=== PATIENT | female | born 1945 | race Caucasian/White ===

== ENCOUNTER 2018-04-16 15:48 | Emergency (ER) | payer OTHER ==
--- OUTSIDE RECORDS SUMMARY | 2018-04-16 15:50 | XMS REPORT | Clinical Summary ---
:1945 Author Organization [facility] Address [address] [place] [address] Care Team Providers Name Role Phone Milad Avila MD Primary Care Provider Allergies Not on File Current Medications No known medications Active Problems No known active problems Encounters Date Type Specialty Care Team Description 11/09/2017 Office Visit Orthopedic Surgery Tony Dexter Closed displaced supracondylar fracture of distal end of left femur without intracondylar extension, initial encounter (Primary Dx); MD Esdras Pain of left hip joint; Acute pain of left knee; Primary osteoarthritis of left knee; History of total left hip replacement 11/09/2017 Ancillary Orders Orthopedic Surgery Tony Dexter Acute pain of left MD Esdras knee 11/08/2017 Orders Only Orthopedic Surgery Maribel Rael Closed fracture of left femur, unspecified fracture morphology, unspecified portion of femur, initial encounter (Primary Dx) 11/04/2017 Orders Only Orthopedic Surgery Rory Pedroza PA-C after 04/15/2017 Social History Tobacco Use Types Packs/Day Years Used Date Never Assessed Sex Assigned at Date Recorded Not on file Last Filed Vital Signs Not on file Plan of Treatment Health Maintenance Due Date Last Done Comments BREAST CANCER SCREENING 1997 COLON CANCER SCREENING 1997 SHINGRIX VACCINE (#1) 1997 ZOSTER VACCINE 2007 PNEUMOCOCCAL POLYSACCHARIDE VACCINE AGE 65 AND OVER 2012 PNEUMOCOCCAL-13 2012 INFLUENZA VACCINE 03/01/2018 Procedures Procedure Name Priority Date/Time Associated Diagnosis Comments XR FEMUR 2 VW LEFT Routine 11/09/2017 2:31 PM Closed fracture of Results for this CDT left femur, procedure are in unspecified fracture the results morphology, section. unspecified portion of femur, initial encounter XR KNEE 3 VW LEFT Routine 11/09/2017 2:30 PM Acute pain of left Results for this CDT knee procedure are in the results section. after 04/15/2017 Results XR Femur 2 Vw Left (11/09/2017 2:31 PM) Narrative Performed At [facility] comminuted post ORIF fracture left femur.Hip prosthesis in place [facility] Performing Organization Address [facility] Phone Number [facility] [address] [place] [address] XR Knee 3 Vw Left (11/09/2017 2:30 PM) Narrative Performed At [facility] post ORIF supracondylar fracture left femur, osteopenia, Loss of [facility] joint space left knee Performing Organization Address [facility] Phone Number [facility] [address] [place] [address] after 04/15/2017 Insurance Payer Benefit Plan / Group Subscriber ID Type Phone Address MEDICARE MEDICARE PART A AND B xxxxxxxxxx Medicare [place], [place] [employer] xxxxxxxx Commercial Home: [id number] [phone] [place], [place] [id number]
[2018-04-16] MEDS ORDERED: HYDROCODONE/APAP 10/325 TAB ONE (16:57)
[2018-04-16] MEDS ORDERED: FENTANYL CITR 100 MCG/2 ML ONE (16:57)
[2018-04-16 18:20] LABS: Absolute Lymphocytes (CBC) 2.1 K/uL (0.7-4.9); Absolute Monocytes 0.6 K/uL (0.1-1.3); Absolute Neutrophil 5.2 K/uL (1.8-8.0); Basophils % 0.5 % (0-1.3); Eosinophils % 0.8 % (0-4.4); Hematocrit 35.8 % (36.0-45.0); Lymphocytes % 26.2 % (15.3-44.8); MCH 34.4 pg (27.0-35.0); MCV 100.7 fL (80-100); MPV 8.1 fL (7.6-11.3); Monocytes % 7.4 % (3.3-12.3); RBC Red Blood Cell Count 3.56 M/uL (3.86-4.86)
[2018-04-16 18:34] LABS: Potassium 4.6 mmol/L (3.5-5.1)
--- NOTE | 2018-04-16 19:00 | RAD REPORT ---
EXAM DESCRIPTION: RAD - Shoulder Left 2 View - 04/16/2018 6:02 pm CLINICAL HISTORY: Fall, shoulder pain COMPARISON: None. TECHNIQUE: Internal and external rotation views of the left shoulder were obtained. FINDINGS: Clavicle is fractured at the AC joint. There is no distraction or angulation deformity. No fracture or dislocation of the proximal humerus. Degenerative changes are present in the superolater al humeral head. No abnormal soft tissue calcifications. Acromial humeral joint space is normal. IMPRESSION: Clavicle is fractured near the AC joint. No distraction or angulation deformity.
--- NOTE | 2018-04-16 19:02 | RAD REPORT ---
EXAM DESCRIPTION: RAD - Knee Left 3 View - 04/16/2018 6:02 pm CLINICAL HISTORY: Fall, knee pain COMPARISON: January 2015 left knee, CT left femur May 2017 FINDINGS: No acute fracture of the proximal tibia or fibula. Bones are osteopenic. There is degenera tive change within the joint with medial compartment narrowing. Surgical hardware is in place from pr ior distal femur fracture repair.No hardware fracture. Fracture site shows a mostly complete bony uni on pattern. Posterior margin of the cortex shows a mixed bone and fibrous bridging pattern. An acute distal femur process is not suspected. No air or foreign body in the soft tissues. IMPRESSION: Osteopenic, degenerative and postsurgical changes to the distal left femur and knee. An acute bone, joint or or hardware process not seen.
--- NOTE | 2018-04-16 19:03 | RAD REPORT ---
EXAM DESCRIPTION: RAD - Elbow Left 2 View - 04/16/2018 6:02 pm CLINICAL HISTORY: Fall, elbow pain COMPARISON: None. FINDINGS: No fracture is identified and no elevated posterior fat pad. There is no dislocation or pe riosteal reaction noted. No foreign body or other soft tissue abnormality. Bones are osteopenic. IMPRESSION: Negative left elbow examination for acute finding.
--- NOTE | 2018-04-16 19:46 | RAD REPORT ---
EXAM DESCRIPTION: CT - Chest Abdomen Pelvis W Cont - 04/16/2018 7:04 pm CLINICAL HISTORY: Fall, chest and abdomen pain COMPARISON: None. TECHNIQUE: Following dynamic enhancement using 100 milliliters nonionic IV contrast, axial imaging o f the chest, abdomen and pelvis was performed. Biphasic technique was utilized through the abdomen. Oral contrast was administered. All CT scans are performed using dose optimization technique as appropriate and may include automated exposure control or mA/KV adjustment according to patient size. FINDINGS: No pulmonary contusion or acute lung parenchymal process. There are several calcified gran ulomas seen. There are also several noncalcified nodules under 5 mm in size. These are probably granu shaggy as well. There is no specific follow-up recommendation for a nodule of this size. No pleural ef fusion, pleural thickening or pneumothorax. No significant aortic or pulmonary arterial tree finding. Mediastinal and hilar regions show no mass or abnormal lymphadenopathy. No chest wall mass or axilla ry lymphadenopathy. No pericardial effusion. No rib fractures are identified. No fracture or dislocation of the left humerus. Clavicle is fracture d at the AC joint. There is a comminuted fracture involving the superior aspect of the glenoid. The f racture pattern includes fracture at the base of the coracoid process which is now a free fragment. N o significant displacement. The articular surface of the glenoid is not appear to be involved. Acromi on is incompletely imaged. No displacement deformity. Contusion and edema changes are seen in the dave rounding soft tissues. Right shoulder is only partially imaged. The liver, spleen and pancreas show no suspicious findings. Gallbladder is absent. No biliary tree di latation. Liver is borderline fatty infiltrated. Symmetric renal function is seen with no mass or hyd ronephrosis. No adrenal abnormalities. No dilated bowel loops or focal bowel wall thickening. No acute GI findings seen. Left hip prosthesis in place. Bony degenerative changes are present. No additional acute fracture shelbi nges identifiable. Posterior right twelfth rib fracture appears to be remote. No significant vascular findings. IMPRESSION: Comminuted fracture of the scapula at the glenoid. The articular surface is not involved . Coracoid process is a free fracture fragment. Left acromion is not fully imaged. Displaced or angulated fracture is not suspected. The lateral clav icle is fractured at the AC joint. No pulmonary contusion, pneumothorax or acute lung parenchymal process. There are calcified and nonca lcified granulomas present. No acute rib fracture. Old posterior right twelfth rib fracture is present. No acute finding in the abdomen or pelvis.
--- NOTE | 2018-04-16 20:45 | ER ---
Nurse's Notes [facility] Name: Yi Marroquin Age: 72 yrs Sex: Female : 1945 Arrival Date: 04/16/2018 Time: 16:02 Bed 30 Private MD: Diagnosis: Fracture of clavicle Presentation: 04/16 16:02 Presenting complaint: EMS states: she was using her walker last night and it mg2 accidentally turn and she fell on her left side, she sustained trauma on her left shoulder and arm. she received 100 mcg of fentanyl and 4 mg of zofran. Transition of care: patient was not received from another setting of care. Onset of symptoms was April 15, 2018. Risk Assessment: Do you want to hurt yourself or someone else? Patient reports no desire to harm self or others. Initial Sepsis Screen: Does the patient meet any 2 criteria? No. Patient's initial sepsis screen is negative. Does the patient have a suspected source of infection? No. Patient's initial sepsis screen is negative. Care prior to arrival: Medication(s) given: zofran 4 mg, fentanyl 100 mcg. 16:02 Method Of Arrival: EMS mg2 16:02 Acuity: DIANE 3 mg2 Historical: - Allergies: 16:08 Sulfa (Sulfonamide Antibiotics); mg2 16:08 Ciprofloxacin; mg2 16:08 Morphine; mg2 16:08 Nitrofurantoin; mg2 16:08 Phenergan; mg2 - Home Meds: 16:08 escitalopram oxalate Oral [Active]; Furosemide Oral [Active]; hydrocodone-acetaminophen mg2 10-500 mg Oral tab [Active]; Lorazepam Oral [Active]; Metoprolol Tartrate Oral [Active]; Zolpidem Tartrate Oral [Active]; insulin lispro subcutaneous [Active]; Methocarbamol Oral [Active]; Ramipril Oral [Active]; Simvastatin Oral [Active]; 19:10 gabapentin 300 mg oral cap 1 cap 3 times per day [Active]; omeprazole 20 mg Oral cpDR 1 mg2 cap once daily [Active]; potassium chloride 10 mEq Oral cpER 1 cap once daily [Active]; senna 8.6 mg oral cap 2 caps once daily for Constipation [Active]; tramadol 50 mg Oral tab 1 tab every 6 hours for Pain, prn [Active]; Vitamin D Oral 50,000 unit every week x 8 weeks [Active]; Ambien 5 mg Oral tab 1 tab once daily for Sleep-Onset Insomnia [Active]; atorvastatin 10 mg oral tab 1 tab once daily [Active]; cranberry oral oral [Active]; diphenhydramine HCl 25 mg Oral cap 1 cap prn for Allergic Reactions [Active]; - PMHx: 16:08 Depression; Diabetes - NIDDM; Hyperlipidemia; Hypertension; mg2 - PSHx: 16:08 hip surgery; knee plate; mg2 - Immunization history:: Flu vaccine status is unknown. - Social history:: Smoking status: Patient/guardian denies using tobacco, but has a distant history of tobacco abuse, Patient/guardian denies using alcohol, street drugs, IV drugs. - Ebola Screening: : No symptoms or risks identified at this time. Screenin:23 Abuse screen: Denies threats or abuse. Denies injuries from another. Nutritional mg2 screening: No deficits noted. Tuberculosis screening: No symptoms or risk factors identified. Fall Risk Fall in past 12 months (25 points). IV access (20 points). Gait- Weak (10 pts.). Assessment: 17:15 General: Appears in no apparent distress. uncomfortable, Behavior is calm, cooperative. mg2 Pain: Complains of pain in left shoulder and forearm Pain does not radiate. Pain currently is 6 out of 10 on a pain scale. Quality of pain is described as aching, Pain began suddenly, 1 day ago. Neuro: Level of Consciousness is awake, alert, obeys commands, Oriented to person, place, time, situation. Cardiovascular: Capillary refill < 3 seconds Patient's skin is warm and dry. Respiratory: Airway is patent Respiratory effort is even, unlabored, Respiratory pattern is regular, symmetrical. GI: No signs and/or symptoms were reported involving the gastrointestinal system. : No signs and/or symptoms were reported regarding the genitourinary system. 18:13 Reassessment: Patient appears in no apparent distress at this time. Patient and/or mg2 family updated on plan of care and expected duration. Pain level reassessed. Patient is alert, oriented x 3, equal unlabored respirations, skin warm/dry/pink. 19:02 Reassessment: Patient appears in no apparent distress at this time. Patient and/or mg2 family updated on plan of care and expected duration. Pain level reassessed. Patient is alert, oriented x 3, equal unlabored respirations, skin warm/dry/pink. 19:12 Reassessment: patient in ct scan now. mg2 Vital Signs: 16:09 BP 121 / 53; Pulse 65; Resp 18; Temp 98.9; Pulse Ox 98% on R/A; Weight 95.71 kg; Height mg2 5 ft. 2 in. (157.48 cm); Pain 8/10; 17:00 BP 135 / 56; Pulse 60; Resp 18; Pulse Ox 100% on R/A; mg2 18:13 BP 144 / 68; Pulse 65; Resp 18; Pulse Ox 98% ; Pain 5/10; mg2 16:09 Body Mass Index 38.59 (95.71 kg, 157.48 cm) mg2 ED Course: 16:02 Patient arrived in ED. mg2 16:05 Triage completed. mg2 16:09 Sky Dao PA is PHCP. jm 16:09 Beata Albert MD is Attending Physician. jmm 16:09 Arm band placed on. mg2 16:09 Maintain EMS IV. Dressing intact. Good blood return noted. Site clean \T\ dry. Gauge \T\ mg 2 site: 20 in RFA. 16:49 Moises Calderon, RN is Primary Nurse. mg2 18:02 Shoulder Left (2 View) XRAY In Process Unspecified. EDMS 18:02 Knee Left 3 View XRAY In Process Unspecified. EDMS 18:02 Elbow Left 2 View In Process Unspecified. EDMS 18:13 Patient has correct armband on for positive identification. Pulse ox on. NIBP on. mg2 19:04 CT Chest, Abdomen, Pelvis - W/Contrast In Process Unspecified. EDMS 19:15 CT completed. Patient tolerated procedure well. Patient moved back from CT. sj 20:44 Carlos Lopez MD is Referral Physician. jmm 21:19 No provider procedures requiring assistance completed. IV discontinued, intact, mg2 bleeding controlled, No redness/swelling at site. Pressure dressing applied. 21:20 Shoulder immobilizer applied on left shoulder. mg2 Administered Medications: 17:03 Drug: [place] 10 mg-325 mg 1 tabs Route: PO; mg2 19:02 Follow up: Response: No adverse reaction; Marked relief of symptoms mg2 17:04 Drug: fentaNYL (PF) 25 mcg Route: IVP; Site: right forearm; mg2 19:02 Follow up: Response: No adverse reaction; Marked relief of symptoms mg2 19:40 Drug: fentaNYL (PF) 25 mcg Route: IVP; Site: right forearm; mg2 21:19 Follow up: Response: No adverse reaction; Marked relief of symptoms mg2 Outcome: 20:45 Discharge ordered by . clifton 21:20 Discharged to home via wheelchair, with family. mg2 21:20 Condition: stable 21:20 Discharge instructions given to patient, family, Instructed on discharge instructions, follow up and referral plans. Demonstrated understanding of instructions, follow-up care. 21:20 Patient left the ED. mg2 Signatures: Dispatcher [employer] EDMS Sky Dao PA PA jmm Jones, Susan sj Gardose, Michele, RN RN mg2 Corrections: (The following items were deleted from the chart) 17:24 17:23 Fall Risk None identified. mg2 mg2 18:42 18:13 Pulse 65bpm; Resp 18bpm; Pulse Ox 98%; Pain 5/10; mg2 mg2
--- NOTE | 2018-04-16 20:45 | EDPHYS ---
Physician Documentation [facility] Name: Yi Marroquin Age: 72 yrs Sex: Female : 1945 Arrival Date: 04/16/2018 Time: 16:02 Bed 30 Private MD: ED Physician Beata Albert HPI: 04/16 16:42 This 72 yrs old Female presents to ER via EMS with complaints of Left side jmm pain. 16:42 Details of fall: The patient fell from an upright position, while standing. Onset: The jmm symptoms/episode began/occurred acutely, just prior to arrival. Associated injuries: The patient sustained. This is a 72 year old female with a history of DM, HLP, HTN that presents to the ED with left arm pain, left hip pain, left knee pain following a fall which occurred when she was attempting to stand up from a rocker. Patient states the rocker swung into her on the way on standing. . Historical: - Allergies: 16:08 Sulfa (Sulfonamide Antibiotics); mg2 16:08 Ciprofloxacin; mg2 16:08 Morphine; mg2 16:08 Nitrofurantoin; mg2 16:08 Phenergan; mg2 - Home Meds: 16:08 escitalopram oxalate Oral [Active]; Furosemide Oral [Active]; hydrocodone-acetaminophen mg2 10-500 mg Oral tab [Active]; Lorazepam Oral [Active]; Metoprolol Tartrate Oral [Active]; Zolpidem Tartrate Oral [Active]; insulin lispro subcutaneous [Active]; Methocarbamol Oral [Active]; Ramipril Oral [Active]; Simvastatin Oral [Active]; 19:10 gabapentin 300 mg oral cap 1 cap 3 times per day [Active]; omeprazole 20 mg Oral cpDR 1 mg2 cap once daily [Active]; potassium chloride 10 mEq Oral cpER 1 cap once daily [Active]; senna 8.6 mg oral cap 2 caps once daily for Constipation [Active]; tramadol 50 mg Oral tab 1 tab every 6 hours for Pain, prn [Active]; Vitamin D Oral 50,000 unit every week x 8 weeks [Active]; Ambien 5 mg Oral tab 1 tab once daily for Sleep-Onset Insomnia [Active]; atorvastatin 10 mg oral tab 1 tab once daily [Active]; cranberry oral oral [Active]; diphenhydramine HCl 25 mg Oral cap 1 cap prn for Allergic Reactions [Active]; - PMHx: 16:08 Depression; Diabetes - NIDDM; Hyperlipidemia; Hypertension; mg2 - PSHx: 16:08 hip surgery; knee plate; mg2 - Immunization history:: Flu vaccine status is unknown. - Social history:: Smoking status: Patient/guardian denies using tobacco, but has a distant history of tobacco abuse, Patient/guardian denies using alcohol, street drugs, IV drugs. - Ebola Screening: : No symptoms or risks identified at this time. ROS: 16:42 Constitutional: Negative for fever, chills, and weight loss, Cardiovascular: Negative jmm for chest pain, palpitations, and edema, Respiratory: Negative for shortness of breath, cough, wheezing, and pleuritic chest pain, Abdomen/GI: Negative for abdominal pain, nausea, vomiting, diarrhea, and constipation. 16:42 MS/extremity: Positive for injury or acute deformity, pain. 16:42 All other systems are negative. Exam: 16:42 Head/Face: atraumatic. Chest/axilla: Normal chest wall appearance and motion. jmm Cardiovascular: Regular rate and rhythm. No edema appreciated Respiratory: Normal respirations, no respiratory distress appreciated 16:42 Constitutional: The patient appears in no acute distress, alert, awake. 16:42 Abdomen/GI: Inspection: abdomen appears normal, Bowel sounds: normal, Palpation: abdomen is soft and non-tender, in all quadrants, soft. 16:42 Musculoskeletal/extremity: left shoulder, left humerus tender to palpation, left knee is tender to palpation, painful rom appreciated, compartments are soft, NVI. 16:42 Skin: Appearance: Color: normal in color. 16:42 Neuro: Orientation: is normal, Mentation: is normal, Memory: is normal. 16:42 Psych: Behavior/mood is pleasant, cooperative. Vital Signs: 16:09 BP 121 / 53; Pulse 65; Resp 18; Temp 98.9; Pulse Ox 98% on R/A; Weight 95.71 kg; Height mg2 5 ft. 2 in. (157.48 cm); Pain 8/10; 17:00 BP 135 / 56; Pulse 60; Resp 18; Pulse Ox 100% on R/A; mg2 18:13 BP 144 / 68; Pulse 65; Resp 18; Pulse Ox 98% ; Pain 5/10; mg2 16:09 Body Mass Index 38.59 (95.71 kg, 157.48 cm) mg2 Procedures: 21:13 Splinting: Splint applied to left arm using shoulder immobilizer. applied by nurse. clifton Examined by me, post splint application: neurovascular intact, 2+ distal pulses palpable, brisk capillary refill noted, Patient tolerated well. MDM: 16:34 Patient medically screened. [facility] 20:44 Data reviewed: vital signs, nurses notes. Counseling: I had a detailed discussion with clifton the patient and/or guardian regarding: the historical points, exam findings, and any diagnostic results supporting the discharge/admit diagnosis, radiology results, the need for outpatient follow up, to return to the emergency department if symptoms worsen or persist or if there are any questions or concerns that arise at home. Response to treatment: the patient's symptoms have markedly improved after treatment. 21:14 Data interpreted: Pulse oximetry: on room air is 98 %. Interpretation: normal. [facility] 04/16 16:36 Order name: CBC with Diff [facility] 04/16 16:36 Order name: BMP [facility] 04/16 16:36 Order name: CT Chest, Abdomen, Pelvis - W/Contrast; Complete Time: 19:53 [facility] 04/16 16:36 Order name: Shoulder Left (2 View) XRAY; Complete Time: 19:09 [facility] 04/16 16:37 Order name: CBC with Automated Diff; Complete Time: 18:29 [facility] 04/16 16:37 Order name: Basic Metabolic Panel; Complete Time: 18:34 [facility] 04/16 16:36 Order name: Saline Lock; Complete Time: 17:15 [facility] 04/16 16:36 Order name: Knee Left 3 View XRAY; Complete Time: 19:09 [facility] 04/16 18:02 Order name: Elbow Left 2 View; Complete Time: 19:09 [facility] 04/16 20:23 Order name: Shoulder Immobilizer; Complete Time: 21:19 [facility] Administered Medications: 17:03 Drug: [place] 10 mg-325 mg 1 tabs Route: PO; mg2 19:02 Follow up: Response: No adverse reaction; Marked relief of symptoms mg2 17:04 Drug: fentaNYL (PF) 25 mcg Route: IVP; Site: right forearm; mg2 19:02 Follow up: Response: No adverse reaction; Marked relief of symptoms mg2 19:40 Drug: fentaNYL (PF) 25 mcg Route: IVP; Site: right forearm; mg2 21:19 Follow up: Response: No adverse reaction; Marked relief of symptoms mg2 Disposition: 04/16/18 20:45 Discharged to Home. Impression: Fracture of clavicle. - Condition is Stable. - Discharge Instructions: Clavicle Fracture. - Medication Reconciliation Form, Thank You Letter, Antibiotic Education, Prescription Opioid Use form. - Follow up: Carlos Lopez MD; When: 2 - 3 days; Reason: Recheck today's complaints, Continuance of care, Re-evaluation by your physician. Signatures: Dispatcher [employer] EDPR Sky Dao PA PA m Moises Calderon, RN RN mg2 Corrections: (The following items were deleted from the chart) 18:02 16:37 Elbow Left 3 View+RAD.RAD.[email or web address] ordered. [facility] 21:20 20:45 04/16/2018 20:45 Discharged to Home. Impression: Fracture of clavicle. Condition mg2 is Stable. Forms are Medication Reconciliation Form, Thank You Letter, Antibiotic Education, Prescription Opioid Use. Follow up: Carlos Lopez; When: 2 - 3 days; Reason: Recheck today's complaints, Continuance of care, Re-evaluation by your physician. clifton
[2018-04-16 21:49] VITALS: TEMP 98.9
[2018-04-16 21:51] VITALS: BP 144/68; O2SAT 98
== END 2018-04-16 21:20 | disposition home or self-care (01) ==
LOC: ER 15:48
PROC: 2W39X1Z Immobilization of Left Upper Extremity using Splint (ICD-10-PCS; principal; 2018-04-16)
DX: S42.002A Fracture of unspecified part of left clavicle, initial encounter for closed fracture (principal); W19.XXXA Unspecified fall, initial encounter; Y93.89 Activity, other specified; Y92.9 Unspecified place or not applicable; Z88.2 Allergy status to sulfonamides; Z88.3 Allergy status to other anti-infective agents; Z88.5 Allergy status to narcotic agent; Z88.8 Allergy status to other drugs, medicaments and biological substances; Z79.4 Long term (current) use of insulin; I10 Essential (primary) hypertension; E78.5 Hyperlipidemia, unspecified; E11.9 Type 2 diabetes mellitus without complications; F32.9 Major depressive disorder, single episode, unspecified
CPT/HCPCS: 29105; 36415; 71260; 73030; 73070; 73562; 74177; 80048; 85025; 96374; 99284; J3010; Q9967

== ENCOUNTER 2019-01-15 12:45 | Emergency (ER) | payer OTHER ==
--- OUTSIDE RECORDS SUMMARY | 2019-01-15 12:52 | XMS REPORT ---
:1945 [facility] [address] [place] [address] Care Team Providers Name Role Phone Unavailable Unavailable Unavailable Payers Payer Name Policy Type Policy Number Effective Date Expiration Date Problems This patient has no known problems. Allergies, Adverse Reactions, Alerts This patient has no known allergies or adverse reactions. Medications This patient has no known medications. Results Test Description Test Time Test Comments Text Results Atomic Results Result Comments PROTHROMBIN TIME 2018-12-20 16:04:00 Test Item Value Reference Range Comments PT PATIENT (test code=PTP) 10.3 SECONDS 9.3-12.9 INTERNATIONAL NORMAL RATIO (test code=INR) 0.90 INR Unit 0.8-1.2 THROMBOPLASTIN TIME [id number] 16:04:00 Test Item Value Reference Range Comments THROMBOPLASTIN TIME PARTIAL (test code=PTT) 25.8 SECONDS 26-35 COMPREHENSIVE METABOLIC [id number] 16:03:00 Test Item Value Reference Range Comments SODIUM (test code=NA) 140 mmol/L 134-147 POTASSIUM (test code=K) 5.0 mmol/L 3.4-5.0 CHLORIDE (test code=CL) 106 mmol/L 100-108 CARBON DIOXIDE (test code=CO2) 32 mmol/L 21-32 ANION GAP (test code=GAP) 2.0 GAP calc 4.0-15.0 GLUCOSE (test code=GLU) 92 MG/DL 70-110 BLOOD UREA NITROGEN (test code=BUN) 20 MG/DL 7-18 GLOMERULAR FILTRATION RATE (test >=60 max estimate estGFR >60 code=GFR) CREATININE (test code=CREAT) 0.6 MG/DL 0.6-1.0 TOTAL PROTEIN (test code=PROT) 6.9 G/DL 6.4-8.2 ALBUMIN (test code=ALB) 3.2 G/DL 3.4-5.0 GLOBULIN (test code=GLOB) 3.7 GM/dL ALBUMIN/GLOBULIN RATIO (test 0.9 RATIO 1.2-2.2 code=A/G) CALCIUM (test code=CA) 9.0 MG/DL 8.5-10.1 BILIRUBIN TOTAL (test code=BILT) 0.40 MG/DL 0.2-1.2 SGOT/AST (test code=AST) 52 Unit/L 15-37 SGPT/ALT (test code=ALT) 43 Unit/L 12-78 ALKALINE PHOSPHATASE TOTAL (test 155 Unit/L 45-117 code=ALKP) CBC W/AUTO [id number] 15:47:00 Test Item Value Reference Range Comments WHITE BLOOD CELL (test code=WBC) 6.2 K/mm3 3.5-11.0 RED BLOOD CELL (test code=RBC) 3.41 M/mm3 4.70-6.10 HEMOGLOBIN (test code=HGB) 12.4 G/DL 10.4-14.9 HEMATOCRIT (test code=HCT) 37.6 % 31.5-44.1 MEAN CELL VOLUME (test code=MCV) 110.3 Fl 84.5-98.6 MEAN CELL HGB (test code=MCH) 36.4 pg 27.0-34.2 MEAN CELL HGB CONCETRATION (test code=MCHC) 33.0 G/DL 31.5-34.0 RED CELL DISTRIBUTION WIDTH (test code=RDW) 14.4 SD 11.5-14.5 PLATELET COUNT (test code=PLT) 155.0 K/mm3 150-450 MEAN PLATELET VOLUME (test code=MPV) 9.10 fL 7.0-10.5 NEUTROPHIL % (test code=NT%) 45.7 % 40-76 LYMPHOCYTE % (test code=LY%) 43.9 % 20.5-51.1 MONOCYTE % (test code=MO%) 6.3 % 1.7-9.3 EOSINOPHIL % (test code=EO%) 3.9 % 0.0-6.0 BASOPHIL % (test code=BA%) 0.2 % 0.0-2.0 NEUTROPHIL # (test code=NT#) 2.81 K/mm3 1.8-7.6 LYMPHOCYTE # (test code=LY#) 2.7 K/mm3 0.6-3.2 MONOCYTE # (test code=MO#) 0.4 K/mm3 0.3-1.1 EOSINOPHIL # (test code=EO#) 0.2 K/mm3 0.0-0.4 BASOPHIL # (test code=BA#) 0.0 K/mm3 0.0-0.1 MANUAL DIFF REQUIRED (test code=MDIFF) NO DIFF/SCN CRITERIA - DUP VEIN UNI [id number] 15:17:00 Name: ALFONSO CASTORENA [place] : 1945 Age/S: 73 / F [address] #: [id number] Loc: [place] [address] Phys: Arsenio Beckman III, MD Acct: [id number] Dis Date: Status: REG CLI PHONE #: [phone] Exam Date: 12/20/2018 6815 FAX #: Reason: JUGULARVEIN OCCLUSION EXAMS: CPT: [id number] [address] EXAMINATION: - DUP VEIN UNI LT. LOCATION: S 17. HISTORY: JUGULAR VEIN OCCLUSION. COMPARISON: None. TECHNIQUE: Ultrasound imaging of the left upper extremity veins was performed, including color and spectral Doppler examination. FINDINGS: There is patent flow and normal compressibility of the left internal jugular, external jugular, subclavian , axillary, brachial, basilic, median cubital, and radial veins. The left cephalic and ulnar veins are not well visualized. IMPRESSION: No sonographic evidence of left upper extremity extremity DVT. The left internal jugular and external jugular veins are patent. at 1517 Reported and signed by: Vianey Valdez M.D. CC: Arsenio Piña III, MD Technologist: Jesi Monsalve, RT(R),RD(AB) TrnscbDate/Time: 12/20/2018 ( 2495) [email or web address] PAGE 1 Signed Report Name: ALFONSO CASTORENA : 1945 Age/S: 73 / F [address] [address] #: [id number] Loc: [place] [address] Phys: Arsenio Beckman III, MD Acct: [id number] Dis Date: Status: REG CLI PHONE #: [phone] Exam Date: 12/20/2018 1445 FAX #: Reason: JUGULAR VEIN OCCLUSION EXAMS: CPT: [id number] DUP VEIN UNI [id number] <Continued> Orig Print D/T: S: 12/20/2018 (1520) Probe: PAGE 2 Signed Report- CT MAXIFAC [id number] 14:33:00 Name: ALOFNSO CASTORENA : 1945 Age /S: 73 / F [address] [address] #: [id number] Loc: [place] [address] Phys: Arsenio Beckman III, MD Acct: [id number] Dis Date: Status: REG CLI PHONE #: [phone] Exam Date: 11/23/2018 1229 FAX #: Reason: LT TEMPORAL MASS EXAMS: CPT: [id number] CT MAXIFAC W/ CONTRAST 03608 Location: T18 CT head, 11/23/18 TECHNIQUE: CT examination of the brain was performed without contrast on a helical scanner. Scanning conducted from skull base to vertex inthe axial plane acquiring contiguous 5mm slice thickness. The examination was performed on a updated helical CT scanner utilizing low-dose radiation technique. Automatic exposure control utilized to minimize radiation dose. CLINICAL HISTORY: Facial mass. ICD code R 22.0, posterior occipital mass, left temporal mass. COMPARISON EXAMS: CT examination of the maxillofacial structures and soft tissues of the neck conducted at the same time. FINDINGS: There is presence of a soft tissue mass seen along the left parietal region along the high convexity. It is hyperdense on noncontrast imaging without definite involvement of the calvarium. It is seen on images 21 through 27th of. It is also seenon sagittal imaging on images #37 and 38 measuring approximately 4 cm in cc dimension byapproximately 3.5 cm to 4 cm in AP dimension by approximately 7 to 8 mm in transverse size. It may be represented a hematoma given hyperdense components. It has relatively benign appearing imaging characteristics and is located fairly superficially. It has a somewhat curvilinear morphology without masslike features. No ball like morphology. There is no associated aggressive bony destruction. Additionally seen is a hyperdense lesion on noncontrasted imaging in the occiput region midline in location possibly indicative of a complex sebaceous cyst. It is seen on images #8 and 9 of series 2 measuring approximately 11 mm transverse size by 8.2 mm in AP dimension by approximately 1 cm in cc dimension embedded within the posterior scalp muscles without bony involvement. It is adjacent to an area of external occipital protuberance. No bony erosion is seen. It has benign appearing imaging characteristics butobviously if clinically of concern, correlation with biopsy may be helpful. It does notclearly exhibit enhancement on postcontrast imaging although this is difficult to assess giventhat is hyperdense on noncontrast imaging. No definite lesion is seen in the temporal region. Normal aeration of PAGE 1 Signed Report (CONTINUED) Name: ALFONSO CASTORENA [facility] : 1945 Age /S: 73 / F [address] #: [id number] Loc: [place] [address] Phys: Arsenio Beckman III, MD Acct: [id number] Dis Date: Status: REG CLI PHONE #: [phone] Exam Date: 11/23/2018 1225 FAX #: Reason: LT TEMPORAL MASS EXAMS: CPT: [id number] CT MAXIFAC W/ CONTRAST 46192 <Continued> mastoid air cells. No positive mass-effect, midlineshift, extra-axial fluid collections or intracranial hemorrhages seen. In particular, no subarachnoid hemorrhage is identified. No intra or extra-axial masses. Bone windows unremarkable. No significant sinus disease is noted. No acute territorial infarction is seen. There is age appropriate atrophy with moderate degree of microvascular changes. IMPRESSION: Midline hyperdense midline lesion on noncontrast imaging having benign appearing imaging characteristics in the occipital region embedded within the scalp muscles possibly indicative a complex sebaceous cyst without bony involvement. It is adjacent to an area of external occipital protuberance involving the occipital bone Curvilinear hyperdensity having imaging characteristics of a probable hematoma without bony involvement seen along the left parietal region fairly superficially located measuring approximately 4 x 3.5 by a centimeter in dimension. Atrophy and chronic microvascular changes elsewhere Location: T 18 CT neck and of the maxillofacial structures conducted on 11/23/18 TECHNIQUE: CT examination of the neck and maxillofacial structures was performed intravenous contrast. Patient given 100 mL of isovue 300 for contrast. 2D Reformatted images acquired sagittally and coronally on the PAC system using MPR software by interpreting radiologist. Scanning conducted in the axial plane contiguously from frontal region through thoracic inlet. The examination was performed on a updated helical CT scanner utilizing low-dose radiation technique. Automatic exposure control was utilized to reduce radiation dose CLINICAL HISTORY: Lump in left temporal region x3 days and mass on top PAGE 2 Signed Report (CONTINUED) Name: ALFONSO CASTORENA : 1945 Age/S: 73 / F [address] #: [id number] Loc: [place] [address] Phys: Arsenio Beckman III, MD Acct: [id number] Dis Date: Status: REG CLI PHONE #: [phone] Exam Date: 2018 1225 FAX #: Reason: LT TEMPORAL MASS EXAMS: CPT: [id number] CT MAXIFAC W/CONTRAST 27618 <Continued> of head. 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 Do not see a definite parotid lesion or definite focal abnormality in the left temporal region. No bony erosion of the temporal bone or of the mastoid air cells. Normal aeration of mastoid air cellsand of the middle ear cavity. No definite abnormality seen along the left external auditory canal. 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 Small degree of benign-appearing ethmoid air cell opacification is noted. There is a midline lesion without definite enhancement again seen in the occipital region embedded within the scalp muscles as discussed on the head CT exam possibly indicative a complex sebaceous cyst. It isadjacent to an area of external occipital protuberance, a bony variant. It has benign imaging characteristics measuring approximately a centimeter in size without bony involvement or erosion. Do not appreciate any compromise of the airway. No masses within the aerodigestive tract or pathological nodes. No mucosal abnormality of concern identified in the nasopharynx, oropharynx, hypopharynx or larynx. No salivary gland mass is seen. Assessment of the skull base unremarkable. Thyroid gland is unremarkable. Upper lung zones seen are unremarkable. No abnormal enhancing lesions is seen intracranially.Single benign- appearing dystrophic density associated with left external auditory canal on image #67 of series 2. IMPRESSION: No definite lesion seenin the left parotid gland or within the left temporal region No pathological-appearing nodes Probable benign density appearing hyperdense on noncontrast imaging embedded within the scalp muscles in the occipital region midline in PAGE 3 Signed Report (CONTINUED) Name: ALFONSO CASTORENA [place] : 1945 Age /S: 73 / F [address] [address] #: [id number] Loc: [place] [address] Phys: Arsenio Beckman III, MD Acct: [id number] Dis Date: Status: REG CLI PHONE #: [phone] Exam Date: 11/23/2018 1225 FAX #: Reason: LT TEMPORAL MASS EXAMS: CPT: [id number] CT MAXIFAC W/CONTRAST 80250 < Continued> location adjacent to an area of external occipital protuberance Some of the images are somewhat degraded due to motion but the exam is largely diagnostic. Electronically Signed by Andria Cruz on 2018 at 1433 Reported and signed by: Aury Cruz M.D. CC: Arsenio Beckman III, MD Technologist:Angela Mishra, RT(R)(MR) CTDI: DLP: Trnscb Date/Time: 11/23/2018 (1433) [email or web address] Orig Print D/T: S: 2018 (1436) CTDI: DLP: PAGE 4 Signed Report- CT HEAD/BRAIN W/O [id number] 14:33:00 Name: ALFONSO CASTORENA [place] : 1945 Age/S: 73 / F [address] [address] #: [id number] Loc: [place] [address] Phys: Arsenio Beckman III, MD Acct: [id number] Dis Date: Status : REG CLI PHONE #: [phone] Exam Date: 11/23/2018 1243 FAX #: Reason: POSTERIOR MASS EXAMS: CPT: [id number] CT HEAD/BRAIN W/O CONT 94881 Location: T18 CT head, 11/23/18 TECHNIQUE: CT examination of the brain was performed without contrast on a helical scanner. Scanning conducted from skull base to vertex inthe axial plane acquiring contiguous 5mm slice thickness. The examination was performed on a updated helical CT scanner utilizing low- dose radiation technique. Automatic exposure control utilized to minimize radiation dose. CLINICAL HISTORY: Facial mass. ICD code R 22.0, posterior occipital mass, left temporal mass. COMPARISON EXAMS: CT examination of the maxillofacial structures and soft tissues of the neck conducted at the same time. FINDINGS: There is presence of a soft tissue mass seen along the left parietal region along the high convexity. It is hyperdense on noncontrast imaging without definite involvement of the calvarium. It is seen on images 21 through 27th of. It is also seenon sagittal imaging on images #37 and 38 measuring approximately 4 cm in cc dimension byapproximately 3.5 cm to 4 cm in AP dimension by approximately 7 to 8 mm in transverse size. It may be represented a hematoma given hyperdense components. It has relatively benign appearing imaging characteristics and is located fairly superficially. It has a somewhat curvilinear morphology without masslike features. No ball like morphology. There is no associated aggressive bony destruction. Additionally seen is a hyperdense lesion on noncontrasted imaging in the occiput region midline in location possibly indicative of a complex sebaceous cyst. It is seen on images #8 and 9 of series 2 measuring approximately 11 mm transverse size by 8.2 mm in AP dimension by approximately 1 cm in cc dimension embedded within the posterior scalp muscles without bony involvement. It is adjacent to an area of external occipital protuberance. No bony erosion is seen. It has benign appearing imaging characteristics butobviously if clinically of concern, correlation with biopsy may be helpful. It does notclearly exhibit enhancement on postcontrast imaging although this is difficult to assess giventhat is hyperdense on noncontrast imaging. No definite lesion is seen in the temporal region. Normal aeration of PAGE 1 Signed Report (CONTINUED) Name: ALFONSO CASTORENA [place] : 1944 Age/S: 73 / F [address] [address] #: [id number] Loc: [place] [address] Phys: Arsenio Beckman III, MD Acct: [id number] Dis Date: Status: REG CLI PHONE #: [phone] Exam Date: 11/23/2018 1246 FAX #: Reason: POSTERIOR MASS EXAMS: CPT: [id number] CT HEAD/ BRAIN W/O CONT 31629 <Continued> mastoid air cells. No positive mass-effect, midlineshift, extra-axial fluid collections or intracranial hemorrhages seen. In particular, no subarachnoid hemorrhage is identified. No intra or extra-axial masses. Bone windows unremarkable. No significant sinus disease is noted. No acute territorial infarction is seen. There is age appropriate atrophy with moderate degree of microvascular changes. IMPRESSION: Midline hyperdense midline lesion on noncontrast imaging having benign appearing imaging characteristics in the occipital region embedded within the scalp muscles possibly indicative a complex sebaceous cyst without bony involvement. It is adjacent to an area of external occipital protuberance involving the occipital bone Curvilinear hyperdensity having imaging characteristics of a probable hematoma without bony involvement seen along the left parietal region fairly superficially located measuring approximately 4 x 3.5 by a centimeter in dimension. Atrophy and chronic microvascular changes elsewhere Location: T 18 CT neck and of the maxillofacial structures conducted on 11/23/18 TECHNIQUE: CT examination of the neck and maxillofacial structures was performed intravenous contrast. Patient given 100 mL of isovue 300 for contrast. 2D Reformatted images acquired sagittally and coronally on the PAC system using MPR software by interpreting radiologist. Scanning conducted in the axial plane contiguously from frontal region through thoracic inlet. The examination was performed on a updated helical CT scanner utilizing low-dose radiation technique. Automatic exposure control was utilized to reduce radiation dose CLINICAL HISTORY: Lump in left temporal region x3 days and mass on top PAGE 2 Signed Report (CONTINUED) Name: ALFONSO CASTORENA [place] : 1945 Age/S: 73 / F [address] [address] #: [id number] Loc: [place] [address] Phys: Arsenio Beckman III, MD Acct: [id number] Dis Date: Status: REG CLI PHONE #: [phone] Exam Date: 2018 1243 FAX #: Reason: POSTERIOR MASS EXAMS: CPT: [id number] CT HEAD/BRAIN W/O CONT 48342 <Continued> of head. 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 Do not see a definite parotid lesion or definite focal abnormality in the left temporal region. No bony erosion of the temporal bone or of the mastoid air cells. Normal aeration of mastoid air cellsand of the middle ear cavity. No definite abnormality seen along the left external auditory canal. 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 Small degree of benign-appearing ethmoid air cell opacification is noted. There is a midline lesion without definite enhancement again seen in the occipital region embedded within the scalp muscles as discussed on the head CT exam possibly indicative a complex sebaceous cyst. It isadjacent to an area of external occipital protuberance, a bony variant. It has benign imaging characteristics measuring approximately a centimeter in size without bony involvement or erosion. Do not appreciate any compromise of the airway. No masses within the aerodigestive tract or pathological nodes. No mucosal abnormality of concern identified in the nasopharynx, oropharynx, hypopharynx or larynx. No salivary gland mass is seen. Assessment of the skull base unremarkable. Thyroid gland is unremarkable. Upper lung zones seen are unremarkable. No abnormal enhancing lesions is seen intracranially.Single benign- appearing dystrophic density associated with left external auditory canal on image #67 of series 2. IMPRESSION: No definite lesion seenin the left parotid gland or within the left temporal region No pathological-appearing nodes Probable benign density appearing hyperdense on noncontrast imaging embedded within the scalp muscles in the occipital region midline in PAGE 3 Signed Report (CONTINUED) Name: ALFONSO CASTORENA : 1945 Age /S: 73 / F [address] [address] #: [id number] Loc: [place] [address] Phys: Arsenio Beckman III, MD Acct: [id number] Dis Date: Status: REG CLI PHONE #: [phone] Exam Date: 11/23/2018 1243 FAX #: Reason: POSTERIOR MASS EXAMS: CPT: [id number] CT HEAD/BRAIN W/O CONT 32248 &lt ;Continued> location adjacent to an area of external occipital protuberance Some of the images are somewhat degraded due to motion but the exam is largely diagnostic. Electronically Signed by Andria Cruz on 2018 at 1433 Reported and signed by: Aury Cruz M.D. CC: Arsenio Beckman III, MD Technologist:Angela Mishra, RT(R)(MR) CTDI: DLP: Trnscb Date/Time: 11/23/2018 (1432) [email or web address] Orig Print D/T: S: 2018 (490) CTDI: DLP: PAGE 4 Signed Report- CT NECK W/[id number] 14:33:00 [facility] 1945 Age/S: 73 / F [address] [address] #: [id number] Loc: [place] [address] Phys: Arsenio Beckman III, MD Acct: [id number] Dis Date: Status: REG CLI PHONE #: [phone] Exam Date: 11/23/2018 1235 FAX #: Reason: FACIAL MAS EXAMS: CPT: [id number] CT NECK W/CONTRAST 94225 Location: T18 CT head, 11/23/18 TECHNIQUE: CT examination of the brain was performed without contrast on a helical scanner. Scanning conducted from skull base to vertex inthe axial plane acquiring contiguous 5mm slice thickness. The examination was performed on a updated helical CT scanner utilizing low-dose radiation technique. Automatic exposure control utilized to minimize radiation dose. CLINICAL HISTORY: Facial mass. ICD code R 22.0, posterior occipital mass, left temporal mass. COMPARISON EXAMS: CT examination of the maxillofacial structures and soft tissues of the neck conducted at the same time. FINDINGS: There is presence of a soft tissue mass seen along the left parietal region along the high convexity. It is hyperdense on noncontrast imaging without definite involvement of the calvarium. It is seen on images 21 through 27th of. It is also seenon sagittal imaging on images #37 and 38 measuring approximately 4 cm in cc dimension byapproximately 3.5 cm to 4 cm in AP dimension by approximately 7 to 8 mm in transverse size. It may be represented a hematoma given hyperdense components. It has relatively benign appearing imaging characteristics and is located fairly superficially. It has a somewhat curvilinear morphology without masslike features. No ball like morphology. There is no associated aggressive bony destruction. Additionally seen is a hyperdense lesion on noncontrasted imaging in the occiput region midline in location possibly indicative of a complex sebaceous cyst. It is seen on images #8 and 9 of series 2 measuring approximately 11 mm transverse size by 8.2 mm in AP dimension by approximately 1 cm in cc dimension embedded within the posterior scalp muscles without bony involvement. It is adjacent to an area of external occipital protuberance. No bony erosion is seen. It has benign appearing imaging characteristics butobviously if clinically of concern, correlation with biopsy may be helpful. It does notclearly exhibit enhancement on postcontrast imaging although this is difficult to assess giventhat is hyperdense on noncontrast imaging. No definite lesion is seen in the temporal region. Normal aeration of PAGE 1 Signed Report (CONTINUED) [facility] 1944 Age/S: 73 / F [address] [address] #: [id number] Loc: [place] [address] Phys: Arsenio Beckman III, MD Acct: [id number] Dis Date: Status: REG CLI PHONE #: [phone] Exam Date: 11/23/2018 123 FAX #: Reason: FACIAL MAS EXAMS: CPT: [id number] CT NECK W /CONTRAST 45283 <Continued> mastoid air cells. No positive mass-effect, midlineshift, extra-axial fluid collections or intracranial hemorrhages seen. In particular, no subarachnoid hemorrhage is identified. No intra or extra-axial masses. Bone windows unremarkable. No significant sinus disease is noted. No acute territorial infarction is seen. There is age appropriate atrophy with moderate degree of microvascular changes. IMPRESSION: Midline hyperdense midline lesion on noncontrast imaging having benign appearing imaging characteristics in the occipital region embedded within the scalp muscles possibly indicative a complex sebaceous cyst without bony involvement. It is adjacent to an area of external occipital protuberance involving the occipital bone Curvilinear hyperdensity having imaging characteristics of a probable hematoma without bony involvement seen along the left parietal region fairly superficially located measuring approximately 4 x 3.5 by a centimeter in dimension. Atrophy and chronic microvascular changes elsewhere Location: T 18 CT neck and of the maxillofacial structures conducted on 11/23/18 TECHNIQUE: CT examination of the neck and maxillofacial structures was performed intravenous contrast. Patient given 100 mL of isovue 300 for contrast. 2D Reformatted images acquired sagittally and coronally on the PAC system using MPR software by interpreting radiologist. Scanning conducted in the axial plane contiguously from frontal region through thoracic inlet. The examination was performed on a updated helical CT scanner utilizing low-dose radiation technique. Automatic exposure control was utilized to reduce radiation dose CLINICAL HISTORY: Lump in left temporal region x3 days and mass on top PAGE 2 Signed Report (CONTINUED) Name: ALFONSO CASTORENA Flippin : 1945 Age/S: 73 / F [address] [address] Unit #: [id number] Loc: [place] [address] Phys: Arsenio Beckman III, MD Acct: [id number] Dis Date: Status: REG CLI PHONE #: [phone] Exam Date: 2018 1235 FAX #: Reason: FACIAL MAS EXAMS: CPT: [id number] CT NECK W/CONTRAST 99851 <Continued> of head. 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 Do not see a definite parotid lesion or definite focal abnormality in the left temporal region. No bony erosion of the temporal bone or of the mastoid air cells. Normal aeration of mastoid air cellsand of the middle ear cavity. No definite abnormality seen along the left external auditory canal. 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 Small degree of benign-appearing ethmoid air cell opacification is noted. There is a midline lesion without definite enhancement again seen in the occipital region embedded within the scalp muscles as discussed on the head CT exam possibly indicative a complex sebaceous cyst. It isadjacent to an area of external occipital protuberance, a bony variant. It has benign imaging characteristics measuring approximately a centimeter in size without bony involvement or erosion. Do not appreciate any compromise of the airway. No masses within the aerodigestive tract or pathological nodes. No mucosal abnormality of concern identified in the nasopharynx, oropharynx, hypopharynx or larynx. No salivary gland mass is seen. Assessment of the skull base unremarkable. Thyroid gland is unremarkable. Upper lung zones seen are unremarkable. No abnormal enhancing lesions is seen intracranially.Single benign- appearing dystrophic density associated with left external auditory canal on image #67 of series 2. IMPRESSION: No definite lesion seenin the left parotid gland or within the left temporal region No pathological-appearing nodes Probable benign density appearing hyperdense on noncontrast imaging embedded within the scalp muscles in the occipital region midline in PAGE 3 Signed Report (CONTINUED) Name: ALFONSO CASTORENA : 1945 Age /S: 73 / F [address] [address] Unit #: [id number] Loc: [place] [address] Phys: Arsenio Beckman III, MD Acct: [id number] Dis Date: Status: REG CLI PHONE #: [phone] Exam Date: 11/23/2018 1235 FAX #: Reason: FACIAL MAS EXAMS: CPT: [id number] CT NECK W/CONTRAST 68858 < Continued> location adjacent to an area of external occipital protuberance Some of the images are somewhat degraded due to motion but the exam is largely diagnostic. Electronically Signed by Andria Cruz on 2018 at 1433 Reported and signed by: Aury Cruz M.D. CC: Arsenio Beckman III, MD Technologist:Angela Mishra, RT(R)(MR) CTDI: DLP: Trnscb Date/Time: 11/23/2018 (143) [email or web address] Orig Print D/T: S: 2018 (1436) CTDI: DLP: PAGE 4 Signed [id number] 12:02:00 Test Item Value Reference Range Comments ISTAT-GLUCOSE (test code=GLUP) 88 mg/dL 70-105 [id number] 12:02:00 Test Item Value Reference Range Comments ISTAT-BUN (test code=BUNP) mg/dL 8-26 BEDSIDE [id number] 12:02:00 Test Item Value Reference Range Comments BEDSIDE CREATININE (test code=CREATBED) mg/dL 0.6-1.3 [id number] 12:02:00 Test Item Value Reference Range Comments ISTAT-GLUCOSE (test code=GLUP) 88 mg/dL 70-105 [id number] 12:02:00 Test Item Value Reference Range Comments ISTAT-BUN (test code=BUNP) 15 mg/dL 8- BEDSIDE [id number] 12:02:00 Test Item Value Reference Range Comments BEDSIDE CREATININE (test code=CREATBED) mg/dL 0.6-1.3 [id number] 12:02:00 Test Item Value Reference Range Comments ISTAT-GLUCOSE (test code=GLUP) 88 mg/dL 70-105 [id number] 12:02:00 Test Item Value Reference Range Comments ISTAT-BUN (test code=BUNP) 15 mg/dL - BEDSIDE [id number] 12:02:00 Test Item Value Reference Range Comments BEDSIDE CREATININE (test code=CREATBED) 0.7 mg/dL 0.6-1.3
--- OUTSIDE RECORDS SUMMARY | 2019-01-15 12:52 | XMS REPORT ---
:1945 Author Organization [employer] Care Team Providers Name Role Phone Pushpa Keane Provider Role Unavailable Allergies, Adverse Reactions, Alerts Substance Reaction Event Type MORPHINE Info Not Available Drug Allergy Phenergan Info Not Available Drug Allergy Nitrofurantoin Info Not Available Drug Allergy Ciprofloxacin Info Not Available Drug Allergy Problems Problem Type Condition Code Onset Dates Condition Status Problem Closed traumatic minimally S42.032D Active displaced fracture of acromial end of left clavicle with routine healing Problem Closed traumatic minimally S42.032A Active displaced fracture of acromial end of left clavicle, initial encounter Problem Pain of left clavicle M89.8X1 Active Assessment Open wounds of multiple sites of S61.401A Active hand, right, initial encounter Problem Fall from chair, initial encounter W07.XXXA Active Problem Pain, joint, shoulder, right M25.511 Active Medications Medication Code Code Instructions Start End Status Dosage System Date Date Lorazepam ND 87006217223 1 MG Orally Sept Active 1 tablet at Once a day 19, bedtime as 2018 needed Lexapro ND 76295146822 20 MG Orally Sept Active 0.5 tablet Once a day 2017 Hydrocodone-Aceta ND 33277295094 10-325 MG Sept Active 1 tablet as minophen Orally every 6 19, needed hrs 2018 Lovenox ND 67803069830 30 MG/0.3ML Sept Active 0.3 ml Subcutaneous 19, every 12 hrs 2017 Omeprazole ND 34156038276 20 MG Orally Active 1 capsule Once a day Methocarbamol ND 61157828174 750 MG Orally Sept Active 1 tablet every 4 hrs 2017 Mupirocin ND 67862223031 2 % Externally Jul 23Aug Active 1 application BID 2018 06, to affected 2019 area Naproxen ND 92998110370 500 MG Orally Active 1 tablet with every 12 hrs food or milk as needed lipitor ND 49695971236 Oral Sept Active 1 tab 2017 Tramadol HCl ND 18404279129 50 MG Orally Active 1 tablet as every 6 hrs needed Senna [facility] 71752293737 8.6 MG Orally Active 2 tablets at Once a day bedtime as needed Gabapentin [facility] 86736272936 300 MG Orally Sept Active 1 capsule Once a day 2017 Metoprolol [facility] 88542944906 50 MG Orally Sept Active 1 tablet with Tartrate Twice a day , 2017 Methocarbamol [facility] 51488235265 750 MG Oral Active TK 1 T PO TID Hemocyte Plus [facility] 70455916323 106-1 MG Sept Active 1 capsule Orally Once a , 2017 Docusate Sodium [facility] 56289477572 100 MG Orally Sept Active 1 capsule as Once a day , needed 2017 Zolpidem Tartrate [facility] 77509682261 10 MG Orally Active 1 tablet at Once a day bedtime as needed Calcium + D [facility] 19789495360 500-1000-40 Sept Active as directed MG-UNT-MCG 2017 Lipitor [facility] 91970411785 10 MG Orally Sept Active 1 tablet Once a day 2017 Ergocalciferol [facility] 88668431563 [address] UNIT Sept Active 1 capsule Orally 2017 Results No Known Results Summary Purpose [employer]ClinicalWorks Submission
--- OUTSIDE RECORDS SUMMARY | 2019-01-15 12:52 | XMS REPORT | Clinical Summary ---
:1945 Author Organization [facility] Address [address] [place] [address] Care Team Providers Name Role Phone Milad Avila MD Primary Care Provider Allergies Not on File Medications No known medications Active Problems No known active problems Social History Tobacco Use Types Packs/Day Years Used Date Never Assessed Sex Assigned at Date Recorded Not on file Job Start Date Occupation Industry Not on file Not on file Not on file Travel History Travel Start Travel End No recent travel history available. Last Filed Vital Signs Not on file Plan of Treatment Health Maintenance Due Date Last Done Comments BREAST CANCER SCREENING 1997 COLONOSCOPY SCREENING 1997 SHINGLES VACCINES (#1) 1997 65+ PNEUMOCOCCAL VACCINE (1 of 2 - PCV13) 2012 INFLUENZA VACCINE 03/01/2019 Results Not on fileafter 01/14/2018 Insurance Payer Benefit Plan / Subscriber ID Effective Phone Address Type Group Dates MEDICARE MEDICARE PART xxxxxxxxxx 2012-[place], [place] Medicare A AND B ent MUTUAL OF M[employer]UAL OF xxxxxxxx 2017-[facility] [employer] [place] Advance Directives Patient has advance care planning documents on file. For more information, please contact:[facility] [place] [address]
--- OUTSIDE RECORDS SUMMARY | 2019-01-15 12:53 | XMS REPORT ---
:1945 Author Organization [employer] Care Team Providers Name Role Phone Dallas Smiley Provider Role Unavailable Allergies, Adverse Reactions, Alerts Substance Reaction Event Type MORPHINE Info Not Available Drug Allergy Phenergan Info Not Available Drug Allergy Nitrofurantoin Info Not Available Drug Allergy Ciprofloxacin Info Not Available Drug Allergy Problems Problem Type Condition Code Onset Dates Condition Status Assessment Closed traumatic minimally S42.032D Active displaced fracture of acromial end of left clavicle with routine healing Problem Closed traumatic minimally S42.032D Active displaced fracture of acromial end of left clavicle with routine healing Problem Closed traumatic minimally S42.032A Active displaced fracture of acromial end of left clavicle, initial encounter Problem Pain of left clavicle M89.8X1 Active Assessment Pain of left clavicle M89.8X1 Active Problem Fall from chair, initial encounter W07.XXXA Active Problem Pain, joint, shoulder, right M25.511 Active Medications Medication Code Code Instructions Start End Status Dosage System Date Date Calcium + D [facility] 10733869891 500-1000-40 Apr 19, Active as MG-UNT-MCG 2017 directed Orally Naproxen [facility] 74464938840 500 MG Orally Active 1 tablet every 12 hrs with food or milk as needed Methocarbamol ND 06751515134 750 MG Orally Apr 19, Active 1 tablet every 4 hrs 2017 Lipitor [facility] 81966719528 10 MG Orally Apr 19, Active 1 tablet Once a day 2018 Senna [facility] 60401634249 8.6 MG Orally Active 2 tablets Once a day at bedtime as needed Hydrocodone-Aceta [facility] 98561920107 10-325 MG Apr 19, Active 1 tablet minophen Orally every 6 2017 as needed hrs lipitor ND 11262088068 Oral Apr 19, Active 1 tab 2018 Metoprolol [facility] 46843795694 50 MG Orally Apr 19, Active 1 tablet Tartrate Twice a day 2018 with food Lorazepam ND 27375009024 1 MG Orally Apr 19, Active 1 tablet Once a day 2018 at bedtime as needed Hemocyte Plus [facility]DC 76839727296 106-1 MG Orally Apr 19, Active 1 capsule Once a day 2017 Tramadol HCl [facility] 68540189257 50 MG Orally Active 1 tablet every 6 hrs as needed Omeprazole [facility] 70786665532 20 MG Orally Active 1 capsule Once a day Lovenox [facility] 07528564482 30 MG/0.3ML Apr 19, Active 0.3 ml Subcutaneous 2017 every 12 hrs Docusate Sodium [facility] 29057042577 100 MG Orally Apr 19, Active 1 capsule Once a day 2018 as needed Zolpidem Tartrate [facility] 43770779419 10 MG Orally Active 1 tablet Once a day at bedtime as needed Lexapro [facility] 96790246001 20 MG Orally Apr 19, Active 0.5 tablet Once a day 2017 Ergocalciferol [facility] 25366536315 [address] UN[address] Apr 19, Active 1 capsule Orally 2017 Gabapentin [facility] 02403818718 300 MG Orally Apr 19, Active 1 capsule Once a day 2017 Methocarbamol [facility] 59630617493 750 MG Oral Active TK 1 T PO TID Results No Known Results Summary Purpose eClinicalWorks Submission
--- OUTSIDE RECORDS SUMMARY | 2019-01-15 12:53 | XMS REPORT | Summary of Care ---
:1945 Author Name Reshma Bonilla Address [facility] Unavailable , Care Team Providers Name Role Phone NATALIE Ayers, CRISTÓBAL Unavailable Unavailable [place], LISA Villavicencio Unavailable Unavailable Joe Irwin MD Unavailable Unavailable Cristóbal Estrada MD Unavailable Unavailable Unavailable Unavailable Unavailable Functional Status Name Dates Details Functional status health issues are not documented Status: Name Dates Details Cognitive status health issues are not documented Status: Problems Name Dates Details Age related osteoporosis (733.01, M81.0) Status: Active Left knee injury (959.7, S89.92XA) Status: Active Closed disp supracondyl fx with intracondyl exten of left distal femur (821.23 , S72.462A) Status: Active Lumbar spine pain (724.2, M54.5) Status: Active Screening for endocrine, nutritional, metabolic and immunity disorder (V77.99, Z13.29) Status: Active Medications Name Dates Details Medications not documented Allergies and Adverse Reactions Name Dates Details Allergy history not documented Status: Procedures Procedure Dates Details [U] XRAY FEMUR 2 VWS LEFT 52741 Date: 02-Nov-2018 Immunization Name Dates Details Immunizations not documented Social History Name Dates Details Unknown if ever smoked Vital Signs Date Test Result Details No Known Vitals to report Results Date Description Value Details Results not documented Plan of Care Name Dates Details Planned Observations Planned Goals not documented Planned Encounters Appointment; CRISTÓBAL ESTRADA M.D. On: 07-Nov-2018 13:00 Interventions Provided Labs/Procedures/Imaging[U] XRAY FEMUR 2 VWS LEFT 05722; To Be Done: 07 Nov 2018 Instructions Name Dates Details Instructions not documented Encounters Appointment; ANGELA LYNN P.A. On: 31-May-2017 12:30 Encounter Diagnosis: Problem not documented Appointment; ANGELA LYNN P.A. On: 28-Jun-2017 12:30 Encounter Diagnosis: Problem not documented Appointment; REBA DENT P.A. On: 01-Jul-2017 12:30 Encounter Diagnosis: Problem not documented Appointment; CRISTÓBAL ESTRADA M.D. On: 02-Aug-2017 12:30 Encounter Diagnosis: Problem not documented Appointment; DEXA, SCAN On: 02-Aug-2017 15:00 Encounter Diagnosis: Problem not documented Appointment; CRISTÓBAL ESTRADA M.D. On: 23-Aug-2017 10:15 Encounter Diagnosis: Problem not documented Appointment; REBA DENT P.AShi On: 26-Aug-2017 12:30 Encounter Diagnosis: Problem not documented Appointment; CRISTÓBAL ESTRADA M.D. On: 20-Sep-2017 10:30 Encounter Diagnosis: Problem not documented Appointment; CRISTÓBAL ESTRADA M.D. On: 04-Oct-2017 12:30 Encounter Diagnosis: Problem not documented Appointment; CRISTÓBAL ESTRADA M.D. On: 06-Dec-2017 12:30 Encounter Diagnosis: Problem not documented Appointment; REBA DENT P.AShi On: 16-Dec-2017 12:30 Encounter Diagnosis: Problem not documented Appointment; CRISTÓBAL ESTRADA M.D. On: 24-Jan-2018 12:30 Encounter Diagnosis: Problem not documented Appointment; REBA DENT P.AShi On: 10-Mar-2018 14:00 Encounter Diagnosis: Problem not documented Appointment; ANGELICA FERREIRA M.D. On: 06-Apr-2018 12:30 Encounter Diagnosis: Problem not documented Appointment; CRISTÓBAL ESTRADA M.D. On: 25-Apr-2018 12:30 Encounter Diagnosis: Problem not documented Appointment; REBA DENT P.AShi On: 04-Aug-2018 12:30 Encounter Diagnosis: Problem not documented Appointment; CRISTÓBAL ESTRADA M.D. On: 24-Oct-2018 12:30 Encounter Diagnosis: Problem not documented Appointment; CRISTÓBAL ESTRADA M.D. On: 07-Nov-2018 13:00 Encounter Diagnosis: Problem not documented
--- NOTE | 2019-01-15 13:34 | RAD REPORT ---
EXAM DESCRIPTION: RAD - Pelvis - 01/15/2019 1:26 pm CLINICAL HISTORY: Pelvic pain status post injury FINDINGS: No acute fracture or dislocation is seen. Osteoporosis Left hip prosthesis in place. Sideplate and screws affix a distal left femoral fracture
--- NOTE | 2019-01-15 13:35 | RAD REPORT ---
EXAM DESCRIPTION: RAD - Femur Left - 01/15/2019 1:26 pm CLINICAL HISTORY: Left leg pain FINDINGS: No acute fracture or dislocation is seen. Osteoporosis Left hip prosthesis in place. Sideplate and screws affix a distal left femoral fracture .
[2019-01-15] MEDS ORDERED: FENTANYL CITR 100 MCG/2 ML ONE (13:59)
--- NOTE | 2019-01-15 14:19 | RAD REPORT ---
EXAM DESCRIPTION: CT - Pelvis Wo Cont - 01/15/2019 2:05 pm CLINICAL HISTORY: Left hip pain status post fall TECHNIQUE: Computed axial tomography of the pelvis was obtained with coronal and sagittal reconstruc tion All CT scans are performed using dose optimization technique as appropriate and may include automated exposure control or mA/KV adjustment according to patient size. FINDINGS: Mild insufficiency fracture involves the left sacral ala Cortical irregularity involves the left inferior pubic ramus consistent with a nondisplaced fracture A left hip arthroplasty. No evidence of loosening of the prosthesis. No dislocation IMPRESSION: Mild insufficiency fracture left sacral ala Nondisplaced fracture left inferior pubic ramus appears acute
--- NOTE | 2019-01-15 15:15 | EDPHYS ---
Physician Documentation [facility] Name: Yi Marroquin Age: 73 yrs Sex: Female : 1945 Arrival Date: 01/15/2019 Time: 12:46 Bed 7 Private MD: ED Physician Janes Dahl HPI: 01/15 13:43 This 73 yrs old Female presents to ER via EMS with complaints of Hip Pain. rn 13:43 The patient or guardian reports pain. rn 13:45 that occurred at home, sustained from a fall, There is no obvious deformity, The rn patient is able to ambulate with assistance. The patient is able to bear partial body weight. The complaints affect the left hip. Onset: The symptoms/episode began/occurred 5 day(s) ago. Associated signs and symptoms: Pertinent negatives: abdominal pain, chest pain, diarrhea, dizziness, dysuria, fever, headache, incontinence, nausea, vomiting, weakness. Severity of symptoms: At their worst the symptoms were mild, in the emergency department the symptoms are unchanged. The patient has not experienced similar symptoms in the past. Reports 5 days ago fell due to being too dark in bathroom, fell onto left side and buttocks, able to walk with assistance to bathroom but reports left hip pain. No headache/LOC/rib pain/abd pain.. Historical: - Allergies: 12:48 Ciprofloxacin; ch 12:48 Morphine; ch 12:48 Nitrofurantoin; ch 12:48 Phenergan; ch 12:48 Sulfa (Sulfonamide Antibiotics); ch 12:51 Ciprofloxacin; tw2 12:51 Morphine; tw2 12:51 Nitrofurantoin; tw2 12:51 Phenergan; tw2 12:51 Sulfa (Sulfonamide Antibiotics); tw2 12:51 Demerol; tw2 12:53 Myrbetriq; - Home Meds: 12:51 escitalopram oxalate Oral [Active]; Furosemide Oral [Active]; hydrocodone-acetaminophen tw2 10-500 mg Oral tab [Active]; Methocarbamol Oral [Active]; insulin lispro subcutaneous [Active]; diphenhydramine HCl 25 mg Oral cap 1 cap PRN for Allergic Reactions [Active]; gabapentin 300 mg Oral cap 1 cap 3 times per day [Active]; Ambien 5 mg Oral tab 1 tab once daily for Sleep-Onset Insomnia [Active]; atorvastatin 10 mg Oral tab 1 tab once daily [Active]; cranberry Oral [Active]; Metoprolol Tartrate Oral [Active]; potassium chloride 10 mEq Oral cpER 1 cap once daily [Active]; omeprazole 20 mg Oral cpDR 1 cap once daily [Active]; Lorazepam Oral [Active]; Ramipril Oral [Active]; senna 8.6 mg Oral cap 2 caps once daily for constipation [Active]; tramadol 50 mg Oral tab 1 tab every 6 hours for Pain, prn [Active]; Simvastatin Oral [Active]; Zolpidem Tartrate Oral [Active]; Vitamin D Oral 73919 unit every week x 8 weeks [Active]; - PMHx: 12:48 Depression; Diabetes - NIDDM; Hyperlipidemia; Hypertension; ch 12:51 Diabetes - NIDDM; Hypertension; Hyperlipidemia; Depression; tw2 - PSHx: 12:48 hip surgery; knee plate; ch 12:51 hip surgery; knee plate; tw2 - Immunization history:: Adult Immunizations up to date, Adult Immunizations. - Social history:: Smoking status: Patient/guardian denies using tobacco, Smoking status: . - Ebola Screening: : Patient negative for fever greater than or equal to 101.5 degrees Fahrenheit, and additional compatible Ebola Virus Disease symptoms Patient denies exposure to infectious person Patient denies travel to an Ebola-affected area in the 21 days before illness onset No symptoms or risks identified at this time Patient denies travel to an Ebola-affected area in the 21 days before illness onset. - Family history:: not pertinent. - Hospitalizations: : No recent hospitalization is reported. ROS: 13:45 Constitutional: Negative for fever, chills, and weight loss, Eyes: Negative for injury, rn pain, redness, and discharge, Neck: Negative for injury, pain, and swelling, Cardiovascular: Negative for chest pain, palpitations, and edema, Respiratory: Negative for shortness of breath, cough, wheezing, and pleuritic chest pain, Abdomen/GI: Negative for abdominal pain, nausea, vomiting, diarrhea, and constipation, Back: Negative for injury and pain, MS/Extremity: + left hip pain and injury Skin: Negative for injury, rash, and discoloration, Neuro: Negative for headache, weakness, numbness, tingling, and seizure. Exam: 13:45 Constitutional: This is a well developed, well nourished patient who is awake, alert, rn laying in bed Head/Face: Normocephalic, atraumatic. ENT: no oral trauma Neck: Trachea midline, no thyromegaly or masses palpated, and no cervical lymphadenopathy. Supple, full range of motion without nuchal rigidity, or vertebral point tenderness. No Meningismus. Chest/axilla: Normal chest wall appearance and motion. Nontender with no deformity. No lesions are appreciated. Abdomen/GI: soft, non-tender Back: No spinal tenderness. No costovertebral tenderness. Full range of motion. MS/ Extremity: Pulses equal, no cyanosis. Neurovascular intact. + left hip and lateral buttocks tenderness, no ecchymosis, no gross deformity Neuro: Awake and alert, GCS 15, oriented to person, place, time, and situation. Cranial nerves II-XII grossly intact. Motor strength 5/5 in all extremities. Sensory grossly intact. Vital Signs: 12:48 BP 147 / 85; Pulse 59; Resp 18; Pulse Ox 95% on R/A; Weight 97.07 kg; Height 5 ft. 2 ch in. (157.48 cm); Pain 8/10; 12:54 Temp 98.9; ch 14:43 BP 133 / 86; Pulse 83; Resp 18; Pulse Ox 95% on R/A; tw2 15:29 BP 124 / 74; Pulse 62; Resp 14; Temp 98.2; Pulse Ox 97% on R/A; Pain 8/10; ch 16:30 BP 138 / 90; Pulse 59; Resp 17; Pulse Ox 98% on R/A; tw2 17:43 BP 149 / 87; Pulse 76; Resp 17; Pulse Ox 95% on R/A; tw2 12:48 Body Mass Index 39.14 (97.07 kg, 157.48 cm) MDM: 12:50 Patient medically screened. rn 15:12 Differential diagnosis: hip fracture, intertrochanteric fracture, strain, pubic rami rn fracture. Data reviewed: vital signs, nurses notes, radiologic studies, CT scan, plain films, and as a result, I will discharge patient. Counseling: I had a detailed discussion with the patient and/or guardian regarding: the historical points, exam findings, and any diagnostic results supporting the discharge/admit diagnosis, lab results, radiology results, the need for outpatient follow up, to return to the emergency department if symptoms worsen or persist or if there are any questions or concerns that arise at home. Response to treatment: the patient's symptoms have mildly improved after treatment, and as a result, I will discharge patient. Special discussion: I discussed with the patient/guardian in detail that at this point there is no indication for admission to the hospital. It is understood, however, that if the symptoms persist or worsen the patient needs to return immediately for re-evaluation. ED course: Pt improved after pain meds, xrays neg, ct shows stress fracture of unknown duration and acute inferior pubic ramus fracture on left side, non-displaced. Spoke with case management Abena Tineo, does not meet inpatient admission criteria given non-operative, will dc home with pain control and return precautions. . 15:16 ED course: Pt states has a few hydrocodone at home, told her stronger than what I could rn write for, recommend she take her hydrocodone and only when finishes it can take tylenol #3 given both have tylenol in it. . 15:54 ED course: Pt now states that in so much pain she cannot leave like this and rn states the same. Does not meet inpatient criteria, called [facility] for help, waiting avionics systems technician back. . 17:30 ED course: Marie from [facility] here to evaluate patient. . rn 17:43 ED course: Pt accepted for transfer to [facility] but now patient and rn want to go home and discuss with son, they also have option of admission to [facility] from home if she changes her mind. Will dc home and they now have a plan B from home if worsens or cannot take care of herself/pain. . 01/15 12:51 Order name: XRAY Pelvis; Complete Time: 13:37 rn 01/15 12:51 Order name: XRAY Hip LEFT 2 view rn 01/15 12:51 Order name: XRAY Femur LEFT; Complete Time: 13:37 rn 01/15 13:42 Order name: CT Pelvis wo Cont; Complete Time: 14:30 rn Administered Medications: 13:48 Drug: fentaNYL (PF) 25 mcg Route: IVP; Site: right antecubital; tw2 14:10 Follow up: Response: No adverse reaction; Pain is decreased ch 15:10 Drug: fentaNYL (PF) 25 mcg Route: IVP; Site: right antecubital; 17:40 Follow up: Response: No adverse reaction; Pain is decreased tw2 17:52 Drug: HYDROcodone-acetaminophen 10 mg-325 mg 1 tabs Route: PO; tw2 17:58 Follow up: Response: No adverse reaction; Pain is decreased tw2 Disposition: 01/15/19 15:14 Discharged to Home. Impression: Acute, non-displaced left pubic ramus fracture, Stress fracture, sacral ala. - Condition is Stable. - Discharge Instructions: Simple Pelvic Fracture, Adult, Stress Fracture. - Prescriptions for Tylenol- Codeine #3 300-30 mg Oral Tablet - take 1 tablet by ORAL route every 6 hours As needed; 20 tablet. - Medication Reconciliation Form, Thank You Letter, Antibiotic Education, Prescription Opioid Use form. - Follow up: Dallas Smiley MD; When: As needed; Reason: Recheck today's complaints, Re-evaluation by your physician. - Problem is new. - Symptoms have improved. Signatures: Dispatcher [employer] EDErica Myers RN RN Janse Dahl MD MD rn Wise, Tara, RN RN tw2 Corrections: (The following items were deleted from the chart) 17:59 15:14 01/15/2019 15:14 Discharged to Home. Impression: Acute, non-displaced left pubic tw2 ramus fracture; Stress fracture, sacral ala. Condition is Stable. Forms are Medication Reconciliation Form, Thank You Letter, Antibiotic Education, Prescription Opioid Use. Follow up: Dallas Smiley; When: As needed; Reason: Recheck today's complaints, Re-evaluation by your physician. Problem is new. Symptoms have improved. rn
--- NOTE | 2019-01-15 15:15 | ER ---
Nurse's Notes [facility] Name: Yi Marroquin Age: 73 yrs Sex: Female : 1945 Arrival Date: 01/15/2019 Time: 12:46 Bed 7 Private MD: Diagnosis: Acute, non-displaced left pubic ramus fracture;Stress fracture, sacral ala Presentation: 01/15 12:46 Presenting complaint: Patient states: fell 5 days ago, got off balance. has walked ch sense using her walker, c/o increase pain today. pt states she fell. after walking out fo the bathroom and it was dark and she tripped. 12:51 Transition of care: patient was not received from another setting of care. Onset of ch symptoms was January 10, 2019. Risk Assessment: Do you want to hurt yourself or someone else? Patient reports no desire to harm self or others. Initial Sepsis Screen: Does the patient meet any 2 criteria? No. Patient's initial sepsis screen is negative. Does the patient have a suspected source of infection? No. Patient's initial sepsis screen is negative. Care prior to arrival: Medication(s) given: Tylenol, 1000 mg, fentynal. 12:51 Method Of Arrival: EMS: [facility] 12:51 Acuity: DIANE 3 ch 12:51 Acuity: DIANE 4 ch Triage Assessment: 12:48 General: Appears in no apparent distress. comfortable, Behavior is calm, cooperative, ch appropriate for age. Pain: Complains of pain in left hip Pain radiates to left gluteus elizabeth Quality of pain is described as sharp. Respiratory: Airway is patent Respiratory effort is even, unlabored. Derm: Skin is pink, warm \T\ dry. Bruising that is none noted. . Historical: - Allergies: 12:48 Ciprofloxacin; ch 12:48 Morphine; 12:48 Nitrofurantoin; 12:48 Phenergan; ch 12:48 Sulfa (Sulfonamide Antibiotics); ch 12:51 Ciprofloxacin; tw2 12:51 Morphine; tw2 12:51 Nitrofurantoin; tw2 12:51 Phenergan; tw2 12:51 Sulfa (Sulfonamide Antibiotics); tw2 12:51 Demerol; tw2 12:53 Myrbetriq; ch - Home Meds: 12:51 escitalopram oxalate Oral [Active]; Furosemide Oral [Active]; hydrocodone-acetaminophen tw2 10-500 mg Oral tab [Active]; Methocarbamol Oral [Active]; insulin lispro subcutaneous [Active]; diphenhydramine HCl 25 mg Oral cap 1 cap PRN for Allergic Reactions [Active]; gabapentin 300 mg Oral cap 1 cap 3 times per day [Active]; Ambien 5 mg Oral tab 1 tab once daily for Sleep-Onset Insomnia [Active]; atorvastatin 10 mg Oral tab 1 tab once daily [Active]; cranberry Oral [Active]; Metoprolol Tartrate Oral [Active]; potassium chloride 10 mEq Oral cpER 1 cap once daily [Active]; omeprazole 20 mg Oral cpDR 1 cap once daily [Active]; Lorazepam Oral [Active]; Ramipril Oral [Active]; senna 8.6 mg Oral cap 2 caps once daily for constipation [Active]; tramadol 50 mg Oral tab 1 tab every 6 hours for Pain, prn [Active]; Simvastatin Oral [Active]; Zolpidem Tartrate Oral [Active]; Vitamin D Oral 77483 unit every week x 8 weeks [Active]; - PMHx: 12:48 Depression; Diabetes - NIDDM; Hyperlipidemia; Hypertension; ch 12:51 Diabetes - NIDDM; Hypertension; Hyperlipidemia; Depression; tw2 - PSHx: 12:48 hip surgery; knee plate; ch 12:51 hip surgery; knee plate; tw2 - Immunization history:: Adult Immunizations up to date, Adult Immunizations. - Social history:: Smoking status: Patient/guardian denies using tobacco, Smoking status: . - Ebola Screening: : Patient negative for fever greater than or equal to 101.5 degrees Fahrenheit, and additional compatible Ebola Virus Disease symptoms Patient denies exposure to infectious person Patient denies travel to an Ebola-affected area in the 21 days before illness onset No symptoms or risks identified at this time Patient denies travel to an Ebola-affected area in the 21 days before illness onset. - Family history:: not pertinent. - Hospitalizations: : No recent hospitalization is reported. Screenin:47 Abuse screen: Denies threats or abuse. Nutritional screening: No deficits noted. tw2 Tuberculosis screening: No symptoms or risk factors identified. Fall Risk Secondary diagnosis (15 points) impaired mobility. Assessment: 13:20 Reassessment: Patient appears in no apparent distress at this time. Patient and/or ch family updated on plan of care and expected duration. Pain level reassessed. Respiratory: No deficits noted. Musculoskeletal: Capillary refill < 3 seconds, in bilateral fingers. toes. Range of motion: intact in all extremities, Swelling present in left [place], anterior aspect of left ankle and dorsum of left foot pt states her foot is always swollen, no changes to it. 14:43 Reassessment: Patient appears in no apparent distress at this time. Patient and/or tw2 family updated on plan of care and expected duration. Pain level reassessed. Dr. Dahl at bedside at this time with imaging results. 15:29 Reassessment: Patient appears in no apparent distress at this time. pt oob to bs, pt ch is moaning and yelling , pt states she is in too much pain to go home. states he cannot take care of her. risks of admission including pneumonia, hospital acquired infection, blood clots, lack of rest due to nurses checking in on her. pt. 16:30 Reassessment: Patient appears in no apparent distress at this time. Patient and/or tw2 family updated on plan of care and expected duration. Pain level reassessed. 17:43 Reassessment: Patient appears in no apparent distress at this time. Patient and/or tw2 family updated on plan of care and expected duration. Pain level reassessed. pt agreeable to discharge home at this time after consult with physical thereap. 17:58 Reassessment: Patient appears in no apparent distress at this time. Patient and/or tw2 family updated on plan of care and expected duration. Pain level reassessed. Vital Signs: 12:48 BP 147 / 85; Pulse 59; Resp 18; Pulse Ox 95% on R/A; Weight 97.07 kg; Height 5 ft. 2 ch in. (157.48 cm); Pain 8/10; 12:54 Temp 98.9; ch 14:43 BP 133 / 86; Pulse 83; Resp 18; Pulse Ox 95% on R/A; tw2 15:29 BP 124 / 74; Pulse 62; Resp 14; Temp 98.2; Pulse Ox 97% on R/A; Pain 8/10; ch 16:30 BP 138 / 90; Pulse 59; Resp 17; Pulse Ox 98% on R/A; tw2 17:43 BP 149 / 87; Pulse 76; Resp 17; Pulse Ox 95% on R/A; tw2 12:48 Body Mass Index 39.14 (97.07 kg, 157.48 cm) ED Course: 12:46 Patient arrived in ED. ch 12:47 Bed in low position. Call light in reach. Side rails up X2. Pulse ox on. NIBP on. tw2 12:48 Abhishek Nicole PA is PHCP. cp 12:48 Arm band placed on left wrist. Patient placed in an exam room, on a stretcher. ch 12:49 Janes Dahl MD is Attending Physician. cp 12:52 Triage completed. ch 12:52 Maintain EMS IV. Dressing intact. Good blood return noted. Site clean \T\ dry. Gauge \T\ tw 2 site: 20 g RIGHT ac. 13:20 Erica Lebron, SUSANNAH is Primary Nurse. ch 13:24 XRAY Pelvis In Process Unspecified. EDMS 13:25 XRAY Hip LEFT 2 view In Process Unspecified. EDMS 13:25 XRAY Femur LEFT In Process Unspecified. EDMS 14:06 CT Pelvis wo Cont In Process Unspecified. EDMS 15:14 Dallas Smiley MD is Referral Physician. rn 17:44 No provider procedures requiring assistance completed. IV discontinued, intact, tw2 bleeding controlled, No redness/swelling at site. Pressure dressing applied. Administered Medications: 13:48 Drug: fentaNYL (PF) 25 mcg Route: IVP; Site: right antecubital; tw2 14:10 Follow up: Response: No adverse reaction; Pain is decreased 15:10 Drug: fentaNYL (PF) 25 mcg Route: IVP; Site: right antecubital; 17:40 Follow up: Response: No adverse reaction; Pain is decreased tw2 17:52 Drug: HYDROcodone-acetaminophen 10 mg-325 mg 1 tabs Route: PO; tw2 17:58 Follow up: Response: No adverse reaction; Pain is decreased tw2 Outcome: 15:14 Discharge ordered by MD. rn 17:45 Discharged to home via wheelchair, with significant other. tw2 17:45 Condition: stable 17:45 Discharge instructions given to patient, significant other, Instructed on discharge instructions, follow up and referral plans. no drinking with medication, no driving heavy equipment, medication usage, Demonstrated understanding of instructions, follow-up care, medications, Prescriptions given X 1. 17:59 Patient left the ED. tw2 Signatures: Dispatcher [employer] EDMS Erica Lebron, RN Janes Thomas ch, MD MD rn Page, Corey, PA PA cp Wise, Tara, RN RN tw2
--- NOTE | 2019-01-15 15:26 | RAD REPORT ---
EXAM DESCRIPTION: RAD - Hip Left 2 View - 01/15/2019 1:48 pm CLINICAL HISTORY: Pelvic pain status post injury FINDINGS: No acute fracture or dislocation is seen. Osteoporosis Left hip prosthesis in place. Sideplate and screws affix a distal left femoral fracture
[2019-01-15] MEDS ORDERED: HYDROCODONE/APAP 10/325 TAB ONE (18:07)
[2019-01-15 18:18] VITALS: TEMP 98.2
[2019-01-15 18:21] VITALS: BP 149/87; O2SAT 95
== END 2019-01-15 17:59 | disposition home or self-care (01) ==
LOC: ER 12:45
DX: S32.592A Other specified fracture of left pubis, initial encounter for closed fracture (principal); S32.19XA Other fracture of sacrum, initial encounter for closed fracture; W18.30XA Fall on same level, unspecified, initial encounter; Y92.002 Bathroom of unspecified non-institutional (private) residence as the place of occurrence of the external cause; F32.9 Major depressive disorder, single episode, unspecified; E11.9 Type 2 diabetes mellitus without complications; E78.5 Hyperlipidemia, unspecified; I10 Essential (primary) hypertension; Z88.1 Allergy status to other antibiotic agents; Z88.5 Allergy status to narcotic agent; Z88.2 Allergy status to sulfonamides
CPT/HCPCS: 72192; 72170; 73502; 73552; 96374; 99284; J3010

== ENCOUNTER 2019-08-21 14:03 | Emergency (ER) | payer OTHER ==
--- OUTSIDE RECORDS SUMMARY | 2019-08-21 14:06 | XMS REPORT ---
:1945 [facility] [address] [place] [address] Care Team Providers Name Role Phone Unavailable [...] code=INR) 0.90 INR Unit 0.8-1.2 THROMBOPLASTIN TIME [id number] 16:04:00 Test Item Value Reference Range Comments THROMBOPLASTIN TIME PARTIAL (test code=PTT) 25.8 SECONDS 26-35 COMPREHENSIVE METABOLIC [id number] 16:03:00 Test Item Value Reference Range Comments [...] (test 155 Unit/L 45-117 code=ALKP) CBC W/AUTO [id number] 15:47:00 Test Item Value Reference Range Comments [...] NO DIFF/SCN CRITERIA - DUP VEIN UNI [id number] 15:17:00 Name: ALOFNSO CASTORENA [place] : 1945 Age/S: 73 / F [address] [address] Unit #: [id number] Loc: [place] [address] Phys: Arsenio Beckman III, MD Acct: [id number] Dis Date: Status: REG CLI PHONE #: [phone] Exam Date: 12/20/2018 8637 FAX #: Reason: JUGULARVEIN OCCLUSION EXAMS: CPT: [id number] [place] [address] EXAMINATION: - DUP VEIN UNI LT. LOCATION: [...] Technologist: Jesi Monsalve, RT(R),RD(AB) TrnscbDate/Time: 12/20/2018 ( 6497) Rohit.[email or web address] PAGE 1 Signed Report Name: ALFONSO CASTORENA : 1945 Age/S: 73 / F [address] [address] Unit #: [id number] Loc: [place] [address] Phys: Arsenio Beckman III, MD Acct: [id number] Dis Date: Status: REG CLI PHONE #: [phone] Exam Date: 12/20/2018 1445 FAX #: Reason: JUGULAR VEIN OCCLUSION EXAMS: CPT: [id number] DUP VEIN UNI [id number] <Continued> Orig Print D/T: S: 12/20/2018 (1520) Probe: PAGE 2 Signed Report- CT MAXIFAC [id number] 14:33:00 Name: ALFONSO CASTORENA : 1945 Age /S: 73 / F [address] [address] [place] Unit #: [id number] Loc: [place] [address] Phys: Arsenio Beckman III, MD Acct: [id number] Dis Date: Status: REG CLI PHONE #: [phone] Exam Date: 11/23/2018 1221 FAX #: Reason: LT TEMPORAL MASS EXAMS: CPT: [id number] CT MAXIFAC W/ CONTRAST 50607 Location: T18 CT head, 11/23/18 TECHNIQUE: CT [...] 1 Signed Report (CONTINUED) Name: ALFONSO CASTORENA [facility] : 1945 Age /S: 73 / F [address] [address] [place] Unit #: [id number] Loc: [place] [address] Phys: Arsenio Beckman III, MD Acct: [id number] Dis Date: Status: REG CLI PHONE #: [phone] Exam Date: 11/23/2018 1225 FAX #: Reason: LT TEMPORAL MASS EXAMS: CPT: [id number] CT MAXIFAC W/ CONTRAST 79951 <Continued> mastoid air cells. No positive mass-effect, [...] CASTORENA : 1945 Age/S: 73 / F [address] [address] [place] Unit #: [id number] Loc: [place] [address] Phys: Arsenio Beckman III, MD Acct: [id number] Dis Date: Status: REG CLI PHONE #: [phone] Exam Date: 2018 1225 FAX #: Reason: LT TEMPORAL MASS EXAMS: CPT: [id number] CT MAXIFAC W/CONTRAST 39086 <Continued> of head. History of left parotid [...] auditory canal. 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 Small degree of benign-appearing ethmoid air [...] 3 Signed Report (CONTINUED) Name: ALFONSO CASTORENA [place] : 1945 Age /S: 73 / F [address] [address] [place] Unit #: [id number] Loc: [place] [address] Phys: Arsenio Beckman III, MD Acct: [id number] Dis Date: Status: REG CLI PHONE #: [phone] Exam Date: 11/23/2018 1225 FAX #: Reason: LT TEMPORAL MASS EXAMS: CPT: [id number] CT MAXIFAC W/CONTRAST 15702 < Continued> location adjacent to an area [...] PAGE 4 Signed Report- CT HEAD/BRAIN W/O [id number] 14:33:00 Name: ALFONSO CASTORENA [place] : 1945 Age/S: 73 / F [id number] [address] Unit #: [id number] Loc: [place] [address] Phys: Arsenio Beckman III, MD Acct: [id number] Dis Date: Status : REG CLI PHONE #: [phone] Exam Date: 11/23/2018 1243 FAX #: Reason: POSTERIOR MASS EXAMS: CPT: [id number] CT HEAD/BRAIN W/O CONT 10021 Location: T18 CT head, 11/23/18 TECHNIQUE: CT [...] 1 Signed Report (CONTINUED) Name: ALFONSO CASTORENA [place] : 1944 Age/S: 73 / F [address] [address] Unit #: [id number] Loc: [place] [address] Phys: Arsenio Beckman III, MD Acct: [id number] Dis Date: Status: REG CLI PHONE #: [phone] Exam Date: 11/23/2018 1247 FAX #: Reason: POSTERIOR MASS EXAMS: CPT: [id number] CT HEAD/ BRAIN W/O CONT 91129 <Continued> mastoid air cells. No positive mass-effect, [...] 2 Signed Report (CONTINUED) Name: ALFONSO CASTORENA [place] : 1945 Age/S: 73 / F [address] [address] Unit #: [id number] Loc: [place] [address] Phys: Arsenio Beckman III, MD Acct: [id number] Dis Date: Status: REG CLI PHONE #: [phone] Exam Date: 2018 1243 FAX #: Reason: POSTERIOR MASS EXAMS: CPT: [id number] CT HEAD/BRAIN W/O CONT 11904 <Continued> of head. History of left parotid [...] auditory canal. 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 Small degree of benign-appearing ethmoid air [...] : 1945 Age /S: 73 / F [address] [address] Unit #: [id number] Loc: [place] [address] Phys: Arsenio Beckman III, MD Acct: [id number] Dis Date: Status: REG CLI PHONE #: [phone] Exam Date: 11/23/2018 1243 FAX #: Reason: POSTERIOR MASS EXAMS: CPT: [id number] CT HEAD/BRAIN W/O CONT 33567 &lt ;Continued> location adjacent to an area of external occipital protuberance Some of the images are somewhat degraded due to motion but the exam is largely diagnostic. Electronically Signed by Andria Cruz on 2018 at 1433 Reported and signed by: Aury Cruz M.D. CC: Arsenio Beckman III, MD Technologist:Angela Mishra, RT(R)(MR) CTDI: DLP: Trnscb Date/Time: 11/23/2018 (1432) [email or web address] Orig Print D/T: S: 2018 (276) CTDI: DLP: PAGE 4 Signed Report- CT NECK W/[id number] 14:33:00 [facility] 1945 Age/S: 73 / F [address] [address] Unit #: [id number] Loc: [place] [address] Phys: Arsenio Beckman III, MD Acct: [id number] Dis Date: Status: REG CLI PHONE #: [phone] Exam Date: 11/23/2018 1235 FAX #: Reason: FACIAL MAS EXAMS: CPT: [id number] CT NECK W/CONTRAST 70451 Location: T18 CT head, 11/23/18 TECHNIQUE: CT [...] PAGE 1 Signed Report (CONTINUED) [facility]: [facility] 1944 Age/S: 73 / F [address] [address] Unit #: [id number] Loc: [place] [address] Phys: Arsenio Beckman III, MD Acct: [id number] Dis Date: Status: REG CLI PHONE #: [phone] Exam Date: 11/23/2018 1232 FAX #: Reason: FACIAL MAS EXAMS: CPT: [id number] CT NECK W /CONTRAST 67790 <Continued> mastoid air cells. No positive mass-effect, [...] 2 Signed Report (CONTINUED) Name: ALFONSO CASTORENA [place] : 1945 Age/S: 73 / F [address] [address] Unit #: [id number] Loc: [place] [address] Phys: Arsenio Beckman III, MD Acct: [id number] Dis Date: Status: REG CLI PHONE #: [phone] Exam Date: 2018 1235 FAX #: Reason: FACIAL MAS EXAMS: CPT: [id number] CT NECK W/CONTRAST 22172 <Continued> of head. History of left parotid [...] auditory canal. 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 Small degree of benign-appearing ethmoid air [...] : 1945 Age /S: 73 / F [address] [address] Unit #: [id number] Loc: [place] [address] Phys: Arsenio Beckman III, MD Acct: [id number] Dis Date: Status: REG CLI PHONE #: [phone] Exam Date: 11/23/2018 1235 FAX #: Reason: FACIAL MAS EXAMS: CPT: [id number] CT NECK W/CONTRAST [address]54[address] < Continued> location adjacent to an area of external occipital protuberance Some of the images are somewhat degraded due to motion but the exam is largely diagnostic. Electronically Signed by Andria Cruz on 2018 at 1433 Reported and signed by: Aury Cruz M.D. CC: Arsenio Beckman III, MD Technologist:Anglea Mishra, RT(R)(MR) CTDI: DLP: Trnscb Date/Time: 11/23/2018 (143) [email or web address] Orig Print D/T: S: 2018 (1436) CTDI: DLP: PAGE 4 Signed [id number] 12:02:00 Test Item Value Reference Range Comments ISTAT-GLUCOSE (test code=GLUP) 88 mg/dL 70-105 [id number] 12:02:00 Test Item Value Reference Range Comments ISTAT-BUN (test code=BUNP) mg/dL 8-26 BEDSIDE [id number] 12:02:00 Test Item Value Reference Range Comments BEDSIDE CREATININE (test code=CREATBED) mg/dL 0.6-1.3 [id number] 12:02:00 Test Item Value Reference Range Comments ISTAT-GLUCOSE (test code=GLUP) 88 mg/dL 70-105 [id number] 12:02:00 Test Item Value Reference Range Comments ISTAT-BUN (test code=BUNP) 15 mg/dL 8- BEDSIDE [id number] 12:02:00 Test Item Value Reference Range Comments BEDSIDE CREATININE (test code=CREATBED) mg/dL 0.6-1.3 [id number] 12:02:00 Test Item Value Reference Range Comments ISTAT-GLUCOSE (test code=GLUP) 88 mg/dL 70-105 [id number] 12:02:00 Test Item Value Reference Range Comments ISTAT-BUN (test code=BUNP) 15 mg/dL - BEDSIDE [id number] 12:02:00 Test Item Value Reference Range Comments BEDSIDE CREATININE (test code=CREATBED) 0.7 mg/dL 0.6-1.3
--- OUTSIDE RECORDS SUMMARY | 2019-08-21 14:07 | XMS REPORT ---
[...] Status Dosage System Date Date Lorazepam ND 41138117053 1 MG Orally Sept Active 1 tablet at Once a day 19, bedtime as 2018 needed Lexapro ND 13881397624 20 MG Orally Sept Active 0.5 tablet Once a day 2017 Hydrocodone-Aceta ND 20817495519 10-325 MG Sept Active 1 tablet as minophen Orally every 6 19, needed hrs 2018 Lovenox ND 21692520235 30 MG/0.3ML Sept Active 0.3 ml Subcutaneous 19, every 12 hrs 2017 Omeprazole ND 09324489254 20 MG Orally Active 1 capsule Once a day Methocarbamol ND 51117596909 750 MG Orally Sept Active 1 tablet every 4 hrs 2017 Mupirocin ND 39822298205 2 % Externally Jul 23Aug Active 1 application BID 2018 06, to affected 2019 area Naproxen ND 64697841764 500 MG Orally Active 1 tablet with every 12 hrs food or milk as needed lipitor ND 80909383364 Oral Sept Active 1 tab 2017 Tramadol HCl ND 70068750579 50 MG Orally Active 1 tablet as every 6 hrs needed Senna [facility] 95306279905 8.6 MG Orally Active 2 tablets at Once a day bedtime as needed Gabapentin [facility] 29882756175 300 MG Orally Sept Active 1 capsule Once a day 2017 Metoprolol [facility] 31439449073 50 MG Orally Sept Active 1 tablet with Tartrate Twice a day , 2017 Methocarbamol [facility] 64461858812 750 MG Oral Active TK 1 T PO TID Hemocyte Plus [facility] 99053381003 106-1 MG Sept Active 1 capsule Orally Once a , 2017 Docusate Sodium [facility] 91510574299 100 MG Orally Sept Active 1 capsule as Once a day , needed 2017 Zolpidem Tartrate [facility] 13406572510 10 MG Orally Active 1 tablet at Once a day bedtime as needed Calcium + D [facility] 33483623917 500-1000-40 Sept Active as directed MG-UNT-MCG 2017 Lipitor [facility] 66641636585 10 MG Orally Sept Active 1 tablet Once a day 2017 Ergocalciferol [facility] 19872318922 [address] UNIT Sept Active 1 capsule Orally 2017 Results No Known Results Summary Purpose eClinicalWorks Submission
--- OUTSIDE RECORDS SUMMARY | 2019-08-21 14:07 | XMS REPORT ---
[...] Dosage System Date Date Calcium + D [facility][NOTE 3] 40953789620 500-1000-40 Apr 19, Active as MG-UNT-MCG 2017 directed Orally Naproxen [facility][NOTE 3] 80604328826 500 MG Orally Active 1 tablet every 12 hrs with food or milk as needed Methocarbamol ND 01918650218 750 MG Orally Apr 19, Active 1 tablet every 4 hrs 2017 Lipitor [facility][NOTE 3] 60871791999 10 MG Orally Apr 19, Active 1 tablet Once a day 2018 Senna [facility][NOTE 3] 30541647931 8.6 MG Orally Active 2 tablets Once a day at bedtime as needed Hydrocodone-Aceta [facility][NOTE 3] 22874422388 10-325 MG Apr 19, Active 1 tablet minophen Orally every 6 2017 as needed hrs lipitor ND 37555338308 Oral Apr 19, Active 1 tab 2018 Metoprolol [facility][NOTE 3] 95771706114 50 MG Orally Apr 19, Active 1 tablet Tartrate Twice a day 2018 with food Lorazepam ND 20048815932 1 MG Orally Apr 19, Active 1 tablet Once a day 2018 at bedtime as needed Hemocyte Plus NDC 15514384485 106-1 MG Orally Apr 19, Active 1 capsule Once a day 2017 Tramadol HCl [facility][NOTE 3] 41980959966 50 MG Orally Active 1 tablet every 6 hrs as needed Omeprazole [facility][NOTE 3] 38535054943 20 MG Orally Active 1 capsule Once a day Lovenox [facility][NOTE 3] 14918498510 30 MG/0.3ML Apr 19, Active 0.3 ml Subcutaneous 2017 every 12 hrs Docusate Sodium [facility][NOTE 3] 05940227022 100 MG Orally Apr 19, Active 1 capsule Once a day 2018 as needed Zolpidem Tartrate [facility][NOTE 3] 40583052006 10 MG Orally Active 1 tablet Once a day at bedtime as needed Lexapro [facility][NOTE 3] 06080463759 20 MG Orally Apr 19, Active 0.5 tablet Once a day 2017 Ergocalciferol [facility][NOTE 3] 22543959464 [address] UNIT Apr 19, Active 1 capsule Orally 2017 Gabapentin [facility][NOTE 3] 65052585458 300 MG Orally Apr 19, Active 1 capsule Once a day 2017 Methocarbamol [facility][NOTE 3] 84015723802 750 MG Oral Active TK 1 T PO TID Results No Known Results Summary Purpose eClinicalWorks Submission
[2019-08-21] MEDS ORDERED: LIDOCAINE 1% MPF 5 ML VIAL ONE ×2 (14:19→15:01)
--- NOTE | 2019-08-21 15:18 | RAD REPORT ---
EXAM DESCRIPTION: CT - CTHCSPWOC - 08/21/2019 3:06 pm CLINICAL HISTORY: Trauma, head and neck injury. fall COMPARISON: No comparisons TECHNIQUE: Axial 5 mm thick images of the head were obtained. Axial 2 mm thick images of the cervical spine were obtained with sagittal and coronal reconstruction images generated and reviewed. All CT scans are performed using dose optimization technique as appropriate and may include automated exposure control or mA/KV adjustment according to patient size. FINDINGS: CT HEAD WITHOUT CONTRAST: No acute hemorrhage, hydrocephalus or extra-axial collection is identified.Mild generalized brain atr ophy.No areas of brain edema or midline shift. The paranasal sinuses and mastoids are clear.The calvarium is intact. CT CERVICAL SPINE WITHOUT CONTRAST: No fracture or subluxation.Mild lower cervical degenerative changes present with disc thinning and sm all posterior osteophyte.No prevertebral soft tissues swelling is identified. IMPRESSION: No acute intracranial or cervical spine findings. Mild lower cervical spondylosis.
--- NOTE | 2019-08-21 16:01 | ER ---
Nurse's Notes [facility] Name: Yi Marroquin Age: 74 yrs Sex: Female : 1945 Arrival Date: 08/21/2019 Time: 14:06 Bed 28 Private MD: Milad Avila V Diagnosis: Laceration without foreign body of scalp Presentation: 08/21 14:13 Presenting complaint: Patient states: head laceration after falling, unsure of why she sv fell. Denies LOC. Stated that she went to the dentist today for implants. Pt is on ASA. Care prior to arrival: None. Mechanism of Injury: Fall from standing position. 14:13 Acuity: DIANE 3 sv 14:13 Method Of Arrival: Wheelchair sv 14:50 Transition of care: patient was not received from another setting of care. Onset of mg2 symptoms was August 21, 2019. Risk Assessment: Do you want to hurt yourself or someone else? Patient reports no desire to harm self or others. Initial Sepsis Screen: Does the patient meet any 2 criteria? No. Patient's initial sepsis screen is negative. Does the patient have a suspected source of infection? No. Patient's initial sepsis screen is negative. 15:13 Trauma event details: Injury occurred in the [facility], Injury occurred: demarios mg2 office/dentist Injury occurred: August 21, 2019. Trauma Activation: Not Applicable Physician: ED Physician; Name: ; Notified At: ; Arrived At: Physician: General Surgeon; Name: ; Notified At: ; Arrived At: Physician: Radiology; Name: ; Notified At: ; Arrived At: Physician: Respiratory; Name: ; Notified At: ; Arrived At: Physician: Lab; Name: ; Notified At: ; Arrived At: Historical: - Allergies: 14:16 Ciprofloxacin; sv 14:16 Demerol; sv 14:16 Morphine; sv 14:16 Myrbetriq; sv 14:16 Nitrofurantoin; sv 14:16 Phenergan; sv 14:16 Sulfa (Sulfonamide Antibiotics); sv - PMHx: 14:16 Depression; Hypertension; Diabetes - NIDDM; Hyperlipidemia; sv - PSHx: 14:16 hip surgery; knee plate; sv - Immunization history:: Flu vaccine status is unknown. - Social history:: Smoking status: unknown Patient uses Patient/guardian denies using alcohol, street drugs, The patient lives with family. - Immunization history: Last tetanus immunization: - up to date. - Ebola Screening: : No symptoms or risks identified at this time. - Family history:: not pertinent. Screenin:49 Abuse screen: Denies threats or abuse. Denies injuries from another. Nutritional mg2 screening: No deficits noted. Tuberculosis screening: No symptoms or risk factors identified. Fall risk At risk due to age, prior history of falls. 15:48 Fall Risk Fall in past 12 months (25 points). Ambulatory Aid- None/Bed Rest/Nurse mg2 Assist (0 pts). Primary Survey: 14:45 NO uncontrolled hemorrhage observed. A: The patient is alert. Airway: patent. mg2 Breathing/Chest: Respiratory pattern: regular, Respiratory effort: spontaneous, unlabored, Breath sounds: clear, bilaterally. in mediastinum, right upper lobe, left upper lobe, right middle lobe, left lower lobe and right lower lobe. Circulation: Skin color: pink. Disability Alert. Exposure/Environment: All clothing and personal items were removed. Forensic evidence collection is not deemed to be indicated at this time. Items placed in patient belonging bag. There is no evidence of uncontrolled external bleeding. Obvious injury(ies) are noted at this time: laceration in the parietal area A warming method has been applied: A warm blanket has been provided to the patient. 15:49 Reassessment Airway Airway Patent Breathing/Chest Respiratory pattern Regular mg2 Respiratory effort Spontaneous Unlabored Breath sounds Clear Chest inspection Symmetrical Circulation Color [place] Disability Alert. Secondary Survey: 14:46 HEENT: Head Other laceration in the parietal area approx. 2 inches long and 0.5 cm mg2 deep. Gastrointestinal: No deficits noted. : No deficits noted. Musculoskeletal: Circulation, motion, and sensation intact. Capillary refill < 3 seconds. Assessment: 14:51 General: Appears in no apparent distress. comfortable, Behavior is calm, cooperative. mg2 Pain: Complains of pain in head. Neuro: Level of Consciousness is awake, alert, obeys commands, Oriented to person, place, time, situation. Cardiovascular: Capillary refill < 3 seconds Patient's skin is warm and dry. Respiratory: Airway is patent Respiratory effort is even, unlabored, Respiratory pattern is regular, symmetrical. GI: No signs and/or symptoms were reported involving the gastrointestinal system. : No signs and/or symptoms were reported regarding the genitourinary system. EENT: No signs and/or symptoms were reported regarding the EENT system. Derm: Skin laceration in the scalp Skin is pink, warm \T\ dry. normal. Musculoskeletal: Circulation, motion, and sensation intact. Capillary refill < 3 seconds. Injury Description: Laceration sustained to scalp. 15:30 Reassessment: Patient appears in no apparent distress at this time. Patient is alert, mg2 oriented x 3, equal unlabored respirations, skin warm/dry/pink. 16:12 Reassessment: Patient appears in no apparent distress at this time. mg2 Vital Signs: 14:16 BP 152 / 86; Pulse 73; Resp 18; Temp 98; Pulse Ox 100% ; Weight 96.62 kg; Height 5 ft. sv 2 in. (157.48 cm); 16:13 BP 145 / 78; Pulse 80; Resp 18; Temp 98; Pulse Ox 100% on R/A; mg2 14:16 Body Mass Index 38.96 (96.62 kg, 157.48 cm) sv Juliann Coma Score: 14:50 Eye Response: spontaneous(4). Verbal Response: oriented(5). Motor Response: obeys mg2 commands(6). Total: 15. Trauma Score (Adult): 14:50 Eye Response: spontaneous(1); Verbal Response: oriented(1); Motor Response: obeys mg2 commands(2); Systolic BP: > 89 mm Hg(4); Respiratory Rate: 10 to 29 per min(4); [place] Score: 15; Trauma Score: 12 ED Course: 14:06 Patient arrived in ED. mr 14:06 Milad Avila MD is Private Physician. mr 14:08 Beata Albert MD is Attending Physician. ma2 14:15 Triage completed. sv 14:15 Moises Calderon, SUSANNAH is Primary Nurse. mg2 14:16 Arm band placed on. sv 14:50 Patient has correct armband on for positive identification. mg2 14:50 Patient maintains SpO2 saturation greater than 95% on room air. mg2 14:51 Patient did not have IV access during this emergency room visit. mg2 15:06 CT Head C Spine In Process Unspecified. EDMS 15:48 Assist provider with laceration repair on back of head that was between 2.6 to 7.5 cm mg2 using rena. Set up tray. Performed by Beata Albert MD Dressed with Neosporin, Patient tolerated well. 15:49 Thermoregulation: warm blanket given to patient. mg2 Administered Medications: No medications were administered Intake: 14:50 PO: 0ml; Total: 0ml. mg2 Outcome: 15:59 Discharge ordered by . ma2 16:13 Discharged to home via wheelchair, with family. mg2 16:13 Condition: stable 16:13 Discharge instructions given to patient, family, Instructed on discharge instructions, follow up and referral plans. wound care, Demonstrated understanding of instructions, follow-up care, wound care. 16:14 Patient's length of stay was not longer than 2 hours. mg2 16:14 Patient left the ED. mg2 Signatures: Dispatcher [employer] Carleen Munoz, RN Renee Meza, MD EDILMA Cota ma2 Moises Calderon RN RN mg2
--- NOTE | 2019-08-21 16:01 | EDPHYS ---
Physician Documentation [facility] Name: Yi Marroquin Age: 74 yrs Sex: Female : 1945 Arrival Date: 08/21/2019 Time: 14:06 Bed 28 Private MD: Milad Avila V ED Physician Beata Albert HPI: 08/21 15:55 This 74 yrs old Female presents to ER via Wheelchair with complaints of Fall ma2 Injury, Laceration To Head. 15:55 Details of fall: The patient fell from a height. Onset: The symptoms/episode ma2 began/occurred suddenly, 1 hour(s) ago. Severity of symptoms: At their worst the symptoms were very mild, in the emergency department the symptoms are unchanged. tripped. Historical: - Allergies: 14:16 Ciprofloxacin; sv 14:16 Demerol; sv 14:16 Morphine; sv 14:16 Myrbetriq; sv 14:16 Nitrofurantoin; sv 14:16 Phenergan; sv 14:16 Sulfa (Sulfonamide Antibiotics); sv - PMHx: 14:16 Depression; Hypertension; Diabetes - NIDDM; Hyperlipidemia; sv - PSHx: 14:16 hip surgery; knee plate; sv - Immunization history:: Flu vaccine status is unknown. - Social history:: Smoking status: unknown Patient uses Patient/guardian denies using alcohol, street drugs, The patient lives with family. - Immunization history: Last tetanus immunization: - up to date. - Ebola Screening: : No symptoms or risks identified at this time. - Family history:: not pertinent. ROS: 15:55 Constitutional: Negative for fever, chills, and weight loss. ma2 15:55 All other systems are negative. Exam: 15:55 Constitutional: This is a well developed, well nourished patient who is awake, alert, ma2 and in no acute distress. Eyes: Pupils equal round and reactive to light, extra-ocular motions intact. Lids and lashes normal. Conjunctiva and sclera are non-icteric and not injected. Cornea within normal limits. Periorbital areas with no swelling, redness, or edema. ENT: Nares patent. No nasal discharge, no septal abnormalities noted. Tympanic membranes are normal and external auditory canals are clear. Oropharynx with no redness, swelling, or masses, exudates, or evidence of obstruction, uvula midline. Mucous membranes moist. Neck: Trachea midline, no thyromegaly or masses palpated, and no cervical lymphadenopathy. Supple, full range of motion without nuchal rigidity, or vertebral point tenderness. No Meningismus. Chest/axilla: Normal chest wall appearance and motion. Nontender with no deformity. No lesions are appreciated. Cardiovascular: Regular rate and rhythm with a normal S1 and S2. No gallops, murmurs, or rubs. Normal PMI, no JVD. No pulse deficits. Respiratory: Lungs have equal breath sounds bilaterally, clear to auscultation and percussion. No rales, rhonchi or wheezes noted. No increased work of breathing, no retractions or nasal flaring. 15:58 Head/Face: linear laceration 8 cm scalp MS/ Extremity: Pulses equal, no cyanosis. ma2 Neurovascular intact. Full, normal range of motion. Neuro: Awake and alert, GCS 15, oriented to person, place, time, and situation. Cranial nerves II-XII grossly intact. Motor strength 5/5 in all extremities. Sensory grossly intact. Cerebellar exam normal. Normal gait. Vital Signs: 14:16 BP 152 / 86; Pulse 73; Resp 18; Temp 98; Pulse Ox 100% ; Weight 96.62 kg; Height 5 ft. sv 2 in. (157.48 cm); 16:13 BP 145 / 78; Pulse 80; Resp 18; Temp 98; Pulse Ox 100% on R/A; mg2 14:16 Body Mass Index 38.96 (96.62 kg, 157.48 cm) sv Juliann Coma Score: 14:50 Eye Response: spontaneous(4). Verbal Response: oriented(5). Motor Response: obeys mg2 commands(6). Total: 15. Trauma Score (Adult): 14:50 Eye Response: spontaneous(1); Verbal Response: oriented(1); Motor Response: obeys mg2 commands(2); Systolic BP: > 89 mm Hg(4); Respiratory Rate: 10 to 29 per min(4); Juliann Score: 15; Trauma Score: 12 Laceration: 15:58 Wound Repair of 8cm ( 3.1in ) subcutaneous laceration to scalp. Distal ma2 neuro/vascular/tendon intact. Anesthesia: Local anesthetic administered with 12 mls of 1% lidocaine w/ Epi. Wound prep: Extensive cleansing. Skin closed with 10 1-0 [place] using simple sutures and sterile technique. Patient tolerated well. MDM: 14:08 Patient medically screened. ma2 15:58 Differential diagnosis: abrasion, closed head injury, contusion, fracture, laceration. ma2 Data reviewed: vital signs, nurses notes. Counseling: I had a detailed discussion with the patient and/or guardian regarding: the historical points, exam findings, and any diagnostic results supporting the discharge/admit diagnosis, the presence of at least one elevated blood pressure reading (>120/80) during this emergency department visit, the need for outpatient follow up. Response to treatment: the patient's symptoms have markedly improved after treatment. 08/21 14:54 Order name: CT Head C Spine; Complete Time: 15:30 mg2 Administered Medications: No medications were administered Disposition: 08/21/19 15:59 Discharged to Home. Impression: Laceration without foreign body of scalp. - Condition is Stable. - Discharge Instructions: Laceration Care, Adult. - Medication Reconciliation Form, Thank You Letter, Antibiotic Education, Prescription Opioid Use form. - Follow up: Private Physician; When: Tomorrow; Reason: Continuance of care. - Notes: remove rena in 5 days Signatures: Dispatcher [employer] Carleen Munoz, RN RN Beata Albert MD MD ma2 Moises Calderon RN RN mg2 Corrections: (The following items were deleted from the chart) 15:00 14:54 Head Brain Wo Cont+CT.RAD.BRZ ordered. [facility] 16:14 15:59 08/21/2019 15:59 Discharged to Home. Impression: Laceration without foreign body mg2 of scalp. Condition is Stable. Forms are Medication Reconciliation Form, Thank You Letter, Antibiotic Education, Prescription Opioid Use. Follow up: Private Physician; When: Tomorrow; Reason: Continuance of care. ma2
[2019-08-21 22:52] VITALS: TEMP 98; O2SAT 100
[2019-08-21 22:53] VITALS: BP 145/78
== END 2019-08-21 16:14 | disposition home or self-care (01) ==
LOC: ER 14:03
PROC: 0JQ00ZZ Repair Scalp Subcutaneous Tissue and Fascia, Open Approach (ICD-10-PCS; principal; 2019-08-21)
DX: S01.01XA Laceration without foreign body of scalp, initial encounter (principal); W18.30XA Fall on same level, unspecified, initial encounter; Y93.9 Activity, unspecified; Y92.9 Unspecified place or not applicable; Z88.6 Allergy status to analgesic agent; Z88.1 Allergy status to other antibiotic agents; Z88.2 Allergy status to sulfonamides
CPT/HCPCS: 70450; 72125; 99284

== ENCOUNTER 2019-09-01 00:02 | Emergency (ER) | payer OTHER ==
--- OUTSIDE RECORDS SUMMARY | 2019-09-01 00:05 | XMS REPORT ---
:1945 [facility] [address] [place] [address] Care Team Providers Name Role Phone Unavailable [...] code=INR) 0.90 INR Unit 0.8-1.2 THROMBOPLASTIN TIME [id number] 16:04:00 Test Item Value Reference Range Comments THROMBOPLASTIN TIME PARTIAL (test code=PTT) 25.8 SECONDS 26-35 COMPREHENSIVE METABOLIC [id number] 16:03:00 Test Item Value Reference Range Comments [...] (test 155 Unit/L 45-117 code=ALKP) CBC W/AUTO [id number] 15:47:00 Test Item Value Reference Range Comments [...] NO DIFF/SCN CRITERIA - DUP VEIN UNI [id number] 15:17:00 Name: ALFONSO CASTORENA [place] : 1945 Age/S: 73 / F [id number] [address] Unit #: [id number] Loc: [place] [address] Phys: Arsenio Beckman III, MD Acct: [id number] Dis Date: Status: REG CLI PHONE #: [phone] Exam Date: 12/20/2018 9502 FAX #: Reason: JUGULARVEIN OCCLUSION EXAMS: CPT: [id number] [place] [address] EXAMINATION: - DUP VEIN UNI LT. LOCATION: [...] Technologist: Jesi Monsalve, RT(R),RD(AB) TrnscbDate/Time: 12/20/2018 ( 8594) Rohit.[email or web address] PAGE 1 Signed Report Name: ALFONSO CASTORENA : 1945 Age/S: 73 / F [address] [address] Unit #: [id number] Loc: [place] [address] Phys: Arsenio Beckman III, MD Acct: [id number] Dis Date: Status: REG CLI PHONE #: [phone] Exam Date: 12/20/2018 1445 FAX #: Reason: JUGULAR VEIN OCCLUSION EXAMS: CPT: [id number] DUP VEIN UNI [id number] <Continued> Orig Print D/T: S: 12/20/2018 (1520) Probe: PAGE 2 Signed Report- CT MAXIFAC [id number] 14:33:00 Name: ALFONSO CASTORENA : 1945 Age /S: 73 / F [address] [address] Unit #: [id number] Loc: [place] [address] Phys: Arsenio Beckman III, MD Acct: [id number] Dis Date: Status: REG CLI PHONE #: [phone] Exam Date: 11/23/2018 1222 FAX #: Reason: LT TEMPORAL MASS EXAMS: CPT: [id number] CT MAXIFAC W/ CONTRAST 64771 Location: T18 CT head, 11/23/18 TECHNIQUE: CT [...] 1 Signed Report (CONTINUED) Name: ALFONSO CASTORENA [facility] : 1945 Age /S: 73 / F [address] [address] Unit #: [id number] Loc: [place] [address] Phys: Arsenio Beckman III, MD Acct: [id number] Dis Date: Status: REG CLI PHONE #: [phone] Exam Date: 11/23/2018 1225 FAX #: Reason: LT TEMPORAL MASS EXAMS: CPT: [id number] CT MAXIFAC W/ CONTRAST 04442 <Continued> mastoid air cells. No positive mass-effect, [...] CASTORENA : 1945 Age/S: 73 / F [address] [address] Unit #: [id number] Loc: [place] [address] Phys: Arsenio Beckman III, MD Acct: [id number] Dis Date: Status: REG CLI PHONE #: [phone] Exam Date: 2018 1225 FAX #: Reason: LT TEMPORAL MASS EXAMS: CPT: [id number] CT MAXIFAC W/CONTRAST 66973 <Continued> of head. History of left parotid [...] auditory canal. No definite finding in the identity management consultant space. Small degree of benign-appearing ethmoid air [...] 3 Signed Report (CONTINUED) Name: ALFONSO CASTORENA [place] : 1945 Age /S: 73 / F [address] [address] Unit #: [id number] Loc: [place] [address] Phys: Arsenio Beckman III, MD Acct: [id number] Dis Date: Status: REG CLI PHONE #: [phone] Exam Date: 11/23/2018 1225 FAX #: Reason: LT TEMPORAL MASS EXAMS: CPT: [id number] CT MAXIFAC W/CONTRAST 17215 < Continued> location adjacent to an area [...] PAGE 4 Signed Report- CT HEAD/BRAIN W/O [id number] 14:33:00 Name: ALFONSO CASTORENA [place] : 1945 Age/S: 73 / F [address] [address] Unit #: [id number] Loc: [place] [address] Phys: Arsenio Beckman III, MD Acct: [id number] Dis Date: Status : REG CLI PHONE #: [phone] Exam Date: 11/23/2018 1243 FAX #: Reason: POSTERIOR MASS EXAMS: CPT: [id number] CT HEAD/BRAIN W/O CONT 90820 Location: T18 CT head, 11/23/18 TECHNIQUE: CT [...] 1 Signed Report (CONTINUED) Name: ALFONSO CASTORENA [place] : 1944 Age/S: 73 / F [address] [address] Unit #: [id number] Loc: [place] [address] Phys: Arsenio Beckman III, MD Acct: [id number] Dis Date: Status: REG CLI PHONE #: [phone] Exam Date: 11/23/2018 1244 FAX #: Reason: POSTERIOR MASS EXAMS: CPT: [id number] CT HEAD/ BRAIN W/O CONT 39312 <Continued> mastoid air cells. No positive mass-effect, [...] 2 Signed Report (CONTINUED) Name: ALFONSO CASTORENA [place] : 1945 Age/S: 73 / F [address] [address] Unit #: [id number] Loc: [place] [address] Phys: Arsenio Beckman III, MD Acct: [id number] Dis Date: Status: REG CLI PHONE #: [phone] Exam Date: 2018 1243 FAX #: Reason: POSTERIOR MASS EXAMS: CPT: [id number] CT HEAD/BRAIN W/O CONT 27455 <Continued> of head. History of left parotid [...] auditory canal. No definite finding in the identity management consultant space. Small degree of benign-appearing ethmoid air [...] : 1945 Age /S: 73 / F [address] [address] Unit #: [id number] Loc: [place] [address] Phys: Arsenio Beckman III, MD Acct: [id number] Dis Date: Status: REG CLI PHONE #: [phone] Exam Date: 11/23/2018 1243 FAX #: Reason: POSTERIOR MASS EXAMS: CPT: [id number] CT HEAD/BRAIN W/O CONT 19188 &lt ;Continued> location adjacent to an area of external occipital protuberance Some of the images are somewhat degraded due to motion but the exam is largely diagnostic. Electronically Signed by Andria Cruz on 2018 at 1433 Reported and signed by: Aury Cruz M.D. CC: Arsenio Beckman III, MD Technologist:Angela Mishra, RT(R)(MR) CTDI: DLP: Trnscb Date/Time: 11/23/2018 (1432) [email or web address] Orig Print D/T: S: 2018 (070) CTDI: DLP: PAGE 4 Signed Report- CT NECK W/[id number] 14:33:00 [facility] 1945 Age/S: 73 / F [address] [address] Unit #: [id number] Loc: [place] [address] Phys: Arsenio Beckman III, MD Acct: [id number] Dis Date: Status: REG CLI PHONE #: [phone] Exam Date: 11/23/2018 1235 FAX #: Reason: FACIAL MAS EXAMS: CPT: [id number] CT NECK W/CONTRAST 55469 Location: T18 CT head, 11/23/18 TECHNIQUE: CT [...] PAGE 1 Signed Report (CONTINUED) [facility]: [facility] 1944 Age/S: 73 / F [address] [address] Unit #: [id number] Loc: [place] [address] Phys: Arsenio Beckman III, MD Acct: [id number] Dis Date: Status: REG CLI PHONE #: [phone] Exam Date: 11/23/2018 1238 FAX #: Reason: FACIAL MAS EXAMS: CPT: [id number] CT NECK W /CONTRAST [address]32 <Continued> mastoid air cells. No positive mass-effect, [...] 2 Signed Report (CONTINUED) Name: ALFONSO CASTORENA [place] : 1945 Age/S: 73 / F [address] [address] Unit #: [id number] Loc: [place] [address] Phys: Arsenio Beckman III, MD Acct: [id number] Dis Date: Status: REG CLI PHONE #: [phone] Exam Date: 2018 1235 FAX #: Reason: FACIAL MAS EXAMS: CPT: [id number] CT NECK W/CONTRAST 38940 <Continued> of head. History of left parotid [...] auditory canal. No definite finding in the identity management consultant space. Small degree of benign-appearing ethmoid air [...] : 1945 Age /S: 73 / F [address] [address] Unit #: [id number] Loc: [place] [address] Phys: Arsenio Beckman III, MD Acct: [id number] Dis Date: Status: REG CLI PHONE #: [phone] Exam Date: 11/23/2018 1235 FAX #: Reason: FACIAL MAS EXAMS: CPT: [id number] CT NECK W/CONTRAST 04007 < Continued> location adjacent to an area [...] 2018 (1436) CTDI: DLP: PAGE 4 Signed [id number] 12:02:00 Test Item Value Reference Range Comments ISTAT-GLUCOSE (test code=GLUP) 88 mg/dL 70-105 [id number] 12:02:00 Test Item Value Reference Range Comments ISTAT-BUN (test code=BUNP) mg/dL 8-26 BEDSIDE [id number] 12:02:00 Test Item Value Reference Range Comments BEDSIDE CREATININE (test code=CREATBED) mg/dL 0.6-1.3 [id number] 12:02:00 Test Item Value Reference Range Comments ISTAT-GLUCOSE (test code=GLUP) 88 mg/dL 70-105 [id number] 12:02:00 Test Item Value Reference Range Comments ISTAT-BUN (test code=BUNP) 15 mg/dL 8- BEDSIDE [id number] 12:02:00 Test Item Value Reference Range Comments BEDSIDE CREATININE (test code=CREATBED) mg/dL 0.6-1.3 [id number] 12:02:00 Test Item Value Reference Range Comments ISTAT-GLUCOSE (test code=GLUP) 88 mg/dL 70-105 [id number] 12:02:00 Test Item Value Reference Range Comments ISTAT-BUN (test code=BUNP) 15 mg/dL - BEDSIDE [id number] 12:02:00 Test Item Value Reference Range Comments BEDSIDE CREATININE (test code=CREATBED) 0.7 mg/dL 0.6-1.3
--- OUTSIDE RECORDS SUMMARY | 2019-09-01 00:06 | XMS REPORT ---
[...] Status Dosage System Date Date Lorazepam ND 32019798099 1 MG Orally Sept Active 1 tablet at Once a day 19, bedtime as 2018 needed Lexapro ND 14599038024 20 MG Orally Sept Active 0.5 tablet Once a day 2017 Hydrocodone-Aceta ND 17871115609 10-325 MG Sept Active 1 tablet as minophen Orally every 6 19, needed hrs 2018 Lovenox ND 79528192825 30 MG/0.3ML Sept Active 0.3 ml Subcutaneous 19, every 12 hrs 2017 Omeprazole ND 42477248498 20 MG Orally Active 1 capsule Once a day Methocarbamol ND 61865944647 750 MG Orally Sept Active 1 tablet every 4 hrs 2017 Mupirocin ND 98742883744 2 % Externally Jul 23Aug Active 1 application BID 2018 06, to affected 2019 area Naproxen ND 16981583596 500 MG Orally Active 1 tablet with every 12 hrs food or milk as needed lipitor ND 12360870531 Oral Sept Active 1 tab 2017 Tramadol HCl ND 20963566274 50 MG Orally Active 1 tablet as every 6 hrs needed Senna [facility] 34525187964 8.6 MG Orally Active 2 tablets at Once a day bedtime as needed Gabapentin [facility] 30803221376 300 MG Orally Sept Active 1 capsule Once a day [address] [facility] 98541042937 50 MG Orally Sept Active 1 tablet with Tartrate Twice a day , [address] [facility] 71825080127 750 MG Oral Active TK 1 T PO TID Hemocyte Plus [facility] 83779331619 106-1 MG Sept Active 1 capsule Orally Once a , 2017 Docusate Sodium [facility] 50224550517 100 MG Orally Sept Active 1 capsule as Once a day , needed 2017 Zolpidem Tartrate [facility] 53651842041 10 MG Orally Active 1 tablet at Once a day bedtime as needed Calcium + D [facility] 51293980074 500-1000-40 Sept Active as directed MG-UNT-MCG [address] [facility] 03477898855 10 MG Orally Sept Active 1 tablet Once a day [address] [facility] 27387316191 [address] UNIT Sept Active 1 capsule Orally 2017 Results No Known Results Summary Purpose eClinicalWorks Submission
--- OUTSIDE RECORDS SUMMARY | 2019-09-01 00:07 | XMS REPORT ---
[...] Dosage System Date Date Calcium + D [facility] 60139868394 500-1000-40 Apr 19, Active as MG-UNT-MCG 2017 directed Orally Naproxen [facility] 27281888988 500 MG Orally Active 1 tablet every 12 hrs with food or milk as needed Methocarbamol ND 27889715156 750 MG Orally Apr 19, Active 1 tablet every 4 hrs 2017 Lipitor [facility] 41257360706 10 MG Orally Apr 19, Active 1 tablet Once a day 2018 Senna [facility] 10871829325 8.6 MG Orally Active 2 tablets Once a day at bedtime as needed Hydrocodone-Aceta [facility] 34225565534 10-325 MG Apr 19, Active 1 tablet minophen Orally every 6 2017 as needed hrs lipitor ND 90341960182 Oral Apr 19, Active 1 tab 2018 Metoprolol [facility] 92143202502 50 MG Orally Apr 19, Active 1 tablet Tartrate Twice a day 2018 with food Lorazepam ND 67218695884 1 MG Orally Apr 19, Active 1 tablet Once a day 2018 at bedtime as needed Hemocyte Plus NDC 83109123458 106-1 MG Orally Apr 19, Active 1 capsule Once a day 2017 Tramadol HCl [facility] 03341885057 50 MG Orally Active 1 tablet every 6 hrs as needed Omeprazole [facility] 24665628392 20 MG Orally Active 1 capsule Once a day Lovenox [facility] 64539471926 30 MG/0.3ML Apr 19, Active 0.3 ml Subcutaneous 2017 every 12 hrs Docusate Sodium [facility] 95010723242 100 MG Orally Apr 19, Active 1 capsule Once a day 2018 as needed Zolpidem Tartrate [facility] 77934309188 10 MG Orally Active 1 tablet Once a day at bedtime as needed Lexapro [facility] 21098022325 20 MG Orally Apr 19, Active 0.5 tablet Once a day 2017 Ergocalciferol [facility] 80234327183 [address] UNIT Apr 19, Active 1 capsule Orally 2017 Gabapentin [facility] 51471096436 300 MG Orally Apr 19, Active 1 capsule Once a day 2017 Methocarbamol [facility] 35630083127 750 MG Oral Active TK 1 T PO TID Results No Known Results Summary Purpose eClinicalWorks Submission
[2019-09-01] MEDS ORDERED: LIDOCAINE 1% MPF 5 ML VIAL ONE (03:45)
--- NOTE | 2019-09-01 04:09 | ER ---
Nurse's Notes [facility] Name: Yi Marroquin Age: 74 yrs Sex: Female : 1945 Arrival Date: 09/01/2019 Time: 00:03 Bed 14 Private MD: Diagnosis: Unspecified injury of head;Laceration without foreign body of scalp Presentation: 09/01 00:18 Presenting complaint: Patient states: Reports she was getting a snack out of the fridge ea and lost her footing and fell back. Pt reports she had a fall a few weeks ago and had a laceration on the back of the head, reports the laceration opened up after this fall. Pt denies LOC. Care prior to arrival: None. Mechanism of Injury: Fall from standing position. Trauma event details: Injury occurred in the [facility], Injury occurred: at home. Injury occurred: September 01, 2019. 00:18 Acuity: DIANE 3 ea 00:18 Method Of Arrival: Ambulatory ea 00:23 Transition of care: patient was not received from another setting of care. Onset of ea symptoms was September 01, 2019. Risk Assessment: Do you want to hurt yourself or someone else? Patient reports no desire to harm self or others. Initial Sepsis Screen: Does the patient meet any 2 criteria? No. Patient's initial sepsis screen is negative. Does the patient have a suspected source of infection? No. Patient's initial sepsis screen is negative. Historical: - Allergies: 00:24 Ciprofloxacin; ea 00:24 Demerol; ea 00:24 Myrbetriq; ea 00:24 Morphine; ea 00:24 Nitrofurantoin; ea 00:24 Phenergan; ea 00:24 Sulfa (Sulfonamide Antibiotics); ea - Home Meds: 00:30 Zolpidem Tartrate Oral [Active]; insulin lispro subcutaneous [Active]; Ambien 5 mg Oral ea tab 1 tab once daily for Sleep-Onset Insomnia [Active]; atorvastatin 10 mg Oral tab 1 tab once daily [Active]; cranberry Oral [Active]; diphenhydramine HCl 25 mg Oral cap 1 cap PRN for Allergic Reactions [Active]; escitalopram oxalate Oral [Active]; Furosemide Oral [Active]; gabapentin 300 mg Oral cap 1 cap 3 times per day [Active]; hydrocodone-acetaminophen 10-500 mg Oral tab [Active]; Simvastatin Oral [Active]; Vitamin D Oral 18348 unit every week x 8 weeks [Active]; tramadol 50 mg Oral tab 1 tab every 6 hours for Pain, prn [Active]; senna 8.6 mg Oral cap 2 caps once daily for constipation [Active]; Ramipril Oral [Active]; potassium chloride 10 mEq Oral cpER 1 cap once daily [Active]; Metoprolol Tartrate Oral [Active]; Lorazepam Oral [Active]; Methocarbamol Oral [Active]; omeprazole 20 mg Oral cpDR 1 cap once daily [Active]; - PMHx: 00:30 Hypertension; Hyperlipidemia; Diabetes - NIDDM; Depression; ea - PSHx: 00:30 knee plate; hip surgery; ea - Immunization history:: Adult Immunizations up to date. - Coronavirus screen:: The patient has NOT traveled to [place], [place], or [place] in the past 14 days. - Immunization history: Last tetanus immunization: unknown. - Social history:: Smoking status: Patient denies any tobacco usage or history of. - Ebola Screening: : No symptoms or risks identified at this time. Screenin:20 Abuse screen: Denies threats or abuse. Nutritional screening: No deficits noted. ea Tuberculosis screening: No symptoms or risk factors identified. Fall Risk Fall in past 12 months (25 points). Primary Survey: 00:21 NO uncontrolled hemorrhage observed. A: The patient is alert. Airway: patent. ea Breathing/Chest: Respiratory pattern: regular, Respiratory effort: spontaneous, unlabored, Chest inspection: symmetrical rise and fall of the chest. Circulation: Skin color: pink, Skin temperature: warm. Disability Alert. Exposure/Environment: Obvious injury(ies) are noted at this time: laceration to back of head. 02:02 Reassessment Airway Airway Patent Breathing/Chest Respiratory pattern Regular ea Respiratory effort Spontaneous Unlabored. Secondary Survey: 00:33 Musculoskeletal: Circulation, motion, and sensation intact. Injury Description: ea Laceration sustained to right parietal area is 2.6 to 7.5 cm long, was sustained 30-60 minutes ago. Assessment: 00:33 General: Appears in no apparent distress. Behavior is appropriate for age. Pain: ea Complains of pain in right parietal area. Neuro: Level of Consciousness is awake, alert, obeys commands, Oriented to person, place, time, situation. Cardiovascular: Patient's skin is warm and dry. Respiratory: Airway is patent Respiratory effort is even, unlabored, Respiratory pattern is regular, symmetrical. Derm: Skin is pink, warm \T\ dry. Injury Description: Laceration sustained to right parietal area is 2.6 to 7.5 cm long, was sustained 30-60 minutes ago. 01:21 Reassessment: Patient and/or family updated on plan of care and expected duration. Pain ea level reassessed. Patient is alert, oriented x 3, equal unlabored respirations, skin warm/dry/pink. 02:04 Reassessment: Patient and/or family updated on plan of care and expected duration. Pain ea level reassessed. Patient is alert, oriented x 3, equal unlabored respirations, skin warm/dry/pink. Returned from CT. Vital Signs: 00:21 BP 151 / 86; Pulse 52; Resp 18; Temp 97.7; Pulse Ox 100% ; Weight 96.16 kg; Height 5 ea ft. 2 in. (157.48 cm); Pain 6/10; 01:45 BP 142 / 87; Pulse 52; Resp 18; Pulse Ox 100% ; ea 02:55 BP 136 / 95; Pulse 53; Resp 18; Pulse Ox 98% on R/A; ea 04:00 BP 141 / 76; Pulse 55; Resp 17; Pulse Ox 99% on R/A; rr5 00:21 Body Mass Index 38.77 (96.16 kg, 157.48 cm) ea Juliann Coma Score: 00:21 Eye Response: spontaneous(4). Verbal Response: oriented(5). Motor Response: obeys ea commands(6). Total: 15. 01:45 Eye Response: spontaneous(4). Verbal Response: oriented(5). Motor Response: obeys ea commands(6). Total: 15. 04:00 Eye Response: spontaneous(4). Verbal Response: oriented(5). Motor Response: obeys rr5 commands(6). Total: 15. Trauma Score (Adult): 00:21 Eye Response: spontaneous(1); Verbal Response: oriented(1); Motor Response: obeys ea commands(2); Systolic BP: > 89 mm Hg(4); Respiratory Rate: 10 to 29 per min(4); Juliann Score: 15; Trauma Score: 12 ED Course: 00:03 Patient arrived in ED. cl3 00:10 Marybeth Singh RN is Primary Nurse. ea 00:10 Ac Chamberlain NP is PHCP. pm1 00:10 Feliz Rockwell MD is Attending Physician. pm1 00:20 Triage completed. ea 00:31 Patient maintains SpO2 saturation greater than 95% on room air. Thermoregulation: warm ea blanket given to patient. 00:31 Arm band placed on right wrist. Patient placed in an exam room, on a stretcher, on ea pulse oximetry. 00:32 Patient has correct armband on for positive identification. Placed in gown. Bed in low ea position. Call light in reach. Side rails up X2. 01:13 X-ray completed. Portable x-ray completed in exam room. Patient tolerated procedure mh1 well. 01:50 Shoulder Right (2 View) XRAY In Process Unspecified. EDMS 03:35 Assist provider with laceration repair on back of head that was 2.5 cm. or less using rr5 rena. Set up tray. Performed by Ac Chamberlain EXERCISE SCIENTIST Dressed with Neosporin, Patient tolerated well. 04:00 Patient did not have IV access during this emergency room visit. rr5 06:29 CT Head C Spine In Process Unspecified. EDMS Administered Medications: No medications were administered Intake: 03:50 PO: 0ml; Total: 0ml. rr5 03:50 voided freely rr5 Output: 03:50 Other: 1; Total: 0ml. rr5 03:50 voided freely rr5 Outcome: 02:54 Patient's length of stay in the Emergency Department was greater than [address] ea [address] resultsPatient's length of stay extended due to 04:09 Discharge ordered by . pm1 04:20 Discharged to home via wheelchair, with family. rr5 04:20 Condition: stable 04:20 Discharge instructions given to patient, Instructed on discharge instructions, follow up and referral plans. Demonstrated understanding of 04:24 Patient left the ED. rr5 Signatures: Dispatcher [employer] EDMS Evonne George [facility] Ac Chamberlain NP EXERCISE SCIENTIST pm1 Marybeth Singh, Arash Jimenez RN, ea, RN RN rr5 Renetta Hernández cl3 Corrections: (The following items were deleted from the chart) 04:58 04:00 No provider procedures requiring assistance completed. rr5 rr5
--- NOTE | 2019-09-01 04:10 | EDPHYS ---
Physician Documentation [facility] Name: Yi Marroquin Age: 74 yrs Sex: Female : 1945 Arrival Date: 09/01/2019 Time: 00:03 Bed 14 Private MD: ED Physician Feliz Rockwell HPI: 09/01 00:33 This 74 yrs old Female presents to ER via Ambulatory with complaints of Fall pm1 Injury. 00:33 Details of fall: The patient fell from an upright position, while standing. Onset: The pm1 symptoms/episode began/occurred just prior to arrival. Associated injuries: The patient sustained injury to the head, laceration, of the right side of the back of head, swelling, anterior aspect of right shoulder. The patient has experienced a previous episode, approximately 2 weeks ago, and the symptoms today are exactly the same, Patient fell and hit the back of her head. Patient just had the walker removed on Tuesday. Patient was getting a midnight snack and she lost her footing and fell backwards. Patient was not holding onto her walker when she fell. No LOC, nausea or vomiting. No neck pain. Patient reports some right anterior shoulder pain that improves with massage. No decreased ROM. Historical: - Allergies: 00:24 Ciprofloxacin; ea 00:24 Demerol; ea 00:24 Myrbetriq; ea 00:24 Morphine; ea 00:24 Nitrofurantoin; ea 00:24 Phenergan; ea 00:24 Sulfa (Sulfonamide Antibiotics); ea - Home Meds: 00:30 Zolpidem Tartrate Oral [Active]; insulin lispro subcutaneous [Active]; Ambien 5 mg Oral ea tab 1 tab once daily for Sleep-Onset Insomnia [Active]; atorvastatin 10 mg Oral tab 1 tab once daily [Active]; cranberry Oral [Active]; diphenhydramine HCl 25 mg Oral cap 1 cap PRN for Allergic Reactions [Active]; escitalopram oxalate Oral [Active]; Furosemide Oral [Active]; gabapentin 300 mg Oral cap 1 cap 3 times per day [Active]; hydrocodone-acetaminophen 10-500 mg Oral tab [Active]; Simvastatin Oral [Active]; Vitamin D Oral 52649 unit every week x 8 weeks [Active]; tramadol 50 mg Oral tab 1 tab every 6 hours for Pain, prn [Active]; senna 8.6 mg Oral cap 2 caps once daily for constipation [Active]; Ramipril Oral [Active]; potassium chloride 10 mEq Oral cpER 1 cap once daily [Active]; Metoprolol Tartrate Oral [Active]; Lorazepam Oral [Active]; Methocarbamol Oral [Active]; omeprazole 20 mg Oral cpDR 1 cap once daily [Active]; - PMHx: 00:30 Hypertension; Hyperlipidemia; Diabetes - NIDDM; Depression; ea - PSHx: 00:30 knee plate; hip surgery; ea - Immunization history:: Adult Immunizations up to date. - Coronavirus screen:: The patient has NOT traveled to [place], [place], or [place] in the past 14 days. - Immunization history: Last tetanus immunization: unknown. - Social history:: Smoking status: Patient denies any tobacco usage or history of. - Ebola Screening: : No symptoms or risks identified at this time. ROS: 00:33 Constitutional: Negative for fever, chills, and weight loss, Neck: Negative for injury, pm1 pain, and swelling, Cardiovascular: Negative for chest pain, palpitations, and edema, Respiratory: Negative for shortness of breath, cough, wheezing, and pleuritic chest pain, Abdomen/GI: Negative for abdominal pain, nausea, vomiting, diarrhea, and constipation, Back: Negative for injury and pain. 00:33 MS/extremity: Positive for pain, of the anterior aspect of right shoulder, Negative for decreased range of motion, deformity. 00:33 Skin: Positive for laceration(s), of the right parietal area. 00:33 Neuro: Positive for headache, Negative for dizziness, loss of consciousness, numbness, syncope, near syncope, tingling, weakness. Exam: 00:33 Constitutional: This is a well developed, well nourished patient who is awake, alert, pm1 and in no acute distress. 00:33 Eyes: Pupils equal round and reactive to light, extra-ocular motions intact. Lids and lashes normal. Conjunctiva and sclera are non-icteric and not injected. Cornea within normal limits. Periorbital areas with no swelling, redness, or edema. ENT: Nares patent. No nasal discharge, no septal abnormalities noted. Tympanic membranes are normal and external auditory canals are clear. Oropharynx with no redness, swelling, or masses, exudates, or evidence of obstruction, uvula midline. Mucous membranes moist. Neck: Trachea midline, no thyromegaly or masses palpated, and no cervical lymphadenopathy. Supple, full range of motion without nuchal rigidity, or vertebral point tenderness. No Meningismus. Chest/axilla: Normal chest wall appearance and motion. Nontender with no deformity. No lesions are appreciated. Cardiovascular: Regular rate and rhythm with a normal S1 and S2. No gallops, murmurs, or rubs. Normal PMI, no JVD. No pulse deficits. Respiratory: Lungs have equal breath sounds bilaterally, clear to auscultation and percussion. No rales, rhonchi or wheezes noted. No increased work of breathing, no retractions or nasal flaring. Back: No spinal tenderness. No costovertebral tenderness. Full range of motion. 00:33 Head/face: Noted is no obvious of injury or deformity except a laceration(s), that is jagged, 4 cm(s). 00:33 Skin: Appearance: normal except for affected area, injury, laceration(s), the wound is approximately 4 cm(s), of the right side of the back of head. 00:33 Neuro: Orientation: is normal, Motor: is normal, moves all fours, Sensation: is normal, no obvious gross deficits. Vital Signs: 00:21 BP 151 / 86; Pulse 52; Resp 18; Temp 97.7; Pulse Ox 100% ; Weight 96.16 kg; Height 5 ea ft. 2 in. (157.48 cm); Pain 6/10; 01:45 BP 142 / 87; Pulse 52; Resp 18; Pulse Ox 100% ; ea 02:55 BP 136 / 95; Pulse 53; Resp 18; Pulse Ox 98% on R/A; ea 04:00 BP 141 / 76; Pulse 55; Resp 17; Pulse Ox 99% on R/A; rr5 00:21 Body Mass Index 38.77 (96.16 kg, 157.48 cm) ea Juliann Coma Score: 00:21 Eye Response: spontaneous(4). Verbal Response: oriented(5). Motor Response: obeys ea commands(6). Total: 15. 01:45 Eye Response: spontaneous(4). Verbal Response: oriented(5). Motor Response: obeys ea commands(6). Total: 15. 04:00 Eye Response: spontaneous(4). Verbal Response: oriented(5). Motor Response: obeys rr5 commands(6). Total: 15. Trauma Score (Adult): 00:21 Eye Response: spontaneous(1); Verbal Response: oriented(1); Motor Response: obeys ea commands(2); Systolic BP: > 89 mm Hg(4); Respiratory Rate: 10 to 29 per min(4); Juliann Score: 15; Trauma Score: 12 Laceration: 03:49 Wound Repair of 4cm ( 1.6in ) subcutaneous laceration to right parietal area. Linear pm1 shaped.. Distal neuro/vascular/tendon intact. Anesthesia: Local anesthetic administered with 4 mls of 1% lidocaine. Wound prep: Extensive cleansing with hibiclenz by me, Wound irrigation with saline, Wound explored extensively, Copious irrigation. Skin closed with 5 1-0 Walker using staple gun. Patient tolerated well. MDM: 00:11 Patient medically screened. pm1 03:37 Data reviewed: vital signs. Data interpreted: Pulse oximetry: on room air is 98 %. pm1 Interpretation: normal. 04:04 Counseling: I had a detailed discussion with the patient and/or guardian regarding: the pm1 historical points, exam findings, and any diagnostic results supporting the discharge/admit diagnosis, the need for outpatient follow up, to return to the emergency department if symptoms worsen or persist or if there are any questions or concerns that arise at home, Discussed with patient the long wait time for CT result. Patient has been waiting for over 3 hours at this point. Patient without any LOC, nausea, vomiting. Patient is not taking any blood thinners. Patient does not want to wait for results and would like to be called with results. Expressed to the patient my reservations about her going home without results but she does not want to wait an additional hour for the radiologist to arrive at the hospital. Patient is here with her and they were both educated on return precautions . 15:39 ED course: Discussed CT results and shoulder x-ray results with Mrs. Marroquin as pm1 promised. Patient reports that she is doing fine with just a minor headache. Discussed return precautions again with the patient. 09/01 00:17 Order name: CT Head C Spine; Complete Time: 15:13 pm1 09/01 00:31 Order name: Shoulder Right (2 View) XRAY; Complete Time: 15:13 pm1 Administered Medications: No medications were administered Disposition: 06:04 Co-signature as Attending Physician, Feliz Rockwell MD I agree with the assessment and kdr plan of care. Disposition: 09/01/19 04:09 Discharged to Home. Impression: Unspecified injury of head, Laceration without foreign body of scalp. - Condition is Stable. - Medication Reconciliation Form, Thank You Letter, Antibiotic Education, Prescription Opioid Use form. - Follow up: Emergency Department; When: As needed; Reason: Worsening of condition. Follow up: Private Physician; When: 10 - 14 days; Reason: Recheck today's complaints, Continuance of care, Staple/Suture removal, Re-evaluation by your physician. - Problem is new. - Symptoms have improved. Signatures: Dispatcher [employer] EDMS Feliz Rockwell MD MD kdr Marinas, Patrick, GENERAL PRACTICE GENERAL PRACTICE pm1 Marybeth Singh, RN Arash Jimenez ea RN RN rr5 Corrections: (The following items were deleted from the chart) 04:09 04:09 09/01/2019 04:09 Discharged to Home. Impression: Unspecified injury of head. pm1 Condition is Stable. Forms are Medication Reconciliation Form, Thank You Letter, Antibiotic Education, Prescription Opioid Use. Follow up: Emergency Department; When: As needed; Reason: Worsening of condition. Follow up: Private Physician; When: 10 - 14 days; Reason: Recheck today's complaints, Continuance of care, Staple/Suture removal, Re-evaluation by your physician. Problem is new. Symptoms have improved. pm1 04:24 04:09 09/01/2019 04:09 Discharged to Home. Impression: Unspecified injury of head; rr5 Laceration without foreign body of scalp. Condition is Stable. Forms are Medication Reconciliation Form, Thank You Letter, Antibiotic Education, Prescription Opioid Use. Follow up: Emergency Department; When: As needed; Reason: Worsening of condition. Follow up: Private Physician; When: 10 - 14 days; Reason: Recheck today's complaints, Continuance of care, Staple/Suture removal, Re-evaluation by your physician. Problem is new. Symptoms have improved. pm1
[2019-09-01 04:31] VITALS: TEMP 97.7
[2019-09-01 04:34] VITALS: BP 136/95; O2SAT 98
[2019-09-01] MEDS ORDERED: CODEINE 30MG/APAP 300MG TAB ONE (04:58)
[2019-09-01] MEDS ORDERED: methocarbamoL 500 MG TAB ONE (04:59)
--- NOTE | 2019-09-01 08:54 | RAD REPORT ---
EXAM DESCRIPTION: CT - [id number] - 09/01/2019 6:28 am CLINICAL HISTORY: Fall, head and neck injury, posterior scalp injury, headache, neck pain COMPARISON: CT head and cervical August 21 TECHNIQUE: Axial 5 mm thick images of the head were obtained. Axial 2 mm thick images of the cervic al spine were obtained with sagittal and coronal reconstruction images generated and reviewed. All CT scans are performed using dose optimization technique as appropriate and may include automated exposure control or mA/KV adjustment according to patient size. FINDINGS: No intracranial hemorrhage, mass, edema or acute intracranial finding. No suspicion for ac tony infarction. Moderate severity atrophy and chronic ischemic changes are present similar to compari son. Ventricles are in proportion. Arterial calcifications are present. Mastoid air cells and paranas al sinuses are clear. No globe or orbit abnormality seen. Moderate-sized posterior scalp hematoma is present. No foreign body. Underlying skull is intact. Cervical body height and alignment are normal. C5-6 and C6-7 degenerative disc disease noted with end plate spurring minimal foraminal no bony encroachment No fracture or acute bony abnormality. Central canal detail is inherently limited. No paraspinal mass or hematoma. Note: Technical malfunction precluded immediate interpretation of the examination. Images were review ed 0415 hours. A verbal report was telephoned at that time. Comparison images were not available. Campos lindsay written report was further delayed. IMPRESSION: Atrophy and chronic ischemic changes are present similar to comparison. No acute intracr anial finding. Cervical spine degenerative change with no acute finding. Cervical spine is similar the recent gurinder rison.
--- NOTE | 2019-09-01 11:37 | RAD REPORT ---
EXAM DESCRIPTION: RAD - Shoulder Right 2 View - 09/01/2019 4:48 am CLINICAL HISTORY: PAIN COMPARISON: No comparisons FINDINGS: AC joint and glenohumeral joint arthritic changes are present. An acute fracture is not se en.
== END 2019-09-01 04:24 | disposition home or self-care (01) ==
LOC: ER 00:02
PROC: 0JQ00ZZ Repair Scalp Subcutaneous Tissue and Fascia, Open Approach (ICD-10-PCS; principal; 2019-09-01)
DX: S01.01XA Laceration without foreign body of scalp, initial encounter (principal); W19.XXXA Unspecified fall, initial encounter; Y93.89 Activity, other specified; Y92.9 Unspecified place or not applicable; I10 Essential (primary) hypertension; E78.5 Hyperlipidemia, unspecified; E11.9 Type 2 diabetes mellitus without complications; F32.9 Major depressive disorder, single episode, unspecified; Z88.1 Allergy status to other antibiotic agents; Z88.2 Allergy status to sulfonamides; Z88.5 Allergy status to narcotic agent; Z88.8 Allergy status to other drugs, medicaments and biological substances
CPT/HCPCS: 70450; 72125; 99284

== ENCOUNTER 2020-02-11 16:58 | Observation (INO) | payer OTHER ==
--- OUTSIDE RECORDS SUMMARY | 2020-02-11 17:30 | XMS REPORT | Clinical Summary ---
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
--- OUTSIDE RECORDS SUMMARY | 2020-02-11 17:32 | XMS REPORT | Continuity of Care Document ---
:1945 Author Organization [facility] t Address [address] [place] [address] Care Team Providers Name Role Phone Austin FRANCE Primary Care Physician NATALIE Attending Clinician Unavailable FILIPE Attending Clinician Unavailable JHON Attending Clinician Unavailable TIM Attending Clinician Unavailable SHANE Attending Clinician Unavailable Payers Payer Name Policy Type Policy Number Effective Date Expiration Date S ource Problems Condition Condition Condition Status Onset Resolution Last Treating Co mments Source Name Details Category Date Date Treatment Clinician Date Closed Closed Problem Active [facility] traumatic traumatic [facility] - minimally minimally Reji linda displaced displaced l fracture fracture [facility]pat [facility] end of end of left left clavicle clavicle with with routine routine healing healing Closed Closed Problem Active [facility] traumatic traumatic Luke s - minimally minimally Reji linda displaced displaced l fracture fracture Outpat [facility] s end of end of left left clavicle, clavicle, initial initial encounter encounter Pain of Pain of Diagnosis [facility] clavicle clavicle [facility] Fall from Fall from Problem Active [facility] chair, chair, [facility] - initial initial Memoria encounter encounter l Outpati ent Clinics Pain, Pain, Problem Active [facility] joint, joint, [facility] - shoulder, shoulder, Reji linda right right l Outpati ent Clinics Left knee Left knee Problem Active [facility] injury injury [facility] [place] [facility] Age Age Problem Active Univers related related [place] [facility] Closed Closed Problem Active Univers disp disp ity [place] supr[place] fx with l fx with Phys ici intracondy intracondy an s l exten of l exten of left left distal distal femur femur Lumbar Lumbar Problem Active Univers spine pain spine pain [facility] [place] [facility] Screening Screening Problem Active Uni vers for for ity of endocrine[place] endocrine, [place] nutritiona nutritiona Ph ysici l, l, ans metabolic metabolic and and immunity immunity disorder disorder Allergies, Adverse Reactions, Alerts Allergy Allergy Status Severity Reaction(s) Onset Inactive Treating Comm ents Source Name Type Date Date Clinician MORPHINE Adverse Active Info Not [facility] Reaction Available [facility] Phenerga Adverse Active Info Not [facility] n Reaction Available [facility] Nitrofur Adverse Active Info Not [facility] antoin Reaction Available [facility] Ciproflo Adverse Active Info Not [facility] xacin Reaction Available [facility] Social History Social Habit Start Date Stop Date Quantity Comments Source Sex Assigned At Dana Arechiga Medications Ordered Filled Start Stop Current Ordering Indication Dosage Frequency Signature Comments Components Source Medication Medication Date Date Medication? Clinician (SIG) Name Name Lorazepam Lorazepam Yes [place] [address] [facility] -[facility] [place] at bedtime [facility] - 00:[facility]: as needed [facility] Lexapro Lexapro Yes [place] 0.[address] [facility] [address] [facility] [place] [facility] - [facility]: [facility] Hydrocodone Hydrocodone Yes [place] [address] [facility] [address] -Acetaminop -Acetaminop 04-19 [place] as needed [facility] - hen hen 00:00: [facility] 00 [facility] Lovenox Lovenox Yes [place] 0.[address] [address] -19 [place] [facility] - 00:[facility]: [facility] Methocarbam Methocarbam Yes [place] [address] [facility] ol ol [facility] [place] [facility] - 00:[facility]: [facility] 00 [facility] lipitor lipitor Yes [place] [address] [facility] -[facility] [place] [facility] - [facility] Gabapentin Gabapentin Yes [place] [address] [facility] [address] -[facility] [place] [facility] - 00:[facility]: [facility] Metoprolol Metoprolol Yes [place] [address] [facility] [address] Tartrate Tartrate 04-19 [place] with food [facility] - 00:[facility]: [facility] Hemocyte Hemocyte Yes [place] [address] [facility] Plus Plus 04-19 [place] [facility] - 00:[facility]: [facility] Docusate Docusate Yes [place] [address] [facility] [address] Sodium Sodium 04-19 [place] as needed Luke s - 00:00: [facility] Calcium + D Calcium + D Yes [place] as [facility] -[facility] [place] directed [facility] - 00:[facility]: [facility] Lipitor Lipitor Yes [place] [address] [facility] [place] [facility] - 00:[facility]: [facility] Ergocalcife Ergocalcife Yes [place] [address] [address] rol rol 04-19 [place] [facility] - 00:[facility]: [facility] Omeprazole Omeprazole Yes [place] [address] [facility] [facility] Naproxen Naproxen Yes [place] [address] [place] with food [facility] - or milk as Memoria needed l Outpati ent Clinics Tramadol Tramadol Yes [place] [address] HCl HCl [place] as needed [facility] Senna Senna Yes [place] [address] [facility] [place] at bedtime [facility] - as needed [facility]ics Methocarbam Methocarbam Yes [place] TK [address] [facility] [address] ol ol Smiley TID [facility] - [facility] Zolpidem Zolpidem Yes [place] [address] Tartrate Tartrate [place] at bedtime [facility] - as needed [facility] ent Clinics Procedures Procedure Date / Time Performing Clinician Source Performed [U] XRAY FEMUR 2 VWS LEFT 2018-11-02 00:00:00 [facility] [place] [address] Physicians [U] XRAY FEMUR 2 VWS LEFT 2018-10-25 [facility] [address] [facility] X[facility] FEMUR 2 VWS LEFT 2018-10-17 00:00:00 [facility] [place] [address] Physicians [Q] VITAMIN D, 25-HYDROXY, 2018-08-04 00:00:00 U [facility] LC/MS/MS Physicians [QH] CALCIUM 2018-08-04 00:00:00 [facility] Physicians [QLH] PTH, INTACT (WITHOUT 2018-08-04 00:00:00 U [facility] CALCIUM) Physicians [U] XRAY FEMUR 2 VWS LEFT 2018-04-19 [facility]:00[facility] [address] [facility] MRI Spine lumbar w/wo 2018-02-10 00:00:00 [facility] contrast 48233 Physicians [U] XRAY FEMUR 2 VWS LEFT 2018-01-19 00:00:00 Un [facility] [address] Physicians [QLH] CMP W/EGFR 2017-12-23 00:00:00 [facility] Physicians [QLH] VITAMIN D, 2017-12-23 00:00:00 [facility] 25-HYDROXY, LC/MS/MS Physicians [QL] CALCIUM, 24 HOUR 2017-12-23 00:00:00 [facility] URINE (W/ CREATININE) Physicians [H] Protein 2017-12-23 00:00:00 [facility] Electrophoresis Physicians [QLH] PTH, INTACT (WITHOUT 2017-12-16 00:00:00 U [facility] CALCIUM) Physicians [QLH] PHOSPHATE ( 2017-12-16 00:00:00 [facility] PHOSPHORUS) Physicians [U] XRAY FEMUR 2 VWS LEFT 2017-12-01 00:00[facility] [address] Femur without contrast 2017-09-20 00:00[facility]00 [facility] [address] [facility] [U] XRAY FEMUR 2 VWS LEFT 2017-09-19 00:00:00 [facility] [place] [address] Physicians [U] XRAY FEMUR 2 VWS LEFT 2017-08-23 00:00:00 [facility] [address] Phys[facility] [U] XRAY KNEE 1 OR 2 VWS 2017-08-19 00:00:00 [facility] [place] LEFT [address] Physicians [U] XRAY KNEE 1 OR 2 VWS 2017 00:00:00 Uni [facility] LEFT [address] Physicians [QLH] ALKALINE 2017-07-01 00:00:00 [place] [facility] PHOSPHATASE, BONE SPECIFIC Physi cians [Q] COLLAGEN CROSS-LINKED 2017-07-01 00:00[facility]00 [facility] N-TELOPEPTIDE (NTx), U Physician s [H] Procollagen Type I 2017-07-01 00:00:00 [facility] Phys[facility] Propeptide [QLH] MAGNESIUM 2017-07-01 00:00:00 [place] [facility] Physicians [QLH] PHOSPHATE ( 2017-07-01 00:00:00 [facility] PHOSPHORUS) Physicians CPL - Vitamin D, 25 2017-07-01 00:00:00 [facility] Hydroxy Physicians [QLH] PTH, INTACT (WITHOUT 2017-07-01 00:00:00 U [facility] CALCIUM) Physicians [O] Dexa Scan ([employer] 2017-07-01 00:00:00 U [facility] X-Ray) [id number] Physicians [U] XRAY FEMUR 2 VWS LEFT 2017-06-20 00:00:00 Un [facility] [address] Physicians Plan of Care Planned Activity Planned Date Details Comments Source Future Scheduled 2020-03-01 INFLUENZA VACCINE [code [facility] 00:00:00 = INFLUENZA VACCINE] Diagnostic Test 2017-12-23 [QLH] CMP W/EGFR [code [facility] Pending 00:00:00 = [QLH] CMP W/EGFR] [place] [facility] Diagnostic Test 2017-12-23 [QLH] VITAMIN D, Universi ty of Pending 00:00:00 25-HYDROXY, LC/MS/MS [place] [facility]ys[facility] [code = [QLH] VITAMIN D, 25-HYDROXY, LC/MS/MS] Diagnostic Test 2017-12-23 [QL] CALCIUM, 24 HOUR Uni versity of Pending 00:00:00 URINE (W/ CREATININE) [place] [facility] [code = [QL] CALCIUM, 24 HOUR URINE (W/ CREATININE)] Diagnostic Test 2017-12-23 [H] Protein University o Pending 00:00:00 Electrophoresis [code = [place] [H] Protein Electrophoresis] Diagnostic Test 2017-12-23 [QLH] CMP W/EGFR [code Un iversity of Pending 00:00:00 = [QLH] CMP W/EGFR] [place] [facility] Diagnostic Test 2017-12-23 [QLH] VITAMIN D, Universi ty of Pending 00:00:00 25-HYDROXY, LC/MS/MS [place] P [facility]ys[facility] [code = [QLH] VITAMIN D, 25-HYDROXY, LC/MS/MS] Diagnostic Test 2017-12-23 [QL] CALCIUM, 24 HOUR Uni versity of Pending 00:00:00 URINE (W/ CREATININE) [place] [facility] [code = [QL] CALCIUM, 24 HOUR URINE (W/ CREATININE)] Diagnostic Test 2017-12-23 [H] Protein University o f Pending 00:00:00 Electrophoresis [place]code = [place] [H] Protein Electrophoresis] Diagnostic Test 2017-08-02 [O] Dexa Scan (Dual Unive rsity of Pending 00:00:00 Energy X-Ray) [id number] [place] [facility] [code = 763679] Diagnostic Test 2017-08-02 [O] Dexa Scan (Dual Unive rsity of Pending 00:00:00 Energy X-Ray) [id number] [place] [facility] [code = 939840] Future Scheduled 2012 65+ PNEUMOCOCCAL [facility] 00:00:00 VACCINE (1 of 2 - PCV13) [code = 65+ PNEUMOCOCCAL VACCINE (1 of 2 - PCV13)] Future Scheduled 1997 BREAST CANCER SCREENING [facility] 00:00:00 [code = BREAST CANCER SCREENING] Future Scheduled 1997 COLONOSCOPY SCREENING [facility] 00:00:00 [code = COLONOSCOPY SCREENING] Future Scheduled 1997 SHINGLES VACCINES (#1) [facility] [facility] 00:00:00 [code = SHINGLES VACCINES (#1)] Encounters Start End Encounter Admission Attending Care Care Encounter Source Date/Time Date/Time Type Type Clinicians Facility Department ID 2018-11-07 2018-11-07 Appointmen CRISTÓBAL ESTRADA [facility] [id number] [facility] 13:00:00 13:00:00 tim ESTRADA M.D. ity o bonita AMBROCIO M.D. [place] [facility] 2018-10-31 2018-10-31 CRISTÓBAL Akers [facility] [id number] Univers 13:45:00 13:45:00 t; Andria ESTRADA M.D. [place] [facility] 2018-10-24 2018-10-24 CRISTÓBAL Akers [facility] [id number] Univers 12:30:00 12:30:00 t; Andria ESTRADA M.D. [place] [facility] 2018-08-24 2018-08-24 [facility] [id number] 13:30:00 13:30:00 t [facility] - and [facility] 2018-08-04 2018-08-04 RADHA Patel [facility] [id number] Univers 12:30:00 12:30:00 t; alexis BRITTON FILIPE, P.A. [place] REBA Physi ci P.A. ans 2018-07-23 2018-07-23 [facility] [id number] 12:45:00 12:45:00 t Urgent Urgent Care L [facility] 2018-04-25 2018-04-25 CRISTÓBAL Akers [facility] Orthopedics [id number] Univers 12:30:00 12:30:00 t; Andria ESTRADA M.D. [place] [facility] 2018-04-06 2018-04-06 RADHA Curran [facility] [id number] Univers 12:30:00 12:30:00 t; ANGELICA FERREIRA ity of [place] M.D. [place], M.D. Physici ans 2018-03-10 2018-03-10 RADHA Patel [facility] [id number] Univers 14:00:00 14:00:00 t; Tomer BRITTONDANI, P.A. [place] [facility] Physi ci P.A. ans 2018-01-24 2018-01-24 CRISTÓBAL Akers [facility] [id number] Univers 12:30:00 12:30:00 t; Andria ESTRADA M.D. [place] [facility] 2017-12-16 2017-12-16 Appointsebastián DENT [facility] [id number] Univers 12:30:00 12:30:00 t; Kassie BRITTONs eveline of FIL[place], P.A. [place] REBA, Physi ci P.A. ans 2017-12-06 2017-12-06 Appointmen CRISTÓBAL ESTRADA [facility] Orthopedics [id number] Univers 12:30:00 12:30:00 t; Andria ESTRADA M.D. [place] [facility] 2017-10-04 2017-10-04 CRISTÓBAL Akers [facility] [id number] Univers 12:30:00 12:30:00 t; Andria ESTRADA M.D. [place] [facility] 2017-09-20 2017-09-20 AppointCRISTÓBAL Velasco [facility] Orthopedics [id number] Univers 10:30:00 10:30:00 t; Andria ESTRADA M.D. [place] [facility] 2017-08-26 2017-08-[facility] [id number] Univers 12:30:00 12:30:00 t; alexis BRITTON FILIPE, P.A. [place] REBA, Physi ci P.A. ans 2017-08-23 2017-08-23 AppointCRISTÓBAL Velasco [facility] Orthopedics [id number] Univers 10:15:00 10:15:00 t; Andria ESTRADA M.D. [place] [facility] 2017-08-02 2017-08-02 Appointsebastián DEXA, SCAN [facility] [id number] Univers 15:00:00 15:00:00 t; eveline DUMONT SCAN [place] [facility] 2017-08-02 2017-08-02 AppointCRISTÓBAL Velasco [facility] [id number] Univers 12:30:00 12:30:00 t; Andria ESTRADA M.D. [place] [facility] 2017-07-01 2017-07-01 [facility] [id number] Univers 12:30:00 12:30:00 t; Jaxon BRITTON P.APrisca [place] P.AShi ans 2017-06-28 2017-06-28 Appointmen SHANE [facility] Orthopedics [id number] Univers 12:30:00 12:30:00 t; ANGELA LYNN P.A. ity [place], [place] P.A. Physici ans 2017-05-31 2017-05-31 [facility] [id number] Univers 12:30:00 12:30:00 t; ANGELA LYNN P.A. ity [place] P.A. Physici ans Results Test Description Test Time Test Comments Results Result Comments Source PROTHROMBIN TIME 2018-12-20 16:04:00 Test Item Value Reference Range Interpretation Comme nts PT PATIENT (test code = PTP) 10.3 SECONDS 9.3-12.9 N INTERNATIONAL NORMAL RATIO (test code = INR) 0.90 INR Unit 0.8-1.2 N THROMBOPLASTIN TIME [id number] 16:04:00 Test Item Value Reference Range Interpretation Comments THROMBOPLASTIN TIME PARTIAL 25.8 SECONDS 26-35 L (test code = PTT) COMPREHENSIVE METABOLIC [id number] 16:03:00 Test Item Value Reference Range Interpretation Comments SODIUM (test code = NA) 140 mmol/L 134-147 N POTASSIUM (test code = 5.0 mmol/L 3.4-5.0 N K) CHLORIDE (test code = 106 mmol/L 100-108 N CL) CARBON DIOXIDE (test 32 mmol/L 21-32 N code = CO2) ANION GAP (test code = 2.0 GAP calc 4.0-15.0 L GAP) GLUCOSE (test code = 92 MG/DL 70-110 N GLU) BLOOD UREA NITROGEN 20 MG/DL 7-18 H (test code = BUN) GLOMERULAR FILTRATION >=60 max estimate >60 RATE (test code = GFR) estGFR CREATININE (test code = 0.6 MG/DL 0.6-1.0 N CREAT) TOTAL PROTEIN (test code 6.9 G/DL 6.4-8.2 N = PROT) ALBUMIN (test code = 3.2 G/DL 3.4-5.0 L ALB) GLOBULIN (test code = 3.7 GM/dL GLOB) ALBUMIN/GLOBULIN RATIO 0.9 RATIO 1.2-2.2 L (test code = A/G) CALCIUM (test code = CA) 9.0 MG/DL 8.5-10.1 N BILIRUBIN TOTAL (test 0.40 MG/DL 0.2-1.2 N code = BILT) SGOT/AST (test code = 52 Unit/L 15-37 H AST) SGPT/ALT (test code = 43 Unit/L 12-78 N ALT) ALKALINE PHOSPHATASE 155 Unit/L 45-117 H TOTAL (test code = ALKP) CBC W/AUTO [id number] 15:47:00 Test Item Value Reference Range Interpretation Comments WHITE BLOOD CELL (test code = 6.2 K/mm3 3.5-11.0 N WBC) RED BLOOD CELL (test code = RBC) 3.41 M/mm3 4.70-6.10 L HEMOGLOBIN (test code = HGB) 12.4 G/DL 10.4-14.9 N HEMATOCRIT (test code = HCT) 37.6 % 31.5-44.1 N MEAN CELL VOLUME (test code = 110.3 Fl 84.5-98.6 H MCV) MEAN CELL HGB (test code = MCH) 36.4 pg 27.0-34.2 H MEAN CELL HGB CONCETRATION (test 33.0 G/DL 31.5-34.0 N code = MCHC) RED CELL DISTRIBUTION WIDTH (test 14.4 SD 11.5-14.5 N code = RDW) PLATELET COUNT (test code = PLT) 155.0 K/mm3 150-450 N MEAN PLATELET VOLUME (test code = 9.10 fL 7.0-10.5 N MPV) NEUTROPHIL % (test code = NT%) 45.7 % 40-76 N LYMPHOCYTE % (test code = LY%) 43.9 % 20.5-51.1 N MONOCYTE % (test code = MO%) 6.3 % 1.7-9.3 N EOSINOPHIL % (test code = EO%) 3.9 % 0.0-6.0 N BASOPHIL % (test code = BA%) 0.2 % 0.0-2.0 N NEUTROPHIL # (test code = NT#) 2.81 K/mm3 1.8-7.6 N LYMPHOCYTE # (test code = LY#) 2.7 K/mm3 0.6-3.2 N MONOCYTE # (test code = MO#) 0.4 K/mm3 0.3-1.1 N EOSINOPHIL # (test code = EO#) 0.2 K/mm3 0.0-0.4 N BASOPHIL # (test code = BA#) 0.0 K/mm3 0.0-0.1 N MANUAL DIFF REQUIRED (test code = NO DIFF/SCN CRITERIA MDIFF) - DUP VEIN UNI [id number] 15:17:00 Name: [facility]ORENA [facility] [place] [facility] 1945 Age/S: 73 / F [id number] Unit #: [id number] Loc: [place] [address] Phys: Arsenio Beckman III, MD Acct: [id number] Dis Date: Status: REG CLI PHONE #: [phone] Exam Date: 12/20/2018 1445 FAX #: Reason: JUGULARVEIN OCCLUSION EXAMS: CPT: [id number] [place] [address] EXAMINATION: - DUP VEIN UNI LT. LOCATION: S 17. HISTORY: JUGULAR VEIN OCCLUSION. COMPARISON: None. TECHNIQUE: Ultrasound imaging of the left upper extremity veins was performed, including color and spectral Doppler examination. FINDINGS: There is patent flow and normal compressibility of the left internal jugular, external jugular, subclavian, axillary, brachial, basilic, median cubital, and radial veins. The left cephalic and ulnar veins are not well visualized. IMPRESSION: No sonographic evidence of left upper extremity extremity DVT. The left internal jugular and external jugular veins are patent. at 1517 Reported and signed by: Vianey Valdez M.D. CC: Arsenio Piña III, MD Technologist: Jesi Monsalve, RT(R),JASON(AB) TrnscbDate/Time: 12/20/2018 (1517) [email or web address] PAGE 1 Signed Report Name: [facility]FNOSO [facility]STORENA [facility] [place] : 1945 Age/S: 73 / F [id number] Unit #: [id number] Loc: [place] [address] Phys: Arsenio Beckman III, MD Acct: [id number] Dis Date: Status: REG CLI PHONE #: [phone] Exam Date: 12/20/2018 1445 FAX#: Reason: JUGULAR VEIN OCCLUSION EXAMS: CPT: [id number] [place] [address] <Continued> Orig Print D/T: S: 12/20/2018 (1520) Probe: PAGE 2 Signed Report- CT MAXIFAC [id number] 14:33:00 Name: ALFONSO CASTORENA [place] : 1945 Age/S: 73 / F [id number] [address] Unit #: [id number] Loc: [place] [address] Phys: Arsenio Beckman III, MD Acct: [id number] Dis Date: Status: REG CLI PHONE #: [phone] Exam Date: 11/23/2018 1225 FAX #: Reason: LT TEMPORAL MASS EXAMS: CPT: [id number] CT MAXIFAC W/CONTRAST 45379 Location: T18 CT head, 11/23/18 TECHNIQUE: CT [...] It is hyperdense on noncontrast imaging without def inite involvement of the calvarium. It is seen [...] cm in cc dimension embedded within the po sterior scalp muscles without bony involvement. It is [...] of PAGE 1 Signed Report (CONTINUED) Name: LAFONSO CASTORENA : 1945 Age/S: 73 / F [id number] [address] Unit #: [id number] Loc: [place] [address] Phys: Arsenio Beckman III, MD Acct: [id number] Dis Date: Status: REG CLI PHONE #: [phone] Exam Date: 11/23/2018 1225 FAX #: Reason: LT TEMPORAL MASS EXAMS: CPT: [id number] CT MAXIFAC W/CONTRAST 82198 <Co ntinued> mastoid air cells. No positive mass-effect, midlineshift, [...] CASTORENA : 1945 Age/S: 73 / F [id number] [address] Unit #: [id number] Loc: [place] [address] Phys: Arsenio Beckman III, MD Acct: [id number] Dis Date: Status: REG CLI PHONE #: [phone] Exam Date: 11/23/2018 1225 FAX #: Reason: LT TEMPORAL MASS EXAMS: CPT: [id number] CT MAXIFAC W/CONTRAST 57071 <Continued> of head. History of left parotid [...] auditory canal. 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 Small degree of benign-appearing ethmoid air [...] dystrophic density associated with left external auditory can al on image #67 of series 2. IMPRESSION: No definite lesion seenin the left parotid gland or within the left temporal region No pathological-appearing nodes Probable benign density appearing hyperdense on noncontrast imaging embedded within the scalp muscles in the occipital region midline in PAGE 3 Signed Report (CONTINUED) Name: ALFONSO CASTORENA : 1945 Age/S: 73 / F [id number] [address] Unit #: [id number] Loc: [place] [address] Phys: Arsenio Beckman III, MD Acct: [id number] Dis Date: Status: REG CLI PHONE #: [phone] Exam Date: 11/23/2018 1225 FAX #: Reason: LT TEMPORAL MASS EXAMS: CPT: [id number] CT MAXIFAC W/CONTRAST 80213 <Continued> location adjacent to an area of external occipital protuberance Some of the images are somewhat degraded due to motion but the exam is largely diagnostic. at 1433 Reported and signed by: Aury Cruz M.D. CC: Arsenio Beckman III, MD Technologist:Angela Mishra, RT(R)(MR) CTDI: DLP: Trnscb Date/Time: 11/23/2018 (1433) [email or web address] Orig Print D/T: S: 11/23/2018 (1436) CTDI: DLP: PAGE 4 Signed Report- CT HEAD/BRAIN W/O [id number] 14:33:00 Name: ALFONSO CASTORENA [place] : 1945 Age/S: 73 / F [address] Unit #: [id number] Loc: [place] [address] Phys: Arsenio Beckman III, MD Acct: [id number] Dis Date: Status: REG CLI PHONE #: [phone] Exam Date: 11/23/2018 124 FAX #: Reason: POSTERIOR MASS EXAMS: CPT: [id number] CT HEAD/BRAIN W/O CONT 12192 Location: T18 CT head, 11/23/18 TECHNIQUE: CT [...] 1 Signed Report (CONTINUED) Name: ALFONSO CASTORENA [facility] : 1945 Age/S: 73 / F [id number] [address] Unit #: [id number] Loc: [place] [address] Phys: Arsenio Beckman III, MD Acct: [id number] Dis Date: Status: REG CLI PHONE #: [phone] Exam Date: 11/23/2018 1243 FAX #: Reason: POSTERIOR MASS EXAMS: CPT: [id number] CT HEAD/BRAIN W/O CONT 96382 <Continued> mastoid air cells. No positive mass-effect, midlineshift, extra-axial fluid collections or intracranial hemorrhages seen. In particular, no subara chnoid hemorrhage is identified. No intra or extra-axial [...] external occipital protuberance involving the occipital bone Curvilinea r hyperdensity having imaging characteristics of a probable [...] using MPR software by interpreting radiologist. Scanning c onducted in the axial plane contiguously from frontal region through thoracic inlet. The examination was performed on a updated helical CT scanner utilizing low-dose radiation technique. Automatic exposure control was utilized to reduce radiation dose CLINICAL HISTORY: Lump in left temporal region x3 days and mass on top PAGE 2 Signed Report (CONTINUED) Name: ALFONSO CASTORENA : 1945 Age/S: 73 / F [address] Unit #: [id number] Loc: [place] [address] Phys: Arsenio Beckman III, MD Acct: [id number] Dis Date: Status: REG CLI PHONE #: [phone] Exam Date: 11/23/2018 1243 FAX #: Reason: POSTERIOR MASS EXAMS: CPT: [id number] CT HEAD/BRAIN W/O CONT 45584 <Continued> of head. 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 Do not see a de finite parotid lesion or definite focal abnormality in the left temporal region. No bony erosion of the temporal bone or of the mastoid air cells. Normal aeration of mastoid air cellsand of the middle ear cavity. No definite abnormality seen along the left external auditory canal. 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 Small degree of benign-appearing ethmoid air [...] No abnormal enhancing lesions is seen intracranially.Single benign-appearing dystrophic density associated with left external auditory [...] CASTORENA : 1945 Age/S: 73 / F [id number] [address] Unit #: [id number] Loc: [place] [address] Phys: Arsenio Beckman III, MD Acct: [id number] Dis Date: Status: REG CLI PHONE #: [phone] Exam Date: 11/23/2018 1243 FAX #: Reason: POSTERIOR MASS EXAMS: CPT: [id number] CT HEAD/BRAIN W/O CONT 13126 <Continued> location adjacent to an area of external occipital protuberance Some of the images are somewhat degraded due to motion but the exam is largely diagnostic. at 1433 Reported and signed by: Aury Cruz M.D. CC: Arsenio Beckman III, MD Technologist:Angela Mishra, RT(R)(MR) CTDI: DLP: Trnscb Date/Time: 11/23/2018 (1433) t.[email or web address] Orig Print D/T: S: 11/23/2018 (2326) CTDI: DLP: PAGE 4 Signed Report- CT NECK W/[id number] 14:33:00 Name: ALFONSO CASTORENA Celina : 1945 Age/S: 73 / F [id number] Unit #: [id number] Loc: [place] [address] Phys: Arsenio Beckman III, MD Acct: [id number] Dis Date: Status: REG CLI PHONE #: [phone] Exam Date: 11/23/2018 1235 FAX #: Reason: FACIAL MAS EXAMS: CPT: [id number] CT NECK W/CONTRAST 22376 Location: T18 CT head, 11/23/18 TECHNIQUE: CT [...] cm in cc dimension embedded within the po sterior scalp muscles without bony involvement. It is [...] 1 Signed Report (CONTINUED) Name: ALFONSO CASTORENA Celina : 1945 Age/S: 73 / F [address] Unit #: [id number] Loc: [place] [address] Phys: Arsenio Beckman III, MD Acct: [id number] Dis Date: Status: REG CLI PHONE #: [phone] Exam Date: 11/23/2018 1235 FAX #: Reason: FACIAL MAS EXAMS: CPT: [id number] CT NECK W/CONTRAST 95739 <Co ntinued> mastoid air cells. No positive mass-effect, midlineshift, [...] CASTORENA : 1945 Age/S: 73 / F [id number] Unit #: [id number] Loc: [place] [address] Phys: Arsenio Beckman III, MD Acct: [id number] Dis Date: Status: REG CLI PHONE #: [phone] Exam Date: 11/23/2018 1235 FAX #: Reason: FACIAL MAS EXAMS: CPT: [id number] CT NECK W/CONTRAST 21757 <Continued> of head. History of left parotid [...] auditory canal. 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 Small degree of benign-appearing ethmoid air cell opacification is noted. There is a midline lesion without definite enhancement again seen in the occipital region embedded within the scalp muscles as discussed on the head CT exam possibly indicative a complex sebaceous cyst. It is adjacent to an area of external occipital protuberance, [...] No abnormal enhancing lesions is seen intracranially.Single benign-appearing dystrophic density associated with left external auditory [...] CASTORENA : 1945 Age/S: 73 / F [address] Unit #: [id number] Loc: [place] [address] Phys: Arsenio Beckman III, MD Acct: [id number] Dis Date: Status: REG CLI PHONE #: [phone] Exam Date: 11/23/2018 1235 FAX #: Reason: FACIAL MAS EXAMS: CPT: [id number] CT NECK W/CONTRAST 55718 <Continued> location adjacent to an area of e xternal occipital protuberance Some of the images are somewhat degraded due to motion but the exam is largely diagnostic. at 1433 Reported and signed by: Aury Cruz M.D. CC: Arsenio Beckman III, MD Technologist:Angela Mishra, RT(R)(MR) CTDI: DLP: Trnscb Date/Time: 11/23/2018 (143) [email or web address] Orig Print D/T: S: 11/23/2018 (1436) CTDI: DLP: PAGE 4 Signed [id number] 12:02:00 Test Item Value Reference Range Interpretation Comments ISTAT-GLUCOSE (test code = GLUP) 88 mg/dL 70-105 N [id number] 12:02:00 Test Item Value Reference Range Interpretation Comments ISTAT-BUN (test code = BUNP) mg/dL 8-26 BEDSIDE [id number] 12:02:00 Test Item Value Reference Range Interpretation Comments BEDSIDE CREATININE (test code = mg/dL 0.6-1.3 CREATBED) [id number] 12:02:00 Test Item Value Reference Range Interpretation Comments ISTAT-GLUCOSE (test code = GLUP) 88 mg/dL 70-105 N [id number] 12:02:00 Test Item Value Reference Range Interpretation Comments ISTAT-BUN (test code = BUNP) 15 mg/dL 8-26 N BEDSIDE [id number] 12:02:00 Test Item Value Reference Range Interpretation Comments BEDSIDE CREATININE (test code = mg/dL 0.6-1.3 CREATBED) [id number] 12:02:00 Test Item Value Reference Range Interpretation Comments ISTAT-GLUCOSE (test code = GLUP) 88 mg/dL 70-105 N [id number] 12:02:00 Test Item Value Reference Range Interpretation Comments ISTAT-BUN (test code = BUNP) 15 mg/dL 8-26 N BEDSIDE [id number] 12:02:00 Test Item Value Reference Range Interpretation Comments BEDSIDE CREATININE (test code = 0.7 mg/dL 0.6-1.3 N CREATBED) [Q] [id number] 13:30:00 Test Item Value Reference Range Interpretation Comments CALCIUM (test code = CALCIUM) 9.1 mg/dl 8.6-10.4 N [facility]] PTH, INTACT (WITHOUT CALCIUM)2018-08-04 13:30:00 Test Item Value Reference Interpretation Comments Range PARATHYROID 103 pg/ml 14-64 Interpretive Gu radha Intact HORMONE, INTACT PTH (test code = Calcium-------- PARATHYROID HORMONE, INTACT) -------Norm al Parathyroid Normal NormalHypoparat hyroidism Low or Low Norm al LowHyperparathy roidism Primary Normal or High High Secondary High Normal or Low Tertiary High HighNon-Parathy roid Hypercalcemia Low or Low Normal High [facility][QL] VITAMIN D, 25-HYDROXY, LC/MS/[id number] 13:30:00 Test Item Value Reference Range Interpretation Comments VITAMIN 32 ng/ml 30-100 N Vitamin D Statu s D,25-OH,TOTAL,IA 25-OH Vitam in D: (test code = VITAMIN Deficie ncy: D,25-OH,TOTAL,IA) <20 ng/mLInsufficie ncy: 20 - 29 ng/mLOptimal: > or = 30 n g/mL For 25-OH Vitamin D testing on patients on D2-supplementat ion and patients for wh om quantitation of D2 and D3 fractions is re quired, the QuestAssure D(TM)25-OH VIT D, (D2,D3), LC/MS/MS is recommended: order code 06755 (pat ients >2yrs). For mor e information on this test, go to:http://educa tion.[email or web address] /faq/FAQ16 3(This link is being provided for informational/e ducational purposes only.) [facility][U] XRAY FEMUR 2 VWS LEFT [id number] 11:56:00 Images acquired, not reported on this accession number.[facility][H] Creatinine for [id number] 17:50:01 Test Item Value Reference Range Interpretation Comments Creatinine Lvl 0.60 mg/dl 0.50-1.40 (test code = 2160-0) eGFR (test code = 93 The eGFR i s calculated 03200-7) {ML/MIN/1.7} using the CKD-E PI formula. In mos t young, healthyindividu als the eGFR will be >9 0 mL/min/1.73m2. The eGFR declines with a ge. AneGFR of 60-89 may be normal in some population s, particularly th e elderly, forwhom the CKD -EPI formula has not been extensively nolan idated. Use of the eGFR isnot recommended in the following populations:Ind ividuals with unstable c reatinine concentrations, including patient s and those with seri ous co-morbid conditions.Flora ents with extremes in mus keisha mass or diet.The atul a above are obtained fr om the National Kidney Disease Education Progr am(NKDEP) which renetta flynn recommends that when the eGFR is used in patientswith ex tremes of body mass index for purposes of joni g dosing, the eGFR should be multiplied by t he estimated BMI. [facility][H] Creatinine Clearance Urine 24 [id number] 12:56:01 Test Item Value Reference Range Interpretation Comments Urine Creatinine 87 ml/min 88-128 Clearance 24 Hour; Below Low Threshold (test code = 2164-2) Ur Creat (test code = 42.40 mg/dl No est ablished Ur Creat) reference range s. BSA Cr Clear (test 1.73 code = 3140-1) WT Crcl (test code = 215 {lb} 03756-4) HT Crcl (test code = 52 {INCHES} 8302-2) Total Volume 1780 ml 600-1600 Creatinine Clearance 24 Hour; Above High Threshold (test code = 43093-6) [facility]] VITAMIN D, 25-HYDROXY, LC/MS/[id number] 12:53:01 Test Item Value Reference Range Interpretation Comments Vitamin D, 25-OH, 19.5 ng/ml 30.0-100.0 Reference range is based Total (test code on recommen dations in the = Vitamin D, EndocrineSociet y Clinical 25-OH, Total) Practice Guide line (J Clin Endocrinol Dlxxb1993;96:19 11-1930) [facility][H] Protein [id number] 12:53:01 Test Item Value Reference Range Interpretation Comments Protein Electrophoresis Cancel Reason: (test code = Protein Duplicate Order Electrophoresis) [facility]] CMP [id number] 14:09:01 Test Item Value Reference Range Interpretation Comments Sodium Level 139 {mEq/l} 135-145 (test code = 2951-2) Potassium Level; 5.6 {mEq/l} 3.5-5.1 Above High Threshold (test code = 2823-3) Chloride Level 104 {mEq/l} 95-109 (test code = 5-0) Carbon Dioxide 31 {mEq/l} 24-32 (test code = 2027-9) AGAP; Below Low 9.6 {mEq/l} 10.0-20.0 Threshold (test code = 95838-8) Glucose Lvl (test 77 mg/dl 70-99 Adult refe rence range code = 2345-7) values reflec t the clinical guidel inesof the [place] [employer] es [employer]. Creatinine Lvl 0.60 mg/dl 0.50-1.40 (test code = 2160-0) Blood Urea 21 mg/dl 7-22 Nitrogen (test code = 3094-0) BUN/Creatinine 35 6-25 Ratio; Above High Threshold (test code = 3097-3) Total Protein 6.9 g/dl 6.4-8.4 (test code = 2885-2) Albumin Lvl (test 3.7 g/dl 3.5-5.0 code = 1751-7) Globulin (test 3.2 g/dl 2.7-4.2 code = 79075-2) A/G Ratio (test 1.2 0.7-1.6 code = 1759-0) Calcium Level 9.5 mg/dl 8.5-10.5 Total (test code = 72258-1) ALT (test code = 34 u/l 0-65 1743-4) AST (test code = 37 u/l 0-37 77734-4) Alk Phos (test 103 u/l 39-136 code = 1783-0) Bili Total (test 0.4 mg/dl 0.2-1.3 code = 1975-2) eGFR (test code = 93 The eGFR i s calculated 24953-3) {ML/MIN/1.7} using the CKD-E PI formula. In mos t young, healthyindividu als the eGFR will be >9 0 mL/min/1.73m2. The eGFR declines with a ge. AneGFR of 60-89 may be normal in some population s, particularly th e elderly, forwhom the CKD -EPI formula has not been extensively nolan idated. Use of the eGFR isnot recommended in the following populations:Ind ividuals with unstable c reatinine concentrations, including patient s and those with seri ous co-morbid conditions.Flora ents with extremes in mus keisha mass or diet.The atul a above are obtained fr om the National Kidney Disease Education Progr am(NKDEP) which renetta flynn recommends that when the eGFR is used in patientswith ex tremes of body mass index for purposes of joni g dosing, the eGFR should be multiplied by t he estimated BMI. [facility]] VITAMIN D, 25-HYDROXY, LC/MS/[id number] 14:09:01 Test Item Value Reference Range Interpretation Comments Vitamin D, 25-OH, 20.6 ng/ml 30.0-100.0 Reference range is based Total (test code on recommen dations in the = Vitamin D, EndocrineSociet y Clinical 25-OH, Total) Practice Guide line (J Clin Endocrinol Nxsww8760;96:19 11-1930) [facility][H] Protein [id number] 14:09:01 Test Item Value Reference Range Interpretation Comments Albumin Percent 54.1 {REL 55.8-66.1 (test code = Albumin %} Percent) Alpha 1 Percent 4.2 {REL %} 2.8-4.9 (test code = Alpha 1 Percent) Alpha 2 Percent 12.9 {REL 7.0-11.9 (test code = Alpha 2 %} Percent) Beta Percent (test 11.4 {REL 7.8-13.7 code = Beta Percent) %} Gamma % (test code = 17.4 {REL 11.1-18.7 Gamma %) %} Albumin (SPE) (test 3.73 g/dl 3.57-5.55 code = Albumin (SPE)) Alpha 1 Globulin 0.29 g/dl 0.18-0.41 (test code = Alpha 1 Globulin) Alpha 2 Globulin 0.89 g/dl 0.45-1.00 (test code = 95806-5) Beta Globulin (test 0.79 g/dl 0.50-1.15 code = Beta Globulin) Gamma Globulin (test 1.20 g/dl 0.71-1.57 code = Gamma Globulin) Total Protein (SPE) 6.9 g/dl 6.4-8.4 (test code = 2885-2) SPE Interpretation SEE NOTES Total pro tein and serum (test code = SPE albumin lev els are Interpretation) within refer ence ranges. Allglobulin fr actions are present in a normal distribution. No monoclonalprote ins are identified. Se rum capillary electrophoresis is withoutsignific ant abnormalities. Interpretation performed at [facility].Electr onic Signature Jodi Mathur MD 01/04/18 3 :44 PM [facility]] PHOSPHATE ( PHOSPHORUS)2017-12-16 13:36:00 Test Item Value Reference Range Interpretation Comments PHOSPHATE ( PHOSPHORUS) (test 4.7 mg/dl 2.1-4.3 code = PHOSPHATE ( PHOSPHORUS)) [facility]] PTH, INTACT (WITHOUT CALCIUM)2017-12-16 13:36:00 Test Item Value Reference Interpretation Comments Range PARATHYROID 175 pg/ml 14-64 Interpretive Gu radha Intact HORMONE, INTACT PTH (test code = Calcium-------- PARATHYROID HORMONE, INTACT) -------Norm al Parathyroid Normal NormalHypoparat hyroidism Low or Low Norm al LowHyperparathy roidism Primary Normal or High High Secondary High Normal or Low Tertiary High HighNon-Parathy roid Hypercalcemia Low or Low Normal High [facility][U] XRAY FEMUR 2 VWS LEFT [id number] 12:43:00 Images acquired, not reported on this accession number.[facility][U] XRAY FEMUR 2 VWS LEFT [id number] 11:12:00Images acquired, not reported on this accession number.[facility][U] XRAY KNEE 1 OR 2 VWS LEFT [id number] 10:56:00Images acquired, not reported on this accession number.[facility]] [id number] 13:52:00 Test Item Value Reference Range Interpretation Comments MAGNESIUM (test code = MAGNESIUM) 1.8 mg/dl 1.5-2.5 N [facility]] PHOSPHATE ( PHOSPHORUS)2017-08-02 13:52:00 Test Item Value Reference Range Interpretation Comments PHOSPHATE ( PHOSPHORUS) (test 5.7 mg/dl 2.1-4.3 code = PHOSPHATE ( PHOSPHORUS)) [facility][Q] PROCOLLAGEN TYPE I INTACT N TERMINAL [id number] 13:52:00 Test Item Value Reference Range Interpretation Comments PROCOLLAGEN TYPE I 117 {mcg/L} Unable to flag INTACT N TERMINAL abnormal r esult(s), PROPEPTIDE (test code please refer to = PROCOLLAGEN TYPE I referen ce range(s) INTACT N TERMINAL below: Ref erence PROPEPTIDE) range(s): Fem lico: <20 years: N ot established 2 0-45 years: 22 - 10 4 mcg/L 46-60 y ears: 20 - 108 mcg/L >60 years: Not established [facility][] COLLAGEN CROSS-LINKED N-TELOPEPTIDE (NTx), U 2017-08-02 13:52:00 Test Item Value Reference Range Interpretation Comments N-TELOPEPTIDE 220 {nmol Adult Female R eference (NTx) (test code BCE/m} Range for C ollagen = N-TELOPEPTIDE Cross- Linke d (NTx)) N-Telopeptide ( NTx), Random Urine Premenopausal: 4-64 nmol BCE/mmol c reat Results are anjum alexis used for monito ring the response gwen suero. A value within th e premenopausal r eference rangedoes not r ule out osteoporosis no r the need for therap y. CREATININE, 102 mg/dl 20-320 RANDOM URINE (test code = CREATININE, RANDOM URINE) [facility]] PTH, INTACT (WITHOUT CALCIUM)2017-08-02 13:52:00 Test Item Value Reference Range Interpretation Comments PARATHYROID 93 pg/ml 14-64 Interpretive Gu radha Intact HORMONE, INTACT PTH (test code = Calcium-------- PARATHYROID HORMONE, INTACT) -------Norm al Parathyroid Normal NormalHypoparat hyroidism Low or Low Norm al LowHyperparathy roidism Primary Normal or High High Secondary High Normal or Low Tertiary High HighNon-Parathy roid Hypercalcemia Low or Low Normal High [facility]] VITAMIN D, 25-HYDROXY, LC/MS/[id number] 13:52:00 Test Item Value Reference Range Interpretation Comments VITAMIN D, 25-OH, 33 ng/ml 30-100 N Vitamin D Status TOTAL (test code = 25-OH Vit cisse D: VITAMIN D, 25-OH, Deficiency : TOTAL) <20 ng/mLInsufficie ncy: 20 - 29 ng/mLOptimal: > or = 30 n g/mL For 25-OH Vitamin D testing on patients on D2-supplementat ion and patients for wh om quantitation of D2 and D3 fractions is re quired, the [employer] D(TM)25-OH VIT D, (D2,D3), LC/MS/MS is recommended: order code 96963 (pat ients >2yrs). For mor e information on this test, go to:http://educa tion.[employer] /faq/FAQ16 3(This link is being provided for informational/e ducational purposes only.) [facility][U] XRAY KNEE 1 OR 2 VWS LEFT [id number] 13:04:00Images acquired, not reported on this accession number.[facility][U] XRAY FEMUR 2 VWS LEFT [id number] 12:12:00Images acquired, not reported on this accession number.[facility] [U] XRAY FEMUR 2 VWS LEFT [id number] 13:21:00Images acquired, not reported on this accession number.[facility][U] XRAY KNEE 1 OR 2 VWS LEFT [id number] 12:55:00Images acquired, not reported on this accession number.[facility]
--- NOTE | 2020-02-11 18:08 | RAD REPORT ---
EXAM DESCRIPTION: CT - Head Brain Wo Cont - 02/11/2020 5:57 pm CLINICAL HISTORY: Dizziness;Headache Headache, drowsiness, lethargy COMPARISON: <Comparisons> TECHNIQUE: All CT scans are performed using dose optimization technique as appropriate and may inclu de automated exposure control or mA/KV adjustment according to patient size. FINDINGS: No intracranial hemorrhage, hydrocephalus or extra-axial fluid collection.Moderate general ized brain atrophy is present with moderate periventricular and deep white matter chronic microvascul ar ischemic changes.No areas of brain edema or evidence of midline shift. The paranasal sinuses and mastoids are clear. The calvarium is intact. IMPRESSION: No acute intracranial abnormality.
--- NOTE | 2020-02-11 18:24 | RAD REPORT ---
EXAM DESCRIPTION: RAD - Chest Single View - 02/11/2020 6:15 pm CLINICAL HISTORY: COUGH Chest pain. COMPARISON: No comparisonsAbdomen 1 View (KUB) dated 06/23/2017; Chest Single View dated 01/21/2016; CHEST SINGLE VIEW dated 12/19/2014Chest Pa And Lat (2 Views) dated 08/07/2019; Chest Pa And Lat (2 Views ) dated 10/26/2018; Chest Single View dated 10/15/2016; CHEST PA AND LAT 2 VIEW dated 04/03/2014 FINDINGS: Portable technique limits examination quality. The lungs are underinflated resulting in vascular crowding. The heart is normal in size. No displaced fractures. IMPRESSION: Underinflated lungs resulting in vascular crowding.
[2020-02-11 18:34] LABS: Basophils % 0.5 % (0-1.3); Hematocrit 35.4 % (36.0-45.0); Lymphocytes % 35.7 % (15.3-44.8); MPV 9.4 fL (7.6-11.3); RBC Red Blood Cell Count 3.38 M/uL (3.86-4.86)
[2020-02-11 18:42] LABS: Protime INR 0.96
[2020-02-11 18:54] LABS: ALT/SGPT 27 U/L (12-78); AST/SGOT 33 U/L (15-37); Albumin 1.7 g/dL (3.4-5.0); Alkaline Phosphatase 129 U/L (45-117); BUN Blood Urea Nitrogen 29 mg/dL (7-18); Bicarbonate 29 mmol/L (21-32); Bilirubin Direct 0.1 mg/dL (0-0.2); Bilirubin Total 0.3 mg/dL (0.2-1.0); Glucose Level 73 mg/dL (74-106); Potassium 4.7 mmol/L (3.5-5.1); Protein, Total 5.5 g/dL (6.4-8.2); Sodium Level 140 mmol/L (136-145)
[2020-02-11 18:55] LABS: NT PRO-BNP 4852 pg/mL (<125); Troponin (Emerg Dept Use Only) < 0.02 ng/mL (0.0-0.045)
--- NOTE | 2020-02-11 19:41 | ER ---
Nurse's Notes [facility] Name: Yi Marroquin Age: 74 yrs Sex: Female : 1945 Arrival Date: 02/11/2020 Time: 17:17 Bed 7 Private MD: Diagnosis: Altered mental status, unspecified;Weakness;Type 2 diabetes mellitus;Obesity, unspecified Presentation: 02/10 17:21 Chief complaint: EMS states: reported confusion and lethargy for last few days. hb SBP 90s, improved to 110s after 250 NS to 20g RAC. Coronavirus screen: Proceed with normal triage. Ebola Screen: No symptoms or risks identified at this time. Initial Sepsis Screen: Does the patient meet any 2 criteria? No. Patient's initial sepsis screen is negative. Does the patient have a suspected source of infection? No. Patient's initial sepsis screen is negative. Risk Assessment: Do you want to hurt yourself or someone else? Patient reports no desire to harm self or others. Onset of symptoms was February 08, 2020. 17:21 Method Of Arrival: EMS: [facility] hb 17:21 Acuity: DIANE 2 hb Historical: - Allergies: 18:33 Ciprofloxacin; hb 18:33 Demerol; hb 18:33 Morphine; hb 18:33 Myrbetriq; hb 18:33 Nitrofurantoin; hb 18:33 Phenergan; hb 18:33 Sulfa (Sulfonamide Antibiotics); hb - Home Meds: 18:33 Ambien 5 mg Oral tab 1 tab once daily for Sleep-Onset Insomnia [Active]; atorvastatin hb 10 mg Oral tab 1 tab once daily [Active]; cranberry Oral [Active]; diphenhydramine HCl 25 mg Oral cap 1 cap PRN for Allergic Reactions [Active]; escitalopram oxalate Oral [Active]; Furosemide Oral [Active]; gabapentin 300 mg Oral cap 1 cap 3 times per day [Active]; hydrocodone-acetaminophen 10-500 mg Oral tab [Active]; insulin lispro subcutaneous [Active]; Lorazepam Oral [Active]; Methocarbamol Oral [Active]; Metoprolol Tartrate Oral [Active]; omeprazole 20 mg Oral cpDR 1 cap once daily [Active]; potassium chloride 10 mEq Oral cpER 1 cap once daily [Active]; Ramipril Oral [Active]; senna 8.6 mg Oral cap 2 caps once daily for constipation [Active]; Simvastatin Oral [Active]; tramadol 50 mg Oral tab 1 tab every 6 hours for Pain, prn [Active]; Vitamin D Oral 43657 unit every week x 8 weeks [Active]; Zolpidem Tartrate Oral [Active]; - PMHx: 18:33 Diabetes - NIDDM; Hyperlipidemia; Depression; Hypertension; hb - PSHx: 18:33 knee plate; hip surgery; hb - Immunization history:: Adult Immunizations up to date. - Social history:: Smoking status: Patient denies any tobacco usage or history of. - Family history:: not pertinent. Screenin:34 Abuse screen: Denies threats or abuse. Denies injuries from another. Nutritional hb screening: No deficits noted. Tuberculosis screening: No symptoms or risk factors identified. Fall Risk Total Bynum Fall Scale indicates Low Risk Score (25-44 pts). Fall prevention measures have been instituted. Side Rails Up X 2 Frequent Obs/Assesments occuring As available Patient and Family Educated on Fall Prevention Program and strategies. Assessment: 17:25 General: Appears in no apparent distress. Behavior is calm, cooperative. Pain: Denies hb pain. Neuro: Level of Consciousness is obeys commands, confused, lethargic, Oriented to person, place. Cardiovascular: Capillary refill < 3 seconds Patient's skin is warm and dry. Respiratory: Airway is patent. 19:15 General: Appears in no apparent distress. comfortable, Behavior is calm, cooperative. jd3 19:15 Pain: Denies pain. Neuro: Level of Consciousness is awake, obeys commands, confused, jd3 lethargic, Oriented to person, time. Cardiovascular: Denies chest pain, Capillary refill < 3 seconds Patient's skin is warm and dry. Respiratory: Airway is patent Respiratory effort is even, unlabored, Respiratory pattern is regular, symmetrical, Denies cough, shortness of breath. GI: No signs and/or symptoms were reported involving the gastrointestinal system. : No signs and/or symptoms were reported regarding the genitourinary system. EENT: No signs and/or symptoms were reported regarding the EENT system. Derm: Skin is intact, Skin is dry, Skin is normal, Skin temperature is warm. Musculoskeletal: Circulation, motion, and sensation intact. Range of motion: intact in all extremities. 21:41 Reassessment: Patient appears in no apparent distress at this time. No changes from jd3 previously documented assessment. Patient and/or family updated on plan of care and expected duration. Pain level reassessed. Vital Signs: 17:21 BP 114 / 58; Pulse 50; Resp 14; Temp 97; Pulse Ox 100% on R/A; Weight 99.79 kg; Height hb 5 ft. 6 in. (167.64 cm); Pain 0/10; 19:45 BP 134 / 79; Pulse 53; Resp 17 S; Pulse Ox 99% on R/A; jd3 21:42 BP 105 / 60; Pulse 56; Resp 18 S; Pulse Ox 97% on R/A; jd3 17:21 Body Mass Index 35.51 (99.79 kg, 167.64 cm) hb ED Course: 17:17 Patient arrived in ED. em1 17:24 Triage completed. hb 17:25 Arm band placed on. hb 17:26 Abhishek Yates MD is Attending Physician. shelbi 17:56 CT Head Brain wo Cont In Process Unspecified. EDMS 18:12 Rachele Rodriguez, RN is Primary Nurse. hb 18:15 XRAY Chest (1 view) In Process Unspecified. EDMS 18:34 Patient has correct armband on for positive identification. Bed in low position. Call hb light in reach. Side rails up X2. 19:40 Milad Avila MD is Hospitalizing Provider. shelbi 21:42 No provider procedures requiring assistance completed. Maintain EMS IV. Dressing jd3 intact. Good blood return noted. Site clean \T\ dry. Gauge \T\ site: 20 G right ac. Patient admitted, IV remains in place. Administered Medications: 19:32 Drug: NS 0.9% 500 ml Route: IV; Rate: bolus; Site: right antecubital; jd3 20:05 Follow up: Response: No adverse reaction; IV Status: Completed infusion; IV Intake: jd3 500ml 20:05 Drug: NS 0.9% 1000 ml Route: IV; Rate: 125 ml/hr; Site: right antecubital; jd3 21:44 Follow up: Response: No adverse reaction; IV Status: Infusion continued upon admission jd3 20:05 Drug: D50W 25 ml Route: IVP; Site: right antecubital; jd3 21:05 Follow up: Response: No adverse reaction jd3 20:05 Drug: Pepcid 20 mg Route: IVP; Site: right antecubital; jd3 21:05 Follow up: Response: No adverse reaction jd3 Intake: 02:00 IV: 1000ml; Total: 1000ml. jd3 05:40 IV: 1000ml; Total: 2000ml. jd3 20:05 IV: 500ml; Total: 2500ml. jd3 Outcome: 19:41 Decision to Hospitalize by Provider. shelbi 21:43 Condition: stable jradha 21:43 Instructed on the need for admit, Demonstrated understanding of instructions. 21:54 Patient left the ED. mw2 21:54 Admitted to Med/surg accompanied by tech, via stretcher, room 229, with chart, Report jd3 called to Yazmin DAVALOS Signatures: Dispatcher [employer] Abhishek Cannon MD MD cha Martinez, Eric em1 Rachele Rodriguez RN RN hb Davies, Jonathon, RN RN jd3 Westbrook, MyKena mw2
--- NOTE | 2020-02-11 19:41 | EDPHYS ---
Physician Documentation [facility] Name: Yi Marroquin Age: 74 yrs Sex: Female : 1945 Arrival Date: 02/11/2020 Time: 17:17 Bed 7 Private MD: ED Physician Abhishek Yates HPI: 02/10 18:09 This 74 yrs old Female presents to ER via EMS with complaints of Altered shelbi Mental Status. 18:09 The patient presents with confusion, trouble concentrating. Onset: The symptoms/episode shelbi began/occurred 3 day(s) ago. Possible causes: CVA or TIA, low blood sugar, sepsis. Associated signs and symptoms: Pertinent positives: dizziness, nausea. Current symptoms: In the emergency department the patient's symptoms are unchanged from the initial presentation. Patient's baseline: Neuro: alert and fully oriented. The patient has experienced similar episodes in the past, several times. Historical: - Allergies: 18:33 Ciprofloxacin; hb 18:33 Demerol; hb 18:33 Morphine; hb 18:33 Myrbetriq; hb 18:33 Nitrofurantoin; hb 18:33 Phenergan; hb 18:33 Sulfa (Sulfonamide Antibiotics); hb - Home Meds: 18:33 Ambien 5 mg Oral tab 1 tab once daily for Sleep-Onset Insomnia [Active]; atorvastatin hb 10 mg Oral tab 1 tab once daily [Active]; cranberry Oral [Active]; diphenhydramine HCl 25 mg Oral cap 1 cap PRN for Allergic Reactions [Active]; escitalopram oxalate Oral [Active]; Furosemide Oral [Active]; gabapentin 300 mg Oral cap 1 cap 3 times per day [Active]; hydrocodone-acetaminophen 10-500 mg Oral tab [Active]; insulin lispro subcutaneous [Active]; Lorazepam Oral [Active]; Methocarbamol Oral [Active]; Metoprolol Tartrate Oral [Active]; omeprazole 20 mg Oral cpDR 1 cap once daily [Active]; potassium chloride 10 mEq Oral cpER 1 cap once daily [Active]; Ramipril Oral [Active]; senna 8.6 mg Oral cap 2 caps once daily for constipation [Active]; Simvastatin Oral [Active]; tramadol 50 mg Oral tab 1 tab every 6 hours for Pain, prn [Active]; Vitamin D Oral 02538 unit every week x 8 weeks [Active]; Zolpidem Tartrate Oral [Active]; - PMHx: 18:33 Diabetes - NIDDM; Hyperlipidemia; Depression; Hypertension; hb - PSHx: 18:33 knee plate; hip surgery; hb - Immunization history:: Adult Immunizations up to date. - Social history:: Smoking status: Patient denies any tobacco usage or history of. - Family history:: not pertinent. ROS: 18:09 Constitutional: Negative for fever, chills, and weight loss, Eyes: Negative for injury, shelbi pain, redness, and discharge, ENT: Negative for injury, pain, and discharge, Neck: Negative for injury, pain, and swelling, Cardiovascular: Negative for chest pain, palpitations, and edema, Respiratory: Negative for shortness of breath, cough, wheezing, and pleuritic chest pain, Abdomen/GI: Negative for abdominal pain, nausea, vomiting, diarrhea, and constipation, Back: Negative for injury and pain, : Negative for injury, bleeding, discharge, and swelling, MS/Extremity: Negative for injury and deformity, Skin: Negative for injury, rash, and discoloration, Psych: Negative for depression, anxiety, suicide ideation, homicidal ideation, and hallucinations, Allergy/Immunology: Negative for hives, rash, and allergies, Endocrine: Negative for neck swelling, polydipsia, polyuria, polyphagia, and marked weight changes, Hematologic/Lymphatic: Negative for swollen nodes, abnormal bleeding, and unusual bruising. 18:09 Neuro: Positive for altered mental status, weakness. Exam: 18:09 Constitutional: This is a well developed, well nourished patient who is awake, alert, shelbi and in no acute distress. Head/Face: Normocephalic, atraumatic. Eyes: Pupils equal round and reactive to light, extra-ocular motions intact. Lids and lashes normal. Conjunctiva and sclera are non-icteric and not injected. Cornea within normal limits. Periorbital areas with no swelling, redness, or edema. ENT: Nares patent. No nasal discharge, no septal abnormalities noted. Tympanic membranes are normal and external auditory canals are clear. Oropharynx with no redness, swelling, or masses, exudates, or evidence of obstruction, uvula midline. Mucous membranes moist. Neck: Trachea midline, no thyromegaly or masses palpated, and no cervical lymphadenopathy. Supple, full range of motion without nuchal rigidity, or vertebral point tenderness. No Meningismus. Chest/axilla: Normal chest wall appearance and motion. Nontender with no deformity. No lesions are appreciated. Cardiovascular: Regular rate and rhythm with a normal S1 and S2. No gallops, murmurs, or rubs. Normal PMI, no JVD. No pulse deficits. Respiratory: Lungs have equal breath sounds bilaterally, clear to auscultation and percussion. No rales, rhonchi or wheezes noted. No increased work of breathing, no retractions or nasal flaring. Abdomen/GI: Soft, non-tender, with normal bowel sounds. No distension or tympany. No guarding or rebound. No evidence of tenderness throughout. Back: No spinal tenderness. No costovertebral tenderness. Full range of motion. MS/ Extremity: Pulses equal, no cyanosis. Neurovascular intact. Full, normal range of motion. Neuro: Awake and alert, GCS 15, oriented to person, place, time, and situation. Cranial nerves II-XII grossly intact. Motor strength 5/5 in all extremities. Sensory grossly intact. Cerebellar exam normal. Normal gait. Psych: Awake, alert, with orientation to person, place and time. Behavior, mood, and affect are within normal limits. 18:09 Skin: Appearance: Color: pale, Temperature: normal temperature, Moisture: normal moisture, petechiae, not noted, ecchymosis, not noted, abscess, not appreciated, cellulitis, is not appreciated, induration, is not appreciated, no rash present. 18:18 Abdomen/GI: Inspection: distension, Bowel sounds: normal, Palpation: nontender, Rectal shelbi exam: Stool: guaiac positive, hemorrhoid(s), are not appreciated, mass, is not appreciated, swelling, is not appreciated, tenderness, is not appreciated, Liver: no appreciated palpable abnormalities, Hernia: not appreciated. 19:38 ECG was reviewed by the Attending Physician. [facility] Vital Signs: 17:21 BP 114 / 58; Pulse 50; Resp 14; Temp 97; Pulse Ox 100% on R/A; Weight 99.79 kg; Height hb 5 ft. 6 in. (167.64 cm); Pain 0/10; 19:45 BP 134 / 79; Pulse 53; Resp 17 S; Pulse Ox 99% on R/A; jd3 21:42 BP 105 / 60; Pulse 56; Resp 18 S; Pulse Ox 97% on R/A; jd3 17:21 Body Mass Index 35.51 (99.79 kg, 167.64 cm) hb MDM: 17:26 Patient medically screened. [facility] 18:13 Data reviewed: vital signs, nurses notes, lab test result(s), EKG, radiologic studies, [facility] CT scan, plain films. 02/10 17:37 Order name: Basic Metabolic Panel; Complete Time: 19:09 [facility] 02/10 17:37 Order name: CBC with Diff; Complete Time: 19:09 [facility] 02/10 17:37 Order name: LFT's; Complete Time: 19: [facility] 02/10 17:37 Order name: Magnesium; Complete Time: 19: [facility] 02/10 17:37 Order name: NT PRO-BNP; Complete Time: 19: [facility] 02/10 17:37 Order name: PT-INR; Complete Time: 19:09 [facility] 02/10 17:37 Order name: Troponin (emerg Dept Use Only); Complete Time: 19:09 [facility] 02/10 17:37 Order name: XRAY Chest (1 view); Complete Time: 19:09 [facility] 02/10 17:40 Order name: Urine Culture [facility] 02/10 18:08 Order name: Type And Screen; Complete Time: 19:26 [facility] 02/10 20:26 Order name: Urine Dipstick--Ancillary (enter results) [facility] 02/10 20:28 Order name: Urine Microscopic Only [facility] 02/10 20:48 Order name: Urine Microscopic Only [facility] 02/10 20:48 Order name: Urine Dipstick-Ancillary [facility] 02/10 17:37 Order name: EKG; Complete Time: 17:38 [facility] 02/10 17:37 Order name: Cardiac monitoring; Complete Time: 18:33 [facility] 02/10 17:37 Order name: EKG - Nurse/Tech; Complete Time: 18:33 [facility] 02/10 17:37 Order name: IV Saline Lock; Complete Time: 18:33 [facility] 02/10 17:37 Order name: Labs collected and sent; Complete Time: 18:33 [facility] 02/10 17:37 Order name: O2 Per Protocol; Complete Time: 18:33 [facility] 02/10 17:37 Order name: O2 Sat Monitoring; Complete Time: 18:33 [facility] 02/10 17:40 Order name: CT Head Brain wo Cont; Complete Time: 19:09 [facility] 02/10 17:40 Order name: Urine Dipstick-Ancillary (obtain specimen); Complete Time: 20:29 [facility] EC:38 Rate is 52 beats/min. Rhythm is regular. QRS [place] is Normal. [place] interval is normal. QRS shelbi interval is normal. QT interval is normal. No Q waves. T waves are Normal. No ST changes noted. Clinical impression: Sinus bradycardia and No evidence of ischemia. Interpreted by me. Reviewed by me. Administered Medications: 19:32 Drug: NS 0.9% 500 ml Route: IV; Rate: bolus; Site: right antecubital; jd3 20:05 Follow up: Response: No adverse reaction; IV Status: Completed infusion; IV Intake: jd3 500ml 20:05 Drug: NS 0.9% 1000 ml Route: IV; Rate: 125 ml/hr; Site: right antecubital; jd3 21:44 Follow up: Response: No adverse reaction; IV Status: Infusion continued upon admission jd3 20:05 Drug: D50W 25 ml Route: IVP; Site: right antecubital; jd3 21:05 Follow up: Response: No adverse reaction jd3 20:05 Drug: Pepcid 20 mg Route: IVP; Site: right antecubital; jd3 21:05 Follow up: Response: No adverse reaction jd3 Disposition: 02/11/20 19:41 Hospitalization ordered by Milad Avila for Observation. Preliminary diagnosis are Altered mental status, unspecified, Weakness, Type 2 diabetes mellitus, Obesity, unspecified. - Bed requested for Telemetry/MedSurg (observation). - Status is Observation. mw2 - Condition is Fair. - Problem is new. - Symptoms have improved. Signatures: Dispatcher [employer] EDAbhishek Olivera MD MD cha Garcia, Cindy, RN RN Rachele Ritchie RN RN hb Davies, Jonathon, RN RN jd3 [place]brook, MyKena mw2 Corrections: (The following items were deleted from the chart) 20:53 19:41 Hospitalization Ordered by Milad Avila MD for Observation. Preliminary diagnosis cg is Altered mental status, unspecified; Weakness; Type 2 diabetes mellitus; Obesity, unspecified. Bed requested for Telemetry/MedSurg (observation). Status is Observation. Condition is Fair. Problem is new. Symptoms have improved. shelbi 21:54 20:53 02/11/2020 19:41 Hospitalization Ordered by Milad Avila MD for Observation. mw2 Preliminary diagnosis is Altered mental status, unspecified; Weakness; Type 2 diabetes mellitus; Obesity, unspecified. Bed requested for Telemetry/MedSurg (observation). Status is Observation. Condition is Fair. Problem is new. Symptoms have improved. cg
[2020-02-11] MEDS ORDERED: FAMOTIDINE 20 MG/2 ML VIAL IV ONE (20:05)
[2020-02-11] MEDS ORDERED: D50W 25 GM/50 ML SYRINGE/VIAL IV ONE (20:05)
[2020-02-11 20:47] LABS: Urine Bacteria >50 /HPF (<20); Urine RBC <5 /HPF (NONE SEEN)
[2020-02-11 20:48] LABS: Urine Culture Reflex Order REFLEXED; Urine Mucus 1+ /HPF (NONE SEEN)
[2020-02-11 20:48] LABS: Urine Blood NEGATIVE (NEG); Urine Glucose NEGATIVE (NEG); Urine Protein NEGATIVE (NEG); Urine pH 5.5 (5.0-7.0)
[2020-02-11] MEDS ORDERED: ONDANSETRON 4 MG/2 ML VIAL IV PRN (22:02)
[2020-02-11] MEDS ORDERED: ACETAMINOPHEN 500 MG TAB PO PRN (22:02)
[2020-02-11] MEDS: INSULIN -REGULAR HUMAN 50 UNIT/0.5 ML ML SQ SCH (22:02)
[2020-02-11] MEDS ORDERED: GLUCAGON 1 MG/VIAL IM PRN (22:02)
[2020-02-11] MEDS ORDERED: NA CHLORIDE 0.9% 1,000 ML IV SCH (22:02)
[2020-02-11 22:40] VITALS: BMI 37.5
[2020-02-11] MEDS: D50W 25 GM/50 ML SYRINGE/VIAL IV PRN (23:13)
[2020-02-12 00:28] VITALS: O2SAT 96
[2020-02-12] MEDS: FAMOTIDINE 20 MG/2 ML VIAL IV SCH ×2 (00:50→10:29)
[2020-02-12] MEDS: D50W 25 GM/50 ML SYRINGE/VIAL IV PRN (04:10)
[2020-02-12 05:58] LABS: Potassium 4.1 mmol/L (3.5-5.1)
[2020-02-12 06:02] LABS: Absolute Lymphocytes (CBC) 2.1 K/uL (0.7-4.9); Basophils % 0.5 % (0-1.3); Hematocrit 33.4 % (36.0-45.0); Lymphocytes % 27.3 % (15.3-44.8); MPV 9.3 fL (7.6-11.3)
[2020-02-12] MEDS ORDERED: HYDROCODONE PO PRN (06:54)
[2020-02-12] MEDS ORDERED: APAP PO PRN (06:54)
[2020-02-12] MEDS: INSULIN -REGULAR HUMAN 50 UNIT/0.5 ML ML SQ SCH ×3 (07:30→16:30)
[2020-02-12] MEDS ORDERED: ESCITALOPRAM 20 MG PO SCH (09:00)
[2020-02-12] MEDS ORDERED: SPIRONOLACTONE 50 MG PO SCH (09:00)
[2020-02-12] MEDS ORDERED: MAGNESIUM OXIDE 400 MG PO SCH (09:00)
[2020-02-12] MEDS: ATORVASTATIN CALCIUM 10 MG PO SCH ×2 (09:00→17:55)
[2020-02-12] MEDS ORDERED: METOPROLOL TARTRATE 50 MG PO SCH (09:00)
[2020-02-12] MEDS ORDERED: FUROSEMIDE 40 MG PO SCH (09:00)
--- NOTE | 2020-02-12 09:29 | P.SSS ---
Patient History Date of Service: 02/12/20 Reason for admission: SHE COULD NOT RECOGNIZE HER . History of Present Illness: DR. CRUZ CALLED HE IS WORRIED ABOUT AMS. SHE HAS NO FOCAL DEFICITS. I WAS NOT TOLD ABOUT HER LOW GLUCOSE ON ADMISSION. SHE IS NARCOTIC DEPENDENT PATIENT OF PAIN DOCTORS, GETS MEDS FOR HIP PAIN ON THE CLOCK. SHE TODAY WHEN I SEE HER IS NO DIFFERENT THAN HER USUAL BASELINE. SHE IS WORRIED ABOUT STROKE. SHE SAYS I THINK I HAD STROKE WHEN I FELL TWO WEEKS AGO. Allergies Sulfa (Sulfonamide Antibiotics) Allergy (Verified 10/21/16 10:38) Shortness of breath Home Medications: Atorvastatin Calcium [Lipitor] 10 mg PO DAILY 02/11/20 Escitalopram [Lexapro*] 1 tab PO DAILY 02/11/20 Furosemide [Lasix] 40 mg PO DAILY 02/11/20 Gabapentin 300 mg PO TID 02/11/20 Hydrocodone 10/APAP 325 [[place] 10/325*] 1 tab PO Q4H PRN 02/11/20 Magnesium Oxide [Mag 0X*] 2 tab PO DAILY 02/11/20 Metoprolol Tartrate [Lopressor] 50 mg PO BID 02/11/20 Promethazine HCl 1 tab PO TID PRN 02/11/20 Spironolactone [Aldactone] 50 mg PO DAILY 02/11/20 Tizanidine HCl [Zanaflex] 2 mg PO TID 02/11/20 Zolpidem Tartrate [Ambien] 10 mg PO BEDTIME 02/11/20 traMADol HCL [Ultram*] 1 tab PO TID PRN 02/11/20 - Past Medical/Surgical History Diabetic: Yes -: anxiety, -: DM -: HTN -: hyperlipidemia -: choley -: gastric bypass 2009 -: appy -: dnc -: left hip - Social History Smoking Status: Never smoker Alcohol use: No CD- Drugs: No Caffeine use: No Place of Residence: Home Review of Systems 10-point ROS is otherwise unremarkable Physical Examination - Vital Signs Temperature: 97.4 F Blood Pressure: 142/62 Pulse: 61 Respirations: 18 Pulse Ox (%): 95 - Physical Exam General: Alert, Mild distress, Obese HEENT: Atraumatic, PERRLA, Mucous membr. moist/pink, EOMI, Sclerae nonicteric Neck: Supple, 2+ carotid pulse no bruit, No LAD, Without JVD or thyroid abnormality Respiratory: Clear to auscultation bilaterally, Normal air movement Cardiovascular: Regular rate/rhythm, Normal S1 S2 Gastrointestinal: Normal bowel sounds, No tenderness Musculoskeletal: No tenderness Integumentary: No rashes Neurological: Normal gait, Normal speech, Normal strength at 5/5 x4 extr, Normal tone, Normal affect Lymphatics: No axilla or inguinal lymphadenopathy - Studies Laboratory Data (last 24 hrs) 02/11/20 18:13: PT 11.3, INR 0.96 02/11/20 18:13: WBC 5.7, Hgb 11.6 L, Hct 35.4 L, Plt Count 176 02/11/20 18:13: Sodium 140, Potassium 4.7, BUN 29 H, Creatinine 1.08, Glucose 73 L, Magnesium 2.0, Total Bilirubin 0.3, AST 33, ALT 27, Alkaline Phosphatase 129 H - Diagnosis (Problem(s)) (1) Altered sensorium due to hypoglycemia Current Visit: Yes Status: Acute Plan: SHE MAY HAVE LOW GLUCOSE INDUCED CONFUSION. I SEE NO SIGNS OF STROKE. SHE INSISTS SHE HAD IT. I WILL DO MRI AND CAROTID DOPPPLER. SHE CAN WALK WITH WALKER BEFORE SHE GOES HOME. SHE HAS NARCOTIC DEPENDENCY FOR YEARS. SHE GOES TO PAIN DOCTOR OR PA. (2) Diabetes Current Visit: No Status: Acute Qualifiers: Diabetes mellitus type: type 2 - Disposition Disposition: ROUTINE DISCHARGE
--- NOTE | 2020-02-12 12:46 | RAD REPORT ---
EXAM DESCRIPTION: MRI - Brain Wo Cont - 02/12/2020 12:26 pm CLINICAL HISTORY: AMS Headache, drowsiness COMPARISON: Head Brain Wo Cont dated 02/11/2020 TECHNIQUE: Multi-sequence, multiplanar MR imaging of the brain was performed without contrast. FINDINGS: No intracranial hemorrhage, hydrocephalus or extra-axial fluid collections. Moderate gener alized brain atrophy. Moderate confluent T2/FLAIR hyperintensity in the periventricular and deep whit e matter is present compatible with chronic microvascular ischemic changes. No edema or shift of midl ine structures. No findings to suspect brain mass. DWI is negative for acute CVA. Midline structures are normally formed. Mastoid air cells and paranasal sinuses are clear. IMPRESSION: No acute or aggressive intracranial abnormalities.
--- NOTE | 2020-02-12 12:52 | RAD REPORT ---
EXAM DESCRIPTION: USCarotid Artery Bilateral02/12/2020 12:40 pm CLINICAL HISTORY: syncope COMPARISON: None FINDINGS: The velocity of the right internal carotid artery equals 71 cm/sec. The right ICA/CCA rati o 1.4 The velocity of the left internal carotid artery equals 58 cm/sec. The left ICA/CCA ratio 1.4 Mild plaque is present within the carotid arteries. The vertebral arteries demonstrate antegrade flow IMPRESSION: Mild plaque within the carotid arteries without evidence of a hemodynamically significan t stenosis NASCET criteria used. Mild 0-49% stenosis Moderate 50-69% stenosis Severe 70-99% stenosis
[2020-02-12] MEDS: Gabapentin 300 MG CAPS PO SCH ×2 (14:00→17:54)
[2020-02-12] MEDS: TIZANIDINE HCL 2 MG PO SCH ×2 (14:00→17:56)
[2020-02-12 17:18] VITALS: BP 132/65; TEMP 99.5
[2020-02-12] MEDS ORDERED: HOME MED 1 EA UNK (Zolpidem Tartrate [Ambien*] 10 MG) PO SCH (21:00)
--- NOTE | 2020-02-13 07:49 | EKG ---
Test Date: 2020-02-11 Test Time: 18:24:59 Plant Assigner: ARTEMIO MEASUREMENT RESULTS: Intervals: Rate: 52 NH: 136 QRSD: 100 QT: 502 QTc: 466 [place]: P: 45 NH: 136 QRS: 14 T: 60 INTERPRETIVE STATEMENTS: Sinus bradycardia Otherwise normal ECG Compared to ECG 05/11/2017 16:46:22 Sinus rhythm no longer present Electronically Signed On 02-13-20 07:45:00 CDT by Saji Lainez
== END 2020-02-12 18:43 | disposition home or self-care (01) ==
LOC: ER 16:58 → ERHOLD 19:50 → 2ND 21:43
PROVIDERS: ADMIT Internal Medicine; ATTEND Internal Medicine
DX: E11.649 Type 2 diabetes mellitus with hypoglycemia without coma (principal); R00.1 Bradycardia, unspecified; Z11.59 Encounter for screening for other viral diseases; I65.23 Occlusion and stenosis of bilateral carotid arteries; Z79.899 Other long term (current) drug therapy; Z79.84 Long term (current) use of oral hypoglycemic drugs
CPT/HCPCS: 96361; 93005; 87088; 85025 ×2; 87086; 80048 ×2; 36415; 86900; 83735; 86850; 85610; 86901; 82947 ×10; 80076; 87077; 87186; 84484; 83880; 70450; 71045; 93880; 70551; 97112; 97116; 97161; 96375; 96374; 99285; U0002; J7030; G0378 ×2; 81003; 81015

== ENCOUNTER 2020-02-19 10:13 | Inpatient (IN) | payer OTHER ==
--- NOTE | 2020-02-19 11:14 | R.PREADM ---
SCREENING DATE AND TIME 02/19/2020 10:15 (CDT) ANTICIPATED REHAB ADMISSION DATE 02/21/2020 REFERRING FACILITY Doctor Office REFERRAL DATE AND TIME 02/18/2020 10:15 (CDT) REFERRAL OFFICE PHONE REFERRAL ROOM# [id number] ACUTE ADMIT DATE 02/11/2020 HOSPITALIZED IN LAST 60 DAYS? Previous Rehabilitation(s): Y. One year ago she went to rehab for a hip fracture and is now experiencing an exacerbation. REFERRING PHYSICIAN Dr Avila REHAB FACILITY [facility] CLINICAL LIAISON Eli Sexton PHYSICIAN REVIEWER Dr. Glen Gleason M.D. MR# [id number] NAME ALFONSO CASTORENA ADDRESS [facility] PHONE [place] [id number] DATE OF 1945 AGE 74 SSN# [id number] GENDER female MARITAL STATUS RACE white PREF. LANGUAGE (IF NON-[place]WAHILI) Slovak ADMIT FROM 01 - Home (private home/apt. board/care, assisted living, prison, transitional living) PRE-HOSPITAL LIVING SETTING 01 - Home (private home/apt. board/care, assisted living, prison, transitional living) HOME TYPE AND DETAILS Type of home: single family house # of steps within the residence: 0 # of steps to enter the residence: 1 # of levels in the residence: 1 Pt. claims to live w/ spouse in a 1 emile home w/ 1 threshold step, pt. claims to be able to get up OOB unassisted, able to ambulate w/ a FWW unassisted, has a akbg-cv-cwcpun w/ bench. PRE-HOSPITAL LIVING WITH Family/Relatives FAMILY SUPPORT Yes PRIMARY FAMILY CONTACT NAME Joseph Castorena PRIMARY FAMILY CONTACT PHONE [phone] PRIMARY FAMILY CONTACT RELATIONSHIP IS PRIMARY FAMILY CONTACT AUTH. REP.? no 1ST EMERGENCY CONTACT Joseph Castorena 1ST CONTACT PHONE [phone] 1ST CONTACT RELATIONSHIP IS 1ST CONTACT AUTH. REP.? no PHONE 2ND CONTACT ON ADM.? no PATIENT EMPLOYMENT STATUS Retired (for age) PATIENT EMPLOYER No Employer PAYOR INFORMATION: 1ST PAYOR NAME Medicare 1ST PAYOR PHONE 1ST PAYOR INJURY/ILLNESS DUE TO ACCIDENT? No ANOTHER CONSTITUTION PARTY RESPONSIBLE? No PRIMARY REHAB/ACUTE DIAGNOSIS: acute exacerbation of unspecified left femur fracture ONSET DATE 02/11/2020 REHAB IMPAIRMENT CATEGORY (TOREY): 07 Fracture of LE (FracLE) MEETS 60% rule AFFECTED EXTREMITIES: LLE PRIMARY DIAGNOSIS-RELATED SURGERIES: No surgeries related to the primary diagnosis were performed recently. SUMMARY OF ACUTE HOSPITALIZATION: Pt. is a 74 yo Right-handed white female. Her impairment category is Orthopaedic Disorders 08 - Unilateral Hip Fracture (03.11). Pre-morbidly, Pt. was independent/mod-I in Transfers Control, Locomotion, Self-Care, Sphincter Contro l, and Communication; and she had good Balance, Safety Awareness, and Social Cognition. Currently, she has deficits of Transfers Control, Balance, Locomotion, Safety Awareness, Self-Care, S ocial Cognition, and Communication. Pt. is now referred to [facility] for acute in-patient rehabilitation in order to maximize patient's functional independence in activities of daily living, strength, ROM, and mobi lity. Patient has realistic goal of being discharged at assistance level 6-Pema to reside at Home with Fam jose maria/Relatives. One year ago the patient suffered a left hip fracture and went to rehab. The said that she d id well but recently she has become severely debilitated. In the past few weeks she has been falling , having trouble word finding and performing ADL's and IADL's. The brought her to the hospit al and they ran tests expecting to find a stroke, but the CT and MRI both came back negative at that time. The patient was discharged home with her and is not doing any better. When the RN jacobo led to give them the negative COVID test result at home the explained how concerned he was ab out his 's state and that home health was not going to be enough to get her back to her prior lev el of living. We reviewed her case and decided to accept Mrs. Castorena as an exacerbation of her prio r left hip fracture in order to help her return to her prior state of being. It is reasonable and ne cessary for the patient to come to inpatient rehab in order to have 24 hour nursing care, a doctor to monitor her 3 times a week and aggressive 3 hours of therapy a day so that she can get better. PAST MEDICAL HISTORY Chronic Back Pain HTN Diabetes HLD ANXIETY PAST SURGICAL HISTORY: Cholecystectomy Gastric Bypass Appendectomy DNC Left Hip SX MEDICATION ALLERGIES: Sulfa ENVIRONMENTAL ALLERGIES: None Known - Substance Allergies None Known - Other Allergies None Known CODE STATUS: Full code WEIGHT/HEIGHT/BMI: WEIGHT 205 lbs HEIGHT 5' 2" BMI 37.5 DIET: - Diet Type Regular - Diet - Solid Texture Regular - Diet - Liquid Texture Regular - Tube Feed N/A REVIEW OF SYSTEMS: - Gen Alert and awake Lying in bed No apparent distress Oriented to: person, time, and place - CVS RRR MEDICATIONS/TREATMENT: - See MAR. CURRENT SPHINCTER CONTROL: Pre-hospital bladder status: continent # of bladder accidents in the last 7 days prior to screenin Pre-hospital bowel status: continent # of bowel accidents in the last 7 days prior to screenin CURRENT LOCOMOTION STATUS: distance walked 6 feet DETAILED CURRENT FUNCTIONAL STATUS: - Walking score based on distance walked: 1(<=50ft) QI SCORES: - Self-Care A. Eating 05-Setup or clean-up assistance B. Oral hygiene 05-Setup or clean-up assistance C. Toileting hygiene 05-Setup or clean-up assistance E. Shower/bathe self 04-Supervision or touching assistance F. Upper body dressing 04-Supervision or touching assistance G. Lower body dressing 03-Partial/moderate assistance H. Putting on/taking off footwear - Mobility A. Roll left and right 05-Setup or clean-up assistance B. Sit to lying 05-Setup or clean-up assistance C. Lying to sitting on side of bed 05-Setup or clean-up assistance D. Sit to stand 05-Setup or clean-up assistance E. Chair/jyj-om-jmlje transfer 05-Setup or clean-up assistance F. Toilet transfer 05-Setup or clean-up assistance G. Car transfer I. Walk 10 feet 04-Supervision or touching assistance J. Walk 50 feet with two turns 88-Not attempted due to medical condition or safety concerns K. Walk 150 feet 88-Not attempted due to medical condition or safety concerns L. Walking 10 feet on uneven surfaces 88-Not attempted due to medical condition or safety concerns M. 1 step (curb) 04-Supervision or touching assistance N. 4 steps 88-Not attempted due to medical condition or safety concerns O. 12 steps 88-Not attempted due to medical condition or safety concerns P. Picking up object 88-Not attempted due to medical condition or safety concerns - Bladder and Bowel Bladder continence 0-Always continent Bowel continence 0-Always continent - Endurance Poor - Balance Poor - Safety Awareness Poor CURRENT FUNC. DEFICITS: Self-Care, Mobility, Endurance, Balance, and Safety Awareness CURRENT / PREVIOUS ASSISTIVE DEVICES: Rolling Walker Shower Chair HISTORY OF FALLS. HAS THE PATIENT HAD TWO OR MORE FALLS IN THE PAST YEAR OR ANY FALL WITH INJURY IN T HE PAST YEAR?: Yes PRIOR SURGERY. DID THE PATIENT HAVE MAJOR SURGERY DURING THE 100 DAYS PRIOR TO ADMISSION?: No THERAPY NOTES FROM ACUTE CARE: Attached. SPECIAL NEEDS: - Safety Concerns Skin breakdown precautions needed due to skin breakdown risk PRECAUTIONS: - Weight Bearing Precaution WBAT left LE PATIENT NEEDS ACTIVE AND ONGOING THERAPEUTIC INTERVENTION OF MULTIPLE THERAPY DISCIPLINES, INCLUDING: - Dietary and Nutrition Adequate Nutrition. Nutritional Education. Nutritional Supplements. PATIENT NEEDS CLOSE MEDICAL SUPERVISION BY A REHABILITATION PHYSICIAN FOR: Coordination of Treatment Team PATIENT REQUIRES 24X7 REHAB NURSING FOR MEDICAL AND FUNCTIONAL MGT. OF THE FOLLOWING DEFICITS: Disease Management Medication Management Patient/Family Education Providing Safe Environment PATIENT REQUIRES INTENSIVE, COORDINATED INTERDISCIPLINARY APPROACH TO REHAB: Arranging Home Equipment/Services Discharge Planning Family Intervention/Training Regulator Inspector/Case Management PATIENT REHAB POTENTIAL: Luisana GONZALES is able and expected to receive 3 hours of individualized therapy daily on at least 5 of every 7 days Luisana GONZALES's prognosis for significant practical improvement within a reasonable period of oksana e appears Good Expected level of measurable improvement will be of a practical value to Luisana GONZALES's function al capacity or adaptations to impairments Has a viable Discharge Plan Medically appropriate; condition is sufficiently stable to participate in intensive rehab program DISCHARGE PLAN: - Estimated Length of Stay (days) 14. - Consensus on plan Discharge plan has been discussed with primary caregiver. Patient/Family is in agreement with the francisco n. Primary caregiver is in agreement with the plan. - Patient/Family Goals Return home with assistance. - Planned Living Setting Upon Discharge Home, to live with Family/Relatives. RECOMMENDED CARE LEVEL: IRF RECOMMENDATION DETAILS: Recommended Admission to Comprehensive Rehabilitation Program to Increase Functional [place] SCREENER'S COMPLETENESS CONFIRMATION: - Screening Confirmation The patient data collection on this preadmission screening form is finished PHYSICIANS REVIEW AND ADMISSION DETERMINATION Admit - Based on my review of the Pre-Admission Screening results, in my medical judgment and experie nce, I concur with the findings and recommend admission to [facility], as this patient requires an IRF level of care. SIGNATURE PANEL: Planning Coordinator - [electronically] signed by Amira Waite Milk Inspector on 02/19/2020 at 10:59 (CD T) Planning Coordinator - [electronically] signed by Eli Mohamud RN on 02/19/2020 at 11:05 (CDT) Physician Reviewer - [electronically] signed by Dr. Glen Gleason M.D. on 02/19/2020 at 11:14 (CDT )
--- OUTSIDE RECORDS SUMMARY | 2020-02-19 15:36 | XMS REPORT | Clinical Summary ---
:1945 Author Organization [facility] Address [address] [place] [address] Care Team Providers Name Role Phone Milad [...] INFLUENZA VACCINE 03/01/2020 Results Not on fileafter 02/18/2019 Insurance Payer Benefit Plan / Subscriber ID Effective Phone Address T ype Group Dates MEDICARE MEDICARE PART xxxxxxxxxx 2012-Pres ANDERSON T X Medicare A AND B ent [employer] OF xxxxxxxx 2017-Bhupinder LACY nt Advance Directives For more information, please contact: [phone] Type Date Recorded Patient District Fire Management Officer Explanati on Advance Directives, Living Will and Medical Power of Formal Wear Rental Clerk
--- OUTSIDE RECORDS SUMMARY | 2020-02-19 15:37 | XMS REPORT | Continuity of Care Document ---
:1945 Author Organization [facility] t Address [address] [place] [address] Care Team Providers Name Role Phone [place] [...] Info Not [facility] t Reaction Available [facility] Phenerga Adverse Active Info Not [facility] t n Reaction Available [facility] Nitrofur Adverse Active Info Not [facility] antoin Reaction Available [facility] Ciproflo Adverse Active Info Not [facility] xacin Reaction Available [facility] Social History Social Habit Start Date Stop Date Quantity Comments Source Sex Assigned At Dana Arechiga Medications Ordered Filled Start Stop Current Ordering Indication Dosage Frequency Signature Comments Components Source Medication Medication Date Date Medication? Clinician (SIG) Name Name Lorazepam Lorazepam Yes [place] [address] [facility]time [facility] needed [facility] 00 l [facility] Clinics Lexapro Lexapro Yes [place] 0.[address] [facility] [facility] Memoria l [facility] ent [facility] Hydrocodone Hydrocodone Yes [place] [address] [facility] -Acetaminop -Acetaminop 04-19 [place] [facility] needed [facility] hen hen 00:00: Memoria 00 l [facility] Clinics Lovenox Lovenox Yes [place] 0.[address] [facility]: Memoria 00 l [facility] Clinics Methocarbam Methocarbam Yes [place] [address] [facility] [facility]: Memoria 00 l [facility] Clinics lipitor lipitor Yes [place] 1 [...] LEFT 2018-11-02 00:00:00 [facility] [place] [address] Physicians [U] XRAY FEMUR 2 VWS LEFT 2018-10-25 [facility] [address] [facility] XRAY FEMUR 2 VWS LEFT 2018-10-17 00:00:00 [facility] [place] [address] Physicians [Q] VITAMIN D, 25-HYDROXY, 2018-08-04 00:00:00 U [facility] LC/MS/MS Physicians [QH] CALCIUM 2018-08-04 00:00:00 [facility] Physicians [QLH] PTH, INTACT (WITHOUT 2018-08-04 00:00:00 U [facility] CALCIUM) Physicians [U] XRAY FEMUR 2 VWS LEFT 2018-04-19 00:00[facility]00 [facility] [address] [facility] MRI Spine lumbar w/wo 2018-02-10 00:00:00 [facility] contrast 13213 Physicians [U] XRAY FEMUR 2 VWS LEFT 2018-01-19 00:00:00 Un [facility] [address] Physicians [QLH] CMP W/EGFR 2017-12-23 00:00:00 [facility] Physicians [QLH] VITAMIN D, 2017-12-23 00:00:00 [facility] 25-HYDROXY, LC/MS/MS Physicians [QL] CALCIUM, 24 HOUR 2017-12-23 00:00:00 [facility] URINE (W/ CREATININE) Physicians [H] Protein 2017-12-23 00:00:00 [facility] Electrophoresis Physicians [QLH] PTH, INTACT (WITHOUT 2017-12-16 00:00:00 U [facility] CALCIUM) Physicians [QLH] PHOSPHATE ( 2017-12-16 00:00:00 [facility] PHOSPHORUS) Physicians [U] XRAY FEMUR 2 VWS LEFT 2017-12-01 00:00[facility] [address] Femur without contrast 2017-09-20 00:00[facility]00 [facility] [address] [facility] [U] XRAY FEMUR 2 VWS LEFT 2017-09-19 00:00:00 [facility] [place] [address] Physicians [U] XRAY FEMUR 2 VWS LEFT 2017-08-23 00:00:00 [facility] [address] [facility] [U] XRAY KNEE 1 OR 2 VWS 2017-08-19 00:00:00 [facility] [place] LEFT [address] Physicians [U] XRAY KNEE 1 OR 2 VWS 2017 00:00:00 Uni [facility] LEFT 28854 Physicians [QLH] ALKALINE 2017-07-01 00:00:00 [place] [facility] PHOSPHATASE, BONE SPECIFIC Physi cians [Q] COLLAGEN CROSS-LINKED 2017-07-01 00:00:00 [facility] N-TELOPE[facility]IDE (NTx), U Physician s [H] Procollagen Type I 2017-07-01 00:00:00 [facility] Physicians Propeptide [QLH] MAGNESIUM 2017-07-01 00:00:00 [place] [facility] Physicians [QLH] PHOSPHATE ( 2017-07-01 00:00:00 [facility] PHOSPHORUS) Physicians CPL - Vitamin D, 25 2017-07-01 00:00:00 [facility] Hydroxy Physicians [QLH] PTH, INTACT (WITHOUT 2017-07-01 00:00:00 U [facility] CALCIUM) Physicians [O] Dexa Scan ([employer] 2017-07-01 00:00:00 U [facility] X-Ray) [id number] Physicians [U] XRAY FEMUR 2 VWS LEFT 2017-06-20 00:00:00 Un [facility] [address] Physicians Plan of Care Planned Activity Planned Date Details Comments Source Future Scheduled 2020-03-01 INFLUENZA VACCINE [code [facility] 00:00:00 = INFLUENZA VACCINE] Diagnostic Test 2017-12-23 [QLH] CMP W/EGFR [code [facility] Pending 00:00:00 = [QLH] CMP W/EGFR] [place] Ph ysicians Diagnostic Test 2017-12-23 [QLH] VITAMIN D, Universi ty of Pending 00:00:00 25-HYDROXY, LC/MS/MS [place] P hysicians [code = [QLH] VITAMIN D, 25-HYDROXY, LC/MS/MS] Diagnostic Test 2017-12-23 [QL] CALCIUM, 24 HOUR Uni versity of Pending 00:00:00 URINE (W/ CREATININE) [place] Physicians [code = [QL] CALCIUM, 24 HOUR URINE (W/ CREATININE)] Diagnostic Test 2017-12-23 [H] Protein University o Pending 00:00:00 Electrophoresis [place]code = [place] [H] Protein Electrophoresis] Diagnostic Test 2017-12-23 [QLH] CMP W/EGFR [code Un iversity of Pending 00:00:00 = [QLH] CMP W/EGFR] [place] Ph ysicians Diagnostic Test 2017-12-23 [QLH] VITAMIN D, Universi ty of Pending 00:00:00 25-HYDROXY, LC/MS/MS [place] P hysicians [code = [QLH] VITAMIN D, 25-HYDROXY, LC/MS/MS] Diagnostic Test 2017-12-23 [QL] CALCIUM, 24 HOUR Uni versity of Pending 00:00:00 URINE (W/ CREATININE) [place] Physicians [code = [QL] CALCIUM, 24 HOUR URINE (W/ CREATININE)] Diagnostic Test 2017-12-23 [H] Protein University o f Pending 00:00:00 Electrophoresis [place]code = [place] [H] Protein Electrophoresis] Diagnostic Test 2017-08-02 [O] Dexa Scan (Dual Unive rsity of Pending 00:00:00 Energy X-Ray) [id number] [place] P hysicians [code = 139115] Diagnostic Test 2017-08-02 [O] Dexa Scan (Dual Unive rsity of Pending 00:00:00 Energy X-Ray) [id number] [place] P hysicians [code = 830513] Future Scheduled 2012 65+ PNEUMOCOCCAL [facility] 00:00:00 VACCINE (1 of 2 - PCV13) [code = 65+ PNEUMOCOCCAL VACCINE (1 of 2 - PCV13)] Future Scheduled 1997 BREAST CANCER SCREENING [facility] 00:00:00 [code = BREAST CANCER SCREENING] Future Scheduled 1997 COLONOSCOPY SCREENING [facility] Test 00:00:00 [code = COLONOSCOPY SCREENING] Future Scheduled 1997 SHINGLES VACCINES (#1) [place] [facility] 00:00:00 [code = SHINGLES VACCINES (#1)] Encounters Start End Encounter Admission Attending Care Care Encounter Source Date/Time Date/Time Type Type Clinicians Facility Department ID 2018-11-07 2018-11-07 Appointmen CRISTÓBAL ESTRADA [facility] [id number] [facility] [place] [facility] 13:00:00 13:00:00 tim ESTRADA M.D. ity o bonita AMBROCIO M.D. [place] Physici ans 2018-10-31 2018-10-31 CRISTÓBAL Akers [facility] [id number] Univers 13:45:00 13:45:00 t; Andria ESTRADA M.D. [place] Physici ans 2018-10-24 2018-10-24 CRISTÓBAL Akers [facility] [id number] Univers 12:30:00 12:30:00 t; Andria ESTRADA M.D. [place] Physici ans 2018-08-24 2018-08-24 [facility] [address] 13:30:00 13:30:00 t [facility] 2018-08-04 2018-08-04 RAD[facility] Patel [facility] [id number] Univers 12:30:00 12:30:00 t; alexis BRITTON FILIPE, P.A. [place] REBA Physi ci P.A. ans 2018-07-23 2018-07-23 [facility] [id number] 12:45:00 12:45:00 t Urgent Urgent Care [facility] 2018-04-25 2018-04-25 CRISTÓBAL Akers [facility] [id number] Univers 12:30:00 12:30:00 t; Andria ESTRADA M.D. [place] Physici ans 2018-04-06 2018-04-06 RADHA Curran [facility] [id number] Univers 12:30:00 12:30:00 t; ANGELICA FERREIRA ity of [place] M.D. [place], M.D. Physici ans 2018-03-10 2018-03-10 RADHA Patel [facility] [id number] Univers 14:00:00 14:00:00 t; Tomer BRITTONDANI, P.A. [place] REBA Physi ci P.A. ans 2018-01-24 2018-01-24 CRISTÓBAL Akers [facility] [id number] Univers 12:30:00 12:30:00 t; Andria ESTRADA M.D. [place] Physici ans 2017-12-16 2017-12-16 [facility] [id number] Univers 12:30:00 12:30:00 t; Kassie BRITTONs eveline of FIL[place], P.A. [place] REBA, Physi ci P.A. ans 2017-12-06 2017-12-06 Appointmen CRISTÓBAL ESTRADA [facility] [id number] Univers 12:30:00 12:30:00 t; Andria ESTRADA M.D. [place] Physici ans 2017-10-04 2017-10-04 CRISTÓBAL Akers [facility] [id number] Univers 12:30:00 12:30:00 t; Andria ESTRADA M.D. [place] Physici ans 2017-09-20 2017-09-20 AppointCRISTÓBAL Velasco [facility] [id number] Univers 10:30:00 10:30:00 t; Andria ESTRADA M.D. [place] Physici ans 2017-08-26 2017-08-26 [facility] [id number] Univers 12:30:00 12:30:00 t; alexis BRITTON FILIPE, P.A. [place] REBA, Physi ci P.A. ans 2017-08-23 2017-08-23 AppointCRISTÓBAL Velasco [facility] [id number] Univers 10:15:00 10:15:00 t; Andria ESTRADA M.D. [place] Physici ans 2017-08-02 2017-08-02 Appointsebastián DEXA, SCAN [facility] [id number] Univers 15:00:00 15:00:00 t; eveline DUMONT SCAN [place] Physici ans 2017-08-02 2017-08-02 AppointCRISTÓBAL Velasco [facility] [id number] Univers 12:30:00 12:30:00 t; Andria ESTRADA M.D. [place] Physici ans 2017-07-01 2017-07-01 Appointmen [facility] [id number] Univers 12:30:00 12:30:00 t; Jaxon BRITTON P.APrisca [place] P.AShi ans 2017-06-28 2017-06-28 Appointmen [facility] [id number] Univers 12:30:00 12:30:00 t; ANGELA LYNN P.A. ity [place] P.A. Physici ans 2017-05-31 2017-05-31 [facility] [id number] Univers 12:30:00 12:30:00 t; ANGELA LYNN P.A. ity [place] P.A. Physici ans Results Test Description Test Time Test Comments Results Result Comments Source PROTHROMBIN TIME 2018-12-20 16:04:00 Test Item Value Reference Range Interpretation Comme nts PT PATIENT (test code = PTP) 10.3 SECONDS 9.3-12.9 N INTERNATIONAL NORMAL RATIO (test code = INR) 0.90 INR Unit 0.8-1.2 N THROMBOPLASTIN TIME [id number] 16:04:00 Test Item Value Reference Range Interpretation Comments THROMBOPLASTIN TIME PARTIAL 25.8 SECONDS 26-35 L (test code = PTT) COMPREHENSIVE METABOLIC [id number] 16:03:00 Test Item Value Reference Range Interpretation [...] TOTAL (test code = ALKP) CBC W/AUTO [id number] 15:47:00 Test Item Value Reference Range Interpretation [...] DIFF/SCN CRITERIA MDIFF) - DUP VEIN UNI [id number] 15:17:00 Name: ALFONSO CASTORENA [facility] DOWNTOWNPanfilo [place] : 1945 Age/S: 73 / F [id number] [address] Unit #: [id number] Loc: [place] [address] Phys: Arsenio Beckman III, MD Acct: [id number] Dis Date: Status: REG CLI PHONE #: [phone] Exam Date: 12/20/2018 1445 FAX #: Reason: JUGULARVEIN OCCLUSION EXAMS: CPT: [id number] [address] EXAMINATION: - DUP VEIN UNI LT. LOCATION: [...] (1517) Rohit.PR7 PAGE 1 Signed Report Name: ALFONSO CASTORENA [facility] DOWNTOWNPanfilo [place] : 1945 Age/S: 73 / F [id number] [address] Unit #: [id number] Loc: [place] [address] Phys: Arsenio Beckman III, MD Acct: [id number] Dis Date: Status: REG CLI PHONE #: [phone] Exam Date: 12/20/2018 1445 FAX#: Reason: JUGULAR VEIN OCCLUSION EXAMS: CPT: [id number] [address] <Continued> Orig Print D/T: S: 12/20/2018 (1520) Probe: PAGE 2 Signed Report- CT MAXIFAC [id number] 14:33:00 Name: ALFONSO CASTORENA [place] : 1945 Age/S: 73 / F [id number] [address] Unit #: [id number] Loc: [place] [address] Phys: Arsenio Beckman III, MD Acct: [id number] Dis Date: Status: REG CLI PHONE #: [phone] Exam Date: 11/23/2018 1225 FAX #: Reason: LT TEMPORAL MASS EXAMS: CPT: [id number] CT MAXIFAC W/CONTRAST 94110 Location: T18 CT head, 11/23/18 TECHNIQUE: CT [...] 1 Signed Report (CONTINUED) Name: ALFONSO CASTORENA : 1945 Age/S: 73 / F [id number] [address] Unit #: [id number] Loc: [place] [address] Phys: Arsenio Beckman III, MD Acct: [id number] Dis Date: Status: REG CLI PHONE #: [phone] Exam Date: 11/23/2018 1225 FAX #: Reason: LT TEMPORAL MASS EXAMS: CPT: [id number] CT MAXIFAC W/CONTRAST 09502 <Co ntinued> mastoid air cells. No positive [...] CASTORENA : 1945 Age/S: 73 / F [id number] [address] Unit #: [id number] Loc: [place] [address] Phys: Arsenio Beckman III, MD Acct: [id number] Dis Date: Status: REG CLI PHONE #: [phone] Exam Date: 11/23/2018 1225 FAX #: Reason: LT TEMPORAL MASS EXAMS: CPT: [id number] CT MAXIFAC W/CONTRAST 77832 <Continued> of head. History of left parotid [...] auditory canal. No definite finding in the family practitioner space. Small degree of benign-appearing ethmoid air [...] CASTORENA : 1945 Age/S: 73 / F [id number] [address] Unit #: [id number] Loc: [place] [address] Phys: Arsenio Beckman III, MD Acct: [id number] Dis Date: Status: REG CLI PHONE #: [phone] Exam Date: 11/23/2018 1225 FAX #: Reason: LT TEMPORAL MASS EXAMS: CPT: [id number] CT MAXIFAC W/CONTRAST 31594 <Continued> location adjacent to an area of [...] PAGE 4 Signed Report- CT HEAD/BRAIN W/O [id number] 14:33:00 Name: ALFONSO CASTORENA [place] : 1945 Age/S: 73 / F [address] Unit #: [id number] Loc: [place] [address] Phys: Arsenio Beckman III, MD Acct: [id number] Dis Date: Status: REG CLI PHONE #: [phone] Exam Date: 11/23/2018 1241 FAX #: Reason: POSTERIOR MASS EXAMS: CPT: [id number] CT HEAD/BRAIN W/O CONT 79791 Location: T18 CT head, 11/23/18 TECHNIQUE: CT [...] 1 Signed Report (CONTINUED) Name: ALFONSO CASTORENA [facility] : 1945 Age/S: 73 / F [id number] [address] Unit #: [id number] Loc: [place] [address] Phys: Arsenio Beckman III, MD Acct: [id number] Dis Date: Status: REG CLI PHONE #: [phone] Exam Date: 11/23/2018 1243 FAX #: Reason: POSTERIOR MASS EXAMS: CPT: [id number] CT HEAD/BRAIN W/O CONT 38689 <Continued> mastoid air cells. No positive mass-effect, [...] : 1945 Age/S: 73 / F [address] Unit #: [id number] Loc: [place] [address] Phys: Arsenio Beckman III, MD Acct: [id number] Dis Date: Status: REG CLI PHONE #: [phone] Exam Date: 11/23/2018 1243 FAX #: Reason: POSTERIOR MASS EXAMS: CPT: [id number] CT HEAD/BRAIN W/O CONT 61601 <Continued> of head. History of left parotid [...] auditory canal. No definite finding in the family practitioner space. Small degree of benign-appearing ethmoid air [...] CASTORENA : 1945 Age/S: 73 / F [id number] [address] Unit #: [id number] Loc: [place] [address] Phys: Arsenio Beckman III, MD Acct: [id number] Dis Date: Status: REG CLI PHONE #: [phone] Exam Date: 11/23/2018 1243 FAX #: Reason: POSTERIOR MASS EXAMS: CPT: [id number] CT HEAD/BRAIN W/O CONT 69218 <Continued> location adjacent to an area of external occipital protuberance Some of the images are somewhat degraded due to motion but the exam is largely diagnostic. at 1433 Reported and signed by: Aury Cruz M.D. CC: Arsenio Beckman III, MD Technologist:Angela Mishra, RT(R)(MR) CTDI: DLP: Trnscb Date/Time: 11/23/2018 (1433) t.[email or web address] Orig Print D/T: S: 11/23/2018 (0536) CTDI: DLP: PAGE 4 Signed Report- CT NECK [id number] 14:33:00 Name: ALFONSO CASTORENA [place] : 1945 Age/S: 73 / F [id number] [address] Unit #: [id number] Loc: [place] [address] Phys: Arsenio Beckman III, MD Acct: [id number] Dis Date: Status: REG CLI PHONE #: [phone] Exam Date: 11/23/2018 1235 FAX #: Reason: FACIAL MAS EXAMS: CPT: [id number] CT NECK W/CONTRAST 56587 Location: T18 CT head, 11/23/18 TECHNIQUE: CT [...] 1 Signed Report (CONTINUED) Name: ALFONSO CASTORENA [place] : 1945 Age/S: 73 / F [id number] [address] Unit #: [id number] Loc: [place] [address] Phys: Arsenio Beckman III, MD Acct: [id number] Dis Date: Status: REG CLI PHONE #: [phone] Exam Date: 11/23/2018 1235 FAX #: Reason: FACIAL MAS EXAMS: CPT: [id number] CT NECK W/CONTRAST 76449 <Co ntinued> mastoid air cells. No positive [...] CASTORENA : 1945 Age/S: 73 / F [id number] [address] Unit #: [id number] Loc: [place] [address] Phys: Arsenio Beckman III, MD Acct: [id number] Dis Date: Status: REG CLI PHONE #: [phone] Exam Date: 11/23/2018 1235 FAX #: Reason: FACIAL MAS EXAMS: CPT: [id number] CT NECK W/CONTRAST 37897 <Continued> of head. History of left parotid [...] auditory canal. No definite finding in the family practitioner space. Small degree of benign-appearing ethmoid air [...] CASTORENA : 1945 Age/S: 73 / F [id number] [address] Unit #: [id number] Loc: [place] [address] Phys: Arsenio Beckman III, MD Acct: [id number] Dis Date: Status: REG CLI PHONE #: [phone] Exam Date: 11/23/2018 1235 FAX #: Reason: FACIAL MAS EXAMS: CPT: [id number] CT NECK W/CONTRAST 90406 <Continued> location adjacent to an area of e xternal occipital protuberance Some of the images are somewhat degraded due to motion but the exam is largely diagnostic. at 1433 Reported and signed by: Aury Cruz M.D. CC: Arsenio Beckman III, MD Technologist:Angela Mishra, RT(R)(MR) CTDI: DLP: Trnscb Date/Time: 11/23/2018 (143) LarryDAS6 Orig Print D/T: S: 11/23/2018 (1436) CTDI: DLP: PAGE 4 Signed [id number] 12:02:00 Test Item Value Reference Range Interpretation Comments ISTAT-GLUCOSE (test code = GLUP) 88 mg/dL 70-105 N [id number] 12:02:00 Test Item Value Reference Range Interpretation Comments ISTAT-BUN (test code = BUNP) mg/dL 8-26 BEDSIDE [id number] 12:02:00 Test Item Value Reference Range Interpretation Comments BEDSIDE CREATININE (test code = mg/dL 0.6-1.3 CREATBED) [id number] 12:02:00 Test Item Value Reference Range Interpretation Comments ISTAT-GLUCOSE (test code = GLUP) 88 mg/dL 70-105 N [id number] 12:02:00 Test Item Value Reference Range Interpretation Comments ISTAT-BUN (test code = BUNP) 15 mg/dL 8-26 N BEDSIDE [id number] 12:02:00 Test Item Value Reference Range Interpretation Comments BEDSIDE CREATININE (test code = mg/dL 0.6-1.3 CREATBED) [id number] 12:02:00 Test Item Value Reference Range Interpretation Comments ISTAT-GLUCOSE (test code = GLUP) 88 mg/dL 70-105 N [id number] 12:02:00 Test Item Value Reference Range Interpretation Comments ISTAT-BUN (test code = BUNP) 15 mg/dL 8-26 N BEDSIDE [id number] 12:02:00 Test Item Value Reference Range Interpretation Comments BEDSIDE CREATININE (test code = 0.7 mg/dL 0.6-1.3 N CREATBED) [Q] [id number] 13:30:00 Test Item Value Reference Range Interpretation Comments CALCIUM (test code = CALCIUM) 9.1 mg/dl 8.6-10.4 N [facility]] PTH, INTACT (WITHOUT CALCIUM)2018-08-04 13:30:00 Test Item Value Reference Interpretation Comments Range PARATHYROID 103 pg/ml 14-64 Interpretive Gu radha Intact HORMONE, INTACT PTH (test code = Calcium-------- PARATHYROID HORMONE, INTACT) -------Norm al Parathyroid Normal NormalHypoparat hyroidism Low or Low Norm al LowHyperparathy roidism Primary Normal or High High Secondary High Normal or Low Tertiary High HighNon-Parathy roid Hypercalcemia Low or Low Normal High [facility] Physicians[QL] VITAMIN D, 25-HYDROXY, LC/MS/[id number] 13:30:00 Test Item Value Reference Range Interpretation [...] D, (D2,D3), LC/MS/MS is recommended: order code 94462 (pat ients >2yrs). For mor e information on this test, go to:http://educa [email or web address] Party [email or web address]/FAQ16 3(This link is being provided for informational/e ducational purposes only.) [facility] Physicians[U] XRAY FEMUR 2 VWS LEFT [id number] 11:56:00 Images acquired, not reported on this accession number.[facility] Phys[facility][H] Creatinine for [id number] 17:50:01 Test Item Value Reference Range Interpretation Comments Creatinine Lvl 0.60 mg/dl 0.50-1.40 (test code = 2160-0) eGFR (test code = 93 The eGFR i s calculated 81362-4) {ML/MIN/1.7} using the CKD-E PI formula. In [...] be multiplied by t he estimated BMI. [facility][H] Creatinine Clearance Urine 24 [id number] 12:56:01 Test Item Value Reference Range Interpretation Comments Urine Creatinine 87 ml/min 88-128 Clearance 24 Hour; Below Low Threshold (test code = 2164-2) Ur Creat (test code = 42.40 mg/dl No est ablished Ur Creat) reference range s. BSA Cr Clear (test 1.73 code = 3140-1) WT Crcl (test code = 215 {lb} 98683-7) HT Crcl (test code = 52 {INCHES} 8302-2) Total Volume 1780 ml 600-1600 Creatinine Clearance 24 Hour; Above High Threshold (test code = 14629-5) [facility]] VITAMIN D, 25-HYDROXY, LC/MS/[id number] 12:53:01 Test Item Value Reference Range Interpretation Comments Vitamin D, 25-OH, 19.5 ng/ml 30.0-100.0 Reference range is based Total (test code on recommen dations in the = Vitamin D, EndocrineSociet y Clinical 25-OH, Total) Practice Guide line (J Clin Endocrinol Srekr4289;96:19 11-1930) [facility][H] Protein [id number] 12:53:01 Test Item Value Reference Range Interpretation Comments Protein Electrophoresis Cancel Reason: (test code = Protein Duplicate Order Electrophoresis) [facility]] CMP [id number] 14:09:01 Test Item Value Reference Range Interpretation Comments Sodium Level 139 {mEq/l} 135-145 (test code = 2951-2) Potassium Level; 5.6 {mEq/l} 3.5-5.1 Above High Threshold (test code = 2823-3) Chloride Level 104 {mEq/l} 95-109 (test code = 5-0) Carbon Dioxide 31 {mEq/l} 24-32 (test code = 2027-9) AGAP; Below Low 9.6 {mEq/l} 10.0-20.0 Threshold (test code = 75783-1) Glucose Lvl (test 77 mg/dl 70-99 Adult refe rence range code = 2345-7) values reflec t the clinical guidel inesof the [place] Diabet es Association. Creatinine Lvl 0.60 mg/dl 0.50-1.40 (test code = 2160-0) Blood Urea 21 mg/dl 7-22 Nitrogen (test code = 3094-0) BUN/Creatinine 35 6-25 Ratio; Above High Threshold (test code = 3097-3) Total Protein 6.9 g/dl 6.4-8.4 (test code = 2885-2) Albumin Lvl (test 3.7 g/dl 3.5-5.0 code = 1751-7) Globulin (test 3.2 g/dl 2.7-4.2 code = 23466-5) A/G Ratio (test 1.2 0.7-1.6 code = 1759-0) Calcium Level 9.5 mg/dl 8.5-10.5 Total (test code = 16560-2) ALT (test code = 34 u/l 0-65 1743-4) AST (test code = 37 u/l 0-37 18636-3) Alk Phos (test 103 u/l 39-136 code = 1783-0) Bili Total (test 0.4 mg/dl 0.2-1.3 code = 1975-2) eGFR (test code = 93 The eGFR i s calculated 30093-7) {ML/MIN/1.7} using the CKD-E PI formula. In [...] be multiplied by t he estimated BMI. [facility]] VITAMIN D, 25-HYDROXY, LC/MS/[id number] 14:09:01 Test Item Value Reference Range Interpretation Comments Vitamin D, 25-OH, 20.6 ng/ml 30.0-100.0 Reference range is based Total (test code on recommen dations in the = Vitamin D, EndocrineSociet y Clinical 25-OH, Total) Practice Guide line (J Clin Endocrinol Kiesd5216;96:19 11-1930) [facility][H] Protein [id number] 14:09:01 Test Item Value Reference Range Interpretation [...] Globulin 0.89 g/dl 0.45-1.00 (test code = 39867-3) Beta Globulin (test 0.79 g/dl 0.50-1.15 code [...] is withoutsignific ant abnormalities. Interpretation performed at [facility].Electr onic Signature Jodi Mathur MD 01/04/18 3 :44 PM [facility]] PHOSPHATE ( PHOSPHORUS)2017-12-16 13:36:00 Test Item Value Reference Range Interpretation Comments PHOSPHATE ( PHOSPHORUS) (test 4.7 mg/dl 2.1-4.3 code = PHOSPHATE ( PHOSPHORUS)) [facility]] PTH, INTACT (WITHOUT CALCIUM)2017-12-16 13:36:00 Test Item Value Reference Interpretation Comments Range PARATHYROID 175 pg/ml 14-64 Interpretive Gu radha Intact HORMONE, INTACT PTH (test code = Calcium-------- PARATHYROID HORMONE, INTACT) -------Norm al Parathyroid Normal NormalHypoparat hyroidism Low or Low Norm al LowHyperparathy roidism Primary Normal or High High Secondary High Normal or Low Tertiary High HighNon-Parathy roid Hypercalcemia Low or Low Normal High [facility][U] XRAY FEMUR 2 VWS LEFT [id number] 12:43:00 Images acquired, not reported on this accession number.[facility]] XRAY FEMUR 2 VWS LEFT [id number] 11:12:00Images acquired, not reported on this accession number.[facility][U] XRAY KNEE 1 OR 2 VWS LEFT [id number] 10:56:00Images acquired, not reported on this accession number.[facility]] [id number] 13:52:00 Test Item Value Reference Range Interpretation Comments MAGNESIUM (test code = MAGNESIUM) 1.8 mg/dl 1.5-2.5 N [facility]] PHOSPHATE ( PHOSPHORUS)2017-08-02 13:52:00 Test Item Value Reference Range Interpretation Comments PHOSPHATE ( PHOSPHORUS) (test 5.7 mg/dl 2.1-4.3 code = PHOSPHATE ( PHOSPHORUS)) [facility][Q] PROCOLLAGEN TYPE I INTACT N TERMINAL [id number] 13:52:00 Test Item Value Reference Range Interpretation [...] - 108 mcg/L >60 years: Not established [facility][] COLLAGEN CROSS-LINKED N-TELOPEPTIDE (NTx), U 2017-08-02 [...] URINE (test code = CREATININE, RANDOM URINE) [facility]] PTH, INTACT (WITHOUT CALCIUM)2017-08-02 13:52:00 Test Item Value Reference Range Interpretation Comments PARATHYROID 93 pg/ml 14-64 Interpretive Gu radha Intact HORMONE, INTACT PTH (test code = Calcium-------- PARATHYROID HORMONE, INTACT) -------Norm al Parathyroid Normal NormalHypoparat hyroidism Low or Low Norm al LowHyperparathy roidism Primary Normal or High High Secondary High Normal or Low Tertiary High HighNon-Parathy roid Hypercalcemia Low or Low Normal High [facility]] VITAMIN D, 25-HYDROXY, LC/MS/[id number] 13:52:00 Test Item Value Reference Range Interpretation [...] and D3 fractions is re quired, the [employer] D(TM)25-OH VIT D, (D2,D3), LC/MS/MS is recommended: order code 63178 (pat ients >2yrs). For mor e information on this test, go to:[email or web address] [email or web address] 3(This link is being provided for informational/e ducational purposes only.) [facility][U] XRAY KNEE 1 OR 2 VWS LEFT [id number] 13:04:00Images acquired, not reported on this accession number.[facility][U] XRAY FEMUR 2 VWS LEFT [id number] 12:12:00Images acquired, not reported on this accession number.[facility] [U] XRAY FEMUR 2 VWS LEFT [id number] 13:21:00Images acquired, not reported on this accession number.[facility][U] XRAY KNEE 1 OR 2 VWS LEFT [id number] 12:55:00Images acquired, not reported on this accession number.[facility]
[2020-02-19] MEDS ORDERED: ZOLPIDEM TARTRATE 10 MG TABLET PO PRN (16:10)
[2020-02-19] MEDS ORDERED: TIZANIDINE 4 MG TABLET PO PRN (16:10)
[2020-02-19] MEDS ORDERED: LORAZEPAM 1 MG TABLET PO PRN (16:14)
[2020-02-19 17:11] LABS: Urine Appearance CLOUDY; Urine Blood NEGATIVE (NEG); Urine Color DK YELLOW; Urine Glucose NEGATIVE (NEG); Urine Protein NEGATIVE (NEG); Urine Specific Gravity >=1.030 (1.005-1.030); Urine Urobilinogen 0.2 mg/dL (0.2-1.0)
[2020-02-19] MEDS ORDERED: D50W 25 GM/50 ML SYRINGE/VIAL IV PRN (17:22)
[2020-02-19] MEDS ORDERED: GLUCAGON 1 MG/VIAL IM PRN (17:22)
[2020-02-19] MEDS: METOPROLOL TAR 50 MG TAB PO SCH (17:40)
[2020-02-19 18:23] LABS: Urine Bilirubin NEGATIVE (NEG)
[2020-02-19] MEDS: HYDROCODONE/APAP 5/325 MG TAB PO PRN ×2 (20:24→23:54)
[2020-02-19] MEDS: ATORVASTATIN 10 MG TAB PO SCH (20:24)
[2020-02-19] MEDS: GABAPENTIN 300 MG CAP PO SCH (20:24)
[2020-02-19] MEDS: INSULIN -REGULAR HUMAN 50 UNIT/0.5 ML ML SQ SCH (20:25)
[2020-02-19 21:12] LABS: Urine Bacteria >50 /HPF (<20); Urine Culture Reflex Order NOT NEEDED; Urine RBC <5 /HPF (NONE SEEN)
[2020-02-20] MEDS: METOPROLOL TAR 50 MG TAB PO SCH ×2 (05:01→17:16)
[2020-02-20 06:06] LABS: Absolute Lymphocytes (CBC) 2.7 K/uL (0.7-4.9); Basophils % 0.7 % (0-1.3); Hematocrit 30.9 % (36.0-45.0); Lymphocytes % 46.3 % (15.3-44.8); MPV 8.8 fL (7.6-11.3)
[2020-02-20 06:25] LABS: Albumin 1.5 g/dL (3.4-5.0); Magnesium 2.5 mg/dL (1.8-2.4); Potassium 4.4 mmol/L (3.5-5.1); Prealbumin 7.5 mg/dL (20-40)
[2020-02-20] MEDS ORDERED: HYDROCODONE/APAP 10/325 TAB PO PRN (06:53)
[2020-02-20] MEDS ORDERED: PROMETHAZINE 25 MG TABLET PO PRN (06:53)
[2020-02-20] MEDS: INSULIN -REGULAR HUMAN 50 UNIT/0.5 ML ML SQ SCH ×4 (07:30→20:25)
[2020-02-20] MEDS: ESCITALOPRAM 20 MG TAB PO SCH (07:50)
[2020-02-20] MEDS: GABAPENTIN 300 MG CAP PO SCH ×3 (07:52→20:24)
[2020-02-20] MEDS: MAGNESIUM OXIDE 400 MG TAB PO SCH (07:52)
[2020-02-20] MEDS ORDERED: FUROSEMIDE 40 MG TABLET PO SCH (08:00)
[2020-02-20] MEDS ORDERED: MAGNESIUM OXIDE 400 MG TAB PO SCH (08:00)
[2020-02-20] MEDS ORDERED: ESCITALOPRAM 20 MG TAB PO SCH ×2 (08:00)
[2020-02-20] MEDS ORDERED: LORAZEPAM 1 MG TABLET PO SCH (08:00)
[2020-02-20] MEDS: MAGNESIUM HYDROXIDE 8% 30 ML PO SCH (08:00)
[2020-02-20] MEDS ORDERED: ASPIRIN 325 MG TAB PO SCH (08:00)
[2020-02-20] MEDS ORDERED: ASPIRIN EC 325 MG TABLET PO SCH (08:00)
[2020-02-20] MEDS ORDERED: SPIRONOLACTONE 25 MG TABLET PO SCH (08:00)
[2020-02-20] MEDS ORDERED: METOPROLOL TAR 50 MG TAB PO SCH (08:00)
[2020-02-20] MEDS: VITAMIN D 5,000 UNIT CAP PO SCH (08:07)
[2020-02-20] MEDS: LORAZEPAM 0.5 MG TABLET PO SCH ×2 (08:32→20:23)
[2020-02-20] MEDS ORDERED: GABAPENTIN 300 MG CAP PO SCH (09:00)
[2020-02-20 09:13] LABS: Blood Morphology Comment NOTED (NOT SEEN); Macrocytosis 1+; Platelet Estimate ADEQ; Urine White Blood Cell Casts OK
[2020-02-20] MEDS: PROMETHAZINE 25 MG TABLET PO PRN ×2 (13:37→22:46)
[2020-02-20] MEDS ORDERED: PROMETHAZINE 25 MG TABLET PO ONE (16:00)
--- NOTE | 2020-02-20 16:47 | FAST ---
SHIFT START DATE/TIME: 02/20/2020 07:00 (CDT) SHIFT END DATE/TIME: 02/20/2020 19:00 (CDT) NAME ALFONSO CASTORENA DATE OF : 1945 DATE OF ADMISSION: 02/19/2020 13:03 (CDT) PHONE: AGE: 74 N# [id number] GENDER: Female ENCOUNTER PHYSICIAN: Dr. Glen Gleason M.D. ADMISSION DIAGNOSIS: - Orthopaedic Disorders 08 - Unilateral Hip Fracture (08.11) acute exacerbation of unspecified left femur fracture. EATING: EATING - STEP 1: Does the patient complete the activity by him/herself with no assistance (physical, verbal/nonverbal cueing, setup/clean-up)? No. EATING - STEP 2: Does the patient need only setup/clean-up assistance from one helper? No. EATING - STEP 3: Does the patient need only verbal/nonverbal cueing or touching/steadying/contact guard assistance fro m one helper? Yes. 1. [id number] ADMISSION PERFORMANCE: Supervision or touching assistance CODE: 04 ORAL HYGIENE: Not assessed/no information CODE: - TOILETING HYGIENE: TOILETING HYGIENE - STEP 1: Does the patient complete the activity by him/herself with no assistance (physical, verbal/nonverbal cueing, setup/clean-up)? No. TOILETING HYGIENE - STEP 2: Does the patient need only setup/clean-up assistance from one helper? No. TOILETING HYGIENE - STEP 3: Does the patient need only verbal/nonverbal cueing or touching/steadying/contact guard assistance fro m one helper? Yes. 1. [id number] ADMISSION PERFORMANCE: Supervision or touching assistance CODE: 04 BATHING: Not assessed/no information CODE: - DRESSING - UPPER BODY: Not assessed/no information CODE: - DRESSING - LOWER BODY: Not assessed/no information CODE: - PUTTING ON/TAKING OFF FOOTWEAR: FOOTWEAR - STEP 1: Does the patient complete the activity by him/herself with no assistance (physical, verbal/nonverbal cueing, setup/clean-up)? No. FOOTWEAR - STEP 2: Does the patient need only setup/clean-up assistance from one helper? No. FOOTWEAR - STEP 3: Does the patient need only verbal/nonverbal cueing or touching/steadying/contact guard assistance fro m one helper? No. FOOTWEAR - STEP 4: Does the patient need physical assistance - for example lifting or trunk support from one helper - wi th the helper providing less than half of the effort? Yes. 1. [id number] ADMISSION PERFORMANCE: Partial/moderate assistance CODE: 03 ROLL LEFT AND RIGHT: ROLL LEFT AND RIGHT - STEP 1: Does the patient complete the activity by him/herself with no assistance (physical, verbal/nonverbal cueing, setup/clean-up)? No. ROLL LEFT AND RIGHT - STEP 2: Does the patient need only setup/clean-up assistance from one helper? No. ROLL LEFT AND RIGHT - STEP 3: Does the patient need only verbal/nonverbal cueing or touching/steadying/contact guard assistance fro m one helper? No. ROLL LEFT AND RIGHT - STEP 4: Does the patient need physical assistance - for example lifting or trunk support from one helper - wi th the helper providing less than half of the effort? Yes. 1. [id number] ADMISSION PERFORMANCE: Partial/moderate assistance CODE: 03 SIT TO LYING: SIT TO LYING - STEP 1: Does the patient complete the activity by him/herself with no assistance (physical, verbal/nonverbal cueing, setup/clean-up)? No. SIT TO LYING - STEP 2: Does the patient need only setup/clean-up assistance from one helper? No. SIT TO LYING - STEP 3: Does the patient need only verbal/nonverbal cueing or touching/steadying/contact guard assistance fro m one helper? Yes. 1. [id number] ADMISSION PERFORMANCE: Supervision or touching assistance CODE: 04 LYING TO SITTING: LYING TO SITTING ON SIDE OF BED - STEP 1: Does the patient complete the activity by him/herself with no assistance (physical, verbal/nonverbal cueing, setup/clean-up)? No. LYING TO SITTING ON SIDE OF BED - STEP 2: Does the patient need only setup/clean-up assistance from one helper? No. LYING TO SITTING ON SIDE OF BED - STEP 3: Does the patient need only verbal/nonverbal cueing or touching/steadying/contact guard assistance fro m one helper? Yes. 1. [id number] ADMISSION PERFORMANCE: Supervision or touching assistance CODE: 04 SIT TO STAND: SIT TO STAND - STEP 1: Does the patient complete the activity by him/herself with no assistance (physical, verbal/nonverbal cueing, setup/clean-up)? No. SIT TO STAND - STEP 2: Does the patient need only setup/clean-up assistance from one helper? No. SIT TO STAND - STEP 3: Does the patient need only verbal/nonverbal cueing or touching/steadying/contact guard assistance fro m one helper? Yes. 1. [id number] ADMISSION PERFORMANCE: Supervision or touching assistance CODE: 04 TRANSFERS: BED, CHAIR: CHAIR/[id number] TRANSFER - STEP 1: Does the patient complete the activity by him/herself with no assistance (physical, verbal/nonverbal cueing, setup/clean-up)? No. CHAIR/[id number] TRANSFER - STEP 2: Does the patient need only setup/clean-up assistance from one helper? No. CHAIR/[id number] TRANSFER - STEP 3: Does the patient need only verbal/nonverbal cueing or touching/steadying/contact guard assistance fro m one helper? Yes. 1. [id number] ADMISSION PERFORMANCE: Supervision or touching assistance CODE: 04 TRANSFER TOILET: TOILET TRANSFER - STEP 1: Does the patient complete the activity by him/herself with no assistance (physical, verbal/nonverbal cueing, setup/clean-up)? No. TOILET TRANSFER - STEP 2: Does the patient need only setup/clean-up assistance from one helper? No. TOILET TRANSFER - STEP 3: Does the patient need only verbal/nonverbal cueing or touching/steadying/contact guard assistance fro m one helper? Yes. 1. [id number] ADMISSION PERFORMANCE: Supervision or touching assistance CODE: 04 TRANSFERS: CAR: Not assessed/no information CODE: - WALK 10 FEET: Not assessed/no information CODE: - 1 STEP (CURB): Not assessed/no information CODE: - PICKING UP OBJECT: Not assessed/no information CODE: - DOES THE PATIENT USE A WHEELCHAIR/SCOOTER? Q1. DOES THE PATIENT USE A WHEELCHAIR/SCOOTER?: Yes CODE: 1 WHEEL 50 FEET WITH TWO TURNS: Not assessed/no information CODE: - INDICATE THE TYPE OF WHEELCHAIR/SCOOTER USED: RR1. INDICATE THE TYPE OF WHEELCHAIR/SCOOTER USED.: Manual CODE: 1 WHEEL 150 FEET: Not assessed/no information CODE: - INDICATE THE TYPE OF WHEELCHAIR/SCOOTER USED: SS1. INDICATE THE TYPE OF WHEELCHAIR/SCOOTER USED.: Manual CODE: 1 BLADDER AND BOWEL: H350. BLADDER CONTINENCE (3-DAY ASSESSMENT PERIOD): Incontinent daily (at least once a day) CODE: 3 H400. BOWEL CONTINENCE (3-DAY ASSESSMENT PERIOD): Always continent CODE: 0 SIGNATURE PANEL: The following modified sections: 1. [id number] Admission Performance, 1. [id number] Admission Performance, 1. [id number] Admission Performance, 1. [id number] Admission Performance, 1. [id number] Admission Performance, 1. [id number] Admission Performance, 1. [id number] Admission Performance, 1. [id number] Admission Performance , 1. [id number] Admission Performance, 1. [id number] Admission Performance, Q1. Does the patient use a whee lchair/scooter?, RR1. Indicate the type of wheelchair/scooter used., Code, SS1. Indicate the type of wheelchair/scooter used., H350. Bladder Continence (3-day assessment period), H400. Bowel Continence (3-day assessment period) were [electronically] signed by Juana De León C.N.A. on TueFeb 20 2020 16: 46:57 T-0500 (Central Daylight Time)
--- NOTE | 2020-02-20 16:56 | P.HP ---
Certification for Inpatient Patient admitted to: Inpatient With expected LOS: >2 Midnights Patient will require the following post-hospital care: Rehabilitation Practitioner: I am a practitioner with admitting privileges, knowledge of patient current condition, hospital course, and medical plan of care. Services: Services provided to patient in accordance with Admission requirements found in Title 42 Section 412.3 of the Code of Federal Regulations Patient History Date of Service: 02/20/20 Reason for admission: DIFFUSE WEAKNESS History of Present Illness: MS. CASTORENA IS A DIABETIC WHO IS ADDICTED TO MANY DRUGS FROM PAIN DOCTOR, INCLUDING [facility], ATIVAN AND [facility]BIEN. SHE THINKS SHE HAS HAD A STROKE AND SO CAME TO ER A FEW DAYS AGO. THERE WAS NO SIGN OF STROKE. SHE WENT HOME BUT FAILED TO GET BACK TO HER BASELINE STATUS. SHE IS DECONDITIONED. SHE IS NOT GETTING ENOUGH NUTRITION EVIDNECED BY LOW ALBUMIN. SHE IS GROGGY TODAY WHEN I SAW HER. SHE TAKES HER MEDS ABOVE ROUTINELY EVEN IF SHE MAY NOT NEED IT. I HAVE TALKED TO A FEW TIMES ABOUT IT BUT BOTH OF THEM GO TO PAIN DOCTOR TO GET CONTROLLED SUBSTANCES. SHE HAS NO PAIN, NO FEVER, NO COUGH. Allergies Sulfa (Sulfonamide Antibiotics) Allergy (Verified 02/19/20 16:26) Shortness of breath Home Medications: Atorvastatin Calcium [Lipitor*] 10 mg PO BEDTIME 02/11/20 Escitalopram [Lexapro*] 1 tab PO DAILY 02/11/20 Furosemide [Lasix] 40 mg PO DAILY 02/11/20 Gabapentin 300 mg PO TID 02/11/20 Hydrocodone 10/APAP 325 [[place] 10/325*] 1 tab PO Q4H PRN 02/11/20 Magnesium Oxide [Mag 0X*] 1 tab PO DAILY 02/11/20 Metoprolol Tartrate [Lopressor*] 50 mg PO BID 02/11/20 Promethazine HCl 1 tab PO Q6HP PRN 02/11/20 Spironolactone [Aldactone] 50 mg PO DAILY 02/11/20 Tizanidine HCl [Zanaflex] 2 mg PO TID 02/11/20 Zolpidem Tartrate [Ambien] 10 mg PO BEDTIME 02/11/20 Aspirin [Aspirin EC 325 MG] 325 mg PO DAILY 02/20/20 Cholecalciferol (Vitamin D3) [Vitamin D 5,000 Iu Cap] 5,000 unit PO DAILY 02/20/20 Escitalopram [Lexapro] 20 mg PO DAILY 02/20/20 LORazepam [Lorazepam] 1 mg PO BID 02/20/20 - Past Medical/Surgical History Has patient received pneumonia vaccine in the past: Yes Diabetic: Yes -: anxiety, -: DM -: HTN -: hyperlipidemia -: choley -: gastric bypass 2009 -: appy -: dnc -: left hip - Social History Smoking Status: Never smoker Alcohol use: No CD- Drugs: No Caffeine use: Yes Place of Residence: Home Review of Systems 10-point ROS is otherwise unremarkable General: Weakness, Malaise Musculoskeletal: As per HPI (NOT WALKING FOR WEEKS.) Physical Examination - Vital Signs Temperature: 98.2 F Blood Pressure: 104/59 Pulse: 61 Respirations: 16 Pulse Ox (%): 98 - Physical Exam General: Alert, Mild distress, Obese HEENT: Atraumatic, PERRLA, Mucous membr. moist/pink, EOMI, Sclerae nonicteric Neck: Supple, 2+ carotid pulse no bruit, No LAD, Without JVD or thyroid abnormality Respiratory: Clear to auscultation bilaterally, Normal air movement Cardiovascular: Regular rate/rhythm, Normal S1 S2 Gastrointestinal: Normal bowel sounds, No tenderness Musculoskeletal: No tenderness Integumentary: No rashes Neurological: Normal speech, Abnormal strength (GEN WEAKNESS.) Lymphatics: No axilla or inguinal lymphadenopathy - Studies Laboratory Data (last 24 hrs) 02/20/20 05:15: Sodium 142, Potassium 4.4, BUN 25 H, Creatinine 1.31 H, Glucose 71 L, Magnesium 2.5 H D 02/20/20 05:15: WBC 5.8 D, Hgb 10.6 L, Hct 30.9 L, Plt Count 206 Microbiology Data (last 24 hrs): 02/19/20 16:25 Nasopharnyx Coronavirus COVID-19 PCR - Final Assessment and Plan - Problems (Diagnosis) (1) Physical deconditioning Current Visit: Yes Status: Chronic Plan: NOT UNUSUAL FOR SOMEONE LIKE HER A DIABETIC, OBESE LADY WITH COMPLECTED HIP SURGERY IN PAST, DEPENDENT ON CONTROLLED SUBSTANCES. (2) Narcotic dependence Current Visit: Yes Status: Chronic Plan: WILL TRY TO REDUCE DRUGS BUT CAN'T BE SURE IF SHE WILL GO BACK TO THE SAME PAIN DOCTOR ROUTINE. (3) Femur fracture, left Current Visit: No Status: Chronic Qualifiers: Encounter type: subsequent encounter (4) Diabetes Current Visit: No Status: Chronic Plan: GLUCOSE IS LOWER NOW SHE HAS LOST SOME WEIGHT. Qualifiers: Diabetes mellitus type: type 2 (5) Hypoalbuminemia Current Visit: Yes Status: Chronic Plan: NO SIGNS OF PROTEINURIA. THIS CAN BE JUST FROM UNHEALTHY FOOD AT HOME IS TRYING TO TAKE CARE OF ALL AND NOT ABLE TO. IDEALLY SHE SHOULD BE IN NH BUT SHE AND HIM REFUSE TO. - Advance Directives Does patient have a Living Will: No Does patient have a Durable POA for Healthcare: No
[2020-02-20] MEDS: ONDANSETRON 4 MG (ODT) TAB PO PRN ×2 (19:08→23:34)
--- NOTE | 2020-02-20 19:54 | R.HP ---
FACILITY: [facility] ENCOUNTER DATE AND TIME: 02/20/2020 19:48 (CDT) MR#: [id number] NAME ALFONSO MARROQUIN ADDRESS: [address] [place] [address] CITY: [place]IP [address] PHONE: DATE OF : 1945 AGE: 74 SSN# [id number] GENDER: Female DEXTERITY Right-handed MARITAL STATUS RACE White PRE-HOSPITAL LIVING SETTING 01 - Home (private home/apt. board/care, assisted living, custodial, transitional living) PRE-HOSPITAL LIVING WITH Family/Relatives ENCOUNTER PHYSICIAN: Dr. Glen Gleason M.D. REFERRING DOCTOR: Dr Avila DATE OF ADMISSION: 02/19/2020 13:03 (CDT) REFERRING FACILITY Doctor Office HOME TYPE AND DETAILS: Type of home: single family house # of steps within the residence: 0 # of steps to enter the residence: 1 # of levels in the residence: 1 Pt. claims to live w/ spouse in a 1 emile home w/ 1 threshold step, pt. claims to be able to get up OOB unassisted, able to ambulate w/ a FWW unassisted, has a [id number] w/ bench. ONSET DATE: 02/11/2020 PRIMARY DIAGNOSIS-RELATED SURGERIES: No surgeries related to the primary diagnosis were performed recently. HISTORY OF PRESENT ILLNESS (HPI): Pt. is a 74 yo Right-handed white female. Her impairment category is Orthopaedic Disorders 08 - Unilateral Hip Fracture (08.11). Pre-morbidly, Pt. was independent/mod-I in Transfers Control, Locomotion, Self-Care, Sphincter Contro l, and Communication; and she had good Balance, Safety Awareness, and Social Cognition. Currently, she has deficits of Transfers Control, Balance, Locomotion, Safety Awareness, Self-Care, S ocial Cognition, and Communication. Pt. is now referred to [facility] for acute in-patient rehabilitation in order to maximize patient's functional independence in activities of daily living, strength, ROM, and mobi lity. Patient has realistic goal of being discharged at assistance level 6-Pema to reside at Home with Fam jose maria/Relatives. One year ago the patient suffered a left hip fracture and went to rehab. The said that she d id well but recently she has become severely debilitated. In the past few weeks she has been falling , having trouble word finding and performing ADL's and IADL's. The brought her to the hospit al and they ran tests expecting to find a stroke, but the CT and MRI both came back negative at that time. The patient was discharged home with her and is not doing any better. When the RN jacobo led to give them the negative COVID test result at home the explained how concerned he was ab out his 's state and that home health was not going to be enough to get her back to her prior lev el of living. We reviewed her case and decided to accept Mrs. Marroquin as an exacerbation of her prio r left hip fracture in order to help her return to her prior state of being. It is reasonable and ne cessary for the patient to come to inpatient rehab in order to have 24 hour nursing care, a doctor to monitor her 3 times a week and aggressive 3 hours of therapy a day so that she can get better. MEDICATION ALLERGIES: Sulfa ENVIRONMENTAL ALLERGIES: None Known - Substance Allergies None Known - Other Allergies None Known PAST MEDICAL HISTORY: Chronic Back Pain HTN Diabetes HLD ANXIETY PAST SURGICAL HISTORY: Cholecystectomy Gastric Bypass Appendectomy DNC Left Hip SX SOCIAL HISTORY: - Home Living Family/Relatives REVIEW OF SYSTEMS: - Gen No Chills Fatigue No Fever - Eyes No Double Vision No itchiness - ENMT No Difficulty Swallowing - CVS No Chest Discomfort No Chest Pain No Fatigue No Weight Gain - Resp No Cough No Shortness of Breath - GI Continent No Abdominal Pain No Constipation No Diarrhea - Continent No Kidney Pain No Painful Urination No Urinary Urgency - MSK No Joint Pain Muscle Cramps Stiffness - Skin No Itching No Rash No Suspicious Lesions - Neuro No Coordination Difficulty Difficulty with Concentration No Memory Loss No Seizures Weakness - Psych No Anxiety No Depression No HIV Exposure No Persistent Infections No Seasonal Allergies - Endo No Cold/Heat Intolerance No Excessive Hunger No Excessive Thirst No Excessive Urination PHYSICAL EXAM - Gen Lying in bed No apparent distress Oriented to: person, time, and place - Skin No skin breakdown. Normacephalic - Eyes No abnormalities - ENMT No abnormalities - Neck No abnormalities - CVS RRR - Chest Clear - Resp No wheezing - Abd Soft - GI + bowel sounds Deferred - No abnormalities - Ext Mild bilateral lower extremity edema. - MSK 4/5 weakness in both lower extremities. - Neuro No focal deficits VITAL SIGNS Temperature: 98.1 F SBP/DBP: 141/77 Pulse: 69 Resp: 16 NURSING: - Shower allowing shower - Skin care per protocol PRECAUTIONS: - Weight Bearing Precaution WBAT left LE ACTIVITIES OOB only with supervision QI SCORES: - Self-Care A. Eating 05-Setup or clean-up assistance B. Oral hygiene 05-Setup or clean-up assistance C. Toileting hygiene 05-Setup or clean-up assistance E. Shower/bathe self 04-Supervision or touching assistance F. Upper body dressing 04-Supervision or touching assistance G. Lower body dressing 03-Partial/moderate assistance H. Putting on/taking off footwear - Mobility A. Roll left and right 05-Setup or clean-up assistance B. Sit to lying 05-Setup or clean-up assistance C. Lying to sitting on side of bed 05-Setup or clean-up assistance D. Sit to stand 05-Setup or clean-up assistance E. Chair/hwn-av-lrlcr transfer 05-Setup or clean-up assistance F. Toilet transfer 05-Setup or clean-up assistance G. Car transfer I. Walk 10 feet 04-Supervision or touching assistance J. Walk 50 feet with two turns 88-Not attempted due to medical condition or safety concerns K. Walk 150 feet 88-Not attempted due to medical condition or safety concerns L. Walking 10 feet on uneven surfaces 88-Not attempted due to medical condition or safety concerns M. 1 step (curb) 04-Supervision or touching assistance N. 4 steps 88-Not attempted due to medical condition or safety concerns O. 12 steps 88-Not attempted due to medical condition or safety concerns P. Picking up object 88-Not attempted due to medical condition or safety concerns - Bladder and Bowel Bladder continence 0-Always continent Bowel continence 0-Always continent - Endurance Poor - Balance Poor - Safety Awareness Poor CURRENT FUNC. DEFICITS: Self-Care, Mobility, Endurance, Balance, and Safety Awareness MEDICATIONS: - N/A See MAR ASSESSMENT: Pt. is a 74 yo Right-handed white female.Her impairment category is Orthopaedic Disorders 08 - Unila teral Hip Fracture (03.11).Pre-morbidly, Pt. was independent/mod-I in Transfers Control, Locomotion, Self-Care, Sphincter Control, and Communication; and she had good Balance, Safety Awareness, and Soci al Cognition.Currently, she has deficits of Transfers Control, Balance, Locomotion, Safety Awareness, Self-Care, Social Cognition, and Communication.Pt. is now referred to [facility] for acute in-patient rehabilitation in order to maximize patient's functional independence in act ivities of daily living, strength, ROM, and mobility.- Rehab Goal Patient has realistic goal of being discharged at assistance level 6-Pema to reside at Home with Fam jose maria/Relatives. One year ago the patient suffered a left hip fracture and went to rehab. The said that she d id well but recently she has become severely debilitated. In the past few weeks she has been falling , having trouble word finding and performing ADL's and IADL's. [facility] and they ran tests expecting to find a stroke, but the CT and MRI both came back negative at that time. The patient was discharged home with her and is not doing any better. When the RN jacobo led to give them the negative COVID test result at home the explained how concerned he was ab out his 's state and that home health was not going to be enough to get her back to her prior lev el of living. We reviewed her case and decided to accept Mrs. Marroquin as an exacerbation of her prio r left hip fracture in order to help her return to her prior state of being. It is reasonable and ne cessary for the patient to come to inpatient rehab in order to have 24 hour nursing care, a doctor to monitor her 3 times a week and aggressive 3 hours of therapy a day so that she can get better.REHAB PLAN: - Physical Therapy Decreased range of motion - to improve, our physical therapists will perform initial evaluation of pt 's status upon admission and devise an individualized program for increasing patient's Range of Motio n. Gait dysfunction - to improve, our physical therapists will perform initial evaluation of pt's status upon admission and devise an individualized program for Gait Training, and Wheel Chair mobility Inability to transfer - to improve, our physical therapists will perform initial evaluation of pt's s tatus upon admission and devise an individualized program for Bed mobility Need for home safety evaluation - to improve, our physical therapists will perform initial evaluation of pt's status upon admission and devise an individualized program for Home Evaluation Need in caregiver upon discharge - to improve, our physical therapists will perform initial evaluatio n of pt's status upon admission and devise an individualized program for Caregiver Training Edema - to improve, our physical therapists will perform initial evaluation of pt's status upon admi ssion and devise an individualized program for Elevation Training, and Lymphedema Therapy New precaution - to improve, our physical therapists will perform initial evaluation of pt's status u florentino admission and devise an individualized program for Patient precaution education Poor balance - to improve, our physical therapists will perform initial evaluation of pt's status upo n admission and devise an individualized program for Balance Training Weakness - to improve, our physical therapists will perform initial evaluation of pt's status upon ad mission and devise an individualized program for Aquatic Therapy, Neuromuscular Reeducation, and Stre ngthening Achieving independence - to improve, our physical therapists will perform initial evaluation of pt's status upon admission and devise an individualized program for Community Reintegration Activities - Occupational Therapy ADL deficits - to improve, our occupation therapists will perform initial evaluation of pt's status u florentino admission and devise an individualized program for Bathing, Bed mobility, Community Reintegration , Cooking, Dressing, Eating, Fine Motor Skills, Grooming, Homemaking, Kitchen Mobility, Laundry, Flora ent Education, Safety Awareness, Splinting - Positioning, Transfers(Toilet, Tub, Shower), and Wheel C hair Management Cognitive deficits - to improve, our occupation therapists will perform initial evaluation of pt's st atus upon admission and devise an individualized program for Cognition - orientation Need for rn progressive care - to improve, our occupation therapists will perform initial evaluation of pt's s tatus upon admission and devise an individualized program for Caregiver Training Weakness - to improve, our occupation therapists will perform initial evaluation of pt's status upon admission and devise an individualized program for Aquatic Therapy, Balance, Endurance, UE ROM, and U E strengthening MEDICAL PLAN: - Anterior Hip Precaution No abduction No active extension No adduction across midline No external rotation No hip flexion >90 degrees No internal rotation - Diet - Liquid Texture Start Regular - Tube Feed Start N/A - Diet Type Start Regular - Posterior Hip Precaution No adduction across midline No external rotation No hip flexion >90 degrees No internal rotation No wheel chair propulsion - Weight Bearing Precaution WBAT left LE - N/A See MAR - Skin care per protocol - Other See attached MAR (Medication Administration Record) - Diet - Solid Texture Regular - Shower shower DISCHARGE PLAN: - Estimated Length of Stay (days) 14. - Consensus on plan Discharge plan has been discussed with primary caregiver. Patient/Family is in agreement with the franc[place] n. Primary caregiver is in agreement with the plan. - Patient/Family Goals Return home with assistance. - Planned Living Setting Upon Discharge Home, to live with Family/Relatives. SIGNATURE PANEL: (CDT)
--- NOTE | 2020-02-20 19:55 | PAPE ---
PATIENT: [facility] MR# [id number] REFERRING DOCTOR Dr Avila EVALUATION DATE AND TIME 02/20/2020 19:53 (CDT) NAME ALFONSO CASTORENA DATE OF 1945 AGE 74 PHONE SSN# [id number] GENDER female EVALUATING PHYSICIAN Dr. Glen Gleason M.D. ADMISSION DIAGNOSIS: acute exacerbation of unspecified left femur fracture ONSET DATE 02/11/2020 POST-ADMISSION FUNCTIONAL/MEDICAL STATUS: - Walking Same score based on distance walked: 1(<=50ft) STATUS CHANGE EVALUATION: No change in Functional or Medical Status is identified compared with Pre-Admission screening. PATIENT NEEDS CLOSE MEDICAL SUPERVISION BY A REHABILITATION PHYSICIAN FOR: Coordination of Treatment Team PATIENT REQUIRES 24X7 REHAB NURSING FOR MEDICAL AND FUNCTIONAL MGT. OF THE FOLLOWING DEFICITS: Disease Management Medication Management Patient/Family Education Providing Safe Environment PATIENT REQUIRES INTENSIVE, COORDINATED INTERDISCIPLINARY APPROACH TO REHAB: Arranging Home Equipment/Services Discharge Planning Family Intervention/Training Shoe Cutter/Case Management LIST OF IDENTIFIED AND POTENTIAL PROBLEMS: Alteration in leisure activities Infection, Actual or Potential Mobility Impaired Pain, Alteration in Comfort Self Care Deficit Skin Integrity, Actual or Potential Urinary Tract Infection (UTI), Actual or Potential PATIENT COULD BE AT RISK FOR COMPLICATIONS FROM ADVERSE MEDICAL CONDITIONS DUE TO HIS/HER COMORBIDITI ES AND THE RIGORS OF THE INTENSIVE REHABILLITATION PROGRAM. METHODS OR INTERVENTIONS TO AVOID COMPLIC ATIONS INCLUDE: - Infection Clinical staff to assess and manage the signs and symptoms of infection including fever, redness, war mth, etc. - Urinary Tract Infection - Falls Patient will be evaluated for Fall Precautions and will be placed on Fall Precautions as indicated pe r protocol. - Skin Breakdown Nursing will assess skin daily using assessment tool and will place on Skin Breakdown Precautions as indicated per protocol. - Pain Clinical staff may employ non-medication methods such as massage, distraction, decrease stimulus, etc . as needed. Clinical staff will assess patient's pain level every shift per protocol to assess and e nsure pain management effectiveness. Medications will be given and the pain level re-assessed. PRELIMINARY PLAN OF CARE: - Physical Therapy Patient needs Physical Therapy for a daily minimum of 1.5 hours at least 5 out of 7 days, to improve: Mobility, Strengthening, Transfers, Stretching, ROM, Endurance, Ability to manage stairs, Gait, and Balance. - Speech Therapy Patient needs Speech Therapy for a daily minimum of 0.5 hours at least 5 out of 7 days, to improve: S wallowing, Cognition, Language Skills, and Compensatory Strategies. - Rehabilitation Nursing Patient requires 24x7 Rehabilitation Nursing for: Pain Issues, Identifying and preventing risk factor s, Monitoring and reporting current medical conditions, Assisting with ambulation and transfer, Sukh ting with all ADL-s, Teaching patients about disease process and medications, Family teaching, Provid ing safe environment, Bowel and Bladder Issues, Skin Integrity, and Medication Management. Patient needs Shoe Cutter and/or Case Management for: Discharge Planning, Arranging Home Equipmen t or Services, and Family Interventions. - Dietary and Nutrition Services Patient needs Dietary and Nutrition Services for: Adequate Nutrition, Nutritional Supplements, and Nu tritional Education. - Occupational Therapy Patient needs Occupational Therapy for a daily minimum of 1.5 hours at least 5 out of 7 days, to impr ove Activities of Daily Living, including: Eating, Grooming, Bathing, Dressing, Toileting, Toilet Tra nsfers, Community Reintegration, Higher functional activities, Adaptive Equipment, Splinting, Househo ld Tasks, and Other activities as determined. QI SCORES: - Self-Care A. Eating 05-Setup or clean-up assistance B. Oral hygiene 05-Setup or clean-up assistance C. Toileting hygiene 05-Setup or clean-up assistance E. Shower/bathe self 04-Supervision or touching assistance F. Upper body dressing 04-Supervision or touching assistance G. Lower body dressing 03-Partial/moderate assistance H. Putting on/taking off footwear - Mobility A. Roll left and right 05-Setup or clean-up assistance B. Sit to lying 05-Setup or clean-up assistance C. Lying to sitting on side of bed 05-Setup or clean-up assistance D. Sit to stand 05-Setup or clean-up assistance E. Chair/rzj-wk-fhkrv transfer 05-Setup or clean-up assistance F. Toilet transfer 05-Setup or clean-up assistance G. Car transfer I. Walk 10 feet 04-Supervision or touching assistance J. Walk 50 feet with two turns 88-Not attempted due to medical condition or safety concerns K. Walk 150 feet 88-Not attempted due to medical condition or safety concerns L. Walking 10 feet on uneven surfaces 88-Not attempted due to medical condition or safety concerns M. 1 step (curb) 04-Supervision or touching assistance N. 4 steps 88-Not attempted due to medical condition or safety concerns O. 12 steps 88-Not attempted due to medical condition or safety concerns P. Picking up object 88-Not attempted due to medical condition or safety concerns - Bladder and Bowel Bladder continence 0-Always continent Bowel continence 0-Always continent - Endurance Poor - Balance Poor - Safety Awareness Poor POTENTIAL FUNCTIONAL GOALS FOR PATIENT TO ACHIEVE BY DISCHARGE: - Safety Precaution Patient will remain free from falls or injury at time of discharge. - Bed Mobility Patient will perform bed mobility at 4-Gita level of assistance. - Transfers Patient will complete transfers from bed to chair at 4-Gita level of assistance. - Mobility Patient will ambulate 150 ft with 4-Gita level of assistance with RW. PATIENT REHAB POTENTIAL Luisana GONZALES is able and expected to receive 3 hours of individualized therapy daily on at least 5 of every 7 days Luisana JANETTesss prognosis for significant practical improvement within a reasonable period of oksana e appears Good Expected level of measurable improvement will be of a practical value to RiverShi GONZALES's function al capacity or adaptations to impairments Has a viable Discharge Plan Medically appropriate; condition is sufficiently stable to participate in intensive rehab program DISCHARGE PLAN: - Estimated Length of Stay (days) 14. - Consensus on plan Discharge plan has been discussed with primary caregiver. Patient/Family is in agreement with the [place] n. Primary caregiver is in agreement with the plan. - Patient/Family Goals Return home with assistance. - Planned Living Setting Upon Discharge Home, to live with Family/Relatives. CONCLUSION ON REHABILITATION NECESSITY: I have evaluated patient's pre-admission functional status and, comparing it to the patient's post-ad mission functional status now, I conclude that the pre-admission assessment was accurate. Patient's c ondition on admission supports the medical necessity of admission to IRF. It is safe to proceed with patient's therapy program. SIGNATURE PANEL: (CDT)
[2020-02-20] MEDS: ZOLPIDEM TARTRATE 10 MG TABLET PO SCH (20:23)
[2020-02-20] MEDS: APIXABAN 2.5 MG TABLET PO SCH (20:23)
[2020-02-20] MEDS: CRANBERRY FRUIT EXTRACT 200 MG CAP PO SCH (20:23)
[2020-02-20] MEDS: ATORVASTATIN 10 MG TAB PO SCH (20:24)
[2020-02-20] MEDS: BACI/NEOMYCIN/POLY OINT 15GM TOP SCH (20:25)
[2020-02-20] MEDS: HYDROCODONE/APAP 5/325 MG TAB PO PRN (20:40)
[2020-02-20] MEDS ORDERED: ATORVASTATIN 10 MG TAB PO SCH (21:00)
[2020-02-21] MEDS: ONDANSETRON 4 MG (ODT) TAB PO PRN ×4 (03:42→17:34)
[2020-02-21] MEDS: METOPROLOL TAR 50 MG TAB PO SCH ×2 (05:49→17:34)
[2020-02-21] MEDS: INSULIN -REGULAR HUMAN 50 UNIT/0.5 ML ML SQ SCH ×3 (07:30→19:11)
[2020-02-21] MEDS: ESCITALOPRAM 20 MG TAB PO SCH (08:00)
[2020-02-21] MEDS: ASPIRIN EC 81 MG TAB PO SCH (08:00)
[2020-02-21] MEDS: CRANBERRY FRUIT EXTRACT 200 MG CAP PO SCH ×2 (08:00→20:20)
[2020-02-21] MEDS: LORAZEPAM 0.5 MG TABLET PO SCH ×2 (08:00→20:21)
[2020-02-21] MEDS: MAGNESIUM HYDROXIDE 8% 30 ML PO SCH (08:00)
[2020-02-21] MEDS: VITAMIN D 5,000 UNIT CAP PO SCH (08:00)
[2020-02-21] MEDS: BACI/NEOMYCIN/POLY OINT 15GM TOP SCH ×2 (08:00→20:20)
[2020-02-21] MEDS: APIXABAN 2.5 MG TABLET PO SCH ×2 (08:00→20:20)
[2020-02-21] MEDS: MAGNESIUM OXIDE 400 MG TAB PO SCH (08:00)
[2020-02-21] MEDS: GABAPENTIN 300 MG CAP PO SCH ×3 (09:00→20:21)
[2020-02-21 09:19] LABS: Absolute Lymphocytes (CBC) 1.6 K/uL (0.7-4.9); Hematocrit 35.7 % (36.0-45.0); Lymphocytes % 28.9 % (15.3-44.8); MPV 8.7 fL (7.6-11.3); RBC Red Blood Cell Count 3.48 M/uL (3.86-4.86)
[2020-02-21 09:39] LABS: Albumin 1.8 g/dL (3.4-5.0); Bilirubin Direct 0.3 mg/dL (0-0.2); Bilirubin Total 0.5 mg/dL (0.2-1.0); Potassium 4.5 mmol/L (3.5-5.1)
[2020-02-21 12:46] LABS: Urine Appearance CLOUDY; Urine Bilirubin NEGATIVE (NEG); Urine Blood NEGATIVE (NEG); Urine Color YELLOW; Urine Glucose NEGATIVE (NEG); Urine Protein NEGATIVE (NEG)
[2020-02-21 13:34] LABS: Urine Microscopic Reflex ORDER UMIC
[2020-02-21 13:51] LABS: Urine Bacteria LOADED /HPF (<20); Urine Culture Reflex Order NOT NEEDED; Urine RBC NONE SEEN /HPF (NONE SEEN)
[2020-02-21] MEDS: PANTOPRAZOLE 40MG TABLET PO SCH (16:28)
[2020-02-21] MEDS: HYDROCODONE/APAP 5/325 MG TAB PO PRN (16:28)
--- NOTE | 2020-02-21 16:51 | RAD REPORT ---
EXAM DESCRIPTION: US - Abdomen Exam Complete - 02/21/2020 4:10 pm CLINICAL HISTORY: Abdominal pain/nausea COMPARISON: none FINDINGS: Limited evaluation of the liver without visualization of a gross abnormality Cholecystectomy. The biliary tree is normal caliber. The pancreas is poorly seen secondary to overlying bowel gas The right kidney measures 9 centimeters with a normal echotexture. The left kidney measures 9 centimeters with a normal echotexture. The spleen measures 9 centimeters. IVC and portions of the abdominal aorta poorly seen secondary to overlying bowel gas. The mid abdomin al aorta appears unremarkable IMPRESSION: No acute abnormality displayed
[2020-02-21] MEDS: D5 0.45 NS 1,000 ML IV SCH (17:34)
[2020-02-21] MEDS: ATORVASTATIN 10 MG TAB PO SCH (20:21)
[2020-02-21] MEDS: ZOLPIDEM TARTRATE 10 MG TABLET PO SCH (22:04)
[2020-02-22] MEDS: METOPROLOL TAR 50 MG TAB PO SCH ×2 (05:27→17:27)
[2020-02-22] MEDS: PANTOPRAZOLE 40MG TABLET PO SCH ×2 (07:04→16:43)
[2020-02-22] MEDS: ASPIRIN EC 81 MG TAB PO SCH (07:04)
[2020-02-22] MEDS: ESCITALOPRAM 20 MG TAB PO SCH (07:04)
[2020-02-22] MEDS: MAGNESIUM OXIDE 400 MG TAB PO SCH (07:05)
[2020-02-22] MEDS: CRANBERRY FRUIT EXTRACT 200 MG CAP PO SCH ×2 (07:05→19:37)
[2020-02-22] MEDS: APIXABAN 2.5 MG TABLET PO SCH ×2 (07:05→19:37)
[2020-02-22] MEDS: GABAPENTIN 300 MG CAP PO SCH ×3 (07:05→19:37)
[2020-02-22] MEDS: LORAZEPAM 0.5 MG TABLET PO SCH ×2 (07:05→19:37)
[2020-02-22] MEDS: VITAMIN D 5,000 UNIT CAP PO SCH (07:05)
[2020-02-22] MEDS: MAGNESIUM HYDROXIDE 8% 30 ML PO SCH (07:06)
[2020-02-22] MEDS: INSULIN -REGULAR HUMAN 50 UNIT/0.5 ML ML SQ SCH ×2 (07:07→19:50)
[2020-02-22] MEDS: JUVEN PACKET PO SCH ×2 (07:08→20:13)
[2020-02-22] MEDS: BACI/NEOMYCIN/POLY OINT 15GM TOP SCH ×2 (07:35→19:40)
[2020-02-22] MEDS: HYDROCODONE/APAP 5/325 MG TAB PO PRN (07:51)
[2020-02-22] MEDS: ONDANSETRON 4 MG (ODT) TAB PO PRN (07:51)
--- NOTE | 2020-02-22 12:38 | P.PN ---
Subjective Date of Service: 02/22/20 Chief Complaint: NAUSEA. Subjective: No new changes SHE CONTINUES TO HAVE NAUSEA. I HAVE GIVEN HER PROTONIX BID. I REDUCED NORCO AND NOW WILL STOP IT. SHE HAS BEEN NARCOTIC DEPENDENT FOR LONG DURATION. SHE GOES TO PAIN PA TO GET NARCOTICS. I ALSO REDUCED HE ATIVAN SHE WAS LETHARGIC. Review of Systems 10-point ROS is otherwise unremarkable General: Weakness, Malaise Physical Examination - Vital Signs Temperature: 96.6 F Blood Pressure: 108/49 Pulse: 59 Respirations: 16 Pulse Ox (%): 95 - Physical Exam General: Mild distress, Obese HEENT: Atraumatic, PERRLA, EOMI Neck: Supple, JVD not distended Respiratory: Clear to auscultation bilaterally, Normal air movement Cardiovascular: Regular rate/rhythm, Normal S1 S2 Gastrointestinal: Normal bowel sounds, No tenderness Musculoskeletal: No tenderness Integumentary: No rashes Neurological: Normal speech, Normal tone, Normal affect Lymphatics: No axilla or inguinal lymphadenopathy - Studies Microbiology Data (last 24 hrs): 02/19/20 15:30 Clean Catch Urine [place] Count - Final >100,000 CFU/ML. 02/19/20 15:30 Clean Catch Urine - Final Escherichia Coli Klebsiella Pneumoniae Meth Resistant Staph Aureus Medications List Reviewed: Yes Assessment And Plan - Current Problems (Diagnosis) (1) Physical deconditioning Current Visit: Yes Status: Chronic Plan: NOT UNUSUAL FOR SOMEONE LIKE HER A DIABETIC, OBESE LADY WITH COMPLECTED HIP SURGERY IN PAST, DEPENDENT ON CONTROLLED SUBSTANCES. (2) Narcotic dependence Current Visit: Yes Status: Chronic Plan: WILL TRY TO REDUCE DRUGS BUT CAN'T BE SURE IF SHE WILL GO BACK TO THE SAME PAIN DOCTOR ROUTINE. DOSES REDUCED. (3) Femur fracture, left Current Visit: No Status: Chronic Qualifiers: Encounter type: subsequent encounter (4) Diabetes Current Visit: No Status: Chronic Plan: GLUCOSE IS LOWER NOW SHE HAS LOST SOME WEIGHT. Qualifiers: Diabetes mellitus type: type 2 (5) Hypoalbuminemia Current Visit: Yes Status: Chronic Plan: NO SIGNS OF PROTEINURIA. THIS CAN BE JUST FROM UNHEALTHY FOOD AT HOME IS TRYING TO TAKE CARE OF ALL AND NOT ABLE TO. IDEALLY SHE SHOULD BE IN NH BUT SHE AND HIM REFUSE TO. (6) Nausea Current Visit: Yes Status: Acute Plan: REDUCE NAUSEA CAUSING DRUGS. AD CARAFATE IT CAN BE FROM BILIARY GASTRITIS. I CHANGED FROM NORCO TO TRAMADOL. SHE CAN SEE GI DOCTOR OP. SONOGRAM NEG. (7) Positive urine culture Current Visit: Yes Status: Acute Plan: THIS IS A CONTAMINATION FROM VULVAR SKIN. I WILL IGNORE IT SECOND ST CATH URINE SHOWS NO ESTEREASE OR NITRATE. SHE DOES NOT HAVE UTI.
--- NOTE | 2020-02-22 13:31 | P.RH.PN ---
Estimated Length of Stay: 13 Expected Discharge Date: 03/02/20 Discharge Disposition Plan: Home Family Support: Yes Senior Care Goal: Mobility, Transfers, Self Care Vital Signs: Last Vital Signs Temp 96.6 F L 02/22/20 12:38 Pulse 59 02/22/20 12:38 Resp 16 02/22/20 12:38 BP 108/49 L 02/22/20 12:38 Pulse Ox 95 02/22/20 12:38 Laboratory: Laboratory Last Values WBC 5.7 K/uL (4.3-10.9) 02/21/20 09:01 RBC 3.48 M/uL (3.86-4.86) L 02/21/20 09:01 Hgb 12.2 g/dL (12.0-15.0) 02/21/20 09:01 Hct 35.7 % (36.0-45.0) L D 02/21/20 09:01 MCV 102.5 fL (80-100) H 02/21/20 09:01 MCH 35.0 pg (27.0-35.0) 02/21/20 09:01 MCHC 34.1 g/dL (32.0-36.0) 02/21/20 09:01 RDW 14.1 % (12.1-15.2) 02/21/20 09:01 Plt Count 210 K/uL (152-406) 02/21/20 09:01 MPV 8.7 fL (7.6-11.3) 02/21/20 09:01 Neutrophils % 66.5 % (41.7-73.7) 02/21/20 09:01 Lymphocytes % 28.9 % (15.3-44.8) 02/21/20 09:01 Monocytes % 3.3 % (3.3-12.3) 02/21/20 09:01 Eosinophils % 0.3 % (0-4.4) 02/21/20 09:01 Basophils % 1.0 % (0-1.3) 02/21/20 09:01 Absolute Neutrophils 3.8 K/uL (1.8-8.0) 02/21/20 09:01 Absolute Lymphocytes 1.6 K/uL (0.7-4.9) 02/21/20 09:01 Absolute Monocytes 0.2 K/uL (0.1-1.3) 02/21/20 09:01 Absolute Eosinophils 0.0 K/uL (0-0.5) 02/21/20 09:01 Absolute Basophils 0.1 K/uL (0-0.5) 02/21/20 09:01 Macrocytosis 1+ 02/20/20 05:15 Morphology Comment Noted (NOT SEEN) 02/20/20 05:15 Sodium 140 mmol/L (136-145) 02/21/20 09:01 Potassium 4.5 mmol/L (3.5-5.1) 02/21/20 09:01 Chloride 105 mmol/L (98-107) 02/21/20 09:01 Carbon Dioxide 28 mmol/L (21-32) 02/21/20 09:01 BUN 24 mg/dL (7-18) H 02/21/20 09:01 Creatinine 1.32 mg/dL (0.55-1.3) H 02/21/20 09:01 Estimated GFR 40 mL/min (=/>90) L 02/21/20 09:01 Glucose 92 mg/dL (74-106) 02/21/20 09:01 POC Glucose 102 mg/dL (65-120) 02/22/20 06:45 Calcium 8.3 mg/dL (8.5-10.1) L 02/21/20 09:01 Magnesium 2.5 mg/dL (1.8-2.4) H D 02/20/20 05:15 Total Bilirubin 0.5 mg/dL (0.2-1.0) 02/21/20 09:01 Direct Bilirubin 0.3 mg/dL (0-0.2) H 02/21/20 09:01 AST 37 U/L (15-37) 02/21/20 09:01 ALT 31 U/L (12-78) 02/21/20 09:01 Alkaline Phosphatase 129 U/L (45-117) H 02/21/20 09:01 Serum Total Protein 6.0 g/dL (6.4-8.2) L 02/21/20 09:01 Albumin 1.8 g/dL (3.4-5.0) L 02/21/20 09:01 Globulin 4.2 g/dL (2.3-3.5) H 02/21/20 09:01 Albumin/Globulin Ratio 0.4 (1.1-1.8) L 02/21/20 09:01 Prealbumin 7.5 mg/dL (20-40) L 02/20/20 05:15 Amylase 12 U/L (25-115) L 02/21/20 09:01 Lipase 69 U/L (73-393) L 02/21/20 09:01 Urine Color Yellow 02/21/20 12:20 Urine Appearance Cloudy 02/21/20 12:20 Urine pH 8.0 (5.0-7.0) H 02/21/20 12:20 Ur Specific [place] 1.010 (1.005-1.030) 02/21/20 12:20 Glucose (UA)(Auto) Negative (NEG) 02/21/20 12:20 Urine Ketones Negative (NEG) 02/21/20 12:20 Urine Blood Negative (NEG) 02/21/20 12:20 Urine Nitrite Negative (NEG) 02/21/20 12:20 Urine Bilirubin Negative (NEG) 02/21/20 12:20 Urine Urobilinogen 1.0 mg/dL (0.2-1.0) 02/21/20 12:20 Ur Leukocyte Esterase Trace (NEG) H 02/21/20 12:20 Urine RBC None seen /HPF (NONE SEEN) 02/21/20 12:20 Urine WBC <5 /HPF (<5) 02/21/20 12:20 Ur Squamous Epith Cells <5 /HPF (NONE SEEN) 02/21/20 12:20 Urine Bacteria Loaded /HPF (<20) H 02/21/20 12:20 Urine Culture Reflexed Not needed 02/21/20 12:20 Urine Total Protein Negative (NEG) 02/21/20 12:20 Weight: 194 lb 4 oz Wound Present: No Closed Surgical Incision Present: No Negative Pressure Wound Therapy Present: No Physician Update: She still has nausea which responds to Zofran scheduled. She is having bowel movements. She is at supervision and needs help with lower body movements. She has moderate to severe cognitive impairment per speech therapy. She walks well with standby assistance. She has a right anterior elbow petechial rash treated with topical antibiotics and Doxycycline. Will get cultures of the areas. Summary: Patient's care plan and intermediate designer goals have been reviewed and revised as necessary. Please see the Rehabilitation Signature page for all necessary signatures.
[2020-02-22] MEDS: SUCRALFATE 1GM/10ML UCUP PO SCH ×3 (14:03→19:36)
[2020-02-22] MEDS: D5 0.45 NS 1,000 ML IV SCH (14:17)
[2020-02-22] MEDS: TRAMADOL HCL 50 MG TAB PO PRN (15:45)
[2020-02-22] MEDS: PROMETHAZINE 25 MG TABLET PO PRN (17:10)
[2020-02-22] MEDS: ATORVASTATIN 10 MG TAB PO SCH (19:37)
[2020-02-22] MEDS: ZOLPIDEM TARTRATE 10 MG TABLET PO SCH (21:00)
[2020-02-23] MEDS: METOPROLOL TAR 50 MG TAB PO SCH ×2 (05:33→17:11)
[2020-02-23] MEDS: PANTOPRAZOLE 40MG TABLET PO SCH ×2 (07:01→16:24)
[2020-02-23] MEDS: LORAZEPAM 0.5 MG TABLET PO SCH ×2 (07:53→20:15)
[2020-02-23] MEDS: MAGNESIUM HYDROXIDE 8% 30 ML PO SCH (07:53)
[2020-02-23] MEDS: JUVEN PACKET PO SCH ×2 (07:53→20:00)
[2020-02-23] MEDS: CRANBERRY FRUIT EXTRACT 200 MG CAP PO SCH ×2 (07:54→20:14)
[2020-02-23] MEDS: SUCRALFATE 1GM/10ML UCUP PO SCH ×4 (07:54→20:15)
[2020-02-23] MEDS: VITAMIN D 5,000 UNIT CAP PO SCH (07:54)
[2020-02-23] MEDS: BACI/NEOMYCIN/POLY OINT 15GM TOP SCH ×2 (07:54→20:16)
[2020-02-23] MEDS: APIXABAN 2.5 MG TABLET PO SCH ×2 (07:55→20:15)
[2020-02-23] MEDS: INSULIN -REGULAR HUMAN 50 UNIT/0.5 ML ML SQ SCH ×2 (07:55→20:00)
[2020-02-23] MEDS: ESCITALOPRAM 20 MG TAB PO SCH (07:55)
[2020-02-23] MEDS: GABAPENTIN 300 MG CAP PO SCH ×4 (07:55→20:15)
[2020-02-23] MEDS: D5 0.45 NS 1,000 ML IV SCH (10:15)
--- NOTE | 2020-02-23 12:47 | P.PN ---
Subjective Date of Service: 02/23/20 Chief Complaint: NAUSEA. Subjective: Improving SHE CONTINUES TO HAVE NAUSEA. I HAVE GIVEN HER PROTONIX BID. I REDUCED NORCO AND NOW WILL STOP IT. SHE HAS BEEN NARCOTIC DEPENDENT FOR LONG DURATION. SHE GOES TO [facility] TO GET NARCOTICS. I ALSO REDUCED HE ATIVAN SHE WAS LETHARGIC. SHE IS SITTING AND EATING HER BF TODAY. LONG I KNOW HER FOR 15 YEARS, SHE ALMOST NEVER FEELS GOOD. SHE IS NAUSEOUS BUT EATING TODAY. Review of Systems 10-point ROS is otherwise unremarkable Physical Examination - Vital Signs Temperature: 98.4 F Blood Pressure: 133/68 Pulse: 69 Respirations: 16 Pulse Ox (%): 100 - Physical Exam General: Alert, In no apparent distress HEENT: Atraumatic, PERRLA, EOMI Neck: Supple, JVD not distended Respiratory: Clear to auscultation bilaterally, Normal air movement Cardiovascular: Regular rate/rhythm, Normal S1 S2 Gastrointestinal: Normal bowel sounds, No tenderness Musculoskeletal: No tenderness Integumentary: No rashes Neurological: Normal speech, Normal tone, Normal affect Lymphatics: No axilla or inguinal lymphadenopathy - Studies Microbiology Data (last 24 hrs): 02/21/20 12:20 Catheterized Urine Anthony Count - Final >100,000 CFU/ML. 02/21/20 12:20 Catheterized Urine - Final Klebsiella Pneumoniae Escherichia Coli 02/19/20 15:30 Clean Catch Urine Anthony Count - Final >100,000 CFU/ML. 02/19/20 15:30 Clean Catch Urine - Final Escherichia Coli Klebsiella Pneumoniae Meth Resistant Staph Aureus Medications List Reviewed: Yes Assessment And Plan - Current Problems (Diagnosis) (1) Physical deconditioning Current Visit: Yes Status: Chronic Plan: NOT UNUSUAL FOR SOMEONE LIKE HER A DIABETIC, OBESE LADY WITH COMPLECTED HIP SURGERY IN PAST, DEPENDENT ON CONTROLLED SUBSTANCES. (2) Narcotic dependence Current Visit: Yes Status: Chronic Plan: WILL TRY TO REDUCE DRUGS BUT CAN'T BE SURE IF SHE WILL GO BACK TO THE SAME PAIN DOCTOR ROUTINE. DOSES REDUCED. (3) Femur fracture, left Current Visit: No Status: Chronic Qualifiers: Encounter type: subsequent encounter (4) Diabetes Current Visit: No Status: Chronic Plan: GLUCOSE IS LOWER NOW SHE HAS LOST SOME WEIGHT. Qualifiers: Diabetes mellitus type: type 2 (5) Hypoalbuminemia Current Visit: Yes Status: Chronic Plan: NO SIGNS OF PROTEINURIA. THIS CAN BE JUST FROM UNHEALTHY FOOD AT HOME IS TRYING TO TAKE CARE OF ALL AND NOT ABLE TO. IDEALLY SHE SHOULD BE IN NH BUT SHE AND HIM REFUSE TO. (6) Nausea Current Visit: Yes Status: Acute Plan: REDUCE NAUSEA CAUSING DRUGS. AD CARAFATE IT CAN BE FROM BILIARY GASTRITIS. I CHANGED FROM NORCO TO TRAMADOL. SHE CAN SEE GI DOCTOR OP. SONOGRAM NEG. (7) Positive urine culture Current Visit: Yes Status: Acute Plan: THIS IS A CONTAMINATION FROM VULVAR SKIN. I WILL IGNORE IT SECOND ST CATH URINE SHOWS NO ESTEREASE OR NITRATE. SHE DOES NOT HAVE UTI. THE ONLY SYMTPOM IS NAUSEA. SHE HAS NO UTI SS. SHE WILL TAKE ABX FOR 5 DAYS.
[2020-02-23] MEDS: CEFUROXIME 250 MG TAB PO SCH ×2 (13:12→20:15)
[2020-02-23] MEDS: ZOLPIDEM TARTRATE 10 MG TABLET PO SCH (20:15)
[2020-02-23] MEDS: ATORVASTATIN 10 MG TAB PO SCH (20:15)
--- NOTE | 2020-02-23 21:15 | R.PN ---
ENCOUNTER DATE AND TIME: 02/23/2020 21:09 (CDT) NAME ALFONSO CASTORENA DATE OF : 1945 DATE OF ADMISSION: 02/19/2020 13:03 (CDT) acute exacerbation of unspecified left femur fractureCHIEF COMPLAINT: Left femur fracture SUBJECTIVE: Pt denied any Shortness of Breath. Pt denied any depression. She report ongoing chronic lower back pain radiating into her left hip and leg. She is seeing pain ma nagement. She ambulated 600' using a rolling walker with standby to minimum assistance. WBC 5.7, Hgb 12.2, glucose 82 to 115. VITAL SIGNS Temperature: 98.1 F SBP/DBP: 141/77 Pulse: 69 Resp: 16 MEDICATION ALLERGIES: Sulfa ENVIRONMENTAL ALLERGIES: None Known - Substance Allergies None Known - Other Allergies None Known NURSING: - Shower allowing shower - Skin care per protocol PRECAUTIONS: - Weight Bearing Precaution WBAT left LE ACTIVITIES OOB only with supervision THERAPIES: - Dietary and Nutrition Adequate Nutrition. Nutritional Education. Nutritional Supplements. PHYSICAL EXAM - Gen Lying in bed No apparent distress Oriented to: person, time, and place - Skin No skin breakdown. Normacephalic - Eyes No abnormalities - ENMT No abnormalities - Neck No abnormalities - CVS RRR - Chest Clear - Resp No wheezing - Abd Soft - GI + bowel sounds Deferred - No abnormalities - Ext Mild bilateral lower extremity edema. - MSK 4/5 weakness in both lower extremities. - Neuro No focal deficits ASSESSMENT: Pt. is a 74 yo Right-handed white female.Her impairment category is Orthopaedic Disorders 08 - Unila teral Hip Fracture (08.11).Pre-morbidly, Pt. was independent/mod-I in Transfers Control, Locomotion, Self-Care, Sphincter Control, and Communication; and she had good Balance, Safety Awareness, and Soci al Cognition.Currently, she has deficits of Transfers Control, Balance, Locomotion, Safety Awareness, Self-Care, Social Cognition, and Communication.Pt. is now referred to [facility] for acute in-patient rehabilitation in order to maximize patient's functional independence in act ivities of daily living, strength, ROM, and mobility.- Rehab Goal Patient has realistic goal of being discharged at assistance level 6-Pema to reside at Home with Fam jose maria/Relatives. MDM/PLAN: - Physical Therapy Decreased range of motion - to improve, our physical therapists will perform initial evaluation of p t's status upon admission and devise an individualized program for increasing patient's Range of Red on. Gait dysfunction - to improve, our physical therapists will perform initial evaluation of pt's statu s upon admission and devise an individualized program for Gait Training, and Wheel Chair mobility Inability to transfer - to improve, our physical therapists will perform initial evaluation of pt's status upon admission and devise an individualized program for Bed mobility Need for home safety evaluation - to improve, our physical therapists will perform initial evaluatio n of pt's status upon admission and devise an individualized program for Home Evaluation Need in caregiver upon discharge - to improve, our physical therapists will perform initial evaluati on of pt's status upon admission and devise an individualized program for Caregiver Training Edema - to improve, our physical therapists will perform initial evaluation of pt's status upon admis allison and devise an individualized program for Elevation Training, and Lymphedema Therapy New precaution - to improve, our physical therapists will perform initial evaluation of pt's status upon admission and devise an individualized program for Patient precaution education Poor balance - to improve, our physical therapists will perform initial evaluation of pt's status up on admission and devise an individualized program for Balance Training Weakness - to improve, our physical therapists will perform initial evaluation of pt's status upon a dmission and devise an individualized program for Aquatic Therapy, Neuromuscular Reeducation, and Str engthening Achieving independence - to improve, our physical therapists will perform initial evaluation of pt's status upon admission and devise an individualized program for Community Reintegration Activities - Occupational Therapy ADL deficits - to improve, our occupation therapists will perform initial evaluation of pt's status upon admission and devise an individualized program for Bathing, Bed mobility, Community Reintegratio n, Cooking, Dressing, Eating, Fine Motor Skills, Grooming, Homemaking, Kitchen Mobility, Laundry, Pat ient Education, Safety Awareness, Splinting - Positioning, Transfers(Toilet, Tub, Shower), and Wheel Chair Management Cognitive deficits - to improve, our occupation therapists will perform initial evaluation of pt's s tatus upon admission and devise an individualized program for Cognition - orientation Need for care nurse rn - to improve, our occupation therapists will perform initial evaluation of pt's status upon admission and devise an individualized program for Caregiver Training Weakness - to improve, our occupation therapists will perform initial evaluation of pt's status upon admission and devise an individualized program for Aquatic Therapy, Balance, Endurance, UE ROM, and UE strengthening - N/A See MAR See MAR - Anterior Hip Precaution No abduction No active extension No adduction across midline No external rotation No hip flexion >90 degrees No internal rotation - Diet - Liquid Texture Continue Regular - Tube Feed Continue N/A - Diet Type Continue Regular - Posterior Hip Precaution No adduction across midline No external rotation No hip flexion >90 degrees No internal rotation No wheel chair propulsion - Weight Bearing Precaution WBAT left LE - Skin care per protocol - Other See attached MAR (Medication Administration Record) - Diet - Solid Texture Continue Regular - Shower allowing shower FUNCTIONAL STATUS: UPDATED AT WEEKLY TEAM CONFERENCE - Walking Same score based on distance walked: 1(<=50ft) FUNCTIONAL STATUS: - Self-Care A. Eating Pema B. Grooming Pema C. Bathing Gita D. Dressing - Upper Gita E. Dressing - Lower modA F. Toileting Gita - Sphincter Control G. Bladder control sup H. Bowel control sup - Transfers Control I. Bed/Chair/Wheelchair sup J. Toilet sup K. Tub/Shower Gita - Locomotion L. Walk/Wheelchair (B) Gita M. Stairs maxA - Communication N. Comprehension (B) Gita O. Expression (B) sup - Social Cognition P. Social Interaction sup Q. Problem Solving Gtia R. Memory Gita - Endurance Fair - Balance Fair - Safety Awareness Poor QI SCORES: - Self-Care A. Eating 05-Setup or clean-up assistance B. Oral hygiene 05-Setup or clean-up assistance C. Toileting hygiene 05-Setup or clean-up assistance E. Shower/bathe self 04-Supervision or touching assistance F. Upper body dressing 04-Supervision or touching assistance G. Lower body dressing 03-Partial/moderate assistance H. Putting on/taking off footwear - Mobility A. Roll left and right 05-Setup or clean-up assistance B. Sit to lying 05-Setup or clean-up assistance C. Lying to sitting on side of bed 05-Setup or clean-up assistance D. Sit to stand 05-Setup or clean-up assistance E. Chair/[id number] transfer 05-Setup or clean-up assistance F. Toilet transfer 05-Setup or clean-up assistance G. Car transfer I. Walk 10 feet 04-Supervision or touching assistance J. Walk 50 feet with two turns 88-Not attempted due to medical condition or safety concerns K. Walk 150 feet 88-Not attempted due to medical condition or safety concerns L. Walking 10 feet on uneven surfaces 88-Not attempted due to medical condition or safety concerns M. 1 step (curb) 04-Supervision or touching assistance N. 4 steps 88-Not attempted due to medical condition or safety concerns O. 12 steps 88-Not attempted due to medical condition or safety concerns P. Picking up object 88-Not attempted due to medical condition or safety concerns - Bladder and Bowel Bladder continence 0-Always continent Bowel continence 0-Always continent - Endurance Poor - Balance Poor - Safety Awareness Poor CURRENT FUNC. DEFICITS: Self-Care, Mobility, Endurance, Balance, and Safety Awareness SIGNATURE PANEL: (CDT)
[2020-02-23] MEDS: TRAMADOL HCL 50 MG TAB PO PRN (22:57)
[2020-02-23] MEDS: MELATONIN 3 MG TABLET PO PRN (22:57)
[2020-02-23] MEDS: PROMETHAZINE 25 MG TABLET PO PRN (22:57)
[2020-02-24] MEDS: METOPROLOL TAR 50 MG TAB PO SCH ×2 (05:20→17:00)
[2020-02-24] MEDS: D5 0.45 NS 1,000 ML IV SCH (05:21)
[2020-02-24] MEDS: INSULIN -REGULAR HUMAN 50 UNIT/0.5 ML ML SQ SCH ×2 (08:00→19:59)
[2020-02-24] MEDS: LORAZEPAM 0.5 MG TABLET PO SCH (08:00)
[2020-02-24] MEDS: MAGNESIUM HYDROXIDE 8% 30 ML PO SCH (08:39)
[2020-02-24] MEDS: CEFUROXIME 250 MG TAB PO SCH ×2 (08:40→18:56)
[2020-02-24] MEDS: BACI/NEOMYCIN/POLY OINT 15GM TOP SCH ×2 (08:40→18:55)
[2020-02-24] MEDS: APIXABAN 2.5 MG TABLET PO SCH ×2 (08:41→18:55)
[2020-02-24] MEDS: CRANBERRY FRUIT EXTRACT 200 MG CAP PO SCH ×2 (08:41→18:56)
[2020-02-24] MEDS: GABAPENTIN 300 MG CAP PO SCH ×3 (08:41→18:55)
[2020-02-24] MEDS: PANTOPRAZOLE 40MG TABLET PO SCH ×2 (08:41→16:02)
[2020-02-24] MEDS: VITAMIN D 5,000 UNIT CAP PO SCH (08:41)
[2020-02-24] MEDS: ESCITALOPRAM 20 MG TAB PO SCH (08:42)
[2020-02-24] MEDS: JUVEN PACKET PO SCH ×2 (08:43→18:56)
[2020-02-24] MEDS: SUCRALFATE 1GM/10ML UCUP PO SCH ×4 (09:29→20:00)
[2020-02-24] MEDS: ONDANSETRON 4 MG (ODT) TAB PO PRN ×3 (10:30→22:55)
[2020-02-24] MEDS: ZOLPIDEM TARTRATE 10 MG TABLET PO SCH (18:55)
[2020-02-24] MEDS: ATORVASTATIN 10 MG TAB PO SCH (18:55)
[2020-02-24] MEDS: TRAMADOL HCL 50 MG TAB PO PRN (19:12)
[2020-02-24] MEDS: MELATONIN 3 MG TABLET PO PRN (22:55)
[2020-02-25] MEDS: METOPROLOL TAR 50 MG TAB PO SCH ×2 (05:00→16:46)
[2020-02-25 06:42] LABS: Absolute Lymphocytes (CBC) 2.8 K/uL (0.7-4.9); Basophils % 0.8 % (0-1.3); Hematocrit 35.5 % (36.0-45.0); Lymphocytes % 44.5 % (15.3-44.8); MPV 8.7 fL (7.6-11.3); RBC Red Blood Cell Count 3.41 M/uL (3.86-4.86)
[2020-02-25] MEDS: INSULIN -REGULAR HUMAN 50 UNIT/0.5 ML ML SQ SCH ×2 (06:57→19:24)
[2020-02-25] MEDS: PANTOPRAZOLE 40MG TABLET PO SCH ×2 (07:13→15:58)
[2020-02-25] MEDS: JUVEN PACKET PO SCH ×2 (07:54→20:24)
[2020-02-25] MEDS: BUPROPION HCL XL 150 MG TAB PO SCH (07:54)
[2020-02-25] MEDS: ESCITALOPRAM 20 MG TAB PO SCH (07:55)
[2020-02-25] MEDS: APIXABAN 2.5 MG TABLET PO SCH ×2 (07:55→20:23)
[2020-02-25] MEDS: VITAMIN D 5,000 UNIT CAP PO SCH (07:55)
[2020-02-25] MEDS: CRANBERRY FRUIT EXTRACT 200 MG CAP PO SCH ×2 (07:55→20:23)
[2020-02-25] MEDS: CEFUROXIME 250 MG TAB PO SCH ×2 (07:55→20:24)
[2020-02-25] MEDS: GABAPENTIN 300 MG CAP PO SCH ×3 (07:55→20:24)
[2020-02-25] MEDS: SUCRALFATE 1GM/10ML UCUP PO SCH ×4 (07:59→20:25)
[2020-02-25 08:14] LABS: Albumin 1.8 g/dL (3.4-5.0); Bilirubin Direct 0.2 mg/dL (0-0.2); Bilirubin Total 0.4 mg/dL (0.2-1.0); Magnesium 2.2 mg/dL (1.8-2.4); Potassium 4.2 mmol/L (3.5-5.1); Protein, Total 5.8 g/dL (6.4-8.2)
[2020-02-25] MEDS: TRAMADOL HCL 50 MG TAB PO PRN ×2 (10:13→16:45)
[2020-02-25] MEDS: ONDANSETRON 4 MG (ODT) TAB PO PRN (10:14)
[2020-02-25] MEDS: BACI/NEOMYCIN/POLY OINT 15GM TOP SCH ×2 (10:31→20:23)
[2020-02-25] MEDS: FORMULATION-R RECTAL 30GM PR PRN (11:19)
--- NOTE | 2020-02-25 13:16 | P.PN ---
Subjective Date of Service: 02/25/20 Chief Complaint: NAUSEA. Subjective: No new changes SHE CONTINUES TO HAVE NAUSEA. I HAVE GIVEN HER PROTONIX BID. I REDUCED NORCO AND NOW WILL STOP IT. SHE HAS BEEN NARCOTIC DEPENDENT FOR LONG DURATION. SHE GOES TO PAIN PA TO GET NARCOTICS. I ALSO REDUCED HE ATIVAN SHE WAS LETHARGIC. SHE IS SITTING AND EATING HER BF TODAY. LONG I KNOW HER FOR 15 YEARS, SHE ALMOST NEVER FEELS GOOD. SHE IS NAUSEOUS BUT EATING TODAY. NAUSEA SHE HAS FOR LONG TIME. SHE HAS FATIGUE. Review of Systems 10-point ROS is otherwise unremarkable Physical Examination - Vital Signs Temperature: 97.7 F Blood Pressure: 139/77 Pulse: 58 Respirations: 16 Pulse Ox (%): 95 - Physical Exam General: Alert, In no apparent distress HEENT: Atraumatic, PERRLA, EOMI Neck: Supple, JVD not distended Respiratory: Clear to auscultation bilaterally, Normal air movement Cardiovascular: Regular rate/rhythm, Normal S1 S2 Gastrointestinal: Normal bowel sounds, No tenderness Musculoskeletal: No tenderness Integumentary: No rashes Neurological: Normal speech, Normal tone, Normal affect Lymphatics: No axilla or inguinal lymphadenopathy - Studies Laboratory Data (last 24 hrs) 02/25/20 07:05: Sodium 142, Potassium 4.2, BUN 20 H, Creatinine 1.00, Glucose 98, Magnesium 2.2, Total Bilirubin 0.4, AST 30, ALT 23, Alkaline Phosphatase 119 H, LDL Cholesterol Direct 44 L 02/25/20 06:18: WBC 6.2, Hgb 11.9 L, Hct 35.5 L, Plt Count 226 Medications List Reviewed: Yes Assessment And Plan - Current Problems (Diagnosis) (1) Physical deconditioning Current Visit: Yes Status: Chronic Plan: NOT UNUSUAL FOR SOMEONE LIKE HER A DIABETIC, OBESE LADY WITH COMPLECTED HIP SURGERY IN PAST, DEPENDENT ON CONTROLLED SUBSTANCES. (2) Narcotic dependence Current Visit: Yes Status: Chronic Plan: WILL TRY TO REDUCE DRUGS BUT CAN'T BE SURE IF SHE WILL GO BACK TO THE SAME PAIN DOCTOR ROUTINE. DOSES REDUCED. (3) Femur fracture, left Current Visit: No Status: Chronic Qualifiers: Encounter type: subsequent encounter (4) Diabetes Current Visit: No Status: Chronic Plan: GLUCOSE IS LOWER NOW SHE HAS LOST SOME WEIGHT. Qualifiers: Diabetes mellitus type: type 2 (5) Hypoalbuminemia Current Visit: Yes Status: Chronic Plan: NO SIGNS OF PROTEINURIA. THIS CAN BE JUST FROM UNHEALTHY FOOD AT HOME IS TRYING TO TAKE CARE OF ALL AND NOT ABLE TO. IDEALLY SHE SHOULD BE IN NH BUT SHE AND HIM REFUSE TO. (6) Nausea Current Visit: Yes Status: Acute Plan: REDUCE NAUSEA CAUSING DRUGS. AD CARAFATE IT CAN BE FROM BILIARY GASTRITIS. I CHANGED FROM NORCO TO TRAMADOL. SHE CAN SEE GI DOCTOR OP. SONOGRAM NEG. (7) Positive urine culture Current Visit: Yes Status: Acute Plan: THIS IS A CONTAMINATION FROM VULVAR SKIN. I WILL IGNORE IT SECOND ST CATH URINE SHOWS NO ESTEREASE OR NITRATE. SHE DOES NOT HAVE UTI. THE ONLY SYMTPOM IS NAUSEA. SHE HAS NO UTI SS. SHE WILL TAKE ABX FOR 5 DAYS. (8) Chronic pancreatitis Current Visit: Yes Status: Chronic Plan: THIS MAY BE REASON WHY SHE HAS LOW ALBUMIN. I SEE NO PROTEINURIA SHE DOES NOT SEEM TO DIGEST PROTEIN AND RAISE ALBUMIN. SHE IS ALSO OBESE BUT I SEE NO OTHER LAB SIGNS OF CIRRHOSIS. Qualifiers: Pancreatitis type: idiopathic Qualified Code(s): K86.1 - Other chronic pancreatitis
[2020-02-25] MEDS: LIDOCAINE 4% PATCH TOP SCH (13:25)
[2020-02-25] MEDS: NYSTATIN PWDR 100000 UNIT/GM TOP SCH ×2 (13:26→20:23)
[2020-02-25] MEDS: MAGNESIUM HYDROXIDE 8% 30 ML PO PRN (14:33)
[2020-02-25] MEDS: AMYLASE/LIPASE/PROTEASE CAP PO SCH ×2 (15:58→21:00)
[2020-02-25] MEDS: ATORVASTATIN 10 MG TAB PO SCH (20:24)
[2020-02-25] MEDS: ZOLPIDEM TARTRATE 10 MG TABLET PO SCH (20:24)
--- NOTE | 2020-02-25 21:11 | R.PN ---
ENCOUNTER DATE AND TIME: 02/25/2020 17:43 (CDT) NAME ALFONSO CASTORENA DATE OF : 1945 DATE OF ADMISSION: 02/19/2020 13:03 (CDT) acute exacerbation of unspecified left femur fractureCHIEF COMPLAINT: Left femur fracture SUBJECTIVE: Pt denied any Shortness of Breath. Pt denied any depression. She report ongoing chronic lower back pain radiating into her left hip and leg. She is seeing pain ma nagement. She ambulated 350' using a rolling walker with standby assistance. WBC 6.2, Hgb 11.9, glucose 77 to 98. VITAL SIGNS Temperature: 97.7 F SBP/DBP: 141/71 Pulse: 67 Resp: 16 MEDICATION ALLERGIES: Sulfa ENVIRONMENTAL ALLERGIES: None Known - Substance Allergies None Known - Other Allergies None Known NURSING: - Shower allowing shower - Skin care per protocol PRECAUTIONS: - Weight Bearing Precaution WBAT left LE ACTIVITIES OOB only with supervision THERAPIES: - Dietary and Nutrition Adequate Nutrition. Nutritional Education. Nutritional Supplements. PHYSICAL EXAM - Gen Lying in bed No apparent distress Oriented to: person, time, and place - Skin No skin breakdown. Normacephalic - Eyes No abnormalities - ENMT No abnormalities - Neck No abnormalities - CVS RRR - Chest Clear - Resp No wheezing - Abd Soft - GI + bowel sounds Deferred - No abnormalities - Ext Mild bilateral lower extremity edema. - MSK 4/5 weakness in both lower extremities. - Neuro No focal deficits ASSESSMENT: Pt. is a 74 yo Right-handed white female.Her impairment category is Orthopaedic Disorders 08 - Unila teral Hip Fracture (08.11).Pre-morbidly, Pt. was independent/mod-I in Transfers Control, Locomotion, Self-Care, Sphincter Control, and Communication; and she had good Balance, Safety Awareness, and Soci al Cognition.Currently, she has deficits of Transfers Control, Balance, Locomotion, Safety Awareness, Self-Care, Social Cognition, and Communication.Pt. is now referred to [facility] for acute in-patient rehabilitation in order to maximize patient's functional independence in act ivities of daily living, strength, ROM, and mobility.- Rehab Goal Patient has realistic goal of being discharged at assistance level 6-Pema to reside at Home with Fam jose maria/Relatives. MDM/PLAN: - Physical Therapy Decreased range of motion - to improve, our physical therapists will perform initial evaluation of p t's status upon admission and devise an individualized program for increasing patient's Range of Red on. Gait dysfunction - to improve, our physical therapists will perform initial evaluation of pt's statu s upon admission and devise an individualized program for Gait Training, and Wheel Chair mobility Inability to transfer - to improve, our physical therapists will perform initial evaluation of pt's status upon admission and devise an individualized program for Bed mobility Need for home safety evaluation - to improve, our physical therapists will perform initial evaluatio n of pt's status upon admission and devise an individualized program for Home Evaluation Need in caregiver upon discharge - to improve, our physical therapists will perform initial evaluati on of pt's status upon admission and devise an individualized program for Caregiver Training Edema - to improve, our physical therapists will perform initial evaluation of pt's status upon admi ssion and devise an individualized program for Elevation Training, and Lymphedema Therapy New precaution - to improve, our physical therapists will perform initial evaluation of pt's status upon admission and devise an individualized program for Patient precaution education Poor balance - to improve, our physical therapists will perform initial evaluation of pt's status up on admission and devise an individualized program for Balance Training Weakness - to improve, our physical therapists will perform initial evaluation of pt's status upon a dmission and devise an individualized program for Aquatic Therapy, Neuromuscular Reeducation, and Str engthening Achieving independence - to improve, our physical therapists will perform initial evaluation of pt's status upon admission and devise an individualized program for Community Reintegration Activities - Occupational Therapy ADL deficits - to improve, our occupation therapists will perform initial evaluation of pt's status upon admission and devise an individualized program for Bathing, Bed mobility, Community Reintegratio n, Cooking, Dressing, Eating, Fine Motor Skills, Grooming, Homemaking, Kitchen Mobility, Laundry, Pat ient Education, Safety Awareness, Splinting - Positioning, Transfers(Toilet, Tub, Shower), and Wheel Chair Management Cognitive deficits - to improve, our occupation therapists will perform initial evaluation of pt's s tatus upon admission and devise an individualized program for Cognition - orientation Need for managed care nurse - to improve, our occupation therapists will perform initial evaluation of pt's status upon admission and devise an individualized program for Caregiver Training Weakness - to improve, our occupation therapists will perform initial evaluation of pt's status upon admission and devise an individualized program for Aquatic Therapy, Balance, Endurance, UE ROM, and UE strengthening - N/A See MAR - Anterior Hip Precaution No abduction No active extension No adduction across midline No external rotation No hip flexion >90 degrees No internal rotation - Diet - Liquid Texture Continue Regular - Tube Feed Continue N/A - Diet Type Continue Regular - Posterior Hip Precaution No adduction across midline No external rotation No hip flexion >90 degrees No internal rotation No wheel chair propulsion - Weight Bearing Precaution WBAT left LE - Skin care per protocol - Other See attached MAR (Medication Administration Record) - Diet - Solid Texture Continue Regular - Shower allowing shower FUNCTIONAL STATUS: UPDATED AT WEEKLY TEAM CONFERENCE - Walking Same score based on distance walked: 1(<=50ft) FUNCTIONAL STATUS: - Self-Care A. Eating Pema B. Grooming Pema C. Bathing Gita D. Dressing - Upper Gita E. Dressing - Lower modA F. Toileting Gita - Sphincter Control G. Bladder control sup H. Bowel control sup - Transfers Control I. Bed/Chair/Wheelchair sup J. Toilet sup K. Tub/Shower Gita - Locomotion L. Walk/Wheelchair (B) Gita M. Stairs maxA - Communication N. Comprehension (B) Gita O. Expression (B) sup - Social Cognition P. Social Interaction sup Q. Problem Solving Gita R. Memory Gita - Endurance Fair - Balance Fair - Safety Awareness Poor QI SCORES: - Self-Care A. Eating 05-Setup or clean-up assistance B. Oral hygiene 05-Setup or clean-up assistance C. Toileting hygiene 05-Setup or clean-up assistance E. Shower/bathe self 04-Supervision or touching assistance F. Upper body dressing 04-Supervision or touching assistance G. Lower body dressing 03-Partial/moderate assistance H. Putting on/taking off footwear - Mobility A. Roll left and right 05-Setup or clean-up assistance B. Sit to lying 05-Setup or clean-up assistance C. Lying to sitting on side of bed 05-Setup or clean-up assistance D. Sit to stand 05-Setup or clean-up assistance E. Chair/mex-ex-tvhkw transfer 05-Setup or clean-up assistance F. Toilet transfer 05-Setup or clean-up assistance G. Car transfer I. Walk 10 feet 04-Supervision or touching assistance J. Walk 50 feet with two turns 88-Not attempted due to medical condition or safety concerns K. Walk 150 feet 88-Not attempted due to medical condition or safety concerns L. Walking 10 feet on uneven surfaces 88-Not attempted due to medical condition or safety concerns M. 1 step (curb) 04-Supervision or touching assistance N. 4 steps 88-Not attempted due to medical condition or safety concerns O. 12 steps 88-Not attempted due to medical condition or safety concerns P. Picking up object 88-Not attempted due to medical condition or safety concerns - Bladder and Bowel Bladder continence 0-Always continent Bowel continence 0-Always continent - Endurance Poor - Balance Poor - Safety Awareness Poor CURRENT FUNC. DEFICITS: Self-Care, Mobility, Endurance, Balance, and Safety Awareness SIGNATURE PANEL: (CDT)
--- NOTE | 2020-02-25 21:11 | PN ---
Date of Progress Note: 02/24/2020 Subjective: I saw patient on Tuesday at around lunchtime. She denies any chest pain. Has continuous nausea for last many years and is on Phenergan for lifetime. She denies any double vision, blurred vision, paralysis, tingling, numbness. Objective: Vital Signs: Blood pressure 130/70. Chest: Clear. Heart: Regular. Abdomen: Moderately obese abdomen. No guarding. No rebound. No rigidity. Assessment And Plan: 1.Diabetes. 2.Complications of chronic pain after a femur fracture. I have reduced her narcotics into carotid narcotics and she is really not complaining of any more suleman n. She is highly addicted to her pain medications and controlled substance from Pain doctor. I also stopped her Ativan from tonight tapered it off. She is now on Lexapro and Wellbutrin and tramadol f or pain and doing well without any need of narcotics. I hope she continues like that. Looks like th ey both and go to pain doctor every month to get some drugs but the pain medicines. RADHA/ANT Voice ID: [id number] Report ID: [id number]
[2020-02-26] MEDS: METOPROLOL TAR 50 MG TAB PO SCH ×2 (05:37→16:56)
[2020-02-26] MEDS: PANTOPRAZOLE 40MG TABLET PO SCH ×2 (07:30→15:56)
[2020-02-26] MEDS: INSULIN -REGULAR HUMAN 50 UNIT/0.5 ML ML SQ SCH ×2 (08:00→19:46)
[2020-02-26] MEDS: AMYLASE/LIPASE/PROTEASE CAP PO SCH ×4 (08:26→19:45)
[2020-02-26] MEDS: SUCRALFATE 1GM/10ML UCUP PO SCH ×4 (08:27→19:44)
[2020-02-26] MEDS: NYSTATIN PWDR 100000 UNIT/GM TOP SCH ×2 (08:28→20:00)
[2020-02-26] MEDS: FORMULATION-R RECTAL 30GM PR PRN (08:28)
[2020-02-26] MEDS: BACI/NEOMYCIN/POLY OINT 15GM TOP SCH ×2 (08:28→20:00)
[2020-02-26] MEDS: GABAPENTIN 300 MG CAP PO SCH ×3 (08:29→19:44)
[2020-02-26] MEDS: BUPROPION HCL XL 150 MG TAB PO SCH (08:29)
[2020-02-26] MEDS: CRANBERRY FRUIT EXTRACT 200 MG CAP PO SCH ×2 (08:29→19:45)
[2020-02-26] MEDS: CEFUROXIME 250 MG TAB PO SCH ×2 (08:29→19:45)
[2020-02-26] MEDS: ESCITALOPRAM 20 MG TAB PO SCH (08:29)
[2020-02-26] MEDS: VITAMIN D 5,000 UNIT CAP PO SCH (08:30)
[2020-02-26] MEDS: APIXABAN 2.5 MG TABLET PO SCH ×2 (08:30→19:44)
[2020-02-26] MEDS: ONDANSETRON 4 MG (ODT) TAB PO PRN ×3 (08:38→17:43)
[2020-02-26] MEDS: LIDOCAINE 4% PATCH TOP SCH (08:38)
[2020-02-26] MEDS: JUVEN PACKET PO SCH ×2 (09:08→19:45)
[2020-02-26] MEDS: TRAMADOL HCL 50 MG TAB PO PRN (12:18)
--- NOTE | 2020-02-26 13:07 | P.PN ---
Subjective Date of Service: 02/26/20 Chief Complaint: NAUSEA. Subjective: No new changes SHE CONTINUES TO HAVE NAUSEA. I HAVE GIVEN HER PROTONIX BID. I REDUCED NORCO AND NOW WILL STOP IT. SHE HAS BEEN NARCOTIC DEPENDENT FOR LONG DURATION. SHE GOES TO PAIN PA TO GET NARCOTICS. I ALSO REDUCED HE ATIVAN SHE WAS LETHARGIC. SHE IS SITTING AND EATING HER BF TODAY. LONG I KNOW HER FOR 15 YEARS, SHE ALMOST NEVER FEELS GOOD. SHE IS NAUSEOUS BUT EATING TODAY. NAUSEA SHE HAS FOR LONG TIME. SHE HAS FATIGUE. HER COMPLAINTS ARE THE SAME NAUSEA AND NOT FEELING GOOD. SHE HAS BEEN TO GI DOCTOR AND WILL NEED FU OP TO GET EGD DONE Review of Systems 10-point ROS is otherwise unremarkable General: Weakness, Malaise Physical Examination - Vital Signs Temperature: 98.4 F Blood Pressure: 121/60 Pulse: 66 Respirations: 18 Pulse Ox (%): 100 - Physical Exam General: Alert, In no apparent distress, Obese HEENT: Atraumatic, PERRLA, EOMI Neck: Supple, JVD not distended Respiratory: Clear to auscultation bilaterally, Normal air movement Cardiovascular: Regular rate/rhythm, Normal S1 S2 Gastrointestinal: Normal bowel sounds, No tenderness Musculoskeletal: No tenderness Integumentary: No rashes Neurological: Normal speech, Normal tone, Normal affect Lymphatics: No axilla or inguinal lymphadenopathy - Studies Microbiology Data (last 24 hrs): 02/26/20 06:50 Nasopharnyx Coronavirus COVID-19 PCR - Final Medications List Reviewed: Yes Assessment And Plan - Current Problems (Diagnosis) (1) Physical deconditioning Current Visit: Yes Status: Chronic Plan: NOT UNUSUAL FOR SOMEONE LIKE HER A DIABETIC, OBESE LADY WITH COMPLECTED HIP SURGERY IN PAST, DEPENDENT ON CONTROLLED SUBSTANCES. (2) Narcotic dependence Current Visit: Yes Status: Chronic Plan: WILL TRY TO REDUCE DRUGS BUT CAN'T BE SURE IF SHE WILL GO BACK TO THE SAME PAIN DOCTOR ROUTINE. DOSES REDUCED. (3) Femur fracture, left Current Visit: No Status: Chronic Qualifiers: Encounter type: subsequent encounter (4) Diabetes Current Visit: No Status: Chronic Plan: GLUCOSE IS LOWER NOW SHE HAS LOST SOME WEIGHT. Qualifiers: Diabetes mellitus type: type 2 (5) Hypoalbuminemia Current Visit: Yes Status: Chronic Plan: NO SIGNS OF PROTEINURIA. THIS CAN BE JUST FROM UNHEALTHY FOOD AT HOME IS TRYING TO TAKE CARE OF ALL AND NOT ABLE TO. IDEALLY SHE SHOULD BE IN NH BUT SHE AND HIM REFUSE TO. (6) Nausea Current Visit: Yes Status: Acute Plan: REDUCE NAUSEA CAUSING DRUGS. AD CARAFATE IT CAN BE FROM BILIARY GASTRITIS. I CHANGED FROM NORCO TO TRAMADOL. SHE CAN SEE GI DOCTOR OP. SONOGRAM NEG. (7) Positive urine culture Current Visit: Yes Status: Acute Plan: THIS IS A CONTAMINATION FROM VULVAR SKIN. I WILL IGNORE IT SECOND ST CATH URINE SHOWS NO ESTEREASE OR NITRATE. SHE DOES NOT HAVE UTI. THE ONLY SYMTPOM IS NAUSEA. SHE HAS NO UTI SS. SHE WILL TAKE ABX FOR 5 DAYS. (8) Chronic pancreatitis Current Visit: Yes Status: Chronic Plan: THIS MAY BE REASON WHY SHE HAS LOW ALBUMIN. I SEE NO PROTEINURIA SHE DOES NOT SEEM TO DIGEST PROTEIN AND RAISE ALBUMIN. SHE IS ALSO OBESE BUT I SEE NO OTHER LAB SIGNS OF CIRRHOSIS. Qualifiers: Pancreatitis type: idiopathic Qualified Code(s): K86.1 - Other chronic pancreatitis (9) High alkaline phosphatase Current Visit: Yes Status: Chronic Plan: I HAVE STARTED THE MALAGON SO FAR I FIND PTH IS HIGH. VIT D IS NORMAL. CALCIUM IS NORMAL. SPEP IS PENDING.
[2020-02-26] MEDS: MAGNESIUM HYDROXIDE 8% 30 ML PO PRN (16:56)
[2020-02-26] MEDS: ZOLPIDEM TARTRATE 10 MG TABLET PO SCH (19:44)
[2020-02-26] MEDS: ATORVASTATIN 10 MG TAB PO SCH (19:45)
[2020-02-27] MEDS: ONDANSETRON 4 MG (ODT) TAB PO PRN (01:18)
[2020-02-27] MEDS: TRAMADOL HCL 50 MG TAB PO PRN ×3 (01:18→14:48)
[2020-02-27] MEDS: METOPROLOL TAR 50 MG TAB PO SCH ×2 (05:40→19:46)
[2020-02-27] MEDS: PANTOPRAZOLE 40MG TABLET PO SCH ×2 (07:30→16:30)
[2020-02-27] MEDS: JUVEN PACKET PO SCH ×2 (08:00→19:46)
[2020-02-27] MEDS: INSULIN -REGULAR HUMAN 50 UNIT/0.5 ML ML SQ SCH ×2 (08:00→19:46)
[2020-02-27] MEDS: APIXABAN 2.5 MG TABLET PO SCH ×2 (08:40→19:45)
[2020-02-27] MEDS: VITAMIN D 5,000 UNIT CAP PO SCH (08:41)
[2020-02-27] MEDS: CRANBERRY FRUIT EXTRACT 200 MG CAP PO SCH ×2 (08:41→19:45)
[2020-02-27] MEDS: ESCITALOPRAM 20 MG TAB PO SCH (08:41)
[2020-02-27] MEDS: BUPROPION HCL XL 150 MG TAB PO SCH (08:42)
[2020-02-27] MEDS: AMYLASE/LIPASE/PROTEASE CAP PO SCH ×4 (08:43→19:44)
[2020-02-27] MEDS: SUCRALFATE 1GM/10ML UCUP PO SCH ×4 (08:43→19:45)
[2020-02-27] MEDS: LIDOCAINE 4% PATCH TOP SCH (08:45)
[2020-02-27] MEDS: NYSTATIN PWDR 100000 UNIT/GM TOP SCH ×2 (08:45→19:44)
[2020-02-27] MEDS: BACI/NEOMYCIN/POLY OINT 15GM TOP SCH ×2 (08:45→19:46)
[2020-02-27] MEDS: GABAPENTIN 300 MG CAP PO SCH ×3 (08:47→19:45)
--- NOTE | 2020-02-27 08:52 | RAD REPORT ---
EXAM DESCRIPTION: RAD - Hip Bilateral With Pelvis - 02/27/2020 8:11 am CLINICAL HISTORY: PAIN COMPARISON: Pelvis dated 01/15/2019 FINDINGS: Left total hip arthroplasty is present with hardware plate along the lateral aspect of the femur. No evidence of hardware loosening or infection. No fracture, dislocation or aggressive marrow lesion.
--- NOTE | 2020-02-27 17:07 | P.PN ---
Subjective Date of Service: 02/27/20 Chief Complaint: NAUSEA. Subjective: Improving SHE CONTINUES TO HAVE NAUSEA. I HAVE GIVEN HER PROTONIX BID. I REDUCED NORCO AND NOW WILL STOP IT. SHE HAS BEEN NARCOTIC DEPENDENT FOR LONG DURATION. SHE GOES TO PAIN PA TO GET NARCOTICS. I ALSO REDUCED HE ATIVAN SHE WAS LETHARGIC. SHE IS SITTING AND EATING HER BF TODAY. LONG I KNOW HER FOR 15 YEARS, SHE ALMOST NEVER FEELS GOOD. SHE IS NAUSEOUS BUT EATING TODAY. NAUSEA SHE HAS FOR LONG TIME. SHE HAS FATIGUE. HER COMPLAINTS ARE THE SAME NAUSEA AND NOT FEELING GOOD. SHE HAS BEEN TO GI DOCTOR AND WILL NEED FU OP TO GET EGD DONE SHE IS STABLE. SHEIS EATING WALKED 200 FEET I SENT HER FOR X RAY HIPS. Review of Systems 10-point ROS is otherwise unremarkable General: Weakness Physical Examination - Vital Signs Temperature: 97.2 F Blood Pressure: 128/69 Pulse: 69 Respirations: 18 Pulse Ox (%): 97 - Physical Exam General: Obese HEENT: Atraumatic, PERRLA, EOMI Neck: Supple, JVD not distended Respiratory: Clear to auscultation bilaterally, Normal air movement Cardiovascular: Regular rate/rhythm, Normal S1 S2 Gastrointestinal: Normal bowel sounds, No tenderness Musculoskeletal: No tenderness Integumentary: No rashes Neurological: Normal speech, Normal tone, Normal affect Lymphatics: No axilla or inguinal lymphadenopathy - Studies Laboratory Data (last 24 hrs) 02/27/20 07:23: Phosphorus 1.7 L Microbiology Data (last 24 hrs): 02/26/20 06:50 Nasopharnyx Coronavirus COVID-19 PCR - Final Medications List Reviewed: Yes Assessment And Plan - Current Problems (Diagnosis) (1) Physical deconditioning Current Visit: Yes Status: Chronic Plan: NOT UNUSUAL FOR SOMEONE LIKE HER A DIABETIC, OBESE LADY WITH COMPLECTED HIP SURGERY IN PAST, DEPENDENT ON CONTROLLED SUBSTANCES. (2) Narcotic dependence Current Visit: Yes Status: Chronic Plan: WILL TRY TO REDUCE DRUGS BUT CAN'T BE SURE IF SHE WILL GO BACK TO THE SAME PAIN DOCTOR ROUTINE. DOSES REDUCED. I AM AABLE TO GET HER OFF NARCOTICS AND ATIVAN I HOPE SHE KEEPS AWAY FROM PAIN DOCTORS NOW. (3) Femur fracture, left Current Visit: No Status: Chronic Qualifiers: Encounter type: subsequent encounter (4) Diabetes Current Visit: No Status: Chronic Plan: GLUCOSE IS LOWER NOW SHE HAS LOST SOME WEIGHT. Qualifiers: Diabetes mellitus type: type 2 (5) Hypoalbuminemia Current Visit: Yes Status: Chronic Plan: NO SIGNS OF PROTEINURIA. THIS CAN BE JUST FROM UNHEALTHY FOOD AT HOME IS TRYING TO TAKE CARE OF ALL AND NOT ABLE TO. IDEALLY SHE SHOULD BE IN NH BUT SHE AND HIM REFUSE TO. (6) Nausea Current Visit: Yes Status: Acute Plan: REDUCE NAUSEA CAUSING DRUGS. AD CARAFATE IT CAN BE FROM BILIARY GASTRITIS. I CHANGED FROM NORCO TO TRAMADOL. SHE CAN SEE GI DOCTOR OP. SONOGRAM NEG. (7) Positive urine culture Current Visit: Yes Status: Acute Plan: THIS IS A CONTAMINATION FROM VULVAR SKIN. I WILL IGNORE IT SECOND ST CATH URINE SHOWS NO ESTEREASE OR NITRATE. SHE DOES NOT HAVE UTI. THE ONLY SYMTPOM IS NAUSEA. SHE HAS NO UTI SS. SHE WILL TAKE ABX FOR 5 DAYS. (8) Chronic pancreatitis Current Visit: Yes Status: Chronic Plan: THIS MAY BE REASON WHY SHE HAS LOW ALBUMIN. I SEE NO PROTEINURIA SHE DOES NOT SEEM TO DIGEST PROTEIN AND RAISE ALBUMIN. SHE IS ALSO OBESE BUT I SEE NO OTHER LAB SIGNS OF CIRRHOSIS. Qualifiers: Pancreatitis type: idiopathic Qualified Code(s): K86.1 - Other chronic pancreatitis (9) High alkaline phosphatase Current Visit: Yes Status: Chronic Plan: I HAVE STARTED THE MALAGON SO FAR I FIND PTH IS HIGH. VIT D IS NORMAL. CALCIUM IS NORMAL. SPEP IS PENDING. (10) Secondary hyperparathyroidism Current Visit: Yes Status: Chronic Plan: VIT D IS NORMAL NO CKD. THIS IS UNUSUAL. I AM WAITING FOR SPEP AND SIEP.
[2020-02-27] MEDS ORDERED: METOPROLOL TAR 50 MG TAB PO SCH (18:00)
--- NOTE | 2020-02-27 18:46 | R.PN ---
ENCOUNTER DATE AND TIME: 02/27/2020 18:42 (CDT) NAME ALFONSO CASTORENA DATE OF : 1945 DATE OF ADMISSION: 02/19/2020 13:03 (CDT) acute exacerbation of unspecified left femur fractureCHIEF COMPLAINT: Left femur fracture SUBJECTIVE: Pt denied any Shortness of Breath. Pt denied any depression. She report ongoing chronic lower back pain radiating into her left hip and leg. She is seeing pain ma nagement. She ambulated 440' using a rolling walker with standby assistance. WBC 6.2, Hgb 11.9, glucose 87 to 116. PTH is elevated to 165.4, phosphorus is low at 1.7. VITAL SIGNS Temperature: 97.2 F SBP/DBP: 128/69 Pulse: 69 Resp: 14 MEDICATION ALLERGIES: Sulfa ENVIRONMENTAL ALLERGIES: None Known - Substance Allergies None Known - Other Allergies None Known NURSING: - Shower allowing shower - Skin care per protocol PRECAUTIONS: - Weight Bearing Precaution WBAT left LE ACTIVITIES OOB only with supervision THERAPIES: - Dietary and Nutrition Adequate Nutrition. Nutritional Education. Nutritional Supplements. PHYSICAL EXAM - Gen Lying in bed No apparent distress Oriented to: person, time, and place - Skin No skin breakdown. Normacephalic - Eyes No abnormalities - ENMT No abnormalities - Neck No abnormalities - CVS RRR - Chest Clear - Resp No wheezing - Abd Soft - GI + bowel sounds Deferred - No abnormalities - Ext Mild bilateral lower extremity edema. - MSK 4/5 weakness in both lower extremities. - Neuro No focal deficits ASSESSMENT: Pt. is a 74 yo Right-handed white female.Her impairment category is Orthopaedic Disorders 08 - Unila teral Hip Fracture (08).Pre-morbidly, Pt. was independent/mod-I in Transfers Control, Locomotion, Self-Care, Sphincter Control, and Communication; and she had good Balance, Safety Awareness, and Soci al Cognition.Currently, she has deficits of Transfers Control, Balance, Locomotion, Safety Awareness, Self-Care, Social Cognition, and Communication.Pt. is now referred to [facility] for acute in-patient rehabilitation in order to maximize patient's functional independence in act ivities of daily living, strength, ROM, and mobility.- Rehab Goal Patient has realistic goal of being discharged at assistance level 6-Pema to reside at Home with Fam jose maria/Relatives. MDM/PLAN: - Physical Therapy Decreased range of motion - to improve, our physical therapists will perform initial evaluation of p t's status upon admission and devise an individualized program for increasing patient's Range of Red on. Gait dysfunction - to improve, our physical therapists will perform initial evaluation of pt's statu s upon admission and devise an individualized program for Gait Training, and Wheel Chair mobility Inability to transfer - to improve, our physical therapists will perform initial evaluation of pt's status upon admission and devise an individualized program for Bed mobility Need for home safety evaluation - to improve, our physical therapists will perform initial evaluatio n of pt's status upon admission and devise an individualized program for Home Evaluation Need in caregiver upon discharge - to improve, our physical therapists will perform initial evaluati on of pt's status upon admission and devise an individualized program for Caregiver Training Edema - to improve, our physical therapists will perform initial evaluation of pt's status upon admi ssion and devise an individualized program for Elevation Training, and Lymphedema Therapy New precaution - to improve, our physical therapists will perform initial evaluation of pt's status upon admission and devise an individualized program for Patient precaution education Poor balance - to improve, our physical therapists will perform initial evaluation of pt's status up on admission and devise an individualized program for Balance Training Weakness - to improve, our physical therapists will perform initial evaluation of pt's status upon a dmission and devise an individualized program for Aquatic Therapy, Neuromuscular Reeducation, and Str engthening Achieving independence - to improve, our physical therapists will perform initial evaluation of pt's status upon admission and devise an individualized program for Community Reintegration Activities - Occupational Therapy ADL deficits - to improve, our occupation therapists will perform initial evaluation of pt's status upon admission and devise an individualized program for Bathing, Bed mobility, Community Reintegratio n, Cooking, Dressing, Eating, Fine Motor Skills, Grooming, Homemaking, Kitchen Mobility, Laundry, Pat ient Education, Safety Awareness, Splinting - Positioning, Transfers(Toilet, Tub, Shower), and Wheel Chair Management Cognitive deficits - to improve, our occupation therapists will perform initial evaluation of pt's s tatus upon admission and devise an individualized program for Cognition - orientation Need for healthcare analyst - to improve, our occupation therapists will perform initial evaluation of pt's status upon admission and devise an individualized program for Caregiver Training Weakness - to improve, our occupation therapists will perform initial evaluation of pt's status upon admission and devise an individualized program for Aquatic Therapy, Balance, Endurance, UE ROM, and UE strengthening - N/A See MAR - Anterior Hip Precaution No abduction No active extension No adduction across midline No external rotation No hip flexion >90 degrees No internal rotation - Diet - Liquid Texture Continue Regular - Tube Feed Continue N/A - Diet Type Continue Regular - Posterior Hip Precaution No adduction across midline No external rotation No hip flexion >90 degrees No internal rotation No wheel chair propulsion - Weight Bearing Precaution WBAT left LE - Skin care per protocol - Other See attached MAR (Medication Administration Record) - Diet - Solid Texture Continue Regular - Shower allowing shower FUNCTIONAL STATUS: UPDATED AT WEEKLY TEAM CONFERENCE - Walking Same score based on distance walked: 1(<=50ft) FUNCTIONAL STATUS: - Self-Care A. Eating Pema B. Grooming Pema C. Bathing Gita D. Dressing - Upper Gita E. Dressing - Lower modA F. Toileting Gita - Sphincter Control G. Bladder control sup H. Bowel control sup - Transfers Control I. Bed/Chair/Wheelchair sup J. Toilet sup K. Tub/Shower Gita - Locomotion L. Walk/Wheelchair (B) Gita M. Stairs maxA - Communication N. Comprehension (B) Gita O. Expression (B) sup - Social Cognition P. Social Interaction sup Q. Problem Solving Gita R. Memory Gita - Endurance Fair - Balance Fair - Safety Awareness Poor QI SCORES: - Self-Care A. Eating 05-Setup or clean-up assistance B. Oral hygiene 05-Setup or clean-up assistance C. Toileting hygiene 05-Setup or clean-up assistance E. Shower/bathe self 04-Supervision or touching assistance F. Upper body dressing 04-Supervision or touching assistance G. Lower body dressing 03-Partial/moderate assistance H. Putting on/taking off footwear - Mobility A. Roll left and right 05-Setup or clean-up assistance B. Sit to lying 05-Setup or clean-up assistance C. Lying to sitting on side of bed 05-Setup or clean-up assistance D. Sit to stand 05-Setup or clean-up assistance E. Chair/[id number] transfer 05-Setup or clean-up assistance F. Toilet transfer 05-Setup or clean-up assistance G. Car transfer I. Walk 10 feet 04-Supervision or touching assistance J. Walk 50 feet with two turns 88-Not attempted due to medical condition or safety concerns K. Walk 150 feet 88-Not attempted due to medical condition or safety concerns L. Walking 10 feet on uneven surfaces 88-Not attempted due to medical condition or safety concerns M. 1 step (curb) 04-Supervision or touching assistance N. 4 steps 88-Not attempted due to medical condition or safety concerns O. 12 steps 88-Not attempted due to medical condition or safety concerns P. Picking up object 88-Not attempted due to medical condition or safety concerns - Bladder and Bowel Bladder continence 0-Always continent Bowel continence 0-Always continent - Endurance Poor - Balance Poor - Safety Awareness Poor CURRENT FUNC. DEFICITS: Self-Care, Mobility, Endurance, Balance, and Safety Awareness SIGNATURE PANEL: (CDT)
[2020-02-27] MEDS: ZOLPIDEM TARTRATE 10 MG TABLET PO SCH (19:45)
[2020-02-27] MEDS: ATORVASTATIN 10 MG TAB PO SCH (19:45)
[2020-02-28 06:15] LABS: Absolute Lymphocytes (CBC) 2.7 K/uL (0.7-4.9); Basophils % 1.2 % (0-1.3); Hematocrit 32.7 % (36.0-45.0); Lymphocytes % 53.5 % (15.3-44.8); MPV 8.7 fL (7.6-11.3); RBC Red Blood Cell Count 3.17 M/uL (3.86-4.86)
[2020-02-28] MEDS: ONDANSETRON 4 MG (ODT) TAB PO PRN ×2 (06:24→19:29)
[2020-02-28] MEDS: LIDOCAINE 4% PATCH TOP SCH (06:25)
[2020-02-28] MEDS: PANTOPRAZOLE 40MG TABLET PO SCH ×2 (06:25→16:05)
[2020-02-28] MEDS: NYSTATIN PWDR 100000 UNIT/GM TOP SCH ×2 (06:32→19:27)
[2020-02-28] MEDS: BACI/NEOMYCIN/POLY OINT 15GM TOP SCH ×2 (06:32→19:27)
[2020-02-28 06:35] LABS: Magnesium 2.1 mg/dL (1.8-2.4); Potassium 4.2 mmol/L (3.5-5.1); Prealbumin 13.5 mg/dL (20-40)
[2020-02-28 07:20] LABS: Platelet Estimate ADEQ
[2020-02-28 07:21] LABS: Blood Morphology Comment NOT SEEN (NOT SEEN)
[2020-02-28] MEDS: AMYLASE/LIPASE/PROTEASE CAP PO SCH ×4 (07:38→19:30)
[2020-02-28] MEDS: INSULIN -REGULAR HUMAN 50 UNIT/0.5 ML ML SQ SCH ×2 (07:42→19:29)
[2020-02-28] MEDS: SUCRALFATE 1GM/10ML UCUP PO SCH ×4 (07:59→19:30)
[2020-02-28] MEDS: APIXABAN 2.5 MG TABLET PO SCH ×2 (08:00→19:29)
[2020-02-28] MEDS: ESCITALOPRAM 20 MG TAB PO SCH (08:00)
[2020-02-28] MEDS: VITAMIN D 5,000 UNIT CAP PO SCH (08:00)
[2020-02-28] MEDS: CRANBERRY FRUIT EXTRACT 200 MG CAP PO SCH ×2 (08:00→19:27)
[2020-02-28] MEDS: BUPROPION HCL XL 150 MG TAB PO SCH (08:00)
[2020-02-28] MEDS: METOPROLOL TAR 50 MG TAB PO SCH ×2 (08:01→19:29)
[2020-02-28] MEDS: GABAPENTIN 300 MG CAP PO SCH ×3 (08:01→19:29)
[2020-02-28] MEDS: JUVEN PACKET PO SCH ×2 (08:01→19:29)
[2020-02-28] MEDS: TRAMADOL HCL 50 MG TAB PO PRN ×3 (08:04→21:57)
--- NOTE | 2020-02-28 12:39 | P.PN ---
Subjective Date of Service: 02/28/20 Chief Complaint: NAUSEA. Subjective: Improving SHE CONTINUES TO HAVE NAUSEA. I HAVE GIVEN HER PROTONIX BID. I REDUCED NORCO AND NOW WILL STOP IT. SHE HAS BEEN NARCOTIC DEPENDENT FOR LONG DURATION. SHE GOES TO PAIN PA TO GET NARCOTICS. I ALSO REDUCED HE ATIVAN SHE WAS LETHARGIC. SHE IS SITTING AND EATING HER BF TODAY. LONG I KNOW HER FOR 15 YEARS, SHE ALMOST NEVER FEELS GOOD. SHE IS NAUSEOUS BUT EATING TODAY. NAUSEA SHE HAS FOR LONG TIME. SHE HAS FATIGUE. HER COMPLAINTS ARE THE SAME NAUSEA AND NOT FEELING GOOD. SHE HAS BEEN TO GI DOCTOR AND WILL NEED FU OP TO GET EGD DONE SHE IS STABLE. SHEIS EATING WALKED 200 FEET I SENT HER FOR X RAY HIPS. SHE IS STARTING TO EAT WELL. SHE HAS CHRONIC NAUSEA AND WILL GO TO GI DOCTOR SHE HAS. Review of Systems 10-point ROS is otherwise unremarkable General: Weakness, Malaise Gastrointestinal: Nausea Genitourinary: As per HPI Physical Examination - Vital Signs Temperature: 97.9 F Blood Pressure: 113/56 Pulse: 72 Respirations: 14 Pulse Ox (%): 95 - Physical Exam General: Mild distress, Obese HEENT: Atraumatic, PERRLA, EOMI Neck: Supple, JVD not distended Respiratory: Clear to auscultation bilaterally, Normal air movement Cardiovascular: Regular rate/rhythm, Normal S1 S2 Gastrointestinal: Normal bowel sounds, No tenderness Musculoskeletal: No tenderness Integumentary: No rashes Neurological: Normal speech, Normal tone, Normal affect Lymphatics: No axilla or inguinal lymphadenopathy - Studies Laboratory Data (last 24 hrs) 02/28/20 05:45: Sodium 143, Potassium 4.2, BUN 29 H, Creatinine 0.98, Glucose 88, Magnesium 2.1 02/28/20 05:45: WBC 5.1 D, Hgb 11.1 L, Hct 32.7 L, Plt Count 228 Medications List Reviewed: Yes Assessment And Plan - Current Problems (Diagnosis) (1) Physical deconditioning Current Visit: Yes Status: Chronic Plan: NOT UNUSUAL FOR SOMEONE LIKE HER A DIABETIC, OBESE LADY WITH COMPLECTED HIP SURGERY IN PAST, DEPENDENT ON CONTROLLED SUBSTANCES. (2) Narcotic dependence Current Visit: Yes Status: Chronic Plan: WILL TRY TO REDUCE DRUGS BUT CAN'T BE SURE IF SHE WILL GO BACK TO THE SAME PAIN DOCTOR ROUTINE. DOSES REDUCED. I AM ABLE TO GET HER OFF NARCOTICS AND ATIVAN I HOPE SHE KEEPS AWAY FROM PAIN DOCTORS NOW. (3) Femur fracture, left Current Visit: No Status: Chronic Qualifiers: Encounter type: subsequent encounter (4) Diabetes Current Visit: No Status: Chronic Plan: GLUCOSE IS LOWER NOW SHE HAS LOST SOME WEIGHT. Qualifiers: Diabetes mellitus type: type 2 (5) Hypoalbuminemia Current Visit: Yes Status: Chronic Plan: NO SIGNS OF PROTEINURIA. THIS CAN BE JUST FROM UNHEALTHY FOOD AT HOME IS TRYING TO TAKE CARE OF ALL AND NOT ABLE TO. IDEALLY SHE SHOULD BE IN NH BUT SHE AND HIM REFUSE TO. (6) Nausea Current Visit: Yes Status: Acute Plan: REDUCE NAUSEA CAUSING DRUGS. AD CARAFATE IT CAN BE FROM BILIARY GASTRITIS. I CHANGED FROM NORCO TO TRAMADOL. SHE CAN SEE GI DOCTOR OP. SONOGRAM NEG. (7) Positive urine culture Current Visit: Yes Status: Acute Plan: THIS IS A CONTAMINATION FROM VULVAR SKIN. I WILL IGNORE IT SECOND ST CATH URINE SHOWS NO ESTEREASE OR NITRATE. SHE DOES NOT HAVE UTI. THE ONLY SYMTPOM IS NAUSEA. SHE HAS NO UTI SS. SHE WILL TAKE ABX FOR 5 DAYS. (8) Chronic pancreatitis Current Visit: Yes Status: Chronic Plan: THIS MAY BE REASON WHY SHE HAS LOW ALBUMIN. I SEE NO PROTEINURIA SHE DOES NOT SEEM TO DIGEST PROTEIN AND RAISE ALBUMIN. SHE IS ALSO OBESE BUT I SEE NO OTHER LAB SIGNS OF CIRRHOSIS. Qualifiers: Pancreatitis type: idiopathic Qualified Code(s): K86.1 - Other chronic pa ncreatitis (9) High alkaline phosphatase Current Visit: Yes Status: Chronic Plan: I HAVE STARTED THE MALAGON SO FAR I FIND PTH IS HIGH. VIT D IS NORMAL. CALCIUM IS NORMAL. SPEP IS PENDING. (10) Secondary hyperparathyroidism Current Visit: Yes Status: Chronic Plan: VIT D IS NORMAL NO CKD. THIS IS UNUSUAL. I AM WAITING FOR SPEP AND SIEP. REPORTS ARE PENDING. LOW CALCIUM BUT FALSE LOW CORRECTED CALCIUM WITH LOW ALBUMIN IS OKAY. PO4 MILD LOW BUT AGAIN VIT D IS NORMAL. PTH IS HIGH.
[2020-02-28] MEDS: ATORVASTATIN 10 MG TAB PO SCH (19:28)
[2020-02-28] MEDS: ZOLPIDEM TARTRATE 10 MG TABLET PO SCH (19:29)
[2020-02-28] MEDS: MELATONIN 3 MG TABLET PO PRN (21:56)
[2020-02-28] MEDS: PROMETHAZINE 25 MG TABLET PO PRN (21:57)
[2020-02-29] MEDS: ONDANSETRON 4 MG (ODT) TAB PO PRN (05:19)
[2020-02-29] MEDS: PANTOPRAZOLE 40MG TABLET PO SCH ×2 (06:58→16:10)
[2020-02-29] MEDS: INSULIN -REGULAR HUMAN 50 UNIT/0.5 ML ML SQ SCH ×2 (07:11→20:00)
[2020-02-29] MEDS: AMYLASE/LIPASE/PROTEASE CAP PO SCH ×4 (07:38→20:14)
[2020-02-29] MEDS: TRAMADOL HCL 50 MG TAB PO PRN ×3 (07:39→20:29)
[2020-02-29] MEDS: CRANBERRY FRUIT EXTRACT 200 MG CAP PO SCH ×2 (07:41→20:10)
[2020-02-29] MEDS: APIXABAN 2.5 MG TABLET PO SCH ×2 (07:41→20:11)
[2020-02-29] MEDS: GABAPENTIN 300 MG CAP PO SCH ×3 (07:41→20:13)
[2020-02-29] MEDS: VITAMIN D 5,000 UNIT CAP PO SCH (07:41)
[2020-02-29] MEDS: METOPROLOL TAR 50 MG TAB PO SCH ×2 (07:42→20:11)
[2020-02-29] MEDS: ESCITALOPRAM 20 MG TAB PO SCH (07:43)
[2020-02-29] MEDS: SUCRALFATE 1GM/10ML UCUP PO SCH (07:43)
[2020-02-29] MEDS: JUVEN PACKET PO SCH ×2 (07:43→20:28)
[2020-02-29] MEDS: BUPROPION HCL XL 150 MG TAB PO SCH (07:43)
[2020-02-29] MEDS: PROMETHAZINE 25 MG TABLET PO PRN (09:44)
[2020-02-29] MEDS: BACI/NEOMYCIN/POLY OINT 15GM TOP SCH ×2 (11:08→20:25)
[2020-02-29] MEDS: LIDOCAINE 4% PATCH TOP SCH (11:09)
[2020-02-29] MEDS: NYSTATIN PWDR 100000 UNIT/GM TOP SCH ×2 (11:09→20:25)
[2020-02-29] MEDS: SUCRALFATE 1 GM TABLET PO SCH ×3 (12:23→20:13)
--- NOTE | 2020-02-29 13:46 | P.RH.PN ---
Estimated Length of Stay: 12 Expected Discharge Date: 03/01/20 Discharge Disposition Plan: Home Family Support: Yes Jail Goal: Mobility, Transfers, Self Care Vital Signs: Last Vital Signs Temp 97.2 F 02/29/20 07:26 Pulse 91 H 02/29/20 07:42 Resp 15 02/29/20 12:54 BP 142/71 H 02/29/20 07:42 Pulse Ox 96 02/29/20 12:54 Laboratory: Laboratory Last Values WBC 5.1 K/uL (4.3-10.9) D 02/28/20 05:45 RBC 3.17 M/uL (3.86-4.86) L 02/28/20 05:45 Hgb 11.1 g/dL (12.0-15.0) L 02/28/20 05:45 Hct 32.7 % (36.0-45.0) L 02/28/20 05:45 MCV 103.4 fL (80-100) H 02/28/20 05:45 MCH 34.9 pg (27.0-35.0) 02/28/20 05:45 MCHC 33.8 g/dL (32.0-36.0) 02/28/20 05:45 RDW 14.1 % (12.1-15.2) 02/28/20 05:45 Plt Count 228 K/uL (152-406) 02/28/20 05:45 MPV 8.7 fL (7.6-11.3) 02/28/20 05:45 Neutrophils % 34.8 % (41.7-73.7) L 02/28/20 05:45 Lymphocytes % 53.5 % (15.3-44.8) H 02/28/20 05:45 Monocytes % 7.2 % (3.3-12.3) 02/28/20 05:45 Eosinophils % 3.3 % (0-4.4) 02/28/20 05:45 Basophils % 1.2 % (0-1.3) 02/28/20 05:45 Absolute Neutrophils 1.8 K/uL (1.8-8.0) 02/28/20 05:45 Segmented Neutrophils 31 % (40-80) L 02/28/20 05:45 Absolute Lymphocytes 2.7 K/uL (0.7-4.9) 02/28/20 05:45 Lymphocytes 58 % (15-42) H 02/28/20 05:45 Monocytes 6 % (0-10) 02/28/20 05:45 Absolute Monocytes 0.4 K/uL (0.1-1.3) 02/28/20 05:45 Eosinophils 3 % (0-3) 02/28/20 05:45 Absolute Eosinophils 0.2 K/uL (0-0.5) 02/28/20 05:45 Basophils 2 % (0-1) H 02/28/20 05:45 Absolute Basophils 0.1 K/uL (0-0.5) 02/28/20 05:45 Diff Path Review Yes 02/28/20 05:45 Macrocytosis 1+ 02/20/20 05:15 Morphology Comment Not seen (NOT SEEN) 02/28/20 05:45 Sodium 143 mmol/L (136-145) 02/28/20 05:45 Potassium 4.2 mmol/L (3.5-5.1) 02/28/20 05:45 Chloride 111 mmol/L (98-107) H 02/28/20 05:45 Carbon Dioxide 27 mmol/L (21-32) 02/28/20 05:45 BUN 29 mg/dL (7-18) H 02/28/20 05:45 Creatinine 0.98 mg/dL (0.55-1.3) 02/28/20 05:45 Estimated GFR 56 mL/min (=/>90) L 02/28/20 05:45 Glucose 88 mg/dL (74-106) 02/28/20 05:45 POC Glucose 80 mg/dL (65-120) 02/29/20 07:09 Hemoglobin A1c 4.9 % (4.2-6.3) 02/25/20 06:18 Calcium 8.2 mg/dL (8.5-10.1) L 02/28/20 05:45 Phosphorus 1.7 mg/dL (2.5-4.9) L 02/27/20 07:23 Magnesium 2.1 mg/dL (1.8-2.4) 02/28/20 05:45 Ferritin 120.5 ng/mL (8-388) 02/26/20 06:34 Total Bilirubin 0.4 mg/dL (0.2-1.0) 02/25/20 07:05 Direct Bilirubin 0.2 mg/dL (0-0.2) 02/25/20 07:05 AST 30 U/L (15-37) 02/25/20 07:05 ALT 23 U/L (12-78) 02/25/20 07:05 Alkaline Phosphatase 119 U/L (45-117) H 02/25/20 07:05 Serum Total Protein 5.8 g/dL (6.4-8.2) L 02/25/20 07:05 Albumin 2.0 g/dL (3.4-5.0) L 02/28/20 05:45 Globulin 4.0 g/dL (2.3-3.5) H 02/25/20 07:05 Albumin/Globulin Ratio 0.5 (1.1-1.8) L 02/25/20 07:05 Prealbumin 13.5 mg/dL (20-40) L 02/28/20 05:45 LDL Cholesterol Direct 44 mg/dL (100-129) L 02/25/20 07:05 Amylase 12 U/L (25-115) L 02/21/20 09:01 Lipase 69 U/L (73-393) L 02/21/20 09:01 Vitamin B12 1006 pg/mL (193-986) H 02/25/20 07:05 25-OH Vitamin D Total 61.0 ng/mL (30-100) 02/25/20 07:05 PTH Intact 165.4 pg/mL (18.4-80.1) H 02/26/20 06:34 Urine Color Yellow 02/21/20 12:20 Urine Appearance Cloudy 02/21/20 12:20 Urine pH 8.0 (5.0-7.0) H 02/21/20 12:20 Ur Specific [place] 1.010 (1.005-1.030) 02/21/20 12:20 Glucose (UA)(Auto) Negative (NEG) 02/21/20 12:20 Urine Ketones Negative (NEG) 02/21/20 12:20 Urine Blood Negative (NEG) 02/21/20 12:20 Urine Nitrite Negative (NEG) 02/21/20 12:20 Urine Bilirubin Negative (NEG) 02/21/20 12:20 Urine Urobilinogen 1.0 mg/dL (0.2-1.0) 02/21/20 12:20 Ur Leukocyte Esterase Trace (NEG) H 02/21/20 12:20 Urine RBC None seen /HPF (NONE SEEN) 02/21/20 12:20 Urine WBC <5 /HPF (<5) 02/21/20 12:20 Ur Squamous Epith Cells <5 /HPF (NONE SEEN) 02/21/20 12:20 Urine Bacteria Loaded /HPF (<20) H 02/21/20 12:20 Urine Culture Reflexed Not needed 02/21/20 12:20 Urine Total Protein Negative (NEG) 02/21/20 12:20 Weight: 190 lb 4.8 oz Wound Present: No Closed Surgical Incision Present: No Negative Pressure Wound Therapy Present: No Physician Update: Labs reviewed and are stable. She is modified independent in her room. Walking 350' with independence. She is at minimum assistance with cognition. She will be discharged home in the AM with outpatient physical therpy. Functional Improvement: Patient has met all short-term and long-term goals at this time, w/ the exception of a car transfer and D/C. Speech Therapy Update: Initial Goals met; Speech is 100% intelligible in conversation. Problemm solving and Memort tasks currently complete with BOZENA Schmidt. Summary: Patient's care plan and jail goals have been reviewed and revised as necessary. Please see the Rehabilitation Signature page for all necessary signatures.
[2020-02-29 16:51] LABS: Urine Appearance CLEAR; Urine Bilirubin NEGATIVE (NEG); Urine Blood NEGATIVE (NEG); Urine Color YELLOW; Urine Glucose NEGATIVE (NEG); Urine Protein NEGATIVE (NEG); Urine Specific Gravity 1.025 (1.005-1.030); Urine pH 6.5 (5.0-7.0)
[2020-02-29 17:23] LABS: Urine Bacteria >50 /HPF (<20); Urine Culture Reflex Order REFLEXED; Urine RBC <5 /HPF (NONE SEEN)
--- NOTE | 2020-02-29 19:05 | P.PN ---
Subjective Date of Service: 02/29/20 Chief Complaint: NAUSEA. SHE CONTINUES TO HAVE NAUSEA. I HAVE GIVEN HER PROTONIX BID. I REDUCED NORCO AND NOW WILL STOP IT. SHE HAS BEEN NARCOTIC DEPENDENT FOR LONG DURATION. SHE GOES TO PAIN PA TO GET NARCOTICS. I ALSO REDUCED HE ATIVAN SHE WAS LETHARGIC. SHE IS SITTING AND EATING HER BF TODAY. LONG I KNOW HER FOR 15 YEARS, SHE ALMOST NEVER FEELS GOOD. SHE IS NAUSEOUS BUT EATING TODAY. NAUSEA SHE HAS FOR LONG TIME. SHE HAS FATIGUE. HER COMPLAINTS ARE THE SAME NAUSEA AND NOT FEELING GOOD. SHE HAS BEEN TO GI DOCTOR AND WILL NEED FU OP TO GET EGD DONE SHE IS STABLE. SHEIS EATING WALKED 200 FEET I SENT HER FOR X RAY HIPS. SHE IS STARTING TO EAT WELL. SHE HAS CHRONIC NAUSEA AND WILL GO TO GI DOCTOR SHE HAS. SHE IS DOING GREAT WITHOUT ANY NARCOTICS OR ATIVAN. I STOPPED ALL AND SHE IS DOING GOOD. SHE UNDERSTANDS. SHE DOES NOT NEED TO GO TO PAIN DOCTOR OR PA TO GET PAIN MEDS. Review of Systems 10-point ROS is otherwise unremarkable Physical Examination - Vital Signs Temperature: 97.2 F Blood Pressure: 142/71 Pulse: 91 Respirations: 15 Pulse Ox (%): 96 - Physical Exam General: Alert, In no apparent distress, Other (SITTING, EATING DINNER, LAUGHING AND FULLY AWAKE NOW.) HEENT: Atraumatic, PERRLA, EOMI Neck: Supple, JVD not distended Respiratory: Clear to auscultation bilaterally, Normal air movement Cardiovascular: Regular rate/rhythm, Normal S1 S2 Gastrointestinal: Normal bowel sounds, No tenderness Musculoskeletal: No tenderness Integumentary: No rashes Neurological: Normal speech, Normal tone, Normal affect Lymphatics: No axilla or inguinal lymphadenopathy - Studies Medications List Reviewed: Yes Assessment And Plan - Current Problems (Diagnosis) (1) Physical deconditioning Current Visit: Yes Status: Chronic Plan: NOT UNUSUAL FOR SOMEONE LIKE HER A DIABETIC, OBESE LADY WITH COMPLECTED HIP SURGERY IN PAST, DEPENDENT ON CONTROLLED SUBSTANCES. (2) Narcotic dependence Current Visit: Yes Status: Chronic Plan: WILL TRY TO REDUCE DRUGS BUT CAN'T BE SURE IF SHE WILL GO BACK TO THE SAME PAIN DOCTOR ROUTINE. DOSES REDUCED. I AM ABLE TO GET HER OFF NARCOTICS AND ATIVAN I HOPE SHE KEEPS AWAY FROM PAIN DOCTORS NOW. (3) Femur fracture, left Current Visit: No Status: Chronic Qualifiers: Encounter type: subsequent encounter (4) Diabetes Current Visit: No Status: Chronic Plan: GLUCOSE IS LOWER NOW SHE HAS LOST SOME WEIGHT. Qualifiers: Diabetes mellitus type: type 2 (5) Hypoalbuminemia Current Visit: Yes Status: Chronic Plan: NO SIGNS OF PROTEINURIA. THIS CAN BE JUST FROM UNHEALTHY FOOD AT HOME IS TRYING TO TAKE CARE OF ALL AND NOT ABLE TO. IDEALLY SHE SHOULD BE IN NH BUT SHE AND HIM REFUSE TO. (6) Nausea Current Visit: Yes Status: Acute Plan: REDUCE NAUSEA CAUSING DRUGS. AD CARAFATE IT CAN BE FROM BILIARY GASTRITIS. I CHANGED FROM NORCO TO TRAMADOL. SHE CAN SEE GI DOCTOR OP. SONOGRAM NEG. (7) Positive urine culture Current Visit: Yes Status: Acute Plan: THIS IS A CONTAMINATION FROM VULVAR SKIN. I WILL IGNORE IT SECOND ST CATH URINE SHOWS NO ESTEREASE OR NITRATE. SHE DOES NOT HAVE UTI. THE ONLY SYMTPOM IS NAUSEA. SHE HAS NO UTI SS. SHE WILL TAKE ABX FOR 5 DAYS. (8) Chronic pancreatitis Current Visit: Yes Status: Chronic Plan: THIS MAY BE REASON WHY SHE HAS LOW ALBUMIN. I SEE NO PROTEINURIA SHE DOES NOT SEEM TO DIGEST PROTEIN AND RAISE ALBUMIN. SHE IS ALSO OBESE BUT I SEE NO OTHER LAB SIGNS OF CIRRHOSIS. Qualifiers: Pancreatitis type: idiopathic Qualified Code(s): K86.1 - Other chronic pa ncreatitis (9) High alkaline phosphatase Current Visit: Yes Status: Chronic Plan: I HAVE STARTED THE MALAGON SO FAR I FIND PTH IS HIGH. VIT D IS NORMAL. CALCIUM IS NORMAL. SPEP IS PENDING. (10) Secondary hyperparathyroidism Current Visit: Yes Status: Chronic Plan: VIT D IS NORMAL NO CKD. THIS IS UNUSUAL. I AM WAITING FOR SPEP AND SIEP. REPORTS ARE PENDING. LOW CALCIUM BUT FALSE LOW CORRECTED CALCIUM WITH LOW ALBUMIN IS OKAY. PO4 MILD LOW BUT AGAIN VIT D IS NORMAL. PTH IS HIGH.
[2020-02-29] MEDS: ZOLPIDEM TARTRATE 10 MG TABLET PO SCH (20:10)
[2020-02-29] MEDS: ATORVASTATIN 10 MG TAB PO SCH (20:13)
[2020-02-29] MEDS: MELATONIN 3 MG TABLET PO PRN (20:28)
[2020-03-01 05:27] VITALS: BMI 34.9
[2020-03-01] MEDS: PANTOPRAZOLE 40MG TABLET PO SCH (06:58)
[2020-03-01] MEDS: TRAMADOL HCL 50 MG TAB PO PRN (06:58)
[2020-03-01] MEDS: ONDANSETRON 4 MG (ODT) TAB PO PRN (06:58)
[2020-03-01 07:15] VITALS: BP 143/74; TEMP 97.1
[2020-03-01] MEDS: INSULIN -REGULAR HUMAN 50 UNIT/0.5 ML ML SQ SCH (08:00)
[2020-03-01] MEDS: ESCITALOPRAM 20 MG TAB PO SCH (08:10)
[2020-03-01] MEDS: APIXABAN 2.5 MG TABLET PO SCH (08:10)
[2020-03-01] MEDS: GABAPENTIN 300 MG CAP PO SCH (08:10)
[2020-03-01] MEDS: CRANBERRY FRUIT EXTRACT 200 MG CAP PO SCH (08:10)
[2020-03-01] MEDS: BUPROPION HCL XL 150 MG TAB PO SCH (08:10)
[2020-03-01] MEDS: BACI/NEOMYCIN/POLY OINT 15GM TOP SCH (08:11)
[2020-03-01] MEDS: FORMULATION-R RECTAL 30GM PR PRN (08:11)
[2020-03-01] MEDS: VITAMIN D 5,000 UNIT CAP PO SCH (08:11)
[2020-03-01] MEDS: NYSTATIN PWDR 100000 UNIT/GM TOP SCH (08:11)
[2020-03-01] MEDS: SUCRALFATE 1 GM TABLET PO SCH (08:11)
[2020-03-01] MEDS: METOPROLOL TAR 50 MG TAB PO SCH (08:12)
[2020-03-01] MEDS: JUVEN PACKET PO SCH (08:12)
[2020-03-01] MEDS: LIDOCAINE 4% PATCH TOP SCH (08:13)
[2020-03-01] MEDS: AMYLASE/LIPASE/PROTEASE CAP PO SCH (08:15)
[2020-03-04 11:37] LABS: Immunoglobulin A 305 mg/dL (70-320); Tissue Transglutaminase IgA Ab 1 U/mL (<4)
== END 2020-03-01 12:00 | disposition home or self-care (01) | DRG 560 ==
LOC: 5TH 15:03
PROVIDERS: ADMIT Psychiatry & Neurology Neurology with Special Qualifications in Child Neurology; ATTEND Psychiatry & Neurology Neurology with Special Qualifications in Child Neurology
DX: S72.92XD Unspecified fracture of left femur, subsequent encounter for closed fracture with routine healing (principal); F11.20 Opioid dependence, uncomplicated; K86.1 Other chronic pancreatitis; N25.81 Secondary hyperparathyroidism of renal origin; R11.0 Nausea; G89.29 Other chronic pain; M54.9 Dorsalgia, unspecified; E88.09 Other disorders of plasma-protein metabolism, not elsewhere classified; E11.9 Type 2 diabetes mellitus without complications; R74.8 Abnormal levels of other serum enzymes; E66.9 Obesity, unspecified; Z68.34 Body mass index [BMI] 34.0-34.9, adult; Z88.1 Allergy status to other antibiotic agents; Z98.84 Bariatric surgery status; Z90.49 Acquired absence of other specified parts of digestive tract; Z79.899 Other long term (current) drug therapy; Z11.59 Encounter for screening for other viral diseases; Z79.82 Long term (current) use of aspirin
CPT/HCPCS: 36415; 73521; 76700; 80048; 80076; 81001; 81003; 81015; 82040; 82150; 82306; 82607; 82728; 82784; 82947; 82977; 83036; 83516; 83690; 83735; 83970; 84100; 84134; 85025; 86038; 86200; 86255; 86334; 87077; 87086; 87088; 87186; 92507; 92523; 92526; 97110; 97116; 97127; 97161; 97530; 97542; J7799; Q0169; U0002

== ENCOUNTER 2020-03-31 17:29 | Inpatient (IN) | payer OTHER ==
--- OUTSIDE RECORDS SUMMARY | 2020-03-31 18:33 | XMS REPORT | Clinical Summary ---
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
--- OUTSIDE RECORDS SUMMARY | 2020-03-31 18:34 | XMS REPORT | Continuity of Care Document ---
:1945 Author Organization [facility] t Address [address] [place] [address] Care Team Providers Name Role Phone [place] [...] Info Not [facility]I [facility] t Reaction Available [facility] Phenerga Adverse Active Info Not [facility] t n Reaction Available [facility] Nitrofur Adverse Active Info Not [facility] antoin Reaction Available [facility] Ciproflo Adverse Active Info Not [facility] xacin Reaction Available [facility] Social History Social Habit Start Date Stop Date Quantity Comments Source Sex Assigned At Dana Arcehiga Medications Ordered Filled Start Stop Current Ordering Indication Dosage Frequency Signature Comments Components Source Medication Medication Date Date Medication? Clinician (SIG) Name Name Lorazepam Lorazepam Yes [place] [address] [facility]time [facility] needed [facility] 00 [facility] Lexapro Lexapro Yes [place] 0.[address] [facility] Hydrocodone Hydrocodone Yes [place] [address] [facility] -Acetaminop -Acetaminop 04-19 [place] as needed [facility] - hen hen 00:00: [facility]oria 00 l [facility] Lovenox Lovenox Yes [place] 0.[address] [facility] [facility]: [facility] 00 [facility] Methocarbam Methocarbam Yes [place] [address] [facility] [address] ol ol [facility]: [facility] 00 [facility] lipitor lipitor Yes [place] [...] LEFT 2018-11-02 00:00:00 [facility] [place] [address] Physicians [U] XRAY FEMUR 2 VWS LEFT 2018-10-25 00:00[facility]00 [facility] [address] [facility] [[facility] XRAY FEMUR 2 VWS LEFT 2018-10-17 00:00:00 [facility] [place] [address] Phys[facility] [Q] VITAMIN D, 25-HYDROXY, 2018-08-04 00:00:00 U [facility] LC/MS/MS Physicians [QH] CALCIUM 2018-08-04 00:00:00 [facility] Physicians [QLH] PTH, INTACT (WITHOUT 2018-08-04 00:00:00 U [facility] CALCIUM) Physicians [U] XRAY FEMUR 2 VWS LEFT 2018-04-19 00:00[facility]00 [facility] [address] [facility] MRI Spine lumbar w/wo 2018-02-10 00:00:00 [facility] contrast 369[address] Physicians [U] XRAY FEMUR 2 VWS LEFT 2018-01-19 00:00:00 Un [facility] [address] Physicians [QLH] CMP W/EGFR 2017-12-23 00:00:00 [facility] Physicians [QLH] VITAMIN D, 2017-12-23 00:00:00 [facility] 25-HYDROXY, LC/MS/MS Physicians [QL] CALCIUM, 24 HOUR 2017-12-23 00:00:00 [facility] URINE (W/ CREATININE) Physicians [H] Protein 2017-12-23 00:00:00 [facility] Electrophoresis Physicians [QLH] PTH, INTACT (WITHOUT 2017-12-16 00:00:00 U [facility] CALCIUM) Physicians [QLH] PHOSPHATE ( 2017-12-16 00:00:00 [facility] PHOSPHORUS) Physicians [U] XRAY FEMUR 2 VWS LEFT 2017-12-01 00:00:00 [facility] [address] Femur without contrast 2017-09-20 00:00:00 [facility] [address] [facility] [U] XRAY FEMUR 2 VWS LEFT 2017-09-19 00:00:00 [facility] [place] [address] [facility] [U] XRAY FEMUR 2 VWS LEFT 2017-08-23 00:00:00 [facility] [address] [facility] [U] XRAY KNEE 1 OR 2 VWS 2017-08-19 00:00:00 [facility] [place] LEFT [address] Physicians [U] XRAY KNEE 1 OR 2 VWS 2017 00:00:[address] [facility] LEFT [address] Physicians [QLH] ALKALINE 2017-07-01 00:00:00 [place] [facility] PHOSPHATASE, BONE SPECIFIC Physi cians [Q] COLLAGEN CROSS-LINKED 2017-07-01 00:00:00 [facility] N-TELOPEPTIDE (NTx), U Physician s [H] Procollagen Type I 2017-07-01 00:00[facility]00 [facility] Propeptide [QLH] MAGNESIUM 2017-07-01 00:00:00 [place] [facility] Physicians [QLH] PHOSPHATE ( 2017-07-01 00:00:00 [facility] PHOSPHORUS) Physicians CPL - Vitamin D, 25 2017-07-01 00:00:00 [facility] Hydroxy Physicians [QLH] PTH, INTACT (WITHOUT 2017-07-01 00:00:00 U [facility] CALCIUM) Physicians [O] Dexa Scan ([employer] 2017-07-01 00:00:00 U [facility] X-Ray) [id number] Physicians [U] XRAY FEMUR 2 VWS LEFT 2017-06-20 00:00:00 Un [facility] [address] Physicians Plan of Care Planned Activity Planned Date Details Comments Source Future Scheduled 2020-05-01 INFLUENZA VACCINE [code [facility] 00:00:00 = INFLUENZA VACCINE] Diagnostic Test [...] Unive rsity of Pending 00:00:00 Energy X-Ray) [id number] [place] P hysicians [code = 244674] Diagnostic Test 2017-08-02 [O] Dexa Scan (Dual Unive rsity of Pending 00:00:00 [facility] X-Ray) 133526 [place] P hysicians [code = 262669] Future Scheduled 2012 65+ PNEUMOCOCCAL [facility] 00:00:00 VACCINE (1 of 2 - PCV13) [code = 65+ PNEUMOCOCCAL VACCINE (1 of 2 - PCV13)] Future Scheduled 1997 BREAST CANCER SCREENING [facility] 00:00:00 [code = BREAST CANCER SCREENING] Future Scheduled 1997 COLONOSCOPY SCREENING [facility] Test 00:00:00 [code = COLONOSCOPY SCREENING] Future Scheduled 1997 SHINGLES VACCINES (#1) [place] [facility] 00:00:00 [code = SHINGLES VACCINES (#1)] Encounters Start End Encounter Admission Attending Care Care Encounter Source Date/Time Date/Time Type Type Clinicians Facility Department ID 2018-11-07 2018-11-07 Appointmen CRISTÓBAL ESTRADA [facility] [id number] [facility] 13:00:00 13:00:00 tim ESTRADA M.D. ity o bonita AMBROCIO M.D. [place] Physici ans 2018-10-31 2018-10-31 CRISTÓBAL Akers [facility] [id number] Univers 13:45:00 13:45:00 t; Andria ESTRADA M.D. [place] Physici ans 2018-10-24 2018-10-24 CRISTÓBAL Akers [facility] [id number] Univers 12:30:00 12:30:00 t; Andria ESTRADA M.D. [place] Physici ans 2018-08-24 2018-08-24 [facility] [id number] 13:30:00 13:30:00 t [facility] 2018-08-04 2018-08-04 RADHA Patel [facility] [id number] Univers 12:30:00 12:30:00 t; alexis BRITTON FILIPE, P.A. [place] REBA Physi ci P.A. ans 2018-07-23 2018-07-23 [facility] [id number] 12:45:00 12:45:00 t Urgent Urgent Care L [facility] 2018-04-25 2018-04-25 CRISTÓBAL Akers [facility] Orth[facility]ics [id number] Univers 12:30:00 12:30:00 t; Andria ESTRADA M.D. [place] Physici ans 2018-04-06 2018-04-06 RADHA Curran [facility] [id number] Univers 12:30:00 12:30:00 t; ANGELICA FERREIRA ity of [place] M.D. [place], M.D. Physici ans 2018-03-10 2018-03-10 RADHA Patel [facility] [id number] Univers 14:00:00 14:00:00 t; Tomer BRITTONDANI, P.A. [place] REBA Physi ci P.A. ans 2018-01-24 2018-01-24 CRISTÓBAL Akers [facility] [id number] Univers 12:30:00 12:30:00 t; Andria ESTRADA M.D. [place] Physici ans 2017-12-16 2017-12-16 Appointsebastián DENT [facility] [id number] Univers 12:30:00 12:30:00 t; Kassie BRITTONs eveline of FILIPE, P.A. [place] REBA, Physi ci P.A. ans 2017-12-06 2017-12-06 Appointmen CRISTÓBAL ESTRADA [facility] Orthopedics [id number] Univers 12:30:00 12:30:00 t; Andria ESTRADA M.D. [place] Physici ans 2017-10-04 2017-10-04 CRISTÓBAL Akers [facility] [id number] Univers 12:30:00 12:30:00 t; Andria ESTRADA M.D. [place] Physici ans 2017-09-20 2017-09-20 AppointCRISTÓBAL Velasco [facility] Orthopedics [id number] Univers 10:30:00 10:30:00 t; Andria ESTRADA M.D. [place] Physici ans 2017-08-26 2017-08-26 [facility] [id number] Univers 12:30:00 12:30:00 t; alexis BRITTON FILIPE, P.A. [place] REBA, Physi ci P.A. ans 2017-08-23 2017-08-23 AppointCRISTÓBAL Velasco [facility] Orthopedics [id number] Univers 10:15:00 10:15:00 t; Andria ESTRADA M.D. [place] Physici ans 2017-08-02 2017-08-02 Appointsebastián DEXA, SCAN [facility] [id number] Univers 15:00:00 15:00:00 t; eveline DUMONT SCAN [place] Physici ans 2017-08-02 2017-08-02 AppointCRISTÓBAL Velasco [facility] [id number] Univers 12:30:00 12:30:00 t; Andria ESTRADA M.D. [place] Physici ans 2017-07-01 2017-07-01 Appointmen [facility] [id number] Univers 12:30:00 12:30:00 t; Jaxon BRITTON P.AP[place]isc[place] P.AShi ans 2017-06-28 2017-06-28 Appointmen SHANE [facility] Orthopedics [id number] Univers 12:30:00 12:30:00 t; ANGELA LYNN P.A. ity [place] P.A. Physici ans 2017-05-31 2017-05-31 App[facility] [id number] Univers 12:30:00 12:30:00 t; ANGELA LYNN P.A. ity [place] P.A. Physici ans Results Test Description Test Time Test Comments Results Result Comments Source PROTHROMBIN TIME 2018-12-20 16:04:00 Test Item Value Reference Range Interpretation Comme nts PT PATIENT (test code = PTP) 10.3 SECONDS 9.3-12.9 N INTERNATIONAL NORMAL RATIO (test code = INR) 0.90 INR Unit 0.8-1.2 N THROMBOPLASTIN TIME [id number] 16:04:00 Test Item Value Reference Range Interpretation Comments THROMBOPLASTIN TIME PARTIAL 25.8 SECONDS 26-35 L (test code = PTT) COMPREHENSIVE METABOLIC [id number] 16:03:00 Test Item Value Reference Range Interpretation [...] TOTAL (test code = ALKP) CBC W/AUTO [id number] 15:47:00 Test Item Value Reference Range Interpretation [...] DIFF/SCN CRITERIA MDIFF) - DUP VEIN UNI [id number] 15:17:00 Name: [facility] [place] : 1945 Age/S: 73 / F [id number] Unit #: [id number] Loc: [place] [address] Phys: Arsenio Beckman III, MD Acct: [id number] Dis Date: Status: REG CLI PHONE #: [phone] Exam Date: 12/20/2018 1445 FAX #: Reason: JUGULARVEIN OCCLUSION EXAMS: CPT: [id number] [address] EXAMINATION: - DUP VEIN UNI LT. LOCATION: [...] PAGE 1 Signed Report Name: AL[facility]ONSO [facility]STORENA [facility] [place] : 1945 Age/S: 73 / F [id number] Unit #: [id number] Loc: [place] [address] Phys: Arsenio Beckman III, MD Acct: [id number] Dis Date: Status: REG CLI PHONE #: [phone] Exam Date: 12/20/2018 1445 FAX#: Reason: JUGULAR VEIN OCCLUSION EXAMS: CPT: [id number] [place] [address] <Continued> Orig Print D/T: S: 12/20/2018 (1520) Probe: PAGE 2 Signed Report- CT MAXIFAC [id number] 14:33:00 Name: ALFONSO CASTORENA [place] : 1945 Age/S: 73 / F [id number] [address] Unit #: [id number] Loc: [place] [address] Phys: Arsenio Beckman III, MD Acct: [id number] Dis Date: Status: REG CLI PHONE #: [phone] Exam Date: 11/23/2018 1225 FAX #: Reason: LT TEMPORAL MASS EXAMS: CPT: [id number] CT MAXIFAC W/CONTRAST 36123 Location: T18 CT head, 11/23/18 TECHNIQUE: CT [...] [place]STORE[place] : 1945 Age/S: 73 / F [id number] [address] Unit #: [id number] Loc: [place] [address] Phys: Arsenio Beckman III, MD Acct: [id number] Dis Date: Status: REG CLI PHONE #: [phone] Exam Date: 11/23/2018 1225 FAX #: Reason: LT TEMPORAL MASS EXAMS: CPT: [id number] CT MAXIFAC W/CONTRAST 57156 <Co ntinued> mastoid air cells. No positive [...] CASTORE[place] : 1945 Age/S: 73 / F [id number] [address] Unit #: [id number] Loc: [place] [address] Phys: Arsenio Beckman III, MD Acct: [id number] Dis Date: Status: REG CLI PHONE #: [phone] Exam Date: 11/23/2018 1225 FAX #: Reason: LT TEMPORAL MASS EXAMS: CPT: [id number] CT MAXIFAC W/CONTRAST 38766 <Continued> of head. History of left parotid [...] auditory canal. 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 Small degree of benign-appearing ethmoid air [...] CASTORE[place] : 1945 Age/S: 73 / F [id number] [address] Unit #: [id number] Loc: [place] [address] Phys: Arsenio Beckman III, MD Acct: [id number] Dis Date: Status: REG CLI PHONE #: [phone] Exam Date: 11/23/2018 1225 FAX #: Reason: LT TEMPORAL MASS EXAMS: CPT: [id number] CT MAXIFAC W/CONTRAST 00568 <Continued> location adjacent to an area of [...] PAGE 4 Signed Report- CT HEAD/BRAIN W/O [id number] 14:33:00 Name: ALFONSO CASTORENA [place] : 1945 Age/S: 73 / F [address] Unit #: [id number] Loc: [place] [address] Phys: Arsenio Beckman III, MD Acct: [id number] Dis Date: Status: REG CLI PHONE #: [phone] Exam Date: 11/23/2018 1244 FAX #: Reason: POSTERIOR MASS EXAMS: CPT: [id number] CT HEAD/BRAIN W/O CONT 14327 Location: T18 CT head, 11/23/18 TECHNIQUE: CT [...] 1 Signed Report (CONTINUED) Name: ALFONSO CASTORENA [facility] : 1945 Age/S: 73 / F [id number] [address] Unit #: [id number] Loc: [place] [address] Phys: Arsenio Beckman III, MD Acct: [id number] Dis Date: Status: REG CLI PHONE #: [phone] Exam Date: 11/23/2018 1243 FAX #: Reason: POSTERIOR MASS EXAMS: CPT: [id number] CT HEAD/BRAIN W/O CONT 51398 <Continued> mastoid air cells. No positive mass-effect, [...] : 1945 Age/S: 73 / F [address] Unit #: [id number] Loc: [place] [address] Phys: Arsenio Beckman III, MD Acct: [id number] Dis Date: Status: REG CLI PHONE #: [phone] Exam Date: 11/23/2018 1243 FAX #: Reason: POSTERIOR MASS EXAMS: CPT: [id number] CT HEAD/BRAIN W/O CONT 22680 <Continued> of head. History of left parotid [...] auditory canal. 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 Small degree of benign-appearing ethmoid air [...] CASTORE[place] : 1945 Age/S: 73 / F [id number] [address] Unit #: [id number] Loc: [place] [address] Phys: Arsenio Beckman III, MD Acct: [id number] Dis Date: Status: REG CLI PHONE #: [phone] Exam Date: 11/23/2018 1243 FAX #: Reason: POSTERIOR MASS EXAMS: CPT: [id number] CT HEAD/BRAIN W/O CONT 48023 <Continued> location adjacent to an area of external occipital protuberance Some of the images are somewhat degraded due to motion but the exam is largely diagnostic. at 1433 Reported and signed by: Aury Cruz M.D. CC: Arsenio Beckman III, MD Technologist:Angela Mishra, RT(R)(MR) CTDI: DLP: Trnscb Date/Time: 11/23/2018 (1433) [email or web address] Orig Print D/T: S: 11/23/2018 (3386) CTDI: DLP: PAGE 4 Signed Report- CT NECK W/[id number] 14:33:00 Name: ALFONSO CASTORENA [place] : 1945 Age/S: 73 / F [id number] [address] Unit #: [id number] Loc: [place] [address] Phys: Arsenio Beckman III, MD Acct: [id number] Dis Date: Status: REG CLI PHONE #: [phone] Exam Date: 11/23/2018 1235 FAX #: Reason: FACIAL MAS EXAMS: CPT: [id number] CT NECK W/CONTRAST 05820 Location: T18 CT head, 11/23/18 TECHNIQUE: CT [...] 1 Signed Report (CONTINUED) Name: ALFONSO CASTORENA [place] : 1945 Age/S: 73 / F [id number] [address] Unit #: [id number] Loc: [place] [address] Phys: Arsenio Beckman III, MD Acct: [id number] Dis Date: Status: REG CLI PHONE #: [phone] Exam Date: 11/23/2018 1235 FAX #: Reason: FACIAL MAS EXAMS: CPT: [id number] CT NECK W/CONTRAST 50193 <Co ntinued> mastoid air cells. No positive [...] CASTORE[place] : 1945 Age/S: 73 / F [id number] [address] Unit #: [id number] Loc: [place] [address] Phys: Arsenio Beckman III, MD Acct: [id number] Dis Date: Status: REG CLI PHONE #: [phone] Exam Date: 11/23/2018 1235 FAX #: Reason: FACIAL MAS EXAMS: CPT: [id number] CT NECK W/CONTRAST 47939 <Continued> of head. History of left parotid [...] auditory canal. 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 Small degree of benign-appearing ethmoid air [...] CASTORE[place] : 1945 Age/S: 73 / F [id number] [address] Unit #: [id number] Loc: [place] [address] Phys: Arsenio Beckman III, MD Acct: [id number] Dis Date: Status: REG CLI PHONE #: [phone] Exam Date: 11/23/2018 1235 FAX #: Reason: FACIAL MAS EXAMS: CPT: [id number] CT NECK W/CONTRAST 91174 <Continued> location adjacent to an area of e xternal occipital protuberance Some of the images are somewhat degraded due to motion but the exam is largely diagnostic. at 1433 Reported and signed by: Aury Cruz M.D. CC: Arsenio Beckman III, MD Technologist:Angela Mishra, RT(R)(MR) CTDI: DLP: Trnscb Date/Time: 11/23/2018 (143) [email or web address] Orig Print D/T: S: 11/23/2018 (1436) CTDI: DLP: PAGE 4 Signed [id number] 12:02:00 Test Item Value Reference Range Interpretation Comments ISTAT-GLUCOSE (test code = GLUP) 88 mg/dL 70-105 N [id number] 12:02:00 Test Item Value Reference Range Interpretation Comments ISTAT-BUN (test code = BUNP) mg/dL 8-26 BEDSIDE [id number] 12:02:00 Test Item Value Reference Range Interpretation Comments BEDSIDE CREATININE (test code = mg/dL 0.6-1.3 CREATBED) [id number] 12:02:00 Test Item Value Reference Range Interpretation Comments ISTAT-GLUCOSE (test code = GLUP) 88 mg/dL 70-105 N [id number] 12:02:00 Test Item Value Reference Range Interpretation Comments ISTAT-BUN (test code = BUNP) 15 mg/dL 8-26 N BEDSIDE [id number] 12:02:00 Test Item Value Reference Range Interpretation Comments BEDSIDE CREATININE (test code = mg/dL 0.6-1.3 CREATBED) [id number] 12:02:00 Test Item Value Reference Range Interpretation Comments ISTAT-GLUCOSE (test code = GLUP) 88 mg/dL 70-105 N [id number] 12:02:00 Test Item Value Reference Range Interpretation Comments ISTAT-BUN (test code = BUNP) 15 mg/dL 8-26 N BEDSIDE [id number] 12:02:00 Test Item Value Reference Range Interpretation Comments BEDSIDE CREATININE (test code = 0.7 mg/dL 0.6-1.3 N CREATBED) [Q] [id number] 13:30:00 Test Item Value Reference Range Interpretation Comments CALCIUM (test code = CALCIUM) 9.1 mg/dl 8.6-10.4 N [facility]] PTH, INTACT (WITHOUT CALCIUM)2018-08-04 13:30:00 Test Item Value Reference Interpretation Comments Range PARATHYROID 103 pg/ml 14-64 Interpretive Gu radha Intact HORMONE, INTACT PTH (test code = Calcium-------- PARATHYROID HORMONE, INTACT) -------Norm al Parathyroid Normal NormalHypoparat hyroidism Low or Low Norm al LowHyperparathy roidism Primary Normal or High High Secondary High Normal or Low Tertiary High HighNon-Parathy roid Hypercalcemia Low or Low Normal High [facility][QL] VITAMIN D, 25-HYDROXY, [id number] 13:30:00 Test Item Value Reference Range Interpretation [...] D, (D2,D3), LC/MS/MS is recommended: order code 30874 (pat ients >2yrs). For mor e information on this test, go to:[email or web address] [email or web address]/FAQ16 3(This link is being provided for informational/e ducational purposes only.) [facility][U] XRAY FEMUR 2 VWS LEFT [id number] 11:56:00 Images acquired, not reported on this accession number.[facility][H] Creatinine for [id number] 17:50:01 Test Item Value Reference Range Interpretation Comments Creatinine Lvl 0.60 mg/dl 0.50-1.40 (test code = 2160-0) eGFR (test code = 93 The eGFR i s calculated 86333-5) {ML/MIN/1.7} using the CKD-E PI formula. In [...] be multiplied by t he estimated BMI. [facility][H] Creatinine Clearance Urine 24 [id number] 12:56:01 Test Item Value Reference Range Interpretation Comments Urine Creatinine 87 ml/min 88-128 Clearance 24 Hour; Below Low Threshold (test code = 2164-2) Ur Creat (test code = 42.40 mg/dl No est ablished Ur Creat) reference range s. BSA Cr Clear (test 1.73 code = 3140-1) WT Crcl (test code = 215 {lb} 67568-9) HT Crcl (test code = 52 {INCHES} 8302-2) Total Volume 1780 ml 600-1600 Creatinine Clearance 24 Hour; Above High Threshold (test code = 83219-6) [facility]] VITAMIN D, 25-HYDROXY, LC/MS/[id number] 12:53:01 Test Item Value Reference Range Interpretation Comments Vitamin D, 25-OH, 19.5 ng/ml 30.0-100.0 Reference range is based Total (test code on recommen dations in the = Vitamin D, EndocrineSociet y Clinical 25-OH, Total) Practice Guide line (J Clin Endocrinol Lpbng8473;96:19 11-1930) [facility][H] Protein [id number] 12:53:01 Test Item Value Reference Range Interpretation Comments Protein Electrophoresis Cancel Reason: (test code = Protein Duplicate Order Electrophoresis) [facility]] CMP [id number] 14:09:01 Test Item Value Reference Range Interpretation Comments Sodium Level 139 {mEq/l} 135-145 (test code = 2951-2) Potassium Level; 5.6 {mEq/l} 3.5-5.1 Above High Threshold (test code = 2823-3) Chloride Level 104 {mEq/l} 95-109 (test code = 5-0) Carbon Dioxide 31 {mEq/l} 24-32 (test code = 2027-9) AGAP; Below Low 9.6 {mEq/l} 10.0-20.0 Threshold (test code = 38078-5) Glucose Lvl (test 77 mg/dl 70-99 Adult refe rence range code = 2345-7) values reflec t the clinical guidel inesof the [place] Diabet es Association. Creatinine Lvl 0.60 mg/dl 0.50-1.40 (test code = 2160-0) Blood Urea 21 mg/dl 7-22 Nitrogen (test code = 3094-0) BUN/Creatinine 35 6-25 Ratio; Above High Threshold (test code = 3097-3) Total Protein 6.9 g/dl 6.4-8.4 (test code = 2885-2) Albumin Lvl (test 3.7 g/dl 3.5-5.0 code = 1751-7) Globulin (test 3.2 g/dl 2.7-4.2 code = 07267-0) A/G Ratio (test 1.2 0.7-1.6 code = 1759-0) Calcium Level 9.5 mg/dl 8.5-10.5 Total (test code = 81959-7) ALT (test code = 34 u/l 0-65 1743-4) AST (test code = 37 u/l 0-37 44505-2) Alk Phos (test 103 u/l 39-136 code = 1783-0) Bili Total (test 0.4 mg/dl 0.2-1.3 code = 1975-2) eGFR (test code = 93 The eGFR i s calculated 44705-8) {ML/MIN/1.7} using the CKD-E PI formula. In [...] be multiplied by t he estimated BMI. [facility]] VITAMIN D, 25-HYDROXY, LC/MS/[id number] 14:09:01 Test Item Value Reference Range Interpretation Comments Vitamin D, 25-OH, 20.6 ng/ml 30.0-100.0 Reference range is based Total (test code on recommen dations in the = Vitamin D, EndocrineSociet y Clinical 25-OH, Total) Practice Guide line (J Clin Endocrinol Uojxd4127;96:19 11-1930) [facility][H] Protein [id number] 14:09:01 Test Item Value Reference Range Interpretation [...] Globulin 0.89 g/dl 0.45-1.00 (test code = 74563-0) Beta Globulin (test 0.79 g/dl 0.50-1.15 code [...] is withoutsignific ant abnormalities. Interpretation performed at [facility].Electr onic Signature Jodi Mathur MD 01/04/18 3 :44 PM [facility]] PHOSPHATE ( PHOSPHORUS)2017-12-16 13:36:00 Test Item Value Reference Range Interpretation Comments PHOSPHATE ( PHOSPHORUS) (test 4.7 mg/dl 2.1-4.3 code = PHOSPHATE ( PHOSPHORUS)) [facility]] PTH, INTACT (WITHOUT CALCIUM)2017-12-16 13:36:00 Test Item Value Reference Interpretation Comments Range PARATHYROID 175 pg/ml 14-64 Interpretive Gu radha Intact HORMONE, INTACT PTH (test code = Calcium-------- PARATHYROID HORMONE, INTACT) -------Norm al Parathyroid Normal NormalHypoparat hyroidism Low or Low Norm al LowHyperparathy roidism Primary Normal or High High Secondary High Normal or Low Tertiary High HighNon-Parathy roid Hypercalcemia Low or Low Normal High [facility][U] XRAY FEMUR 2 VWS LEFT [id number] 12:43:00 Images acquired, not reported on this accession number.[facility][U] XRAY FEMUR 2 VWS LEFT [id number] 11:12:00Images acquired, not reported on this accession number.[facility][U] XRAY KNEE 1 OR 2 VWS LEFT [id number] 10:56:00Images acquired, not reported on this accession number.[facility]] [id number] 13:52:00 Test Item Value Reference Range Interpretation Comments MAGNESIUM (test code = MAGNESIUM) 1.8 mg/dl 1.5-2.5 N [facility]] PHOSPHATE ( PHOSPHORUS)2017-08-02 13:52:00 Test Item Value Reference Range Interpretation Comments PHOSPHATE ( PHOSPHORUS) (test 5.7 mg/dl 2.1-4.3 code = PHOSPHATE ( PHOSPHORUS)) [facility][Q] PROCOLLAGEN TYPE I INTACT N TERMINAL [id number] 13:52:00 Test Item Value Reference Range Interpretation [...] - 108 mcg/L >60 years: Not established [facility][] COLLAGEN CROSS-LINKED N-TELOPEPTIDE (NTx), U [...] URINE (test code = CREATININE, RANDOM URINE) [facility] [facility]] PTH, INTACT (WITHOUT CALCIUM)2017-08-02 13:52:00 Test Item Value Reference Range Interpretation Comments PARATHYROID 93 pg/ml 14-64 Interpretive Gu radha Intact HORMONE, INTACT PTH (test code = Calcium-------- PARATHYROID HORMONE, INTACT) -------Norm al Parathyroid Normal NormalHypoparat hyroidism Low or Low Norm al LowHyperparathy roidism Primary Normal or High High Secondary High Normal or Low Tertiary High HighNon-Parathy roid Hypercalcemia Low or Low Normal High [facility]] VITAMIN D, 25-HYDROXY, LC/MS/[id number] 13:52:00 Test Item Value Reference Range Interpretation [...] and D3 fractions is re quired, the Pressly D(TM)25-OH VIT D, (D2,D3), LC/MS/MS is recommended: order code [id number] (pat ients >2yrs). For mor e information on this test, go to:http://educa tion.[email or web address] /[email or web address] 3(This link is being provided for informational/e ducational purposes only.) [facility][U] XRAY KNEE 1 OR 2 VWS LEFT [id number] 13:04:00Images acquired, not reported on this accession number.[facility][U] XRAY FEMUR 2 VWS LEFT [id number] 12:12:00Images acquired, not reported on this accession number.[facility] [U] XRAY FEMUR 2 VWS LEFT [id number] 13:21:00Images acquired, not reported on this accession number.[facility][U] XRAY KNEE 1 OR 2 VWS LEFT [id number] 12:55:00Images acquired, not reported on this accession number.[facility]
[2020-03-31] MEDS ORDERED: ZOLPIDEM TARTRATE 5 MG TABLET PO PRN (19:39)
[2020-03-31] MEDS ORDERED: D50W 25 GM/50 ML SYRINGE/VIAL IV PRN (19:39)
[2020-03-31] MEDS ORDERED: GLUCAGON 1 MG/VIAL IM PRN (19:39)
[2020-03-31] MEDS ORDERED: HYDROCODONE/APAP 5/325 MG TAB ONE (19:45)
[2020-03-31] MEDS ORDERED: ZOLPIDEM TARTRATE 5 MG TABLET ONE (19:46)
[2020-03-31] MEDS: HYDROCODONE/APAP 5/325 MG TAB PO PRN (19:49)
[2020-03-31 19:52] VITALS: BMI 29.7
[2020-03-31] MEDS ORDERED: NA CHLORIDE 0.9% 1,000 ML IV SCH (20:00)
[2020-03-31] MEDS: INSULIN -REGULAR HUMAN 50 UNIT/0.5 ML ML SQ SCH (21:00)
[2020-03-31] MEDS ORDERED: NA CHLORIDE 0.9% 1,000 ML ONE (21:14)
[2020-03-31 21:19] LABS: Absolute Lymphocytes (CBC) 0.9 K/uL (0.7-4.9); Basophils % 0.2 % (0-1.3); Hematocrit 35.9 % (36.0-45.0); Lymphocytes % 5.7 % (15.3-44.8); MPV 9.7 fL (7.6-11.3); RBC Red Blood Cell Count 3.42 M/uL (3.86-4.86)
[2020-03-31 21:24] LABS: Protime INR 1.8
[2020-03-31 21:35] LABS: Albumin 1.5 g/dL (3.4-5.0); Bilirubin Total 1.1 mg/dL (0.2-1.0); Protein, Total 5.5 g/dL (6.4-8.2)
[2020-03-31 21:40] LABS: Potassium 2.8 mmol/L (3.5-5.1)
[2020-03-31] MEDS: FAMOTIDINE 20 MG TAB PO SCH (23:00)
[2020-03-31 23:20] LABS: Blood Morphology Comment NOTED (NOT SEEN); Platelet Estimate ADEQ
[2020-03-31 23:21] LABS: Burr Cells 1+; Polychromasia 1+
[2020-04-01 00:09] LABS: Urine Appearance CLOUDY; Urine Blood 2+ (NEG); Urine Color DK YELLOW; Urine Glucose NEGATIVE (NEG); Urine Protein 1+ (NEG); Urine Specific Gravity 1.025 (1.005-1.030); Urine pH 5.5 (5.0-7.0)
[2020-04-01] MEDS: PIPER/TAZO/NS 2.25gm 2.25 GM/50 ML BAG IVPB SCH ×4 (00:14→17:50)
[2020-04-01 00:16] LABS: Urine Microscopic Reflex ORDER UMIC
[2020-04-01] MEDS ORDERED: KCL 20 MEQ/100 mL IVPB 60 MEQ/300 ML BAG IV ONE (00:43)
[2020-04-01] MEDS ORDERED: FAMOTIDINE 20 MG TAB ONE ×2 (00:43→21:04)
[2020-04-01 00:59] LABS: Urine Bacteria >50 /HPF (<20); Urine Culture Reflex Order REFLEXED
[2020-04-01] MEDS: KCL 20 MEQ/100 mL IVPB 20 MEQ/100 ML BAG IV SCH ×3 (01:00→05:31)
[2020-04-01 01:08] LABS: Urine Bilirubin NEGATIVE (NEG)
[2020-04-01] MEDS: HYDROCODONE/APAP 5/325 MG TAB PO PRN ×2 (02:34→21:02)
[2020-04-01] MEDS ORDERED: HYDROCODONE/APAP 5/325 MG TAB ONE ×2 (02:43→21:03)
[2020-04-01] MEDS ORDERED: HYDROMORPHONE HCL 1 MG/ML INJ IV ONE (03:35)
[2020-04-01] MEDS ORDERED: NA CHLORIDE 0.9% 1,000 ML ONE ×2 (04:24→11:55)
[2020-04-01 04:44] LABS: Absolute Lymphocytes (CBC) 1.5 K/uL (0.7-4.9); Basophils % 0.1 % (0-1.3); Lymphocytes % 9.6 % (15.3-44.8); MPV 9.7 fL (7.6-11.3); RBC Red Blood Cell Count 3.16 M/uL (3.86-4.86)
[2020-04-01 05:10] LABS: Albumin 1.5 g/dL (3.4-5.0); Bilirubin Direct 0.8 mg/dL (0-0.2); Protein, Total 5.2 g/dL (6.4-8.2)
[2020-04-01] MEDS ORDERED: NA CHLORIDE 0.9% 1,000 ML IV SCH (07:00)
[2020-04-01] MEDS: INSULIN -REGULAR HUMAN 50 UNIT/0.5 ML ML SQ SCH ×4 (07:30→21:00)
[2020-04-01] MEDS ORDERED: ENOXAPARIN 40 MG/0.4 ML SQ SCH (09:00)
[2020-04-01] MEDS: NACHLORIDE 0.45% 1,000 ML with NA BICARB 8.4% 50 MEQ IV SCH ×4 (10:00→10:38)
[2020-04-01] MEDS: ENOXAPARIN 30 MG/0.3 ML SQ SCH (10:55)
[2020-04-01] MEDS ORDERED: ENOXAPARIN 30 MG/0.3 ML SQ ONE (11:00)
[2020-04-01] MEDS ORDERED: NA CHLORIDE 0.9% 1,000 ML IV ONE (11:52)
[2020-04-01] MEDS ORDERED: Ringers Lactate 1,000 ML IV ONE (11:52)
[2020-04-01] MEDS: VANCOMYCIN/NS 1 gm 1 GM/250 ML BAG IVPB SCH (12:00)
[2020-04-01 12:08] LABS: Magnesium 1.9 mg/dL (1.8-2.4); Potassium 3.9 mmol/L (3.5-5.1)
--- NOTE | 2020-04-01 12:22 | P.HP ---
Certification for Inpatient Patient admitted to: Inpatient With expected LOS: >2 Midnights Practitioner: I am a practitioner with admitting privileges, knowledge of patient current condition, hospital course, and medical plan of care. Services: Services provided to patient in accordance with Admission requirements found in Title 42 Section 412.3 of the Code of Federal Regulations Patient History Date of Service: 04/01/20 Reason for admission: CONFUSED, WEAK. History of Present Illness: MS. [place] WHO WAS IN HOSPITAL REHAB FLOOR, DOING PT , DID WELL WITH PT, WASABLE TO WALK WITH WALKER. IN REHAB I TAPERED HER OFF NORCO AND ATIVAN FROM THE PAIN DOCTORS. SHE DID WELL WITHOUT THEM. SHE WAS ON TRAMADOL AND I NOTIFIED NOT TO PUT HER BACK ON ADDICTIVE DRUGS. SHE IS BACK ON IT. SHE FELL AT HOME WAS ON THE FLOOR FOR HOURS. COULD NOT PICK HER UP. HE CALLED HER SON AFTER HE CAME OFF WORK IN AM AND PICKED HER UP. ER AT [facility] CALLED ME AND TRANSFERRED HER HERE. SHE HAS ONE POSITIVE CULTURE FROM [facility]. I ADDED VANCOMYCIN TO ZOSYN. I CHANGED FLUIDS TO COVER METABOLIC ACIDOSIS. SHE HAS DEHYDRATION BUT CREATININE IS IMPROVING. Allergies Sulfa (Sulfonamide Antibiotics) Allergy (Verified 02/19/20 16:26) Shortness of breath Home Medications: Apixaban [Eliquis *] 2.5 mg PO BID #60 tablet 02/29/20 Atorvastatin Calcium [Lipitor*] 10 mg PO BEDTIME #30 tab 02/29/20 Bupropion *Xl* [Wellbutrin XL*] 150 mg PO DAILY #30 tab 02/29/20 Cholecalciferol (Vitamin D3) [Vitamin D 5,000 IU Cap*] 5,000 unit PO DAILY #30 cap 02/29/20 Cranberry Fruit Extract 400 mg PO BID #120 cap 02/29/20 Escitalopram [Lexapro*] 20 mg PO DAILY #30 tab 02/29/20 Lidocaine 4% Patch [Lidoderm 5% Patch*] 1 patch TOP DAILY patch 02/29/20 Mag Hydroxide 8% [Milk Of Magnesia*] 15 ml PO DAILY PRN ucup 02/29/20 Melatonin [Melatonin*] 3 mg PO BEDTIME PRN PRN tablet 02/29/20 Metoprolol Tartrate [Lopressor*] 25 mg PO BID #60 tab 02/29/20 Martin/Bacit/Poly Oint [Neosporin Ointment*] 1 appl TOP BID #1 tube 02/29/20 Nystatin Powder [Mycostatin (Powder)*] 1 appl TOP BID #1 btl 02/29/20 PE-Ep/Mo/Slov/Pet [Formulation R*] 1 appl NM BID PRN #1 tube 02/29/20 Pantoprazole [Protonix Tab*] 40 mg PO BIDAC #60 tab 02/29/20 Sucralfate [Carafate*] 1 gm PO QID #120 tab 02/29/20 Zolpidem Tartrate [Ambien*] 10 mg PO BEDTIME #30 02/29/20 traMADol HCL [Ultram*] 50 mg PO Q6H PRN #60 tab 02/29/20 - Past Medical/Surgical History Diabetic: Yes -: anxiety, -: DM -: HTN -: hyperlipidemia -: choley -: gastric bypass 2009 -: appy -: dnc -: left hip - Social History Smoking Status: Never smoker Alcohol use: No CD- Drugs: No Caffeine use: Yes Review of Systems 10-point ROS is otherwise unremarkable General: Weakness, Malaise Neurological: Other (YELLING ALL NIGHT, AWAKE BUT DISORIENTED.) Physical Examination - Vital Signs Blood Pressure: 96/59 Pulse: 102 Pulse Ox (%): 97 - Physical Exam General: Alert, Moderate distress, Obese, Other (ECCHYMOSIS MULTIPLE LOCATIONS.) HEENT: Atraumatic, PERRLA, Mucous membr. moist/pink, EOMI, Sclerae nonicteric Neck: Supple, 2+ carotid pulse no bruit, No LAD, Without JVD or thyroid abnormality Respiratory: Clear to auscultation bilaterally, Normal air movement Cardiovascular: Regular rate/rhythm, Normal S1 S2 Gastrointestinal: Normal bowel sounds Musculoskeletal: No tenderness Integumentary: No rashes Neurological: Normal speech, Other (SEDATED FROM DILAUDID SHE WAS IN PAIN PER NIGHT NURSE. MOVES ALL FOUR LIMBS.) Lymphatics: No axilla or inguinal lymphadenopathy - Studies Laboratory Data (last 24 hrs) 04/01/20 11:30: Sodium 142, Potassium 3.9, BUN 53 H, Creatinine 3.12 H, Glucose 104, Magnesium 1.9 04/01/20 04:00: Total Bilirubin 1.0, AST 59 H, ALT 48, Alkaline Phosphatase 129 H 04/01/20 04:00: WBC 15.7 H, Hgb 10.5 L, Hct 33.0 L, Plt Count 185 03/31/20 21:00: Sodium 140, Potassium 2.8 L*, BUN 54 H, Creatinine 3.49 H, Glucose 211 H, Total Bilirubin 1.1 H, AST 52 H, ALT 46, Alkaline Phosphatase 140 H, Amylase 6 L, Lipase 14 L 03/31/20 21:00: PT 21.0 H, INR 1.80, APTT 57.2 H 03/31/20 21:00: WBC 15.2 H, Hgb 11.5 L, Hct 35.9 L, Plt Count 195 Assessment and Plan - Problems (Diagnosis) (1) Sepsis Current Visit: Yes Status: Acute Plan: POSSIBLE MRSA. CONTINUE VANCOMYCIN AND ZOSYN. IV FLUIDS WITH BICARB. Qualifiers: Sepsis type: methicillin resistant Staphylococcus aureus (2) Pneumonia Current Visit: Yes Status: Acute Plan: CHEST X RAY IV ABX. DAILY LAB. PROGNOSIS IS POOR. SHE SHOULD NOT BE AT HOME. SHE SHOULD BE IN NH. IS NOT ABLE TO TAKE CARE OF HER. Qualifiers: Lung location: unspecified part of lung (3) Drug dependence Current Visit: Yes Status: Chronic Plan: NOT MUCH WE CAN DO WHAT I DID AND ADVISED WAS NOT FOLLOWED BY BOTH AND WHO GO TO PAIN DOCTOR. (4) Acute on chronic renal failure Current Visit: Yes Status: Acute Plan: IV FLUIDS. DAILY LAB. IMPROVING ALREADY. K REPLACED HCO3 REPLACED. - Advance Directives Does patient have a Living Will: No Does patient have a Durable POA for Healthcare: No
--- NOTE | 2020-04-01 12:29 | RAD REPORT ---
EXAM DESCRIPTION: RAD - Chest Single View - 04/01/2020 6:29 am CLINICAL HISTORY: pneumonia COMPARISON: February 10 TECHNIQUE: AP portable chest image was obtained 04/01/2020 6:29 am . FINDINGS: Lung volumes are low. No dense consolidation seen. There is some subtle hazy opacification in the right upper lung field. Scattered calcified granulomas are noted. No failure or pulmonary ena ma pattern. Heart size and vasculature are less pronounced. Heart size is normal with midline trachea . No measurable pleural effusion and no pneumothorax. No acute bony abnormality seen. No acute aortic findings suspected. IMPRESSION: Failure/ volume overload findings seen February 10 no longer present. Subtle opacification in the right upper lung field. Findings are questionable for early pneumonia and continued follow-up is needed.
[2020-04-01] MEDS: NACHLORIDE 0.45% 1,000 ML with NA BICARB 8.4% 75 MEQ IV SCH ×4 (12:47→19:10)
--- NOTE | 2020-04-01 13:18 | RAD REPORT ---
EXAM DESCRIPTION: US - Renal Ultrasound-Complete - 04/01/2020 1:11 pm CLINICAL HISTORY: UMA Flank pain COMPARISON: Abdomen Exam Complete dated 02/21/2020 FINDINGS: Both kidneys are normal in size, shape and echotexture. The right kidney measures 9.8 x 5.5 x 4.7 cm. No hydronephrosis, focal mass or perinephric fluid. The left kidney measures 9.0 x 5.0 x 4.9 cm. No hydronephrosis, focal mass or perinephric fluid. The urinary bladder is incompletely distended without gross abnormality seen. IMPRESSION: Unremarkable renal sonogram.
--- NOTE | 2020-04-01 13:23 | RAD REPORT ---
EXAM DESCRIPTION: US - Lower Extremity Arterial Bilat - 04/01/2020 1:11 pm CLINICAL HISTORY: periphiral cysnosis Leg pain COMPARISON: No comparisons TECHNIQUE: Bilateral lower extremity arterial Doppler examination was performed with chano laureano FINDINGS: The right common femoral artery could not be well visualized due to the indwelling PICC ca theter in place. The right superficial femoral artery triphasic. Right popliteal artery is triphasic. Right posterior tibial and dorsalis pedis arteries appear monophasic. Left common femoral artery appears probably biphasic. Left superficial femoral artery to the dorsalis pedis artery is blunted monophasic. IMPRESSION: Significant pattern of left lower extremity peripheral vascular disease is seen the leve l of the superficial femoral artery and distally. Moderate peripheral vascular disease is seen distal to the right popliteal vessel.
--- NOTE | 2020-04-01 14:12 | CON ---
Date of Consultation: 04/01/2020 Additional Consulting Physician: Milad Avila MD. Reason For Consultation: Elevated BUN and creatinine. History Of Present Illness: This is a pleasant 74-year-old female. All the information has been obt ained from the record as the patient is obtunded. The patient had history of hypertension, diabetes complicated with neuropathy, hyperlipidemia, gastric bypass, the patient apparently had hip fracture status post surgery. Last month, then the patient was placed on rehab, discharged from the rehab for a week, apparently in the hospital has a recurrent full. The patient's apparently last fall day bef ore yesterday, left on the floor for almost 24 hours, then was brought back by EMS, found to have laura vation in BUN and creatinine with rhabdomyolysis. For that reason, we have been consulted. Nelli pineda to the record, the patient not taking any non-steroid, but apparently the patient is on Lasix and s pironolactone and vitamin D. The patient on the ER received 4 L of fluids. The patient still had oliguric with dark urine. Past Medical History: Includes; 1.Anxiety. 2.Diabetes. 3.Hypertension. 4.Hyperlipidemia. Past Surgical History: Include left hip surgery, cholecystectomy, gastric bypass, appendectomy. Social History: None obtainable. Family History: None obtainable. Review of Systems: None obtainable. Physical Examination: Vital Signs: When I saw the patient, the patient was obtunded. Blood pressure of 96/59. Reviewing the record, blood pressure down to the 90 yesterday, pulse of 102. Chest: Clear to auscultation. Heart: S1, S2. Systolic murmur. Abdomen: Soft, nontender. Extremities: Cyanosis of both feet and toes. Neuro: Obtunded, poorly responsive. Laboratory Data: Chest x-ray; no cardiomegaly, no congestion. Yesterday's labs; sodium 140, potassi um 2.8, bicarb 17, chloride 108, BUN 54, creatinine 3.4, GFR of 13, calcium of 7, magnesium not done. CK 392, albumin 1.5, corrected calcium of 10. Vitamin D of 61, PTH 165. Assessment And Plan: 1.Acute kidney injury, multifactorial, secondary to prerenal poor perfusion, acute tubular necrosis, superimposed with mild rhabdomyolysis, complicated with acidosis and hypokalemia. 2.I am going to go ahead and start the patient on aggressive hydration. The patient received 4 L. I am going to go ahead and give her another 1 L of normal saline. Then, we will start the patient on another liter of LR to have better hydration for the patient. 3.I am going to go ahead and send for full workup including renal ultrasound, repeat CK and chemistr y, and we will send for serology. 4.I am going to hold all diuresis including spironolactone and Lasix, and all her blood pressure med ications for the time being given low blood pressure and we will monitor the patient. 5.Hypertension, currently hypotension. Hold all blood pressure medications as above. 6.Rhabdomyolysis secondary to fall, questionable secondary to ischemic foot. I am going to start th e patient on heparin and we will follow up. The patient's image was negative for intracranial. I am going to get CT head. 7.Ischemic toes. We will get Doppler. 8.Urinary tract infection with encephalopathy. Start the patient on antibiotics. Follow up culture . 9.Diabetes as by primary. 10.Acidosis secondary to renal failure with the presence of rhabdomyolysis. I am going to start the patient on bicarb drip and we will follow up. 11.Hypokalemia. We will supplement cautiously given the degree of the kidney function and oliguric state. We will send for magnesium and TSH. Case discussed with the staff, agreed with the plan. Thank you Dr. Avila for allowing us to participate in the care of your patient. Time spent 65 minutes. BARRIE Voice ID: [id number] Report ID: [id number]
[2020-04-01] MEDS ORDERED: ZIPRASIDONE MESYLA 20 MG/VIAL IM ONE (17:34)
[2020-04-01] MEDS ORDERED: WATER FOR INJ,STERILE 10 ML ONE (17:35)
[2020-04-01] MEDS: ZIPRASIDONE MESYLA 20 MG/VIAL IM PRN (17:40)
[2020-04-01] MEDS: FAMOTIDINE 20 MG TAB PO SCH (21:03)
[2020-04-01] MEDS ORDERED: NACHLORIDE 0.45% 1,000 ML IV ONE (21:06)
[2020-04-01] MEDS ORDERED: SODIUM BICARB 50 MEQ/50ML VIAL ONE (21:06)
[2020-04-01] MEDS ORDERED: D50W 25 GM/50 ML SYRINGE/VIAL IV ONE (21:37)
[2020-04-01] MEDS: D5 0.45 NS 1,000 ML with NA BICARB 8.4% 75 MEQ IV SCH ×2 (22:20)
[2020-04-01] MEDS ORDERED: D5 0.45 NS 1,000 ML IV ONE (22:32)
[2020-04-02] MEDS: ZIPRASIDONE MESYLA 20 MG/VIAL IM PRN ×2 (00:36→21:08)
[2020-04-02] MEDS: WATER FOR INJ,STERILE 10 ML IM PRN ×2 (00:37→21:07)
[2020-04-02] MEDS ORDERED: ZIPRASIDONE MESYLA 20 MG/VIAL IM ONE ×2 (00:46→21:12)
[2020-04-02] MEDS ORDERED: WATER FOR INJ,STERILE 10 ML ONE ×2 (00:46→21:12)
[2020-04-02] MEDS: PIPER/TAZO/NS 2.25gm 2.25 GM/50 ML BAG IVPB SCH ×3 (01:00→17:57)
[2020-04-02 04:41] LABS: RBC Red Blood Cell Count 2.87 M/uL (3.86-4.86)
[2020-04-02] MEDS: D5 0.45 NS 1,000 ML with NA BICARB 8.4% 75 MEQ IV SCH ×4 (05:23→14:00)
[2020-04-02 05:28] LABS: Albumin 1.3 g/dL (3.4-5.0); BUN Blood Urea Nitrogen 50 mg/dL (7-18); Bicarbonate 18 mmol/L (21-32); Ferritin 328.4 ng/mL (8-388); Folic Acid, (Folate) 3.2 ng/mL (3.1-17.5); Glucose Level 129 mg/dL (74-106); Magnesium 1.7 mg/dL (1.8-2.4); Phosphorus 1.3 mg/dL (2.5-4.9); Potassium 3.2 mmol/L (3.5-5.1); Sodium Level 143 mmol/L (136-145); Transferrin 53 mg/dL (200-360)
[2020-04-02 07:06] LABS: Rheumatoid Factor NEG (NEG)
[2020-04-02] MEDS: INSULIN -REGULAR HUMAN 50 UNIT/0.5 ML ML SQ SCH ×2 (07:30→17:59)
[2020-04-02] MEDS ORDERED: KCL 20 MEQ/100 mL IVPB 20 MEQ/100 ML BAG IV SCH (08:00)
[2020-04-02] MEDS ORDERED: MAGNESIUM SULFATE 1 gm IVPB 1 GM/100 ML BAG IV ONE ×4 (08:00→11:30)
[2020-04-02] MEDS: ENOXAPARIN 30 MG/0.3 ML SQ SCH (08:46)
[2020-04-02] MEDS ORDERED: ENOXAPARIN 30 MG/0.3 ML SQ ONE (08:57)
[2020-04-02] MEDS ORDERED: POTASSIUM PHOS IN 0.9 % NACL 15 MMOL/250 ML BAG IV ONE (09:00)
[2020-04-02] MEDS: HYDROCODONE/APAP 5/325 MG TAB PO PRN (09:14)
[2020-04-02] MEDS ORDERED: HYDROCODONE/APAP 5/325 MG TAB ONE (09:23)
[2020-04-02] MEDS ORDERED: Magnesium Sulfate 2gm IVPB 2 G/50 ML BAG IV ONE (10:04)
[2020-04-02] MEDS ORDERED: Ringers Lactate 1,000 ML IV ONE ×2 (10:40→11:02)
[2020-04-02 12:10] LABS: Blood Gas Oxyhemoglobin 96.5 % (94-97); Blood O2 Saturation 98.6 % (92-98.5)
[2020-04-02] MEDS ORDERED: DEXTROSE 10%-WATER 500 ML IV SCH (13:00)
[2020-04-02] MEDS: FENTANYL 50 MCG/PATCH TD PRN (13:58)
--- NOTE | 2020-04-02 14:34 | PN ---
Date of Progress Note: 04/02/2020 Subjective: The patient was admitted after a fall. The patient had urosepsis and rhabdo with acute kidney injury secondary to prerenal superimposed with Lasix and spironolactone, severe hypokalemia and electrolyte imbalance with acidosis. The patient was started on aggressive hydration yesterday. The patient had recurrent hypotension and hypoglycemia. The patient was started on bicarb drip. Physical Examination: Vital Signs: When I saw the patient, blood pressure of 92/62, pulse of 88. Chest: Clear to auscultation. Heart: S1, S2. Systolic murmur. Abdomen: Soft, nontender. Extremities: Trace edema, cyanosis on both feet. No gangrenous. Neuro: The patient today a little bit more awake, but still just mowing. Moving 4 extremities. No focality. Laboratory Data: WBC 15.7, H and H 10.5/33. Sodium 143, potassium 3.2, bicarb 18, BUN 50, creatinine 2.7, GFR of 17 trending up. Uric acid of 9, calcium 6.7, phosphorus 1.3, magnesium 1.7. Iron saturation of 91, albumin 1.3, corrected calcium is 8.7, B12 of 2000. TSH 8.3, PTH of 124, cortisol level of 43. Urinalysis positive for infection, +1 protein. Serology is still pending. Current Medications: The patient on its include Zosyn, vancomycin, Lovenox, fentanyl, Ambien, Geodon, D5 with bicarb at 150, Pepcid, insulin. Assessment And Plan: 1. Acute kidney injury secondary to prerenal. Obstructive uropathy has been ruled out. Superimposed with Lasix, spironolactone, on the recovery phase, still hypotension. I am going to bolus the patient with 1 L of LR and we will follow up the patient, keep holding diuresis. 2. Hypokalemia, hypomagnesemia, hypophosphatemia. We will supplement. 3. Rhabdomyolysis. Continue hydration. 4. Acidosis secondary to renal failure/lactic acidosis. Continue bicarb drip. I am going to go ahead and get ABG. 5. Altered mental status secondary to urosepsis. I am going to get CT brain and we will follow up. 6. Ischemic leg. We will follow up with primary. 7. Failure to thrive. We will get a swallow study and CT brain, and we will follow up. time spent discussing the case with (the staff and other sap security consultant and the patient) face to face with the patient and reviewing clinical data and placing order 35 min BARRIE Voice ID: [id number] Report ID: [id number] JACK
[2020-04-02] MEDS ORDERED: LIPIDS IV SCH ×11 (17:00)
[2020-04-02] MEDS ORDERED: WATER IV SCH ×11 (17:00)
[2020-04-02] MEDS ORDERED: WATER FOR INJ,STERILE 1,000 ML with NA BICARB 8.4% 150 MEQ IV SCH ×2 (17:00)
[2020-04-02] MEDS ORDERED: DEXTROSE 50% IV SCH ×11 (17:00)
[2020-04-02] MEDS ORDERED: [UNRECOGNIZED DRUG - OTHER] IV SCH ×11 (17:00)
[2020-04-02] MEDS ORDERED: AMINO ACIDS 10% IV SCH ×11 (17:00)
[2020-04-02] MEDS: FAMOTIDINE 20 MG TAB PO SCH (21:00)
--- NOTE | 2020-04-02 21:16 | P.PN ---
Subjective Date of Service: 04/02/20 Chief Complaint: CONFUSED, WEAK. Subjective: No new changes SHE DOES NOT RESPOND TO VERBAL COMMAND. SHE IS AWAKE, DISORIENTED, YELLING, THRASHING. Review of Systems is unable to be obtained Physical Examination - Vital Signs Temperature: 98.7 F Blood Pressure: 94/67 Pulse: 120 Respirations: 20 Pulse Ox (%): 100 - Physical Exam General: Moderate distress, Confused, Delirious, Obese HEENT: Atraumatic, PERRLA, EOMI Respiratory: Clear to auscultation bilaterally Cardiovascular: Edema, Abnormal pulses Integumentary: Other (MOTTLED FEET POSSIBLE FROM SEPSIS AND PVD.) - Studies Laboratory Data (last 24 hrs) 04/02/20 20:35: Potassium 3.4 L 04/02/20 04:20: Sodium 143, Potassium 3.2 L, BUN 50 H, Creatinine 2.70 H, Glucose 129 H, Uric Acid 9.0 H, Phosphorus 1.3 L, Magnesium 1.7 L 04/01/20 23:12: Glucose 147 H Assessment And Plan - Current Problems (Diagnosis) (1) Sepsis Current Visit: Yes Status: Acute Plan: POSSIBLE MRSA. CONTINUE VANCOMYCIN AND ZOSYN. IV FLUIDS WITH BICARB. CONTINUE ABX. PROGNOSIS POOR. EVEN WITH ALL POSSIBLE THERAPY I SEE NO CLINICAL IMRPOVEMENT. Qualifiers: Sepsis type: methicillin resistant Staphylococcus aureus (2) Pneumonia Current Visit: Yes Status: Acute Plan: CHEST X RAY IV ABX. DAILY LAB. PROGNOSIS IS POOR. SHE SHOULD NOT BE AT HOME. SHE SHOULD BE IN NH. IS NOT ABLE TO TAKE CARE OF HER. Qualifiers: Lung location: unspecified part of lung (3) Drug dependence Current Visit: Yes Status: Chronic Plan: NOT MUCH WE CAN DO WHAT I DID AND ADVISED WAS NOT FOLLOWED BY BOTH AND WHO GO TO PAIN DOCTOR. (4) Acute on chronic renal failure Current Visit: Yes Status: Acute Plan: IV FLUIDS. DAILY LAB. IMPROVING ALREADY. K REPLACED HCO3 REPLACED. (5) Metabolic encephalopathy Current Visit: Yes Status: Acute Plan: PROGNOSIS POOR. EVEN WITH ALL POSSIBLE THERAPY I SEE NO CLINICAL IMRPOVEMENT LOW ALBUMIN, HIGH WBC, ACUTE RENAL FAILURE, POS BLOOD CULTURE FROM [facility], RHABDOMYOLISIS, BED BOUND STATUS, NARCOTIC DEPENDENCY ARE THE POOR PROGNOSTIC FACTORS. IS AWARE. I CALLED HIM A FEW TIMES. HE HAS MADE HER DNR.
[2020-04-02] MEDS: VANCOMYCIN/NS 1 gm 1 GM/250 ML BAG IVPB SCH (23:56)
[2020-04-03] MEDS: PIPER/TAZO/NS 2.25gm 2.25 GM/50 ML BAG IVPB SCH ×3 (01:04→17:40)
[2020-04-03 05:34] LABS: Albumin 1.3 g/dL (3.4-5.0); Magnesium 2.1 mg/dL (1.8-2.4); Phosphorus 1.7 mg/dL (2.5-4.9); Potassium 3.3 mmol/L (3.5-5.1)
[2020-04-03] MEDS: INSULIN -REGULAR HUMAN 50 UNIT/0.5 ML ML SQ SCH ×4 (05:36→18:00)
[2020-04-03] MEDS ORDERED: POTASSIUM PHOS IN 0.9 % NACL 15 MMOL/250 ML BAG IV ONE ×2 (05:52→09:00)
[2020-04-03] MEDS: METOPROLOL TARTRATE 5 MG/5 ML INJ IV SCH ×3 (09:00→21:40)
[2020-04-03] MEDS ORDERED: METOPROLOL TARTRATE 5 MG/5 ML INJ IV SCH (09:00)
[2020-04-03] MEDS ORDERED: ENOXAPARIN 40 MG/0.4 ML SQ ONE (09:51)
[2020-04-03] MEDS: ENOXAPARIN 30 MG/0.3 ML SQ SCH (10:00)
[2020-04-03] MEDS ORDERED: ENOXAPARIN 30 MG/0.3 ML SQ ONE (10:11)
[2020-04-03] MEDS ORDERED: ZIPRASIDONE MESYLA 20 MG/VIAL IM ONE (10:55)
[2020-04-03] MEDS ORDERED: WATER FOR INJ,STERILE 10 ML ONE (10:56)
[2020-04-03] MEDS: ZIPRASIDONE MESYLA 20 MG/VIAL IM PRN (10:59)
[2020-04-03] MEDS: WATER FOR INJ,STERILE 10 ML IM PRN (11:00)
--- NOTE | 2020-04-03 12:33 | RAD REPORT ---
EXAM DESCRIPTION: RAD - Chest Single View - 04/03/2020 12:22 pm CLINICAL HISTORY: COPD Chest pain. COMPARISON: Chest Single View dated 04/01/2020; Chest Single View dated 02/11/2020; Chest Pa And Lat (2 Views) dated 08/07/2019; Chest Pa And Lat (2 Views) dated 10/26/2018 FINDINGS: Portable technique limits examination quality. The lungs are grossly clear. The heart is normal in size. No displaced fractures. IMPRESSION: No acute intrathoracic process suspected.
[2020-04-03] MEDS ORDERED: METOPROLOL TARTRATE 5 MG/5 ML INJ IV ONE ×3 (14:46→23:08)
--- NOTE | 2020-04-03 16:06 | PN ---
Date of Progress Note: 04/03/2020 Subjective: The patient was admitted with altered mental status, acute kidney injury, severe acidosis secondary to rhabdo and renal failure. Patient was started on aggressive hydration. Her kidney function has been improved. Creatinine down to 1.6 from 3.5. Had acidosis, being on bicarb drip, started trending down, bicarb currently 22. Patient was started on TPN yesterday. Her electrolyte supplement has been improved. The patient failed swallow eval. Physical Examination: Vital Signs: Blood pressure 122/64, pulse of 105, afebrile. Chest: Clear to auscultation. Heart: S1, S2. Systolic murmur. Abdomen: Soft, nontender. Extremities: Trace edema. Neuro: More awake today. Follows simple command. Oriented to person. Moving 4 extremities without any focality. On the extremity, she used to have cyanosis on both feet, has been improve currently. Patient had urine output of 1000. The patient is positive of 3700. Laboratory Data: WBC 15.7, H and H 10.5/33. Sodium 144, potassium 3.3, bicarb 22, BUN 37, creatinine down 1.6, GFR of 30, blood sugar 324 down to 214, calcium 6.9, phosphorous 1.7, magnesium 2.1, albumin 1.3, corrected calcium is 8.9. ABG; pH 7.5, CO2 19, O2 119, base access -7. Current Medications: The patient on include Zosyn, vancomycin, Lovenox, fentanyl, bicarb drip, Pepcid, hydrocodone, potassium phosphate, and TPN. Assessment And Plan: 1. Acute kidney injury, multifactorial, secondary to prerenal, superimposed with severe hypokalemia and hypercalcemia. Differential was secondary to diuresis. 2. Rhabdomyolysis, on the recovery phase, looked to me close to normal volume. I am going to go ahead and get a chest x-ray for better evaluation of the fluid status and we will continue hydration using the TPN. 3. Acidosis, triple acid-base disorder, has anion gap metabolic acidosis/non- anion gap metabolic acidosis/contraction alkalosis. I am going to go ahead and continue the patient with IV fluid. I do not see the need for the bicarb drip for the time being. 4. Hypoglycemia, resolved. We will adjust the TPN. 5. Hypokalemia, hypophosphatemia. We will supplement. We will adjust the TPN. 6. Hypomagnesemia, resolved. Continue current dose on the TPN. 7. Failure to thrive, failure of swallow eval. Continue TPN. We will arrange for further PT, OT. 8. Urinary tract infection with metabolic encephalopathy. Continue current antibiotic. Culture growing Klebsiella pneumoniae and E. coli. We will continue current antibiotic. 9. Bacteremia secondary to Methicillin-resistant Staphylococcus aureus. I going to go ahead and get echocardiogram for better evaluation. Continue vancomycin, giving the vanc trough. I will adjust her Vancomycin. 10. Deconditioning. Continue PT OT. We will consider LTAC. 11. Case was discussed with Dr. Avila, agreed on the plan. Discussed with the staff. Verbalized understanding. We will follow up. time spend to coordinate the care , speaking with other Physician and team staff , face to face with the patient and placing order 35 min BARRIE Voice ID: [id number] Report ID: [id number] JACK
--- NOTE | 2020-04-03 16:47 | RAD REPORT ---
EXAM DESCRIPTION: MRI - Brain Wo Cont - 04/03/2020 4:33 pm CLINICAL HISTORY: altered mental status COMPARISON: Brain Wo Cont dated 02/12/2020 TECHNIQUE: Sagittal T1-weighted images were obtained along with axial PD, heavily T2-weighted and T2 -FLAIR images. Axial DWI and ADC mapping sequences were also obtained along with coronal heavily T2-w eighted images. FINDINGS: Exam has extensive motion degradation limitations. Multiple sequences were repeated. Exam is considered diagnostic in quality. No intracranial hemorrhage, mass or acute infarction. There is no edema or shift of midline structure s. No extra-axial fluid collections. Scott-matter/white matter junction is preserved. Signal voids are seen as a normal finding in the major intracranial vessels. Atrophy and chronic ischemic changes are present. Ventricles are in proportion to the amount of volume loss. Brainstem, thalamus and basal ga nglia tissues do appear to be spared any significant degree of chronic ischemic change. No gross globe or orbital content abnormality peer No acute mastoid air cell finding. There is probably some fluid in the left mastoid air cells. Fluid and mucosal thickening are present in the left maxillary sinus. IMPRESSION: Motion degraded study showing atrophy and chronic ischemic change. No acute intracranial finding. Left-side maxillary sinusitis with probable fluid in the left side mastoid air cells.
[2020-04-03] MEDS ORDERED: DEXTROSE 50% IV SCH ×11 (17:00)
[2020-04-03] MEDS ORDERED: [UNRECOGNIZED DRUG - OTHER] IV SCH ×11 (17:00)
[2020-04-03] MEDS ORDERED: LIPIDS IV SCH ×11 (17:00)
[2020-04-03] MEDS ORDERED: AMINO ACIDS 10% IV SCH ×11 (17:00)
[2020-04-03] MEDS ORDERED: WATER IV SCH ×11 (17:00)
[2020-04-03] MEDS: FAMOTIDINE 20 MG TAB PO SCH (21:00)
--- NOTE | 2020-04-03 21:20 | P.PN ---
Subjective Date of Service: 04/03/20 Chief Complaint: CONFUSED, WEAK. Subjective: Improving SHE DOES NOT RESPOND TO VERBAL COMMAND. SHE IS AWAKE, DISORIENTED, YELLING, THRASHING. SOMEWHAT MORE AWAKE AND RESPONSIVE TO COMMAND. Review of Systems 10-point ROS is otherwise unremarkable General: Weakness, Malaise Musculoskeletal: As per HPI Neurological: As per HPI Physical Examination - Vital Signs Temperature: 97.8 F Blood Pressure: 121/72 Pulse: 104 Respirations: 23 Pulse Ox (%): 100 - Physical Exam General: Moderate distress, Obese HEENT: Atraumatic, PERRLA, EOMI Neck: Supple, JVD not distended Respiratory: Clear to auscultation bilaterally, Normal air movement Cardiovascular: Regular rate/rhythm, Normal S1 S2 Gastrointestinal: Normal bowel sounds, No tenderness Musculoskeletal: No tenderness Integumentary: No rashes Neurological: Abnormal strength Lymphatics: No axilla or inguinal lymphadenopathy - Studies Laboratory Data (last 24 hrs) 04/03/20 04:14: Sodium 144, Potassium 3.3 L, BUN 37 H, Creatinine 1.67 H D, Glucose 324 H, Phosphorus 1.7 L, Magnesium 2.1 Microbiology Data (last 24 hrs): 03/31/20 22:55 Catheterized Urine [place] Count - Final >100,000 CFU/ML. 03/31/20 22:55 Catheterized Urine - Final Klebsiella Pneumoniae Escherichia Coli Medications List Reviewed: Yes Assessment And Plan - Current Problems (Diagnosis) (1) Sepsis Current Visit: Yes Status: Acute Plan: POSSIBLE MRSA. CONTINUE VANCOMYCIN AND ZOSYN. IV FLUIDS WITH BICARB. CONTINUE ABX. PROGNOSIS POOR. EVEN WITH ALL POSSIBLE THERAPY I SEE NO CLINICAL IMRPOVEMENT. SHE SEEMS TO HAVE IMPROVD SOMEWHAT. FEET ARE NOT COLD ANY LONGER. SHE IS MORE RESPONSIVE. RESUME TPN, IV ABX AGREE WITH LTAC. Qualifiers: Sepsis type: methicillin resistant Staphylococcus aureus (2) Pneumonia Current Visit: Yes Status: Acute Plan: CHEST X RAY IV ABX. DAILY LAB. PROGNOSIS IS POOR. SHE SHOULD NOT BE AT HOME. SHE SHOULD BE IN NH. IS NOT ABLE TO TAKE CARE OF HER. Qualifiers: Lung location: unspecified part of lung (3) Drug dependence Current Visit: Yes Status: Chronic Plan: NOT MUCH WE CAN DO WHAT I DID AND ADVISED WAS NOT FOLLOWED BY BOTH AND WHO GO TO PAIN DOCTOR. (4) Acute on chronic renal failure Current Visit: Yes Status: Acute Plan: IV FLUIDS. DAILY LAB. IMPROVING ALREADY. K REPLACED HCO3 REPLACED. (5) Metabolic encephalopathy Current Visit: Yes Status: Acute Plan: PROGNOSIS POOR. EVEN WITH ALL POSSIBLE THERAPY I SEE NO CLINICAL IMRPOVEMENT LOW ALBUMIN, HIGH WBC, ACUTE RENAL FAILURE, POS BLOOD CULTURE FROM [facility], RHABDOMYOLISIS, BED BOUND STATUS, NARCOTIC DEPENDENCY ARE THE POOR PROGNOSTIC FACTORS. IS AWARE. I CALLED HIM A FEW TIMES. HE HAS MADE HER DNR.
[2020-04-04] MEDS: INSULIN -REGULAR HUMAN 50 UNIT/0.5 ML ML SQ SCH ×5 (00:09→23:51)
[2020-04-04] MEDS: PIPER/TAZO/NS 2.25gm 2.25 GM/50 ML BAG IVPB SCH (00:10)
[2020-04-04] MEDS: METOPROLOL TARTRATE 5 MG/5 ML INJ IV SCH ×4 (02:57→20:50)
[2020-04-04] MEDS: WATER FOR INJ,STERILE 10 ML IM PRN ×2 (02:58→22:47)
[2020-04-04] MEDS: ZIPRASIDONE MESYLA 20 MG/VIAL IM PRN ×3 (02:58→22:47)
[2020-04-04] MEDS ORDERED: ZIPRASIDONE MESYLA 20 MG/VIAL IM ONE ×3 (02:59→22:36)
[2020-04-04] MEDS ORDERED: WATER FOR INJ,STERILE 10 ML ONE ×3 (02:59→22:36)
[2020-04-04 04:41] LABS: Albumin 1.2 g/dL (3.4-5.0); Phosphorus 2.1 mg/dL (2.5-4.9); Potassium 3.6 mmol/L (3.5-5.1)
[2020-04-04 04:48] LABS: Absolute Lymphocytes (CBC) 1.2 K/uL (0.7-4.9); Basophils % 0.2 % (0-1.3); Hematocrit 27.9 % (36.0-45.0); Lymphocytes % 15.8 % (15.3-44.8); MPV 10.4 fL (7.6-11.3); RBC Red Blood Cell Count 2.69 M/uL (3.86-4.86)
[2020-04-04] MEDS ORDERED: KCL 20 MEQ/100 mL IVPB 40 MEQ/200 ML BAG IV ONE (06:02)
[2020-04-04] MEDS: KCL 20 MEQ/100 mL IVPB 20 MEQ/100 ML BAG IV SCH ×2 (06:10→08:20)
[2020-04-04] MEDS: CEFTRIAXONE/SWI 1gm 1 GM/10 ML SYR IVP SCH (08:57)
[2020-04-04] MEDS: ENOXAPARIN 30 MG/0.3 ML SQ SCH (08:58)
[2020-04-04] MEDS ORDERED: METOPROLOL TARTRATE 5 MG/5 ML INJ IV ONE ×3 (09:05→21:01)
[2020-04-04] MEDS ORDERED: ENOXAPARIN 30 MG/0.3 ML SQ ONE (09:05)
[2020-04-04] MEDS ORDERED: CEFTRIAXONE/SWI 1gm 1 GM/10 ML SYR ONE (09:06)
[2020-04-04] MEDS ORDERED: D5W 500 ML IV SCH (10:00)
[2020-04-04] MEDS: FENTANYL 50 MCG/PATCH TD PRN (10:56)
--- NOTE | 2020-04-04 11:14 | P.PN ---
Subjective Date of Service: 04/04/20 Chief Complaint: CONFUSED, WEAK. Subjective Pt was found on the floor , had UMA , acidosis and MRSA bacteremia , poor oral intake , started on TPN Today No overnight events High sodium , will increase D5w content of TPN MRSA , cont vanco , monitor level pending LTAC acceptance Physical exam general: lethargic , obese Neck; Supple, No elevated JVD hear: RRR, normal S1,2 no murmur or rub Chest: CTAB, no rlaes or wheezes Abdomen: Soft , Nt Extremities No edema or ulcer Assessment And Plan UMA due to prerenal azotemia resolved cont TPN hyernatremia will increase TPN free water content HAGMA due to UMA resolved MRSA bacteremia cont vancomycin monitor level Hypokalemia, hypophosphatemia. We will supplement. We will adjust the TPN. Deconditioning. Continue PT OT. We will consider LTAC. Physical Examination - Vital Signs Temperature: 98.5 F Blood Pressure: 129/65 Pulse: 101 Respirations: 20 Pulse Ox (%): 99 - Studies Laboratory Data (last 24 hrs) 04/04/20 04:20: WBC 7.8 D, Hgb 9.3 L, Hct 27.9 L D, Plt Count 100 L D 04/04/20 04:20: Sodium 148 H, Potassium 3.6, BUN 28 H, Creatinine 1.01, Glucose 271 H, Phosphorus 2.1 L, Magnesium 2.0 Microbiology Data (last 24 hrs): 03/31/20 22:55 Catheterized Urine [place] Count - Final >100,000 CFU/ML. 03/31/20 22:55 Catheterized Urine - Final Klebsiella Pneumoniae Escherichia Coli Medications List Reviewed: Yes
--- NOTE | 2020-04-04 15:08 | RAD REPORT ---
EXAM DESCRIPTION: CT - Chest For Pe Angio - 04/04/2020 2:51 pm CLINICAL HISTORY: Chest pain COMPARISON: 2013 TECHNIQUE: Dynamically enhanced axial 3 mm thick images of the chest were obtained during administra tion of <100> mL Isovue 370 IV contrast. Coronal and oblique reconstruction images were generated and reviewed. Exam utilizes a protocol for optimal evaluation of pulmonary arterial tree. Maximum intensity projections 3D imaging was utilized All CT scans are performed using dose optimization technique as appropriate and may include automated exposure control or mA/KV adjustment according to patient size. FINDINGS: A pulmonary embolus is not seen. A thoracic aortic aneurysm is not noted. Small pleural effusions bilaterally. A pericardial effusion is not seen. Moderate to marked right and moderate left ground-glass opacities within the lungs IMPRESSION: Negative for a pulmonary embolism. Moderate to marked right and moderate left ground-glass opacities within the lungs may indicate pulmo nary edema or viral pneumonia
--- NOTE | 2020-04-04 15:13 | RAD REPORT ---
EXAM DESCRIPTION: CT - Abdomen Pelvis W Contrast - 04/04/2020 2:51 pm CLINICAL HISTORY: Abdominal pain COMPARISON: 2006 TECHNIQUE: Computed axial tomography of the abdomen pelvis was obtained. 100 cc Isovue-300 was admin istered intravenously. Oral contrast was not requested which limits evaluation of bowel. All CT scans are performed using dose optimization technique as appropriate and may include automated exposure control or mA/KV adjustment according to patient size. FINDINGS: The liver, spleen, pancreas, adrenal and kidneys appear unremarkable. Diverticula stem from colon without evidence of diverticulitis. Catheter is present bladder. Diffuse edema subcutaneous tissues. IMPRESSION: Diffuse edema within the subcutaneous tissues.
[2020-04-04] MEDS ORDERED: MORPHINE 2 MG/ML SYR IV ONE (17:20)
[2020-04-04] MEDS ORDERED: MORPHINE 2 MG/ML SYR ONE (17:22)
[2020-04-04] MEDS: WATER IV SCH ×11 (17:43)
[2020-04-04] MEDS: LIPIDS IV SCH ×11 (17:43)
[2020-04-04] MEDS: AMINO ACIDS 10% IV SCH ×11 (17:43)
[2020-04-04] MEDS: DEXTROSE 50% IV SCH ×11 (17:43)
[2020-04-04] MEDS: [UNRECOGNIZED DRUG - OTHER] IV SCH ×11 (17:43)
--- NOTE | 2020-04-04 18:34 | PN ---
Subjective: Ms. Marroquin is doing better, but still she is totally disoriented, not able to communica te, does not follow any commands for any physical moments. She is awake, constantly babbling. When asked, she says she is not in pain. Objective: Vital Signs: Her blood pressure 129/65, pulse is 101, temperature 98.5. HEENT: No JVD. Neck: No carotid bruits. General: She generally weak, obese lady who is pale and edematous. Chest: Clear. Heart: Regular. Neurological: As described above. Awake but not oriented, not able to follow commands easily. I marcano ve asked her to lift her legs to move her. Holds my hands, recognizes me. None of this had a respon se of any kind. Abdomen: Soft. No guarding, no rebound, no rigidity. Laboratory Data: White count down to 7800, hemoglobin 9.3, hematocrit 27, MCV of 103, platelets are 100,000. Sodium 148, potassium 3.6, chloride 113, bicarb 27, BUN 28, creatinine 1.01, which is down from 2.7, glucose 271. This is on TPN. Phosphorus 2.1. Magnesium is up to 2.0. Albumin is low at 1.2. She is growing E. coli and Klebsiella from the urine and has MRSA in the blood. Assessment/plan: 1.MRSA pneumonia with leading to sepsis. Continue vancomycin. 2.Escherichia coli and Klebsiella urinary tract infection. 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 Discontinue Zosyn, cutting down the load of antibiotics. 3.Altered mental status, encephalopathy. Possible metabolic encephalopathy. Unable to guess how mu ch she is going to recover out of it. I do not see any need of spinal tap. I do not see any nuchal rigidity. The patient's family and have been aware. He understands that if she recovers, eric should be going to assisted. She has been accepted to go to [facility] today. If she go es to [place] to convert this note to discharge summary and if she stays here overnight, I will be di ctating another note tomorrow. Her prognosis remains overall poor. Her kidney function is improved back to normal. Her potassium, magnesium, phosphorus have improved back to normal with protocols. She has been fed by TPN, currentl y not able to swallow or follow commands to swallow food safely. She needs a barium swallow test, bu t she will not be able to do it with lack of ability to follow commands. Prognosis remains overall p oor. RADHA/ANT Voice ID: [id number] Report ID: [id number]
[2020-04-04] MEDS: FAMOTIDINE 20 MG TAB PO SCH (20:50)
[2020-04-04] MEDS: VANCOMYCIN/NS 1 gm 1 GM/250 ML BAG IVPB SCH ×2 (23:11)
[2020-04-05] MEDS ORDERED: INSULIN -REGULAR HUMAN 50 UNIT/0.5 ML ML ONE (00:02)
[2020-04-05] MEDS ORDERED: METOPROLOL TARTRATE 5 MG/5 ML INJ IV ONE (02:02)
[2020-04-05] MEDS: METOPROLOL TARTRATE 5 MG/5 ML INJ IV SCH ×5 (02:07→23:20)
[2020-04-05 02:08] LABS: Hepatitis C Virus RNA (PCR)log <1.18 log IU/mL
[2020-04-05 06:09] LABS: Absolute Lymphocytes (CBC) 1.6 K/uL (0.7-4.9); Basophils % 0.2 % (0-1.3); Hematocrit 28.6 % (36.0-45.0); Lymphocytes % 14.6 % (15.3-44.8); MPV 10.8 fL (7.6-11.3); RBC Red Blood Cell Count 2.74 M/uL (3.86-4.86)
[2020-04-05 06:28] LABS: Albumin 1.4 g/dL (3.4-5.0); Magnesium 2.1 mg/dL (1.8-2.4); Phosphorus 1.6 mg/dL (2.5-4.9); Potassium 4.6 mmol/L (3.5-5.1)
[2020-04-05] MEDS: INSULIN -REGULAR HUMAN 50 UNIT/0.5 ML ML SQ SCH ×3 (06:44→18:29)
[2020-04-05] MEDS: CEFTRIAXONE/SWI 1gm 1 GM/10 ML SYR IVP SCH (08:08)
[2020-04-05] MEDS: HALOPERIDOL LACT 5 MG/ML INJ IV PRN ×4 (08:22→22:35)
[2020-04-05] MEDS: ENOXAPARIN 30 MG/0.3 ML SQ SCH (08:25)
[2020-04-05] MEDS ORDERED: POTASSIUM PHOS IN 0.9 % NACL 15 MMOL/250 ML BAG IV ONE (09:00)
--- NOTE | 2020-04-05 11:54 | P.PN ---
Subjective Date of Service: 04/05/20 Chief Complaint: CONFUSED, AGITATED. Subjective: No new changes SHE DOES NOT RESPOND TO VERBAL COMMAND. SHE IS AWAKE, DISORIENTED, YELLING, THRASHING. SOMEWHAT MORE AWAKE AND RESPONSIVE TO COMMAND. PATIENT DOES NOT SEEM TO IMPROVE IN HER MENTATION. SHE IS NOT FOLLOWING COMMANDS. SHE TURNS HER HEAD WHEN YOU YELL HER NAME. Review of Systems is unable to be obtained Physical Examination - Vital Signs Temperature: 97.2 F Blood Pressure: 106/67 Pulse: 100 Respirations: 20 Pulse Ox (%): 97 - Physical Exam General: Moderate distress, Obese HEENT: Atraumatic, PERRLA, EOMI Neck: Supple, JVD not distended Respiratory: Clear to auscultation bilaterally, Normal air movement Cardiovascular: Regular rate/rhythm, Normal S1 S2 Gastrointestinal: Normal bowel sounds, No tenderness Musculoskeletal: No tenderness Integumentary: No rashes Neurological: Other (CONSTANT NOISE SHE MAKES. SHE DOES NOT SEEM TO BE IN PAIN. GEODON DID NOT WORK. SHE IS AWAKE BUT NOT FOLLOWING COMMANDS.) Lymphatics: No axilla or inguinal lymphadenopathy - Studies Laboratory Data (last 24 hrs) 04/05/20 05:30: WBC 11.2 H D, Hgb 9.4 L, Hct 28.6 L, Plt Count 113 L 04/05/20 05:30: Sodium 148 H, Potassium 4.6, BUN 28 H, Creatinine 0.89, Glucose 336 H, Phosphorus 1.6 L, Magnesium 2.1 Microbiology Data (last 24 hrs): 03/31/20 21:00 Blood - Blood Aerobic Blood Culture - Final Meth Resistant Staph Aureus 03/31/20 21:00 Blood - Blood Blood Culture Gram Stain - Final Medications List Reviewed: Yes Assessment And Plan - Current Problems (Diagnosis) (1) Sepsis Current Visit: Yes Status: Acute Plan: POSSIBLE MRSA. CONTINUE VANCOMYCIN AND ZOSYN. IV FLUIDS WITH BICARB. CONTINUE ABX. PROGNOSIS POOR. EVEN WITH ALL POSSIBLE THERAPY I SEE NO CLINICAL IMRPOVEMENT. SHE SEEMS TO HAVE IMPROVD SOMEWHAT. FEET ARE NOT COLD ANY LONGER. SHE IS MORE RESPONSIVE. RESUME TPN, IV ABX AGREE WITH LTAC. Qualifiers: Sepsis type: methicillin resistant Staphylococcus aureus (2) Pneumonia Current Visit: Yes Status: Acute Plan: CHEST X RAY IV ABX. DAILY LAB. PROGNOSIS IS POOR. SHE SHOULD NOT BE AT HOME. SHE SHOULD BE IN NH. IS NOT ABLE TO TAKE CARE OF HER. Qualifiers: Lung location: lower lobe of lung (3) Drug dependence Current Visit: Yes Status: Chronic Plan: NOT MUCH WE CAN DO WHAT I DID AND ADVISED WAS NOT FOLLOWED BY BOTH AND WHO GO TO PAIN DOCTOR. (4) Acute on chronic renal failure Current Visit: Yes Status: Acute Plan: IV FLUIDS. DAILY LAB. IMPROVING ALREADY. K REPLACED HCO3 REPLACED. RECOVERED DOWN TO 0.89 ON CREAT NOW. (5) Metabolic encephalopathy Current Visit: Yes Status: Acute Plan: PROGNOSIS POOR. EVEN WITH ALL POSSIBLE THERAPY I SEE NO CLINICAL IMRPOVEMENT LOW ALBUMIN, HIGH WBC, ACUTE RENAL FAILURE, POS BLOOD CULTURE FROM [facility], RHABDOMYOLISIS, BED BOUND STATUS, NARCOTIC DEPENDENCY ARE THE POOR PROGNOSTIC FACTORS. IS AWARE. I CALLED HIM A FEW TIMES. HE HAS MADE HER DNR. NOT CLEAR WHY SHE HAS SUCH A NON VERBAL MENTAL STATUS. MRI NEG FOR STROKE. WE HAVE NOT DONE SPINAL TAP. DOES NOT WANT ANY INVASIVE MEASURES.
--- NOTE | 2020-04-05 14:26 | RAD REPORT ---
EXAM DESCRIPTION: Chest Single View ADDENDUM #1 Prior exam dated 04/03/2020 provided for comparison. Bilateral airspace infiltrates have significantly progressed since the prior exam. Electronically signed by: Susie Gee MD 04/04/2020 11:09 PM CDT End of Addendum EXAM DESCRIPTION: XR Chest Single View CLINICAL HISTORY: 74 years Female PICC line placement TECHNIQUE: One view of the chest. COMPARISON: Report from the prior day's exam. Images not provided. FINDINGS: There is a left-sided PICC line in place with its tip projecting over the SVC. There are patchy airspace infiltrates throughout both lungs with confluent airspace infiltrates in th e right upper/mid lung. No pleural effusion or pneumothorax. Normal cardiomediastinal silhouette. No acute osseous lesion. IMPRESSION: PICC line in good position. Extensive bilateral pulmonary opacities. Differential diagnosis includes viral infections. Electronically signed by: Susie Gee MD 04/04/2020 10:01 PM CDT Due to temporary technical issues with the PACS/Fluency reporting system, reports are being signed by the in house radiologist without review as a courtesy to ensure prompt reporting. The interpreting r adiologist is fully responsible for the content of the report.
[2020-04-05] MEDS ORDERED: D50W 25 GM/50 ML SYRINGE/VIAL IV PRN (15:41)
[2020-04-05] MEDS ORDERED: GLUCAGON 1 MG/VIAL IM PRN (15:41)
--- NOTE | 2020-04-05 15:44 | P.PN ---
Subjective Date of Service: 04/05/20 Chief Complaint: CONFUSED, AGITATED. Subjective Pt was found on the floor , had UMA , acidosis and MRSA bacteremia , poor oral intake , started on TPN Today No change in clinical status , still screaming , started on halodol MRSA , cont vanco , monitor level will give D5 bolus Phos replaced will start on lantus pending LTAC bed availability Physical exam general: lethargic , obese Neck; Supple, No elevated JVD hear: RRR, normal S1,2 no murmur or rub Chest: CTAB, no rlaes or wheezes Abdomen: Soft , Nt Extremities No edema or ulcer Assessment And Plan UMA due to prerenal azotemia resolved cont TPN hyernatremia cont TPN at current rate HAGMA due to UMA resolved MRSA bacteremia cont vancomycin monitor level Hypokalemia, hypophosphatemia. We will supplement. Deconditioning. PT OT when mentally stable Physical Examination - Vital Signs Temperature: 97.5 F Blood Pressure: 104/59 Pulse: 109 Respirations: 23 Pulse Ox (%): 100 - Studies Laboratory Data (last 24 hrs) 04/05/20 05:30: WBC 11.2 H D, Hgb 9.4 L, Hct 28.6 L, Plt Count 113 L 04/05/20 05:30: Sodium 148 H, Potassium 4.6, BUN 28 H, Creatinine 0.89, Glucose 336 H, Phosphorus 1.6 L, Magnesium 2.1 Microbiology Data (last 24 hrs): 03/31/20 21:00 Blood - Blood Aerobic Blood Culture - Final Meth Resistant Staph Aureus 03/31/20 21:00 Blood - Blood Blood Culture Gram Stain - Final Medications List Reviewed: Yes
[2020-04-05] MEDS ORDERED: D5W 500 ML IV SCH (16:00)
[2020-04-05] MEDS: WATER IV SCH ×11 (16:31)
[2020-04-05] MEDS: [UNRECOGNIZED DRUG - OTHER] IV SCH ×11 (16:31)
[2020-04-05] MEDS: AMINO ACIDS 10% IV SCH ×11 (16:31)
[2020-04-05] MEDS: DEXTROSE 50% IV SCH ×11 (16:31)
[2020-04-05] MEDS: LIPIDS IV SCH ×11 (16:31)
[2020-04-05] MEDS ORDERED: METOPROLOL TARTRATE 5 MG/5 ML INJ IV STA (18:06)
[2020-04-05] MEDS: FAMOTIDINE 20 MG TAB PO SCH (21:00)
[2020-04-05] MEDS ORDERED: INSULIN GLARGINE 100 UNITS/ML SQ SCH (21:00)
[2020-04-06] MEDS ORDERED: VANCOMYCIN IVPB SCH ×2
[2020-04-06] MEDS ORDERED: NA CHLORIDE 0.9% IVPB SCH ×2
[2020-04-06] MEDS: INSULIN -REGULAR HUMAN 50 UNIT/0.5 ML ML SQ SCH ×3 (00:33→12:51)
[2020-04-06] MEDS: HALOPERIDOL LACT 5 MG/ML INJ IV PRN ×2 (02:23→08:53)
[2020-04-06] MEDS: METOPROLOL TARTRATE 5 MG/5 ML INJ IV SCH ×2 (05:14→11:00)
[2020-04-06 05:44] LABS: Absolute Lymphocytes (CBC) 2.4 K/uL (0.7-4.9); Basophils % 0.1 % (0-1.3); Hematocrit 25.2 % (36.0-45.0); Lymphocytes % 15.7 % (15.3-44.8); MPV 11.4 fL (7.6-11.3); RBC Red Blood Cell Count 2.36 M/uL (3.86-4.86)
[2020-04-06 05:53] LABS: Albumin 1.4 g/dL (3.4-5.0); Magnesium 1.9 mg/dL (1.8-2.4); Phosphorus 1.9 mg/dL (2.5-4.9); Potassium 4.5 mmol/L (3.5-5.1)
[2020-04-06 06:27] LABS: Albumin, (SPE) 1.8 g/dL (3.8-4.8); Alpha-1-Globulins 0.4 g/dL (0.2-0.3); Alpha-2-Globulins 0.6 g/dL (0.5-0.9); Gamma Globulins 1.2 g/dL (0.8-1.7); INTERPRETATION REPORT
[2020-04-06 07:08] LABS: Anisocytosis 1+; Blood Morphology Comment NOTED (NOT SEEN); Macrocytosis 1+; Platelet Estimate ADEQ; Polychromasia SLIGHT
[2020-04-06] MEDS ORDERED: POTASSIUM PHOS IN 0.9 % NACL 15 MMOL/250 ML BAG IV ONE (08:00)
[2020-04-06 08:37] VITALS: O2SAT 99
[2020-04-06 08:38] VITALS: TEMP 97.7
[2020-04-06] MEDS: CEFTRIAXONE/SWI 1gm 1 GM/10 ML SYR IVP SCH (08:52)
[2020-04-06] MEDS: ENOXAPARIN 30 MG/0.3 ML SQ SCH (08:53)
[2020-04-06] MEDS ORDERED: NOREPINEPHRINE 4 MG in D5W 250 ML IV PRN (11:40)
[2020-04-06 11:50] VITALS: BP 66/48
[2020-04-06] MEDS ORDERED: NA CHLORIDE 0.9% 1,000 ML ONE (11:50)
--- NOTE | 2020-04-06 12:07 | P.PN ---
Subjective Date of Service: 04/06/20 Chief Complaint: CONFUSED, AGITATED. Subjective Pt was found on the floor , had UMA , acidosis and MRSA bacteremia , poor oral intake , started on TPN Today Pt had hypoxia with hypotension agreed for comfort care Physical exam general: lethargic , obese Neck; Supple, No elevated JVD hear: RRR, normal S1,2 no murmur or rub Chest: CTAB, no rlaes or wheezes Abdomen: Soft , Nt Extremities No edema or ulcer Assessment And Plan UMA due to prerenal azotemia resolved hyernatremia will change TPN to sodium free HAGMA due to UMA resolved MRSA bacteremia cont vancomycin monitor level Deconditioning. PT OT when mentally stable overall poor prognosis agreed for comfort care Physical Examination - Vital Signs Temperature: 97.7 F Blood Pressure: 66/48 Pulse: 111 Respirations: 18 Pulse Ox (%): 98 - Studies Laboratory Data (last 24 hrs) 04/06/20 05:00: WBC 15.0 H D, Hgb 8.1 L, Hct 25.2 L, Plt Count 113 L 04/06/20 05:00: Sodium 149 H, Potassium 4.5, BUN 31 H, Creatinine 0.95, Glucose 305 H, Phosphorus 1.9 L, Magnesium 1.9 Microbiology Data (last 24 hrs): 03/31/20 21:00 Blood - Blood Aerobic Blood Culture - Final Meth Resistant Staph Aureus 03/31/20 21:00 Blood - Blood Blood Culture Gram Stain - Final 03/31/20 21:00 Blood - Blood Anaerobic Blood Culture - Final No growth in 5 days. Medications List Reviewed: Yes
--- NOTE | 2020-04-06 16:14 | P.DS ---
Admission Date: 03/31/20 Discharge Date: 04/06/20 Disposition: Reason for Admission: CONFUSED, AGITATED. - Problems (1) Sepsis Status: Acute Qualifiers: Sepsis type: methicillin resistant Staphylococcus aureus (2) Pneumonia Status: Acute Qualifiers: Lung location: lower lobe of lung (3) Drug dependence Status: Chronic (4) Acute on chronic renal failure Status: Acute (5) Metabolic encephalopathy Status: Acute Brief History of Present Illness: MS. CASTORENA WHO WAS IN HOSPITAL REHAB FLOOR, DOING PT , DID WELL WITH PT, WASABLE TO WALK WITH WALKER. IN REHAB I TAPERED HER OFF NORCO AND ATIVAN FROM THE PAIN DOCTORS. SHE DID WELL WITHOUT THEM. SHE WAS ON TRAMADOL AND I NOTIFIED NOT TO PUT HER BACK ON ADDICTIVE DRUGS. SHE IS BACK ON IT. SHE FELL AT HOME WAS ON THE FLOOR FOR HOURS. COULD NOT PICK HER UP. HE CALLED HER SON AFTER HE CAME OFF WORK IN AM AND PICKED HER UP. ER AT [facility] CALLED ME AND TRANSFERRED HER HERE. SHE HAS ONE POSITIVE CULTURE FROM [facility]. I ADDED VANCOMYCIN TO ZOSYN. I CHANGED FLUIDS TO COVER METABOLIC ACIDOSIS. SHE HAS DEHYDRATION BUT CREATININE IS IMPROVING. Hospital Course: MRS. CASTORENA CAME WITH MULTIPLE MEDICAL ISSUES SEPTIC SHOCK WITH MRSA PNEUMONIA, E COLI AND KLEBSIELLA UTI, ACUTE RENAL FAILURE, METABOLIC ACIDOSIS, HYPOTENSION, HYPOALBUMINEMIA, HYPOKALEMIA, HYPOMAGNESEMIA, HYPOPHOPHATEMIA ETC. HER LAB IMPROVED BUT SHE NEVER DID. SHE REMAINED UNRESPONSIVE AND UNABLE TO FOLLOW VERBAL COMMAND SHE WAS AWAKE BUT TOTALLY NOT AWARE OF ANY OF SURROUNINGS. THIS IS NEW COMPARED TO HER BASELINE. FROM THE BEGINING I THOUGHT SHE WILL NOT SURVIVE BUT ALL DOCTORS GAVE A BEST EFFORD WITH IV ABX, ELECTROLYTE MANAGEMENT, PICC LINE TPN FEEDING. SHE WAS NOT ABLE TO EAT SHE WAS NOT CONSCIOUS ENOUGH TO EAT. I CALLED ROUTINELY AND ABOUT 4 DAYS AGO ASKED HIM TO CONSIDER DNR STATUS AND HE ALSO SAID HE DID NOT WANT G TUBE FEEDING. TODAYS SUDDENLY HER BP DROPPED. I CAME TO SEE HER AT [facility]. SHE HAD AGONAL BREATHING. I CALLED AND ASKED HIM TO COME TO [facility] SHE WAS GOING TO . SHE DID SO THIS AFTERNOON. PER WISH OF WE DID NOT PURSUE ANY ACLS PROTOCOL SHE IS TERMINAL IN MY OPINION. Vital Signs/Physical Exam: Temp Pulse Resp BP Pulse Ox 97.7 F 111 H 18 66/48 L 98 04/06/20 12:07 04/06/20 12:07 04/06/20 12:07 04/06/20 12:07 04/06/20 12:07 Laboratory Data at Discharge: WBC 15.0 K/uL (4.3-10.9) H D 04/06/20 05:00 Hgb 8.1 g/dL (12.0-15.0) L 04/06/20 05:00 Hct 25.2 % (36.0-45.0) L 04/06/20 05:00 Plt Count 113 K/uL (152-406) L 04/06/20 05:00 PT 21.0 SECONDS (9.5-12.5) H 03/31/20 21:00 INR 1.80 03/31/20 21:00 APTT 57.2 SECONDS (24.3-36.9) H 03/31/20 21:00 Sodium 149 mmol/L (136-145) H 04/06/20 05:00 Potassium 4.5 mmol/L (3.5-5.1) 04/06/20 05:00 BUN 31 mg/dL (7-18) H 04/06/20 05:00 Creatinine 0.95 mg/dL (0.55-1.3) 04/06/20 05:00 Glucose 305 mg/dL (74-106) H 04/06/20 05:00 Uric Acid 9.0 mg/dL (2.6-6.0) H 04/02/20 04:20 Phosphorus 1.9 mg/dL (2.5-4.9) L 04/06/20 05:00 Magnesium 1.9 mg/dL (1.8-2.4) 04/06/20 05:00 Total Bilirubin 1.0 mg/dL (0.2-1.0) 04/01/20 04:00 AST 59 U/L (15-37) H 04/01/20 04:00 ALT 48 U/L (12-78) 04/01/20 04:00 Alkaline Phosphatase 129 U/L (45-117) H 04/01/20 04:00 Amylase 6 U/L (25-115) L 03/31/20 21:00 Lipase 14 U/L (73-393) L 03/31/20 21:00 Home Medications: Apixaban [Eliquis *] 2.5 mg PO BID #60 tablet 02/29/20 Atorvastatin Calcium [Lipitor*] 10 mg PO BEDTIME #30 tab 02/29/20 Bupropion *Xl* [Wellbutrin XL*] 150 mg PO DAILY #30 tab 02/29/20 Cholecalciferol (Vitamin D3) [Vitamin D 5,000 IU Cap*] 5,000 unit PO DAILY #30 cap 02/29/20 Cranberry Fruit Extract 400 mg PO BID #120 cap 02/29/20 Escitalopram [Lexapro*] 20 mg PO DAILY #30 tab 02/29/20 Lidocaine 4% Patch [Lidoderm 5% Patch*] 1 patch TOP DAILY patch 02/29/20 Mag Hydroxide 8% [Milk Of Magnesia*] 15 ml PO DAILY PRN ucup 02/29/20 Melatonin [Melatonin*] 3 mg PO BEDTIME PRN PRN tablet 02/29/20 Metoprolol Tartrate [Lopressor*] 25 mg PO BID #60 tab 02/29/20 Martin/Bacit/Poly Oint [Neosporin Ointment*] 1 appl TOP BID #1 tube 02/29/20 Nystatin Powder [Mycostatin (Powder)*] 1 appl TOP BID #1 btl 02/29/20 PE-Ep/Mo/Slov/Pet [Formulation R*] 1 appl HI BID PRN #1 tube 02/29/20 Pantoprazole [Protonix Tab*] 40 mg PO BIDAC #60 tab 02/29/20 Sucralfate [Carafate*] 1 gm PO QID #120 tab 02/29/20 Zolpidem Tartrate [Ambien*] 10 mg PO BEDTIME #30 02/29/20 traMADol HCL [Ultram*] 50 mg PO Q6H PRN #60 tab 02/29/20
[2020-04-07 06:04] LABS: HBsAG Nonreactive (Nonreactive)
--- NOTE | 2020-04-08 09:18 | ECHO ---
HEIGHT: 5 ft 6 in WEIGHT: 184 lb 0 oz DATE OF STUDY: 04/04/[address]: Milad Avila MD 2-DIMENSIONAL: YES M.MODE: YES DOPPLER: YES COLOR FLOW: YES TDS: YES PORTABLE: NO DEFINITY: NO BUBBLE STUDY: NO DIAGNOSIS: MRSA, SEPSIS CARDIAC HISTORY: CATHERIZATION: SURGERY: PROSTHETIC VALVE: PACEMAKER: MEASUREMENTS (cm) DIASTOLIC (NORMALS) SYSTOLIC (NORMALS) IVSd 1.1 (0.6-1.2) LA Diam 3.3 (1.9-4.0) LVEF 40% LVIDd 4.0 (3.5-5.7) LVIDs 3.2 (2.0-3.5) %FS 19% LVPWd 1.3 (0.6-1.2) Ao Diam 2.6 (2.0-3.7) 2 DIMENSIONAL ASSESSMENT: RIGHT ATRIUM: NORMAL LEFT ATRIUM: NORMAL RIGHT VENTRICLE: NORMAL LEFT VENTRICLE: NORMAL TRICUSPID VALVE: NORMAL MITRAL VALVE: NORMAL PULMONIC VALVE: NORMAL AORTIC VALVE: NORMAL PERICARDIAL EFFUSION: NONE AORTIC ROOT: NORMAL LEFT VENTRICULAR WALL MOTION: MODERATE GLOBAL HYPOKINESIS. DOPPLER/COLOR FLOW: MILD TRICUSPID REGURGITATION. RIGHT VENTRICULAR SYSTOLIC PRESSURE 42 mmHg. COMMENTS: MODERATE GLOBAL HYPOKINESIS. LEFT VENTRICULAR EJECTION FRACTION 40%. MILD PULMONARY HYPERTENSION. TECHNOLOGIST: Rhett JOHNS
== END 2020-04-06 15:46 | disposition expired | DRG 871 ==
LOC: ERHOLD 18:31 → 2ND 04-05 03:00
PROVIDERS: ADMIT Internal Medicine; ATTEND Internal Medicine
PROC: 3E0336Z Introduction of Nutritional Substance into Peripheral Vein, Percutaneous Approach (ICD-10-PCS; principal; 2020-04-02)
PROC: 02HV33Z Insertion of Infusion Device into Superior Vena Cava, Percutaneous Approach (ICD-10-PCS; 2020-04-04)
DX: A41.02 Sepsis due to Methicillin resistant Staphylococcus aureus (principal); G93.41 Metabolic encephalopathy; E43 Unspecified severe protein-calorie malnutrition; J18.9 Pneumonia, unspecified organism; R65.21 Severe sepsis with septic shock; M62.82 Rhabdomyolysis; E87.2 Acidosis; N39.0 Urinary tract infection, site not specified; F11.20 Opioid dependence, uncomplicated; E87.0 Hyperosmolality and hypernatremia; N17.9 Acute kidney failure, unspecified; Z88.1 Allergy status to other antibiotic agents; E86.0 Dehydration; Z79.01 Long term (current) use of anticoagulants; Z79.899 Other long term (current) drug therapy; Z90.49 Acquired absence of other specified parts of digestive tract; Z98.84 Bariatric surgery status; Z68.29 Body mass index [BMI] 29.0-29.9, adult; E66.9 Obesity, unspecified; N18.9 Chronic kidney disease, unspecified; I12.9 Hypertensive chronic kidney disease with stage 1 through stage 4 chronic kidney disease, or unspecified chronic kidney disease; E11.22 Type 2 diabetes mellitus with diabetic chronic kidney disease; E87.6 Hypokalemia; I99.8 Other disorder of circulatory system; E11.649 Type 2 diabetes mellitus with hypoglycemia without coma; R62.7 Adult failure to thrive; E83.42 Hypomagnesemia; E83.39 Other disorders of phosphorus metabolism; E88.09 Other disorders of plasma-protein metabolism, not elsewhere classified; B96.20 Unspecified Escherichia coli [E. coli] as the cause of diseases classified elsewhere; B96.1 Klebsiella pneumoniae [K. pneumoniae] as the cause of diseases classified elsewhere; Z66 Do not resuscitate
CPT/HCPCS: 36415; 36569; 70551; 71045; 71275; 74177; 76770; 80048; 80053; 80069; 80076; 80202; 81003; 81015; 82150; 82533; 82550; 82607; 82728; 82746; 82805; 82947; 83036; 83520; 83540; 83605; 83690; 83735; 83970; 84132; 84165; 84439; 84443; 84466; 84550; 85025; 85044; 85379; 85610; 85730; 86021; 86038; 86160; 86225; 86317; 86430; 87040; 87077; 87086; 87088; 87186; 87205; 87340; 87522; 92610; 93005; 93306; 93925; 94660; J0610; J0696; J1170; J1630; J1650; J1815; J2270; J3370; J3475; J3480; J3486; J7030; J7050; J7060; J7120; J7131; J7799; Q9967